=== PATIENT | male | born 1940 | race Caucasian/White ===

== ENCOUNTER 2019-02-18 11:15 | Inpatient (IN) ==
--- NOTE | 2019-02-18 11:35 | CT Scan Report ---
CT head/brain wo con CLINICAL HISTORY: Stroke like symptoms COMPARISON STUDY: No previous studies for comparison. TECHNIQUE: Axial CT of the brain is performed from the vertex to the skull base. IV contrast was not administered for this examination. A dose lowering technique was utilized adhering to the principles of ALARA. CT DOSE: 2378.13 mGy.cm FINDINGS: No intra or extra-axial mass lesions are visualized. There is no CT evidence of acute cortical infarc tion. There is no evidence of midline shift. There is no acute hemorrhage. No calvarial fractures ar e visualized. There are patchy white matter hypodensities likely on a small vessel basis. There is no evidence of pathologic ventricular dilatation. There is no evidence of acute sinusitis. There is left frontal scalp edema. IMPRESSION: No acute intracranial findings Electronically signed by: Dash Weiss M.D. 02/18/2019 11:33 AM
[2019-02-18] MEDS ORDERED: OPTIRAY 320 125ml IV PRN (11:36)
[2019-02-18] MEDS ORDERED: MIDAZOLAM HCL 1 MG/ML 2ML VIAL ONE (11:37)
[2019-02-18] MEDS ORDERED: ALTEPLASE For Stroke IV STA (11:47)
[2019-02-18 11:51] LABS: Basophils # (auto) 0.02 K/uL (0-0.2); Basophils % (auto) 0.2 %; Eosinophils # (auto) 0.01 K/uL (0-0.5); Eosinophils % (auto) 0.1 %; Hematocrit (blood only) 35.3 % (42-52); Hemoglobin 12.2 g/dL (14.0-18.0); Immature Granulocytes # (auto) 0.03 K/uL (0.00-0.02); Immature Granulocytes % (auto) 0.2 %; Lymphocytes # (auto) 0.93 K/uL (1.2-3.4); Lymphocytes % (auto) 7.5 %; Mean Corpuscular Hgb Conc 34.6 g/dL (32-36); Mean Corpuscular Volume 95.4 fL (80-100); Mean Platelet Volume 9.2 fL (7.4-10.4); Monocytes # (auto) 0.92 K/uL (0.11-0.59); Monocytes % (auto) 7.4 %; Neutrophils # (auto) 10.45 K/uL (1.4-6.5); Neutrophils % (auto) 84.6 %; Platelet Count 223 K/uL (130-400); RDW Coefficient of Variation 13.2 % (11.5-14.5); RDW Standard Deviation 46.3 fL (36.4-46.3); White Blood Count 12.36 K/uL (4.8-10.8)
--- NOTE | 2019-02-18 11:52 | CT Scan Report ---
HEAD & NECK CTA HISTORY: Pt aphasia TECHNIQUE: Multiaxial CT images of the head were performed following the intravenous administration o f contrast to evaluate the major cerebral vessels. Multiaxial CT images of the neck were also perform ed following the intravenous administration of contrast to evaluate the major cervical vessels. Maxim um intensity projection images were also obtained. A dose lowering technique was utilized adhering to the principles of ALARA. COMPARISON: Head CT 02/18/2019. FINDINGS: A left frontal scalp swelling is again noted. There is an enhancing 7 mm extra-axial nodule within th e left planum sphenoidale. Therefore, this favors a meningioma. This is best seen on axial image 97. The major dural venous sinuses are widely patent. Mild calcified plaque within the bilateral carotid siphons. Visualized intracranial internal carotid arteries, distal vertebral arteries, and basilar ar kemar are widely patent. There is no significant stenosis, occlusion, or aneurysm seen within the bila teral ACAs, MCAs, or imagery intelligence. Motion artifact within the lower neck. This results in suboptimal evaluation of the proximal great v essels. However, these are likely patent. The right vertebral artery is slightly hypoplastic. The pro ximal right vertebral artery is nondiagnostic due to the motion artifact. Groundglass densities w ithin the left upper lobe posteriorly. This may represent atelectasis are inflammatory change. Mild c alcified plaque within the bilateral carotid bulbs. The bilateral proximal internal and common caroti d arteries are also partially obscured by motion artifact but likely patent. IMPRESSION: 1. No significant stenosis, occlusion, or aneurysm within the [place]. 2. Motion artifact results in suboptimal evaluation of the cervical vessels. However, no definite soraida nosis, occlusion, or dissection identified within the carotid or vertebral arteries. 3. Left frontal scalp swelling. 4. There is an enhancing 7 mm extra-axial nodule within the left planum sphenoidale. Therefore, this favors a meningioma. Electronically signed by: Michael Montana M.D. 02/18/2019 11:51 AM
--- NOTE | 2019-02-18 11:52 | CT Scan Report ---
HEAD & NECK CTA HISTORY: Pt aphasia TECHNIQUE: Multiaxial CT images of the head were performed following the intravenous administration o f contrast to evaluate the major cerebral vessels. Multiaxial CT images of the neck were also perform ed following the intravenous administration of contrast to evaluate the major cervical vessels. Maxim um intensity projection images were also obtained. A dose lowering technique was utilized adhering to the principles of ALARA. COMPARISON: Head CT 02/18/2019. FINDINGS: A left frontal scalp swelling is again noted. There is an enhancing 7 mm extra-axial nodule within th e left planum sphenoidale. Therefore, this favors a meningioma. This is best seen on axial image 97. The major dural venous sinuses are widely patent. Mild calcified plaque within the bilateral carotid siphons. Visualized intracranial internal carotid arteries, distal vertebral arteries, and basilar ar kemar are widely patent. There is no significant stenosis, occlusion, or aneurysm seen within the bila teral ACAs, MCAs, or residential mortgage underwriter. Motion artifact within the lower neck. This results in suboptimal evaluation of the proximal great v essels. However, these are likely patent. The right vertebral artery is slightly hypoplastic. The pro ximal right vertebral artery is nondiagnostic due to the motion artifact. Groundglass densities w ithin the left upper lobe posteriorly. This may represent atelectasis are inflammatory change. Mild c alcified plaque within the bilateral carotid bulbs. The bilateral proximal internal and common caroti d arteries are also partially obscured by motion artifact but likely patent. IMPRESSION: 1. No significant stenosis, occlusion, or aneurysm within the [place]. 2. Motion artifact results in suboptimal evaluation of the cervical vessels. However, no definite soraida nosis, occlusion, or dissection identified within the carotid or vertebral arteries. 3. Left frontal scalp swelling. 4. There is an enhancing 7 mm extra-axial nodule within the left planum sphenoidale. Therefore, this favors a meningioma. Electronically signed by: Michael Montana M.D. 02/18/2019 11:51 AM
[2019-02-18] MEDS ORDERED: ALTEPLASE, RECOMBINANT 51 MG in EMPTY BAG 0 ML IV ONE (12:00)
[2019-02-18] MEDS ORDERED: ALTEPLASE IV ONE (12:00)
[2019-02-18] MEDS ORDERED: RECOMBINANT IV ONE (12:00)
[2019-02-18 12:02] LABS: INR 1.1 (0.9-1.1); Partial Thromboplastin Ratio 0.9; Partial Thromboplastin Time 23.9 Seconds (21.0-31.0); Prothrombin Time 11.5 Seconds (9.0-12.0)
[2019-02-18] MEDS ORDERED: LABETALOL HCL IV 5 MG/ML 20ML IV STA (12:02)
[2019-02-18 12:07] LABS: iSTAT Creatinine 0.6 mg/dl (0.6-1.3); iSTAT Hemoglobin 13.3 g/dl (14.0-18.0); iSTAT Ionized Calcium 1.12 mmol/l (1.12-1.32); iSTAT Potassium 3.1 mEq/L (3.3-5.0)
[2019-02-18] MEDS ORDERED: LORazepam 1 MG/2 ML VIAL IV STA (12:09)
[2019-02-18 12:10] LABS: Alanine Aminotransferase 22 U/L (12-78); Albumin Level 3.4 gm/dl (3.4-5.0); Aspartate Aminotransferase 22 U/L (15-37); BUN Creatinine Ratio 9.5 (10-20); Blood Urea Nitrogen 8 mg/dl (7-18); Calcium 8.6 mg/dl (8.5-10.1); Carbon Dioxide 22 mmol/L (21-32); Chloride 99 mmol/L (98-107); Creatinine Clr Calc Pharmacy 62.9 ml/min; Est GFR (African American) 96.3; Est GFR (Non-African American) 83.1; Glucose 181 mg/dl (70-99); Magnesium 1.4 mg/dl (1.8-2.4); Potassium 3.1 mmol/L (3.5-5.1); Sodium 131 mmol/L (136-145)
[2019-02-18 12:15] LABS: Albumin Globulin Ratio 1.3 (0.9-2); Alkaline Phosphatase 74 U/L (45-117); Bilirubin,Total 0.7 mg/dl (0.2-1); Globulin 2.6 gm/dl (2.5-4.0); Troponin I < 0.015 ng/ml (0-0.045)
[2019-02-18] MEDS: POTASSIUM CHLORIDE / WTR 10 MEQ/100 ML PLCT IV SCH ×2 (12:31→13:43)
[2019-02-18] MEDS ORDERED: MULTI-VITAMIN INFUSION 10 ML, THIAMINE HCL 100 MG, FOLIC ACID 1 MG in SODIUM CHLORIDE 0... IV SCH (13:00)
[2019-02-18 13:31] LABS: Amphetamines+Metham, Urine Neg (Neg); Barbiturates, Urine Neg (Neg); Benzodiazepine, Urine Pos (Neg); Cocaine, Urine Neg (Neg); MDMA (Ecstacy), Urine Neg (Neg); Methadone, Urine Neg (Neg); Opiate, Urine Neg (Neg); Phencyclidine, Urine Neg (Neg)
--- NOTE | 2019-02-18 14:32 | XRay Report ---
XR chest 1V portable HISTORY: unresponsive COMPARISON: Chest 07/28/2018. FINDINGS: No pneumothorax. No pleural effusions. The heart remains mildly enlarged. Mild diffuse inte rstitial thickening remains unchanged. This is likely chronic. Left basilar linear densities persist and favor subsegmental atelectasis. No new focal lung consolidations to suggest pneumonia. No evidenc e for pulmonary edema. Stable 5 mm irregular density within the right midlung zone. IMPRESSION: 1. No acute process within the chest. 2. Stable mild cardiomegaly. 3. Mild chronic interstitial thickening. 4. Stable 5 mm nodular density within the right midlung zone. Electronically signed by: Michael Montana M.D. 02/18/2019 2:31 PM
--- NOTE | 2019-02-18 14:48 | History & Physical Report ---
Date of Service February 18, 2019 Assessment & Plan (1) Fall: (2) Altered mental status: Pt presented to ER after fall today around 10am. Pt's family heard him fall in bathroom and found pt face down on floor with reported generalized shaking, heavy breathing and not responding. Upon ER arrival it is reported by ER staff the patient was very anxious and grabbing at things and was nonverbal and not following commands. He was given Versed 2 mg. He was also given Labetalol 10 mg IV, Keppra 1000mg IV, Ativan 1 mg IV, Reports since ativan pt has been sleeping, not responding but does respond to painful stimuli. In ER vitals: P: 100 down to 88, R: 22 down to 16, BP: 159/90, 163/148, 144/103, 96% on 2L oxygen NC CXR: No acute process within the chest. Stable mild cardiomegaly. Mild chronic interstitial thickening. Stable 5 mm nodular density within the right midlung zone. CT HEAD: No acute intracranial findings CTA HEAD & CTA NECK: 1. No significant stenosis, occlusion, or aneurysm within the [place]. 2. Motion artifact results in suboptimal evaluation of the cervical vessels. However, no definite stenosis, occlusion, or dissection identified within the carotid or vertebral arteries. 3. Left frontal scalp swelling. 4. There is an enhancing 7 mm extra-axial nodule within the left planum sphenoidale. Therefore, this favors a meningioma. WBC: 12, Hgb: 12, Na: 131, K: 3.1, Cl: 99, magnesium: 1.4. Initial troponin negative. Urine tox screen +benzos (was obtained after medicated in ER). ETOH <3.0 DDX: Possible seizure, possible alcohol withdrawal seizure, syncope, stroke -seizure precautions -Tele to monitor for arrhythmias -EKG in am -trend troponin -lipids, HA1C, TSH pending -MRI brain pending -echo pending -aspiration precautions -PT/OT consult -allow permissive HTN in 1st 24 hrs -will continue aspirin, statin when pt awake and able to tolerate orals -neurology consult (3) Alcohol abuse: (4) Alcohol withdrawal: Pt reportedly drinks 6 beers a day. Reported last drink approx 9:30PM Last night. In ER ETOH negative. He was given versed 2 IV, ativan 1mg IV, and banana bag -Alcohol withdrawal protocol with ativan and gabapentin when pt alert enough to take oral medications -seizure precautions (5) Hypokalemia: K: 3.1 In ER pt was given K rider 10 mEq IV x2 -replace and monitor electrolytes (6) Hypomagnesemia: Magnesium: 1.4 -replace and monitor magnesium (7) Hyperglycemia: Glucose: 181. No hx diabetes. -A1c in AM (8) Hyponatremia: Na:131 -monitor (9) HTN (hypertension): Will allow permissive HTN -hold losartan since pt not able to tolerate oral at this time (10) HLD (hyperlipidemia): -statin will be continued when pt able to tolerate oral (11) GERD (gastroesophageal reflux disease): -will convert protonix from PO to IV until can handle orals DVT Prophylaxis -SCDs Full Code as per discussion with pt's and son Follows with Dr Pate for routine care Pt was seen with Dr Gonzáles. See addendum History of Present Illness Chief Complaint: Fall Primary Care Provider: Jessica Pate Pt is 78 y/o M with PMH HTN, HLD, GERD, valvular heart disease, pernicious anemia, BPH Presented to ER with complaint of fall. History obtained from patient's and patient's son as patient is unresponsive. Patient's reports that approximately 7 AM today he went got up out of bed and went to the bathroom. reports the patient was complaining of headache last night and this morning. She states he was not talking much this morning which often occurs if he is not feeling well.He denies him complaining of anything else this morning. Reports had a cup of coffee this morning, did not take his morning medications. Reports at approximately 10 AM he walked to bathroom and his heard a fall. Son went immediately to the bathroom and found patient lying face down on the floor and appeared to be shaking and breathing heavy and snoring and was not responding. reports that patient drinks at least 6 beers a day. She believes last drink was approximately 930 last night. She denies any known ETOH withdrawal in past. Denies any known seizure disorder. reports pt seemed to be at his baseline health over the past several weeks and denies recent illness. States he had been eating normally and she is unaware of any diarrhea or urinary symptoms but states that he usually doesn't tell her anyhow. Upon ER arrival it is reported by ER staff the patient was very anxious and grabbing at things and was nonverbal and not following commands. He was given Versed 2 mg. He was also given Labetalol 10 mg IV, Keppra 1000mg IV, Ativan 1 mg IV, K rider 10 mEq IV x2, banana bag. Reports since ativan pt has been sleeping, not responding but does respond to painful stimuli. Hx Echo in 07/2018: EF 55-60%, grade 2 diastolic dysfunction, mild aortic valve sclerosis, mild mitral regurgitation. Allergies Allergy/AdvReac Type Severity Reaction Status Date / Time No Known Allergies Allergy Unverified 02/18/19 11:54 Home Medications Home Medications Medication Instructions Recorded Confirmed Type aspirin [Aspir-81] 81 mg PO DAILY 07/28/18 02/18/19 History atorvastatin 10 mg PO DAILY 07/28/18 02/18/19 History cholecalciferol (vitamin D3) 1,000 unit PO DAILY 07/28/18 02/18/19 History [Vitamin D3] losartan 25 mg PO DAILY 07/28/18 02/18/19 History metoprolol succinate 50 mg PO DAILY 07/28/18 02/18/19 History pantoprazole 40 mg PO DAILY 07/28/18 02/18/19 History potassium chloride 10 meq PO BID 07/28/18 02/18/19 History duloxetine 20 mg PO DAILY 02/18/19 02/18/19 History Past Med/Surg History Medical History GERD (gastroesophageal reflux disease) (Chronic) HLD (hyperlipidemia) (Chronic) Pernicious anemia (Chronic) BPH (benign prostatic hyperplasia) (Chronic) First degree atrioventricular block (Chronic) Valvular heart disease (Chronic) Chronic left hip pain (Chronic) HTN (hypertension) (Chronic) Syncope and collapse (Resolved) Weakness (Chronic) Hypertension Spinal stenosis Surgical History History of cataract surgery (Chronic) History of inguinal hernia repair (Chronic) History of hemorrhoidectomy (Chronic) 1970 Social History Preferred Language: [place] Residential Substance Abuse Counselor Required: No Beliefs That Will Affect Care: None Current Living Situation: Spouse and Family Current Living Situation Comment: one level home Other Information That Helps Us Care for You: No Feels Safe at Home: Yes Safety Concerns: Feels Safe At This Time Smoking Status: Never smoker Hx Alcohol Use: Yes Hx Substance Use: No Review of Systems Unobtainable due to reduced consciousness Physical Exam Vital Signs (Past 24 Hours): Last Vital Signs Pulse 92 H 02/18/19 14:34 Resp 24 02/18/19 14:34 BP 180/100 H 02/18/19 14:34 Pulse Ox 100 02/18/19 14:34 Physical Exam: General: elderly male, currently unresponsive, WDWN Head: normocephalic, +left frontal scalp hematoma Eyes: pupils approx 2mm and reactive to light, conjunctiva non-injected, anicteric ENT: normal inspection external ears, nose, mucous membranes moist, tongue with small laceration Neck: supple, trachea midline Lungs: clear, no respiratory distress, maintaining own airway CV: RRR, no pretibial edema Abd: normal BS, soft, no apparent tenderness to palpation Ext: no cyanosis, +ecchymosis right anterior knee Neuro: unresponsive, does pull back from painful stimuli Skin: warm, dry Results & Data Laboratory Results Short CBC 02/18/19 Range/Units 11:36 WBC 12.36 H (4.8-10.8) K/uL Hgb 12.2 L (14.0-18.0) g/dL Hct 35.3 L (42-52) % Plt Count 223 (130-400) K/uL BMP 02/18/19 11:36 Sodium 131 L Potassium 3.1 L Chloride 99 Carbon Dioxide 22 BUN 8 Creatinine 0.83 Glucose 181 H Calcium 8.6 Cardiac Enzymes 02/18/19 Range/Units 11:36 Troponin I < 0.015 (0-0.045) ng/ml Liver Function 02/18/19 Range/Units 11:36 Total Bilirubin 0.7 (0.2-1) mg/dl AST 22 (15-37) U/L ALT 22 (12-78) U/L Alkaline Phosphatase 74 (45-117) U/L Albumin 3.4 (3.4-5.0) gm/dl Diagnostic Findings CXR: IMPRESSION: 1. No acute process within the chest. 2. Stable mild cardiomegaly. 3. Mild chronic interstitial thickening. 4. Stable 5 mm nodular density within the right midlung zone. CT HEAD IMPRESSION: No acute intracranial findings CTA HEAD & CTA NECK: IMPRESSION: 1. No significant stenosis, occlusion, or aneurysm within the [place]. 2. Motion artifact results in suboptimal evaluation of the cervical vessels. However, no definite stenosis, occlusion, or dissection identified within the carotid or vertebral arteries. 3. Left frontal scalp swelling. 4. There is an enhancing 7 mm extra-axial nodule within the left planum sphenoidale. Therefore, this favors a meningioma. ECG Rate (beats per minute): 97 Rhythm: sinus with SA Findings: + 1st degree AV block, + LAFB and + nonspecific-ST abn Supervising Physician Co-Signing Physician Notes I have seen and examined the patient and have discussed the case with the provider above. I agree with the assessment and plan as stated. 78 yo M with h/o heavy alcohol use presents with altered mental status and agitation. Treated with benzos, MRI is negative for stroke. Pt is still altered and unable to answer questions or participate in an examination. Pupils are equal and reactive, mucous membranes moist, sleeping,withdraws to painful stimuli, normal respiratory rate, unable to elicit reflexes. Cont to monitor and support him. Neuro to see in am. DO Eliecer (1) Altered mental status Altered mental status type: unspecified Qualified Code(s): R41.82 - Altered mental status, unspecified
[2019-02-18] MEDS ORDERED: LORazepam 2 MG/4 ML VIAL ONE (15:32)
[2019-02-18] MEDS ORDERED: GADOBUTROL 65ML VIAL IV PRN (16:15)
[2019-02-18] MEDS ORDERED: LORazepam 2 MG/4 ML VIAL IV STA (16:21)
--- NOTE | 2019-02-18 16:25 | Magnetic Resonance Report ---
MRI OF THE BRAIN WITHOUT AND WITH IV CONTRAST CLINICAL HISTORY: Seizure COMPARISON STUDY: Head CT and CTA of the head performed earlier today. TECHNIQUE: Utilizing a 1.5 Denia magnet and dedicated coil, multiplanar, multiecho imaging of the br ain was performed pre and postcontrast administration. IV administration of 6 mL of Gadavist contras t was uneventful. FINDINGS: There are no foci of restricted diffusion to suggest acute infarct. No acute intracranial h emorrhage, midline shift or mass effect is present. There is moderate atrophy. White matter T2 hyperi ntense foci reflect moderate small vessel disease. Mild ventricular dilatation is due to atrophy. Bas ilar cisterns are patent. There are no extra-axial collections. Flow-voids for the major intracranial vessels are present. A 7 mm suspected meningioma along the left planum sphenoidale is noted. No laurel tional intracranial masses are present. There is a left frontal scalp contusion. IMPRESSION: 1. No acute intracranial findings. 2. 7 mm suspected meningioma along the left planum sphenoidale. 3. Moderate to marked atrophy. Moderate small vessel disease. 4. Small left frontal scalp contusion. Electronically signed by: Julio Mehta M.D. 02/18/2019 4:23 PM
[2019-02-18] MEDS ORDERED: LORazepam 1 MG TAB PO PRN (17:19)
[2019-02-18] MEDS ORDERED: LORazepam 1 MG/2 ML VIAL IV PRN (17:19)
[2019-02-18] MEDS ORDERED: GABAPENTIN 1200MG ALCOHOL WITHDRAWAL LOAD PO STA (17:19)
[2019-02-18] MEDS ORDERED: PHARMACIST DISCHARGE MED REC CONSULT PRN (17:19)
[2019-02-18] MEDS ORDERED: GLUCOSE 10 TABS/TUBE PO PRN (17:51)
[2019-02-18] MEDS ORDERED: GLUCAGON FOR INJ 1 MG VIAL SQ PRN (17:51)
[2019-02-18] MEDS ORDERED: DEXTROSE 50% 50 ML SYRINGE IV PRN (17:51)
[2019-02-18] MEDS ORDERED: GLUCOSE 40% GEL 15 GM TUBE PO PRN (17:51)
[2019-02-18] MEDS ORDERED: CARBOHYDRATES FOR HYPOGLYCEMIA PO PRN (17:51)
[2019-02-18] MEDS ORDERED: SODIUM CHLORIDE 0.9% 1000ML 1,000 ML IV SCH (18:00)
[2019-02-18] MEDS ORDERED: PANTOprazole 40 MG in SYRINGE 0 ML IV ONE (18:00)
[2019-02-18] MEDS ORDERED: GABAPENTIN 600 MG TAB PO ONE (18:00)
[2019-02-18 18:43] LABS: Troponin I 0.03 ng/ml (0-0.045)
[2019-02-18] MEDS: MAGNESIUM SULFATE / D5W 1 GM/100 ML BAG IV SCH ×4 (18:47→22:15)
[2019-02-18 20:22] LABS: Appearance Urine Clear (Clear); Bacteria Urine Automated Negative (Negative); Bilirubin Urine Negative (Negative); Blood Urine Trace (Negative); Color Urine Yellow; Glucose Urine UA Negative (Negative); Ketones Urine 1+ (Negative); Leukocyte Esterase Urine Negative (Negative); Nitrite Urine Negative (Negative); Protein Urine Negative (Negative); RBC Urine Automated 0-4 /hpf (0-4); Specific Gravity Urine 1.032 (1.000-1.030); Urobilinogen Urine Negative (Negative); pH Urine 6.5 (4.5-7.5)
[2019-02-18] MEDS: INSULIN ASPART 100 UNITS/ML 3 ML PEN SC SCH (20:34)
[2019-02-18] MEDS: GABAPENTIN 600 MG TAB PO SCH (23:50)
[2019-02-19] MEDS: ACETAMINOPHEN 325 MG TAB PO PRN ×2 (04:32→11:22)
[2019-02-19 05:53] LABS: Basophils # (auto) 0.03 K/uL (0-0.2); Basophils % (auto) 0.2 %; Eosinophils # (auto) 0.03 K/uL (0-0.5); Eosinophils % (auto) 0.2 %; Hematocrit (blood only) 35.1 % (42-52); Immature Granulocytes # (auto) 0.03 K/uL (0.00-0.02); Immature Granulocytes % (auto) 0.2 %; Lymphocytes # (auto) 0.88 K/uL (1.2-3.4); Lymphocytes % (auto) 6.5 %; Mean Corpuscular Hgb Conc 34.2 g/dL (32-36); Mean Corpuscular Volume 94.9 fL (80-100); Mean Platelet Volume 9.3 fL (7.4-10.4); Monocytes % (auto) 12.5 %; Neutrophils # (auto) 10.95 K/uL (1.4-6.5); Neutrophils % (auto) 80.4 %; Platelet Count 220 K/uL (130-400); RDW Coefficient of Variation 13.4 % (11.5-14.5); RDW Standard Deviation 46.3 fL (36.4-46.3); White Blood Count 13.62 K/uL (4.8-10.8)
[2019-02-19] MEDS: GABAPENTIN 600 MG TAB PO SCH ×3 (06:07→22:08)
[2019-02-19 06:28] LABS: BUN Creatinine Ratio 7.5 (10-20); Calcium 7.8 mg/dl (8.5-10.1); Creatinine Clr Calc Pharmacy 66.9 ml/min; Est GFR (African American) 104.5; Est GFR (Non-African American) 90.2; Magnesium 2.3 mg/dl (1.8-2.4); Potassium 2.9 mmol/L (3.5-5.1)
[2019-02-19 06:52] LABS: Estimated Average Glucose 120 mg/dl; Hemoglobin A1C 5.8 % (4.5-5.6)
--- NOTE | 2019-02-19 08:32 | Emergency Department Note ---
Entered by Tanya Guzman acting as a scribe for Chano Ortiz MD History of Present Illness General Stated complaint: stroke alert Source: family and EMS Mode of arrival: ambulatory Limitations: altered mental status History of Present Illness Onset (ago): hour(s) (last known well was 1000) Location: head (stroke symptoms, confusion) Pain Consistency: + constant Quality: + other (stroke symptoms) Associated symptoms: + confusion and + headaches The HPI is limited secondary to altered mental status. He presents with his and son. The patient is an 78 year old male who presents to the ED with c omplaints of constant stroke symptoms that onset at 1000. Per EMS, the family states that he had a constant headache for the past 2 days. They told EMS that he went to the bathroom this morning, pulled down his pants, and fell face first. EMS states that he was snoring when they arrived. His last known well is 1000. The patient is confused. Home Medications Home Medications Medication Instructions Recorded Confirmed Type aspirin [Aspir-81] 81 mg PO DAILY 07/28/18 02/18/19 History atorvastatin 10 mg PO DAILY 07/28/18 02/18/19 History cholecalciferol (vitamin D3) 1,000 unit PO DAILY 07/28/18 02/18/19 History [Vitamin D3] losartan 25 mg PO DAILY 07/28/18 02/18/19 History metoprolol succinate 50 mg PO DAILY 07/28/18 02/18/19 History pantoprazole 40 mg PO DAILY 07/28/18 02/18/19 History potassium chloride 10 meq PO BID 07/28/18 02/18/19 History duloxetine 20 mg PO DAILY 02/18/19 02/18/19 History Allergies Allergy/AdvReac Type Severity Reaction Status Date / Time No Known Allergies Allergy Unverified 02/18/19 11:54 Past Med/Surg History Medical History GERD (gastroesophageal reflux disease) (Chronic) HLD (hyperlipidemia) (Chronic) Pernicious anemia (Chronic) BPH (benign prostatic hyperplasia) (Chronic) First degree atrioventricular block (Chronic) Valvular heart disease (Chronic) Chronic left hip pain (Chronic) HTN (hypertension) (Chronic) Syncope and collapse (Resolved) Weakness (Chronic) Hypertension Spinal stenosis Surgical History History of cataract surgery (Chronic) History of inguinal hernia repair (Chronic) History of hemorrhoidectomy (Chronic) 1970 Social History Preferred Language: Turkmen Adhesive Sprayer Required: No Beliefs That Will Affect Care: None Current Living Situation: Spouse and Family Current Living Situation Comment: one level home Other Information That Helps Us Care for You: No Feels Safe at Home: Yes Safety Concerns: Feels Safe At This Time Smoking Status: Never smoker Hx Alcohol Use: Yes Hx Substance Use: No Review of Systems See HPI for pertinent positives & negatives. and A total of 10 systems reviewed and were otherwise negative Physical Exam Vital Signs Vital Signs - 24 hr 02/18/19 11:15 02/18/19 11:38 02/18/19 11:56 Temperature Temperature Source Sepsis Recent Fever Within 48 Hours No Sepsis New/Unexplained Change in Mental Status Yes Sepsis Action Taken by Nursing No Action Required Pulse Rate 100 H 102 H Pulse Rate [Finger] Pulse Rate [Left] 88 Pulse Rhythm Irregular Pulse Rhythm [Left] Pulse Strength [Left] Respiratory Rate 22 24 17 Respiratory Effort / Characteristics Non-Labored Non-Labored Respiratory Depth Normal Normal Respiratory Pattern Blood Pressure 155/90 H Blood Pressure [Left Arm] 188/104 H Blood Pressure [Right Arm] Blood Pressure Mean 111 Blood Pressure Mean [Left Arm] 132 Blood Pressure Mean [Right Arm] Blood Pressure Position [Left Arm] Blood Pressure Position [Right Arm] Pulse Oximetry 28 L 98 100 Oxygen Delivery Method Room Air Nasal Cannula Nasal Cannula Oxygen Flow Rate 2 2 02/18/19 12:22 02/18/19 13:00 02/18/19 13:16 Temperature Temperature Source Sepsis Recent Fever Within 48 Hours Sepsis New/Unexplained Change in Mental Status Sepsis Action Taken by Nursing Pulse Rate Pulse Rate [Finger] Pulse Rate [Left] 94 H 88 76 Pulse Rhythm Pulse Rhythm [Left] Pulse Strength [Left] Respiratory Rate 18 16 24 Respiratory Effort / Characteristics Non-Labored Non-Labored Non-Labored Respiratory Depth Normal Normal Normal Respiratory Pattern Blood Pressure Blood Pressure [Left Arm] 168/94 H 163/148 H 144/103 H Blood Pressure [Right Arm] Blood Pressure Mean Blood Pressure Mean [Left Arm] 118 153 116 Blood Pressure Mean [Right Arm] Blood Pressure Position [Left Arm] Blood Pressure Position [Right Arm] Pulse Oximetry 96 99 100 Oxygen Delivery Method Nasal Cannula Nasal Cannula Nasal Cannula Oxygen Flow Rate 2 2 2 02/18/19 13:40 02/18/19 13:57 02/18/19 14:34 Temperature Temperature Source Sepsis Recent Fever Within 48 Hours Sepsis New/Unexplained Change in Mental Status Sepsis Action Taken by Nursing Pulse Rate Pulse Rate [Finger] Pulse Rate [Left] 82 84 92 H Pulse Rhythm Pulse Rhythm [Left] Pulse Strength [Left] Respiratory Rate 18 18 24 Respiratory Effort / Characteristics Non-Labored Non-Labored Respiratory Depth Normal Normal Respiratory Pattern Regular Blood Pressure Blood Pressure [Left Arm] 196/95 H 188/83 H 180/100 H Blood Pressure [Right Arm] Blood Pressure Mean Blood Pressure Mean [Left Arm] 128 118 126 Blood Pressure Mean [Right Arm] Blood Pressure Position [Left Arm] Blood Pressure Position [Right Arm] Pulse Oximetry 99 100 100 Oxygen Delivery Method Nasal Cannula Nasal Cannula Nasal Cannula Oxygen Flow Rate 2 2 2 02/18/19 14:47 02/18/19 15:08 02/18/19 16:00 Temperature Temperature Source Sepsis Recent Fever Within 48 Hours Sepsis New/Unexplained Change in Mental Status Sepsis Action Taken by Nursing Pulse Rate 80 83 Pulse Rate [Finger] Pulse Rate [Left] 90 Pulse Rhythm Pulse Rhythm [Left] Pulse Strength [Left] Respiratory Rate 21 Respiratory Effort / Characteristics Non-Labored Non-Labored Spontaneous Respiratory Depth Normal Normal Respiratory Pattern Regular Blood Pressure 150/80 H Blood Pressure [Left Arm] 163/88 H Blood Pressure [Right Arm] Blood Pressure Mean Blood Pressure Mean [Left Arm] 113 Blood Pressure Mean [Right Arm] Blood Pressure Position [Left Arm] Blood Pressure Position [Right Arm] Pulse Oximetry 100 100 Oxygen Delivery Method Nasal Cannula Nasal Cannula Nasal Cannula Oxygen Flow Rate 2 2 2 02/18/19 16:15 02/18/19 20:21 02/18/19 23:13 Temperature 37.1 C 36.6 C Temperature Source Oral Oral Sepsis Recent Fever Within 48 Hours Sepsis New/Unexplained Change in Mental Status Sepsis Action Taken by Nursing Pulse Rate 78 Pulse Rate [Finger] 90 Pulse Rate [Left] 84 Pulse Rhythm Pulse Rhythm [Left] Regular Pulse Strength [Left] Normal Respiratory Rate 20 18 Respiratory Effort / Characteristics Non-Labored Non-Labored Respiratory Depth Normal Normal Respiratory Pattern Regular Blood Pressure Blood Pressure [Left Arm] 166/83 H Blood Pressure [Right Arm] 136/85 Blood Pressure Mean Blood Pressure Mean [Left Arm] 110 Blood Pressure Mean [Right Arm] 102 Blood Pressure Position [Left Arm] Lying Blood Pressure Position [Right Arm] Lying Pulse Oximetry 99 98 Oxygen Delivery Method Nasal Cannula Room Air Oxygen Flow Rate 2 02/18/19 23:19 02/19/19 02:59 02/19/19 04:39 Temperature 36.6 C 36.6 C Temperature Source Oral Oral Sepsis Recent Fever Within 48 Hours Sepsis New/Unexplained Change in Mental Status Sepsis Action Taken by Nursing Pulse Rate Pulse Rate [Finger] 55 L 88 Pulse Rate [Left] Pulse Rhythm Pulse Rhythm [Left] Pulse Strength [Left] Respiratory Rate 16 16 Respiratory Effort / Characteristics Respiratory Depth Respiratory Pattern Blood Pressure Blood Pressure [Left Arm] Blood Pressure [Right Arm] 138/86 136/78 Blood Pressure Mean Blood Pressure Mean [Left Arm] Blood Pressure Mean [Right Arm] 103 97 Blood Pressure Position [Left Arm] Blood Pressure Position [Right Arm] Lying Lying Pulse Oximetry 99 95 95 Oxygen Delivery Method Nasal Cannula Room Air Room Air Oxygen Flow Rate 2 02/19/19 08:10 Temperature 36.3 C L Temperature Source Oral Sepsis Recent Fever Within 48 Hours Sepsis New/Unexplained Change in Mental Status Sepsis Action Taken by Nursing Pulse Rate Pulse Rate [Finger] 76 Pulse Rate [Left] Pulse Rhythm Pulse Rhythm [Left] Pulse Strength [Left] Respiratory Rate 20 Respiratory Effort / Characteristics Respiratory Depth Respiratory Pattern Blood Pressure Blood Pressure [Left Arm] Blood Pressure [Right Arm] 180/81 H Blood Pressure Mean Blood Pressure Mean [Left Arm] Blood Pressure Mean [Right Arm] 114 Blood Pressure Position [Left Arm] Blood Pressure Position [Right Arm] Pulse Oximetry 96 Oxygen Delivery Method Oxygen Flow Rate GENERAL: Awake, alert, well-appearing, in no distress HENT: Normocephalic, atraumatic. Oropharynx unremarkable. EYES: Normal conjunctiva. Sclera non-icteric. NECK: Supple. No nuchal rigidity. FROM. No masses. RESPIRATORY: Clear to auscultation. No wheezes. No rales. Normal respiratory effort. CARDIAC: Normal rate. Normal rhythm. No murmurs. No rubs. Extremities warm and well perfused. Pulses equal. No JVD. GI: Soft, non-distended. No tenderness to palpation. No rebound or guarding. No masses. RECTAL: Deferred. MUSCULOSKELETAL: Atraumatic. Chest examination reveals no tenderness. The back is symmetrical on inspection without obvious abnormality. There is no CVA tenderness to palpation. No joint edema. LOWER EXTREMITIES: Calves are equal size bilaterally and non-tender. No edema. No discoloration. NEURO: Moving all four extremities. Does respond to painful stimulus. Does not follow commands. Course 1122: Past medical records reviewed. The patient was evaluated in room A1, and a complete history and physical examination were performed. 1140: I reviewed the patient's case with Dr. Iván Morton. 1154: Dr. Iván Morton is on camera with the patient and family. 1249: I reviewed the patient's case with Dr. Iván Morton. 1255: I reviewed the patient's case with Dr. Annette Moser. She will evaluate the patient for further management. Consultations Consultation #1: 1140: I reviewed the patient's case with Dr. Iván Morton. Time: 11:40 Consultation #2: 1154: Dr. Iván Morton is on camera with the patient and family. Time: 11:54 Consultation #3: 1249: I reviewed the patient's case with Dr. Iván Morton. Time: 12:49 Additional Consultation(s): 1255: I reviewed the patient's case with Dr. Annette Moser. She will evaluate the patient for further management. Administered Medications Acetaminophen (Tylenol) 650 mg PO Q4H PRN PRN Reason: Pain or Fever Stop: 03/20/19 17:18 Last Admin: 02/19/19 04:32 Dose: 650 mg Documented by: [id number] Gadobutrol (Gadavist 65ml) 6 ml IV ONCE PRN PRN Reason: Interaction Checking Stop: 02/22/19 16:14 Last Admin: 02/18/19 16:16 Dose: 6 ml Documented by: [id number] Insulin Aspart (Novolog Flexpen) 0 units SC ACHS [facility] Stop: 03/20/19 20:59 Last Admin: 02/18/19 20:34 Dose: Not Given Documented by: [id number] Cosigned by: [id number] Discontinued Medications Gabapentin (Neurontin) 1,200 mg PO TODAY@1800 ONE Stop: 02/18/19 18:01 Last Admin: 02/18/19 19:16 Dose: Not Given Documented by: [id number] Gabapentin (Neurontin) 600 mg PO Q6H [facility] Stop: 02/19/19 06:01 Last Admin: 02/19/19 06:07 Dose: 600 mg Documented by: [id number] Admin: 02/18/19 23:50 Dose: Not Given Documented by: [id number] Alteplase, Recombinant 5.6 mg/ (Syringe) 5.6 mls @ 5.6 mls/min IV NOW ONE Stop: 02/18/19 12:01 Last Admin: 02/18/19 13:22 Dose: Not Given Documented by: [id number] Alteplase, Recombinant 51 mg/ (EMPTY BAG) 51 mls @ 51 mls/hr IV NOW ONE Stop: 02/18/19 12:59 Last Admin: 02/18/19 13:22 Dose: Not Given Documented by: [id number] Levetiracetam 1,000 mg/ (Dextrose) 110 mls @ 440 mls/hr IV NOW STA Stop: 02/18/19 12:22 Last Infusion: 02/18/19 13:21 Dose: 0 mls/hr Documented by: [id number] Admin: 02/18/19 12:24 Dose: 440 mls/hr Documented by: [id number] Lorazepam (Ativan) 1 mg in 2 mls @ 2 mls/min IV NOW STA Stop: 02/18/19 12:10 Last Admin: 02/18/19 12:16 Dose: 2 mls/min Documented by: [id number] Potassium Chloride (K Roscoe / Wtr) 10 meq in 100 mls @ 100 mls/hr IV Q1H LYNDA Stop: 02/18/19 14:14 Last Infusion: 02/18/19 14:51 Dose: 0 mls/hr Documented by: [id number] Admin: 02/18/19 13:43 Dose: 100 mls/hr Documented by: [id number] Infusion: 02/18/19 13:41 Dose: 0 mls/hr Documented by: [id number] Admin: 02/18/19 12:31 Dose: 100 mls/hr Documented by: [id number] Multivitamins 10 ml/ Thiamine HCl 100 mg/ Folic Acid 1 mg/Sodium Chloride 1,011.2 mls @ 1,011.2 mls/hr IV .Q1H LYNDA Stop: 02/18/19 13:59 Last Infusion: 02/18/19 14:51 Dose: 0 mls/hr Documented by: [id number] Admin: 02/18/19 13:41 Dose: 1,011.2 mls/hr Documented by: [id number] Lorazepam (Ativan) 2 mg in 4 mls @ 4 mls/min IV NOW STA Stop: 02/18/19 16:22 Last Admin: 02/18/19 18:40 Dose: Not Given Documented by: [id number] Magnesium Sulfate/Dextrose (Magnesium Sulfate / D5w) 1 gm in 100 mls @ 100 mls/hr IV Q1H LYNDA Stop: 02/18/19 21:59 Last Infusion: 02/18/19 23:51 Dose: 0 mls/hr Documented by: [id number] Admin: 02/18/19 22:15 Dose: 100 mls/hr Documented by: [id number] Infusion: 02/18/19 22:13 Dose: 100 mls/hr Documented by: [id number] Admin: 02/18/19 21:13 Dose: 100 mls/hr Documented by: [id number] Infusion: 02/18/19 21:12 Dose: 100 mls/hr Documented by: [id number] Admin: 02/18/19 20:12 Dose: 100 mls/hr Documented by: [id number] Infusion: 02/18/19 19:47 Dose: 100 mls/hr Documented by: [id number] Admin: 02/18/19 18:47 Dose: 100 mls/hr Documented by: [id number] Pantoprazole Sodium 40 mg/ (Syringe) 10 mls @ 5 mls/min IV NOW ONE Stop: 02/18/19 18:01 Last Admin: 02/18/19 20:12 Dose: 5 mls/min Documented by: [id number] Sodium Chloride (Nss 1000ml) 1,000 mls @ 80 mls/hr IV .[id number] LYNDA Stop: 02/19/19 06:29 Last Admin: 02/18/19 18:47 Dose: 80 mls/hr Documented by: [id number] Labetalol HCl (Normodyne) 10 mg IV NOW STA Stop: 02/18/19 12:03 Last Admin: 02/18/19 12:11 Dose: 10 mg Documented by: [id number] Cosigned by: [id number] Lorazepam (Ativan) Confirm Administered Dose 4 mg .ROUTE .STK-MED ONE Stop: 02/18/19 15:33 Last Admin: 02/18/19 16:18 Dose: 2 mg Documented by: [id number] Midazolam HCl (Versed) Confirm Administered Dose 2 mg .ROUTE .ImpactRx-MED ONE Stop: 02/18/19 11:38 Last Admin: 02/18/19 11:38 Dose: 2 mg Documented by: [id number] Medical Decision Making Differential Diagnosis Differential Diagnosis: Ischemic Stroke, hemorrhagic stroke, bells palsy, mass, neoplasm, migraine headache, seizure, subarachnoid hemorrhage, TIA, and transient global amnesia. Medical Records Attestation: I reviewed the patient's medical records. Home Medications Current Medication List: was personally reviewed by me Laboratory Data Attestation: I reviewed the patient's lab results. Result diagrams: 02/19/19 05:26 02/19/19 05:26 Lab Results 02/18/19 02/18/19 02/18/19 Range/Units 11:36 11:36 11:36 WBC 12.36 H (4.8-10.8) K/uL RBC 3.70 L (4.7-6.1) M/uL Hgb 12.2 L (14.0-18.0) g/dL POC Hgb (14.0-18.0) g/dl Hct 35.3 L (42-52) % POC Hct (42-52) % MCV 95.4 (80-100) fL MCH 33.0 (25-34) pg MCHC 34.6 (32-36) g/dL RDW Std Deviation 46.3 (36.4-46.3) fL RDW Coeff of Dereck 13.2 (11.5-14.5) % Plt Count 223 (130-400) K/uL MPV 9.2 (7.4-10.4) fL Immature Gran % (Auto) 0.2 % Neut % (Auto) 84.6 % Lymph % (Auto) 7.5 % Dent % (Auto) 7.4 % Eos % (Auto) 0.1 % Baso % (Auto) 0.2 % Immature Gran # (Auto) 0.03 H (0.00-0.02) K/uL Neut # (Auto) 10.45 H (1.4-6.5) K/uL Lymph # (Auto) 0.93 L (1.2-3.4) K/uL Dent # (Auto) 0.92 H (0.11-0.59) K/uL Eos # (Auto) 0.01 (0-0.5) K/uL Baso # (Auto) 0.02 (0-0.2) K/uL PT 11.5 (9.0-12.0) Seconds INR 1.1 (0.9-1.1) APTT 23.9 (21.0-31.0) Seconds PTT Ratio 0.9 POC Sodium (135-144) mEq/L Sodium 131 L (136-145) mmol/L POC Potassium (3.3-5.0) mEq/L Potassium 3.1 L (3.5-5.1) mmol/L POC Chloride (101-112) mEq/L Chloride 99 (98-107) mmol/L Carbon Dioxide 22 (21-32) mmol/L POC Total CO2 (24-31) mEq/l Anion Gap 11.0 (3-11) POC Anion Gap (16-25) mmol/L POC BUN (7-18) mg/dl BUN 8 (7-18) mg/dl Creatinine 0.83 (0.6-1.4) mg/dl POC Creatinine (0.6-1.3) mg/dl Est Cr Clr Drug Dosing 62.9 ml/min Est GFR ( Amer) 96.3 Est GFR (Non-Af Amer) 83.1 BUN/Creatinine Ratio 9.5 L (10-20) Glucose 181 H (70-99) mg/dl POC Glucose (70-99) POC Glucose (other) (70-99) mg/dl Estimat Average Glucose mg/dl Hemoglobin A1c (4.5-5.6) % Calcium 8.6 (8.5-10.1) mg/dl POC Ioniz Calcium Crystal (1.12-1.32) mmol/l Magnesium 1.4 L (1.8-2.4) mg/dl Total Bilirubin 0.7 (0.2-1) mg/dl AST 22 (15-37) U/L ALT 22 (12-78) U/L Alkaline Phosphatase 74 (45-117) U/L Troponin I < 0.015 (0-0.045) ng/ml Total Protein 6.0 L (6.4-8.2) gm/dl Albumin 3.4 (3.4-5.0) gm/dl Globulin 2.6 (2.5-4.0) gm/dl Albumin/Globulin Ratio 1.3 (0.9-2) Triglycerides (0-150) mg/dl Cholesterol (0-200) mg/dl LDL Cholesterol, Calc mg/dl VLDL Cholesterol, Calc mg/dl HDL Cholesterol mg/dl Cholesterol/HDL Ratio TSH (0.300-4.500) uIu/ml Urine Color Urine Appearance (Clear) Urine pH (4.5-7.5) Ur Specific [place] (1.000-1.030) Urine Protein (Negative) Urine Glucose (UA) (Negative) Urine Ketones (Negative) Urine Blood (Negative) Urine Nitrite (Negative) Urine Bilirubin (Negative) Urine Urobilinogen (Negative) Ur Leukocyte Esterase (Negative) Urine WBC (Auto) (0-5) /hpf Urine RBC (Auto) (0-4) /hpf U Hyaline Cast (Auto) (0-5) /lpf U Epithel Cells (Auto) (0-5) /lpf Urine Bacteria (Auto) (Negative) Urine Opiates Screen (Neg) Ur Methadone, Qual (Neg) Urine Barbiturates (Neg) Ur Phencyclidine (PCP) (Neg) U Amphetamin/Meth Scrn (Neg) MDMA (Ecstasy) Screen (Neg) U Benzodiazepines Scrn (Neg) Ur Cocaine Metabolite (Neg) U Marijuana (THC) Screen (Neg) Ethyl Alcohol mg/dL (0-3) mg/dl 02/18/19 02/18/19 02/18/19 Range/Units 11:53 12:55 13:24 WBC (4.8-10.8) K/uL RBC (4.7-6.1) M/uL Hgb (14.0-18.0) g/dL POC Hgb 13.3 L (14.0-18.0) g/dl Hct (42-52) % POC Hct 39 L (42-52) % MCV (80-100) fL MCH (25-34) pg MCHC (32-36) g/dL RDW Std Deviation (36.4-46.3) fL RDW Coeff of Dereck (11.5-14.5) % Plt Count (130-400) K/uL MPV (7.4-10.4) fL Immature Gran % (Auto) % Neut % (Auto) % Lymph % (Auto) % Dent % (Auto) % Eos % (Auto) % Baso % (Auto) % Immature Gran # (Auto) (0.00-0.02) K/uL Neut # (Auto) (1.4-6.5) K/uL Lymph # (Auto) (1.2-3.4) K/uL Dent # (Auto) (0.11-0.59) K/uL Eos # (Auto) (0-0.5) K/uL Baso # (Auto) (0-0.2) K/uL PT (9.0-12.0) Seconds INR (0.9-1.1) APTT (21.0-31.0) Seconds PTT Ratio POC Sodium 130 L (135-144) mEq/L Sodium (136-145) mmol/L POC Potassium 3.1 L (3.3-5.0) mEq/L Potassium (3.5-5.1) mmol/L POC Chloride 94 L (101-112) mEq/L Chloride (98-107) mmol/L Carbon Dioxide (21-32) mmol/L POC Total CO2 21 L (24-31) mEq/l Anion Gap (3-11) POC Anion Gap 19.0 (16-25) mmol/L POC BUN 6 L (7-18) mg/dl BUN (7-18) mg/dl Creatinine (0.6-1.4) mg/dl POC Creatinine 0.6 (0.6-1.3) mg/dl Est Cr Clr Drug Dosing ml/min Est GFR ( Amer) Est GFR (Non-Af Amer) BUN/Creatinine Ratio (10-20) Glucose (70-99) mg/dl POC Glucose (70-99) POC Glucose (other) 176 H (70-99) mg/dl Estimat Average Glucose mg/dl Hemoglobin A1c (4.5-5.6) % Calcium (8.5-10.1) mg/dl POC Ioniz Calcium Crystal 1.12 (1.12-1.32) mmol/l Magnesium (1.8-2.4) mg/dl Total Bilirubin (0.2-1) mg/dl AST (15-37) U/L ALT (12-78) U/L Alkaline Phosphatase (45-117) U/L Troponin I (0-0.045) ng/ml Total Protein (6.4-8.2) gm/dl Albumin (3.4-5.0) gm/dl Globulin (2.5-4.0) gm/dl Albumin/Globulin Ratio (0.9-2) Triglycerides (0-150) mg/dl Cholesterol (0-200) mg/dl LDL Cholesterol, Calc mg/dl VLDL Cholesterol, Calc mg/dl HDL Cholesterol mg/dl Cholesterol/HDL Ratio TSH (0.300-4.500) uIu/ml Urine Color Urine Appearance (Clear) Urine pH (4.5-7.5) Ur Specific [place] (1.000-1.030) Urine Protein (Negative) Urine Glucose (UA) (Negative) Urine Ketones (Negative) Urine Blood (Negative) Urine Nitrite (Negative) Urine Bilirubin (Negative) Urine Urobilinogen (Negative) Ur Leukocyte Esterase (Negative) Urine WBC (Auto) (0-5) /hpf Urine RBC (Auto) (0-4) /hpf U Hyaline Cast (Auto) (0-5) /lpf U Epithel Cells (Auto) (0-5) /lpf Urine Bacteria (Auto) (Negative) Urine Opiates Screen Neg (Neg) Ur Methadone, Qual Neg (Neg) Urine Barbiturates Neg (Neg) Ur Phencyclidine (PCP) Neg (Neg) U Amphetamin/Meth Scrn Neg (Neg) MDMA (Ecstasy) Screen Neg (Neg) U Benzodiazepines Scrn Pos H (Neg) Ur Cocaine Metabolite Neg (Neg) U Marijuana (THC) Screen Neg (Neg) Ethyl Alcohol mg/dL < 3.0 (0-3) mg/dl 02/18/19 02/18/19 02/18/19 Range/Units 17:59 19:40 20:33 WBC (4.8-10.8) K/uL RBC (4.7-6.1) M/uL Hgb (14.0-18.0) g/dL POC Hgb (14.0-18.0) g/dl Hct (42-52) % POC Hct (42-52) % MCV (80-100) fL MCH (25-34) pg MCHC (32-36) g/dL RDW Std Deviation (36.4-46.3) fL RDW Coeff of Dereck (11.5-14.5) % Plt Count (130-400) K/uL MPV (7.4-10.4) fL Immature Gran % (Auto) % Neut % (Auto) % Lymph % (Auto) % Dent % (Auto) % Eos % (Auto) % Baso % (Auto) % Immature Gran # (Auto) (0.00-0.02) K/uL Neut # (Auto) (1.4-6.5) K/uL Lymph # (Auto) (1.2-3.4) K/uL Dent # (Auto) (0.11-0.59) K/uL Eos # (Auto) (0-0.5) K/uL Baso # (Auto) (0-0.2) K/uL PT (9.0-12.0) Seconds INR (0.9-1.1) APTT (21.0-31.0) Seconds PTT Ratio POC Sodium (135-144) mEq/L Sodium (136-145) mmol/L POC Potassium (3.3-5.0) mEq/L Potassium (3.5-5.1) mmol/L POC Chloride (101-112) mEq/L Chloride (98-107) mmol/L Carbon Dioxide (21-32) mmol/L POC Total CO2 (24-31) mEq/l Anion Gap (3-11) POC Anion Gap (16-25) mmol/L POC BUN (7-18) mg/dl BUN (7-18) mg/dl Creatinine (0.6-1.4) mg/dl POC Creatinine (0.6-1.3) mg/dl Est Cr Clr Drug Dosing ml/min Est GFR ( Amer) Est GFR (Non-Af Amer) BUN/Creatinine Ratio (10-20) Glucose (70-99) mg/dl POC Glucose 131 H (70-99) POC Glucose (other) (70-99) mg/dl Estimat Average Glucose mg/dl Hemoglobin A1c (4.5-5.6) % Calcium (8.5-10.1) mg/dl POC Ioniz Calcium Crystal (1.12-1.32) mmol/l Magnesium (1.8-2.4) mg/dl Total Bilirubin (0.2-1) mg/dl AST (15-37) U/L ALT (12-78) U/L Alkaline Phosphatase (45-117) U/L Troponin I 0.030 (0-0.045) ng/ml Total Protein (6.4-8.2) gm/dl Albumin (3.4-5.0) gm/dl Globulin (2.5-4.0) gm/dl Albumin/Globulin Ratio (0.9-2) Triglycerides (0-150) mg/dl Cholesterol (0-200) mg/dl LDL Cholesterol, Calc mg/dl VLDL Cholesterol, Calc mg/dl HDL Cholesterol mg/dl Cholesterol/HDL Ratio TSH 0.416 (0.300-4.500) uIu/ml Urine Color Yellow Urine Appearance Clear (Clear) Urine pH 6.5 (4.5-7.5) Ur Specific [place] 1.032 H (1.000-1.030) Urine Protein Negative (Negative) Urine Glucose (UA) Negative (Negative) Urine Ketones 1+ H (Negative) Urine Blood Trace H (Negative) Urine Nitrite Negative (Negative) Urine Bilirubin Negative (Negative) Urine Urobilinogen Negative (Negative) Ur Leukocyte Esterase Negative (Negative) Urine WBC (Auto) 1-5 (0-5) /hpf Urine RBC (Auto) 0-4 (0-4) /hpf U Hyaline Cast (Auto) 1-5 (0-5) /lpf U Epithel Cells (Auto) 10-20 H (0-5) /lpf Urine Bacteria (Auto) Negative (Negative) Urine Opiates Screen (Neg) Ur Methadone, Qual (Neg) Urine Barbiturates (Neg) Ur Phencyclidine (PCP) (Neg) U Amphetamin/Meth Scrn (Neg) MDMA (Ecstasy) Screen (Neg) U Benzodiazepines Scrn (Neg) Ur Cocaine Metabolite (Neg) U Marijuana (THC) Screen (Neg) Ethyl Alcohol mg/dL (0-3) mg/dl 02/19/19 02/19/19 02/19/19 Range/Units 00:11 05:26 05:26 WBC 13.62 H (4.8-10.8) K/uL RBC 3.70 L (4.7-6.1) M/uL Hgb 12.0 L (14.0-18.0) g/dL POC Hgb (14.0-18.0) g/dl Hct 35.1 L (42-52) % POC Hct (42-52) % MCV 94.9 (80-100) fL MCH 32.4 (25-34) pg MCHC 34.2 (32-36) g/dL RDW Std Deviation 46.3 (36.4-46.3) fL RDW Coeff of Dereck 13.4 (11.5-14.5) % Plt Count 220 (130-400) K/uL MPV 9.3 (7.4-10.4) fL Immature Gran % (Auto) 0.2 % Neut % (Auto) 80.4 % Lymph % (Auto) 6.5 % Dent % (Auto) 12.5 % Eos % (Auto) 0.2 % Baso % (Auto) 0.2 % Immature Gran # (Auto) 0.03 H (0.00-0.02) K/uL Neut # (Auto) 10.95 H (1.4-6.5) K/uL Lymph # (Auto) 0.88 L (1.2-3.4) K/uL Dent # (Auto) 1.70 H (0.11-0.59) K/uL Eos # (Auto) 0.03 (0-0.5) K/uL Baso # (Auto) 0.03 (0-0.2) K/uL PT (9.0-12.0) Seconds INR (0.9-1.1) APTT (21.0-31.0) Seconds PTT Ratio POC Sodium (135-144) mEq/L Sodium 134 L (136-145) mmol/L POC Potassium (3.3-5.0) mEq/L Potassium 2.9 L (3.5-5.1) mmol/L POC Chloride (101-112) mEq/L Chloride 102 (98-107) mmol/L Carbon Dioxide 27 (21-32) mmol/L POC Total CO2 (24-31) mEq/l Anion Gap 5.0 (3-11) POC Anion Gap (16-25) mmol/L POC BUN (7-18) mg/dl BUN 5 L (7-18) mg/dl Creatinine 0.68 (0.6-1.4) mg/dl POC Creatinine (0.6-1.3) mg/dl Est Cr Clr Drug Dosing 66.9 ml/min Est GFR ( Amer) 104.5 Est GFR (Non-Af Amer) 90.2 BUN/Creatinine Ratio 7.5 L (10-20) Glucose 114 H (70-99) mg/dl POC Glucose (70-99) POC Glucose (other) (70-99) mg/dl Estimat Average Glucose mg/dl Hemoglobin A1c (4.5-5.6) % Calcium 7.8 L (8.5-10.1) mg/dl POC Ioniz Calcium Crystal (1.12-1.32) mmol/l Magnesium 2.3 (1.8-2.4) mg/dl Total Bilirubin (0.2-1) mg/dl AST (15-37) U/L ALT (12-78) U/L Alkaline Phosphatase (45-117) U/L Troponin I 0.036 (0-0.045) ng/ml Total Protein (6.4-8.2) gm/dl Albumin (3.4-5.0) gm/dl Globulin (2.5-4.0) gm/dl Albumin/Globulin Ratio (0.9-2) Triglycerides 91 (0-150) mg/dl Cholesterol 162 (0-200) mg/dl LDL Cholesterol, Calc 52 mg/dl VLDL Cholesterol, Calc 18 mg/dl HDL Cholesterol 92 mg/dl Cholesterol/HDL Ratio 2 TSH (0.300-4.500) uIu/ml Urine Color Urine Appearance (Clear) Urine pH (4.5-7.5) Ur Specific [place] (1.000-1.030) Urine Protein (Negative) Urine Glucose (UA) (Negative) Urine Ketones (Negative) Urine Blood (Negative) Urine Nitrite (Negative) Urine Bilirubin (Negative) Urine Urobilinogen (Negative) Ur Leukocyte Esterase (Negative) Urine WBC (Auto) (0-5) /hpf Urine RBC (Auto) (0-4) /hpf U Hyaline Cast (Auto) (0-5) /lpf U Epithel Cells (Auto) (0-5) /lpf Urine Bacteria (Auto) (Negative) Urine Opiates Screen (Neg) Ur Methadone, Qual (Neg) Urine Barbiturates (Neg) Ur Phencyclidine (PCP) (Neg) U Amphetamin/Meth Scrn (Neg) MDMA (Ecstasy) Screen (Neg) U Benzodiazepines Scrn (Neg) Ur Cocaine Metabolite (Neg) U Marijuana (THC) Screen (Neg) Ethyl Alcohol mg/dL (0-3) mg/dl 02/19/19 02/19/19 Range/Units 05:26 07:34 WBC (4.8-10.8) K/uL RBC (4.7-6.1) M/uL Hgb (14.0-18.0) g/dL POC Hgb (14.0-18.0) g/dl Hct (42-52) % POC Hct (42-52) % MCV (80-100) fL MCH (25-34) pg MCHC (32-36) g/dL RDW Std Deviation (36.4-46.3) fL RDW Coeff of Dereck (11.5-14.5) % Plt Count (130-400) K/uL MPV (7.4-10.4) fL Immature Gran % (Auto) % Neut % (Auto) % Lymph % (Auto) % Dent % (Auto) % Eos % (Auto) % Baso % (Auto) % Immature Gran # (Auto) (0.00-0.02) K/uL Neut # (Auto) (1.4-6.5) K/uL Lymph # (Auto) (1.2-3.4) K/uL Dent # (Auto) (0.11-0.59) K/uL Eos # (Auto) (0-0.5) K/uL Baso # (Auto) (0-0.2) K/uL PT (9.0-12.0) Seconds INR (0.9-1.1) APTT (21.0-31.0) Seconds PTT Ratio POC Sodium (135-144) mEq/L Sodium (136-145) mmol/L POC Potassium (3.3-5.0) mEq/L Potassium (3.5-5.1) mmol/L POC Chloride (101-112) mEq/L Chloride (98-107) mmol/L Carbon Dioxide (21-32) mmol/L POC Total CO2 (24-31) mEq/l Anion Gap (3-11) POC Anion Gap (16-25) mmol/L POC BUN (7-18) mg/dl BUN (7-18) mg/dl Creatinine (0.6-1.4) mg/dl POC Creatinine (0.6-1.3) mg/dl Est Cr Clr Drug Dosing ml/min Est GFR ( Amer) Est GFR (Non-Af Amer) BUN/Creatinine Ratio (10-20) Glucose (70-99) mg/dl POC Glucose 110 H (70-99) POC Glucose (other) (70-99) mg/dl Estimat Average Glucose 120 mg/dl Hemoglobin A1c 5.8 H (4.5-5.6) % Calcium (8.5-10.1) mg/dl POC Ioniz Calcium Crystal (1.12-1.32) mmol/l Magnesium (1.8-2.4) mg/dl Total Bilirubin (0.2-1) mg/dl AST (15-37) U/L ALT (12-78) U/L Alkaline Phosphatase (45-117) U/L Troponin I (0-0.045) ng/ml Total Protein (6.4-8.2) gm/dl Albumin (3.4-5.0) gm/dl Globulin (2.5-4.0) gm/dl Albumin/Globulin Ratio (0.9-2) Triglycerides (0-150) mg/dl Cholesterol (0-200) mg/dl LDL Cholesterol, Calc mg/dl VLDL Cholesterol, Calc mg/dl HDL Cholesterol mg/dl Cholesterol/HDL Ratio TSH (0.300-4.500) uIu/ml Urine Color Urine Appearance (Clear) Urine pH (4.5-7.5) Ur Specific [place] (1.000-1.030) Urine Protein (Negative) Urine Glucose (UA) (Negative) Urine Ketones (Negative) Urine Blood (Negative) Urine Nitrite (Negative) Urine Bilirubin (Negative) Urine Urobilinogen (Negative) Ur Leukocyte Esterase (Negative) Urine WBC (Auto) (0-5) /hpf Urine RBC (Auto) (0-4) /hpf U Hyaline Cast (Auto) (0-5) /lpf U Epithel Cells (Auto) (0-5) /lpf Urine Bacteria (Auto) (Negative) Urine Opiates Screen (Neg) Ur Methadone, Qual (Neg) Urine Barbiturates (Neg) Ur Phencyclidine (PCP) (Neg) U Amphetamin/Meth Scrn (Neg) MDMA (Ecstasy) Screen (Neg) U Benzodiazepines Scrn (Neg) Ur Cocaine Metabolite (Neg) U Marijuana (THC) Screen (Neg) Ethyl Alcohol mg/dL (0-3) mg/dl Imaging Data Radiologist's Impression: Radiology results as stated below per my review and the radiologist's interpretation: HEAD & NECK CTA HISTORY: Pt aphasia TECHNIQUE: Multiaxial CT images of the head were performed following the intravenous administration of contrast to evaluate the major cerebral vessels. Multiaxial CT images of the neck were also performed following the intravenous administration of contrast to evaluate the major cervical vessels. Maximum intensity projection images were also obtained. A dose lowering technique was utilized adhering to the principles of ALARA. COMPARISON: Head CT 02/18/2019. FINDINGS: A left frontal scalp swelling is again noted. There is an enhancing 7 mm extra-a xial nodule within the left planum sphenoidale. Therefore, this favors a meningioma. This is best seen on axial image 97. The major dural venous sinuses are widely patent. Mild calcified plaque within the bilateral carotid siphons. Visualized intracranial internal carotid arteries, distal vertebral arteries, and basilar artery are widely patent. There is no significant stenosis, occlusion, or aneurysm seen within the bilateral ACAs, MCAs, or geological engineer. Motion artifact within the lower neck. This results in suboptimal evaluation of the proximal great vessels. However, these are likely patent. The right vertebral artery is slightly hypoplastic. The proximal right vertebral artery is nondiagnostic due to the motion artifact. Groundglass densities within the left upper lobe posteriorly. This may represent atelectasis are inflammatory change. Mild calcified plaque within the bilateral carotid bulbs. The bilateral proximal internal and common carotid arteries are also partially obscured by motion artifact but likely patent. IMPRESSION: 1. No significant stenosis, occlusion, or aneurysm within the [place]. 2. Motion artifact results in suboptimal evaluation of the cervical vessels. However, no definite stenosis, occlusion, or dissection identified within the carotid or vertebral arteries. 3. Left frontal scalp swelling. 4. There is an enhancing 7 mm extra-axial nodule within the left planum sphenoidale. Therefore, this favors a meningioma. Electronically signed by: Michael Montana M.D. 02/18/2019 11:51 AM Dictated: 02/18/19 1140 Transcribed: 02/18/[address] head/brain wo con CLINICAL HISTORY: Stroke like symptoms COMPARISON STUDY: No previous studies for comparison. TECHNIQUE: Axial CT of the brain is performed from the vertex to the skull base. IV contrast was not administered for this examination. A dose lowering technique was utilized adhering to the principles of ALARA. CT DOSE: 2378.13 mGy.cm FINDINGS: No intra or extra-axial mass lesions are visualized. There is no CT evidence of acute cortical infarction. There is no evidence of midline shift. There is no acute hemorrhage. No calvarial fractures are visualized. There are patchy white matter hypodensities likely on a small vessel basis. There is no evidence of pathologic ventricular dilatation. There is no evidence of acute sinusitis. There is left frontal scalp edema. IMPRESSION: No acute intracranial findings Electronically signed by: Dash Weiss M.D. 02/18/2019 11:33 AM Dictated: 02/18/19 1131 Transcribed: 02/18/19 1131 HEAD & NECK CTA HISTORY: Pt aphasia TECHNIQUE: Multiaxial CT images of the head were performed following the intravenous administration of contrast to evaluate the major cerebral vessels. Multiaxial CT images of the neck were also performed following the intravenous administration of contrast to evaluate the major cervical vessels. Maximum intensity projection images were also obtained. A dose lowering technique was utilized adhering to the principles of ALARA. COMPARISON: Head CT 02/18/2019. FINDINGS: A left frontal scalp swelling is again noted. There is an enhancing 7 mm extra- axial nodule within the left planum sphenoidale. Therefore, this favors a men ingioma. This is best seen on axial image 97. The major dural venous sinuses are widely patent. Mild calcified plaque within the bilateral carotid siphons. Visualized intracranial internal carotid arteries, distal vertebral arteries, and basilar artery are widely patent. There is no significant stenosis, occlusion, or aneurysm seen within the bilateral ACAs, MCAs, or geological engineer. Motion artifact within the lower neck. This results in suboptimal evaluation of the proximal great vessels. However, these are likely patent. The right vertebral artery is slightly hypoplastic. The proximal right vertebral artery is nondiagnostic due to the motion artifact. Groundglass densities within the left upper lobe posteriorly. This may represent atelectasis are inflammatory change. Mild calcified plaque within the bilateral carotid bulbs. The bilateral proximal internal and common carotid arteries are also partially obscured by motion artifact but likely patent. IMPRESSION: 1. No significant stenosis, occlusion, or aneurysm within the [place]. 2. Motion artifact results in suboptimal evaluation of the cervical vessels. However, no definite stenosis, occlusion, or dissection identified within the carotid or vertebral arteries. 3. Left frontal scalp swelling. 4. There is an enhancing 7 mm extra-axial nodule within the left planum sphenoidale. Therefore, this favors a meningioma. Electronically signed by: Michael Montana M.D. 02/18/2019 11:51 AM Dictated: 02/18/19 1140 Transcribed: 02/18/19 1140 ECG Data Attestation: I personally reviewed and interpreted this ECG as follows: Indication: other (Stroke symptoms) Rate (beats per minute): 97 Findings: + other (Left ventricular hypertrophy with repolarization abnormality) and + 1st degree AV block; no ST depression and no ST elevation Comparison ECG Date: from (07/28/2018, 07/29/2018, 07/30/2018) Change: no significant change Blood Pressure Blood Pressure Findings: Elevated blood pressure Blood Pressure Disposition: further management by hospitalist TREVOR Jauregui This is a 78-year-old male who presents the emergency department complaining of altered mental status. The patient had a sudden change in mentation at approximately 10 AM this morning. It is difficult to obtain a history from the patient as well as the patient's and son however it sounds like the patient was going to the bathroom when they heard him fall at approximately 10 AM. EMS gave the patient multiple doses of Versed. Upon arrival to the emergency dep artment he is moving all 4 extremities however is unable to answer any questions. Due to the acute nature of his presentation a stroke alert was immediately initiated and the patient was sent for a CAT scan as well as CTA of the head and neck. He does have a slight elevation in his white blood cell count however his temperature is 36 3. He was examined by the stroke neurologist who felt that the patient may have had a seizure. In addition the patient has a history of alcohol abuse. He was started on a banana bag and loaded with Keppra. I did discuss the case with the hospitalist service who agreed to admit the patient. Patient and family were in agreement with the treatment plan. Impression & Plan Altered mental status, HTN (hypertension) Critical Care Time I have personally spent greater than 90 minutes of critical care time in the direct management of this patient. This includes bedside care, interpretation of diagnostic studies, and testing, discussion with consultants, patient, and family members, and other required patient management activities. This 90 minutes is in excess of all separately billable procedures. Critical Care Time: Yes (90) Total Critical Care Time: 90 Discharge Plan Visit Data *Final* Discharge Date/Time: 02/18/19 15:08 Stated Complaint: stroke alert ED Provider: Chano Ortiz Discharge Problem: Altered mental status, HTN (hypertension) Patient Disposition: Admitted As Inpatient Discharge Instructions Interventions: ED Discharge Assessment Last Done: 02/18/19 15:08 Discharge Problem: Altered mental status Qualifiers: Altered mental status type: unspecified Qualified Code(s): R41.82 - Altered mental status, unspecified HTN (hypertension) Qualifiers: Hypertension type: unspecified Qualified Code(s): I10 - Essential (primary) hypertension The scribe's documentation has been prepared under my direction and personally reviewed by me in its entirety. I confirm that the note above accurately reflects all work, treatment, procedures, and medical decision making performed by me.
[2019-02-19] MEDS: ASPIRIN 81 MG ECTAB PO SCH (09:13)
[2019-02-19] MEDS: ATORVASTATIN 10 MG TAB PO SCH (09:13)
[2019-02-19] MEDS: INSULIN ASPART 100 UNITS/ML 3 ML PEN SC SCH ×4 (09:18→20:42)
--- NOTE | 2019-02-19 10:26 | Communication Note ---
Date of Service: February 19, 2019 I seen Mr. Ramos today, examined him, interviewed family members to observe the syncopal event and seizure-like activity yesterday, reviewed his laboratory studies, have ordered an EEG and have dictated a full consultation. At this point I am not in favor of committing this man's a long-term anticonvulsant therapy. The event certainly sounds as if there was seizure activity but is not clear whether this was precipitated by head injury following a syncopal event or whether the seizure might of been the primary event there is also question of alcohol withdrawal although there is also significant chronic daily intake of ethanol which may in of itself produce seizures. He has some mild metabolic disturbances in the form of hypomagnesemia and hypokalemia and these may be playing a role as well. List the EEG that I have ordered shows unequivocal evidence for potentially epileptogenic activity or unless he has a second observed unequivocal seizure I am not in favor of long-term commitment and would simply recommend we look at him again in our office about 6 weeks after discharge review the history patient EEG monitoring study if there are questions regarding a primary care. Manny Scott MD
[2019-02-19] MEDS: PANTOprazole 40 MG in SYRINGE 0 ML IV SCH (10:35)
[2019-02-19] MEDS: POTASSIUM CHLORIDE 20 MEQ/15 ML UDC PO SCH ×4 (10:35→23:17)
--- NOTE | 2019-02-19 11:59 | Consultation Report ---
DATE OF CONSULTATION: 02/19/2019 CONSULTATION FOR: Gracy Gonzáles DO. HISTORY OF PRESENT ILLNESS: Moises is 78 years old, is right handed, is known to Dr. Jessica Pate and presented with an event that may or may not have been a seizure occurring yesterday at about 10:00 a.m. The patient apparently was heard having had a fall in the bathroom. Family presented quickly, found him face down with generalized shaking, heavy breathing, not responding, and when the emergency personnel arrived, he was anxious, grabbing at things and seemed to be confused and nonverbal. He now has returned to his baseline having received 1000 mg of Keppra IV, Ativan and being placed on an alcohol withdrawal protocol based on his history of daily drinking of at least 6 cans of beer and a nondetectable alcohol level on admission coupled with hypomagnesemia and hypokalemia. According to family, he is back to baseline. Anticonvulsants have not been continued. He is in telemetry to monitor for arrhythmias. I have ordered an EEG. I am not sure it is going to get done today and an MRI, a CT scan, etc., have all been done showing only atrophy, some leukoencephalopathy, and a small incidental meningioma which is not producing any compression or potential irritability on the brain parenchyma and normal angiographic studies of the major cerebral vessels. All this occurs in the setting of hypertension, hyperlipidemia, gastroesophageal reflux and of course a history of alcoholism. MEDICATIONS AT HOME: Include aspirin, atorvastatin, cholecalciferol, losartan, metoprolol, pantoprazole, KCl, and duloxetine. None of these save perhaps the duloxetine could lower his seizure threshold and the dose is really very low. PAST MEDICAL HISTORY: He is also known to have first-degree AV block, chronic; valvular heart disease; chronic left hip pain. Has had an episode of syncope, which prompted admission, is now resolved. Has chronic weakness and low back pain with gait disturbance requiring a walker due to his spinal stenosis. PAST SURGICAL HISTORY: Surgically, he has had cataract surgery, inguinal hernia and a hemorrhoidectomy. SOCIAL HISTORY: Reveals him to be a nonsmoker. He does drink at least a 6 pack of beer a night and the family says he had not had anything all day yesterday. REVIEW OF SYSTEMS: Reveals no recent fevers, sweats, or chills. No new issues referral to head, eyes, ears, nose and throat, cardiovascular, pulmonary, gastrointestinal, genitourinary, musculoskeletal, dermatologic, or hematologic issues. No endocrine issues. Neurologically, the family does not describe any agitation, tremulousness or other issues that might indicate an early withdrawal syndrome prior to the onset of his fall yesterday morning. He probably had not had alcohol from the night before, so the period of alcohol withdrawal was minimal. PHYSICAL EXAMINATION: VITAL SIGNS: Blood pressure was 180/100, pulse was 92, respirations were 24, pulse ox was 100. GENERAL: He appeared to be his stated age. HEENT: There was an ecchymosis over the left frontal scalp. His tongue had some bruising and lacerations. Otherwise, head, eyes, ears, nose and throat exam was normal. NECK: Supple. No bruits were heard. LUNGS: Clear. HEART: Had a regular rhythm. ABDOMEN: Soft, nontender. EXTREMITIES: Free of edema and had good pulses. He also was complaining of some left wrist pain. NEUROLOGICAL: Today neurologically he is awake, alert, oriented in 3 spheres, knows family members, can give me the date, the place, the time - all with great accuracy and has no recall of the events leading up to his fall or indeed much of yesterday up until awakening apparently sometime this morning in his current state. He does not even offer complaints of a headache. He does complain of wrist pain. Upper extremity movements are normal, but there may be an element of a left radial nerve palsy. It is hard to tell as he has so much pain when he tries to dorsiflex and plantarflex the left wrist, but there seems to be genuine weakness in the wrist extensors, finger extensors and perhaps thumb extensors, but it appears to spare the brachioradialis. The external rotators may be involved. Again, this is very vague and difficult to define. The triceps, biceps, forearm flexors and intrinsic hand muscles on the left all appeared to be normal. Reflexes are hypoactive but present. Toes are downgoing. No Nathalia signs are seen. Strength testing is otherwise normal in the lower extremities and he has normal sensation to light touch, pinprick and temperature. Certainly, the story sounds as if there was at least some seizure activity. Whether this was precipitated by a fall, closed head injury and then seizures or whether seizure was the initial event is something that we really cannot establish, but he clearly has evidence for trauma to the tongue and head, although he was not incontinent, which is interesting. I remain reluctant to commit this man to long-term anticonvulsants. There may be an element of alcohol withdrawal, but really chronic use of alcohol can also precipitate seizures and at this point the role of alcohol remains questionable. He does have some metabolic abnormalities. He is not on any agents to particularly lower the seizure threshold other than Cymbalta and the dose is low, so at this point all I am recommending is we get an EEG to see if there is any abnormal activity, hold off on any long-term anticonvulsant treatment at this point and observe him for another day or two. I will check back with him tomorrow regarding the potential left wrist drop; some of this I think is pain mediated. MTDD
--- NOTE | 2019-02-19 14:20 | Hospitalist Progress Note ---
Date of Service February 19, 2019 Assessment & Plan (1) Syncope and collapse: ?seizure as there was some reported seizure likel activity at the seen per family. No further seizure activity here. Keppra loaded but then withheld by Neuro. No alcohol withdrawal symptoms with have been a risk but not evident. Repeat head CT was negative for acute intracranial events. Multiple areas of pain and discomfort related to the fall. Knee effusion present with restricted ROM, also with L wrist erythema and swelling. Xrays reveal no evidence of fracture. Tramadol PRN. (2) Altered mental status: Resolved, likely multifactorial (3) Alcohol abuse: Gabapentin withdrawal protocol. Benzos PRN. (4) HTN (hypertension): Likely related to agitation, possibly alcohol withdrawl. Losartan 25 at home. (5) DVT prophylaxis: SCDs for now in setting of changing mental status with trauma to head. Full Dispo-PT/OT and Ortho to evaluate, may need a short stay at rehab. Gracy Gonzáles DO [facility] Hospitalist Subjective 78 you heavy drinker presented to the hospital after an episode of syncope and collapse at home. There was questionable seizure activity seen by family members and he remained altered and unresponsive on arrival to the ER, demonstrating signficant agitation. He received benzos and improved with clear mentation this morning. Today he is alert and oriented but cannot remember the events that occurred after falling asleep. Physical Exam Vital Signs (Past 24 Hours): Last Vital Signs Temp 36.6 C 02/19/19 13:00 Pulse 99 H 02/19/19 13:00 Resp 18 02/19/19 13:00 BP 160/79 H 02/19/19 13:00 Pulse Ox 92 02/19/19 13:00 CONSTITUTIONAL: WNWD, vitals as above, generally well-appearing EYES: EOMI bilaterally, PERRL, normal conjuctivae, no scleral icterus ENT: external ear and nose normal, oropharynx clear, no TM abnormality, no maxillary or ethmoid sinus tenderness RESPIRATORY: clear to auscultation bilaterally, no crackles, rales or wheezes, normal respiratory effort CARDIOVASCULAR: regular rate and rhythm, S1 and 2 heard without murmurs, gallops or rubs, no JVD, no peripheral edema GASTROINTESTINAL: normal bowel sounds, soft, nontender, nondistended MUSCULOSKELETAL: strength 5/5 throughout, head is normocephalic with forehead contusion and tongue trauma, L wrist is warm and swollen with limited ROM, left shoulder is painful with active ROM, L knee is restricted in flexion with an effusion present. SKIN: warm and dry NEUROLOGIC: PERRL, EOMI, no facial palsy, no dysarthria. CN 2-12 grossly intact, normal cognition, normal speech, no tremor PSYCHIATRIC: alert cooperative and oriented to person, place and time. (1) Altered mental status Altered mental status type: unspecified Qualified Code(s): R41.82 - Altered mental status, unspecified
--- NOTE | 2019-02-19 15:10 | XRay Report ---
XR shoulder LT min 2V routine CLINICAL HISTORY: pain after collapse COMPARISON: None FINDINGS: No acute fracture is identified. Alignment of the left shoulder is anatomic. Small calcifi c density along the superolateral aspect the left humeral head could reflect calcific tendinitis. The re is moderate osteoarthritis of the acromioclavicular joint and mild osteophytosis of the glenohumer al joint. IMPRESSION: 1. No acute fracture or dislocation within the left shoulder. 2. Moderate osteoarthritis of the left acromioclavicular joint and mild osteoarthritis of the left gl enohumeral joint. 3. Suspected calcific tendinitis. Electronically signed by: Julio Mehta M.D. 02/19/2019 3:09 PM
--- NOTE | 2019-02-19 15:14 | XRay Report ---
XR wrist LT w scaphoid CLINICAL HISTORY: ?FOOSH injury, syncope and collapse, now pain COMPARISON: None FINDINGS: No acute fracture is identified. Chondrocalcinosis is noted. There is moderate to severe a rthritis of the left first carpometacarpal joint. There is moderate osteoarthritis of the remainder o f the left wrist. Dorsal soft tissue swelling is noted. IMPRESSION: 1. No acute fracture or dislocation within the left wrist. 2. Moderate left wrist osteoarthritis with chondrocalcinosis. Electronically signed by: Julio Mehta M.D. 02/19/2019 3:13 PM
--- NOTE | 2019-02-19 15:18 | CT Scan Report ---
CT head/brain wo con CLINICAL HISTORY: 78 years-old Male with increased somnolence after head trauma. Acutely altered men lupillo status with recent head injury TECHNIQUE: Multiple axial CT images of the head were obtained without contrast. A dose lowering tech nique was utilized adhering to the principles of ALARA. CT DOSE: 614.27 mGy.cm COMPARISON: CT head 02/18/2019. FINDINGS: No acute intracranial hemorrhage, midline shift, intracranial mass, hydrocephalus, territorial ischem ia or abnormal extra-axial collection. Age-related involutional changes with ex vacuo ventriculomegal y. Unchanged patchy white matter hypodensities suggestive of chronic microvascular ischemic changes. Senescent calcifications of the right lentiform nucleus. Cerebral vascular calcifications noted. The calvarium is intact. Mild frontal scalp soft tissue swelling. The paranasal sinuses, mastoid air cells, and middle ear cavities are clear. IMPRESSION: No acute intracranial abnormality. The above report was generated using voice recognition software. It may contain grammatical, syntax o r spelling errors. Electronically signed by: Dipesh Hagen M.D. 02/19/2019 3:17 PM
--- NOTE | 2019-02-19 15:21 | XRay Report ---
XR knee LT 2V routine CLINICAL HISTORY: restricted ROM after collapse COMPARISON: None FINDINGS: No acute fracture is identified. There is marked medial compartment joint space narrowing. There is chondrocalcinosis within the menisci. Note is made of a moderate to large left knee joint e ffusion. There is possible patella baja. IMPRESSION: 1. No acute fracture identified. 2. Moderate to large left knee joint effusion. 3. Possible patella baja which raises the possibility of distal quadriceps injury. 4. 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 Electronically signed by: Julio Mehta M.D. 02/19/2019 3:20 PM
[2019-02-19] MEDS: TRAMADOL HCL 50 MG TABLET PO PRN (17:12)
[2019-02-20] MEDS: GABAPENTIN 600 MG TAB PO SCH ×2 (05:33→18:03)
[2019-02-20 06:18] LABS: Basophils # (auto) 0.02 K/uL (0-0.2); Basophils % (auto) 0.1 %; Hematocrit (blood only) 36.8 % (42-52); Hemoglobin 12.6 g/dL (14.0-18.0); Immature Granulocytes # (auto) 0.04 K/uL (0.00-0.02); Immature Granulocytes % (auto) 0.3 %; Lymphocytes # (auto) 1.09 K/uL (1.2-3.4); Lymphocytes % (auto) 7.2 %; Mean Corpuscular Hgb Conc 34.2 g/dL (32-36); Mean Corpuscular Volume 96.8 fL (80-100); Mean Platelet Volume 9.3 fL (7.4-10.4); Monocytes # (auto) 2.06 K/uL (0.11-0.59); Monocytes % (auto) 13.7 %; Neutrophils # (auto) 11.85 K/uL (1.4-6.5); Neutrophils % (auto) 78.7 %; Platelet Count 225 K/uL (130-400); RDW Coefficient of Variation 13.8 % (11.5-14.5); RDW Standard Deviation 48.8 fL (36.4-46.3); White Blood Count 15.06 K/uL (4.8-10.8)
[2019-02-20 06:53] LABS: BUN Creatinine Ratio 12.4 (10-20); Calcium 8.7 mg/dl (8.5-10.1); Creatinine Clr Calc Pharmacy 68.9 ml/min; Est GFR (African American) 105.8; Est GFR (Non-African American) 91.3; Potassium 4.7 mmol/L (3.5-5.1)
[2019-02-20] MEDS: ASPIRIN 81 MG ECTAB PO SCH (08:10)
[2019-02-20] MEDS: ATORVASTATIN 10 MG TAB PO SCH (08:10)
[2019-02-20] MEDS: INSULIN ASPART 100 UNITS/ML 3 ML PEN SC SCH (08:11)
[2019-02-20] MEDS ORDERED: LOSARTAN POTASSIUM 25 MG TAB PO SCH (09:00)
[2019-02-20] MEDS: PANTOprazole 40 MG in SYRINGE 0 ML IV SCH (11:13)
--- NOTE | 2019-02-20 12:21 | Communication Note ---
Date of Service: February 20, 2019 I saw Mr. Ramos today at the bedside he is awake alert oriented looks much the same as he did yesterday morning when I saw her but apparently after my visit became more lethargic and Dr. Tran appropriately ordered another CT scan just to be sure he was not getting a delayed post injury subdural hematoma or epidural hematoma the scans are negative and he is now back to what I assume is close to his baseline. The EEG has not been done but hopefully when the renal technician returns will be done tomorrow we can read the tracing and decide on his basis whether we commit this may have a long-term anticonvulsants but unless the recording there is markedly abnormal or unequivocally shows potentially epileptogenic activity I really continue to be reluctant to commit him to long-term anticonvulsant treatment unless of course recurrent events emerge or on an outpatient basis we see EEG abnormalities We will check back tomorrow after reviewing the study and develop a policy then about follow-up and potentially another prolonged outpatient EEG Manny Scott MD
[2019-02-20] MEDS ORDERED: SODIUM CHLORIDE 0.9% 1000ML 1,000 ML IV SCH (17:06)
--- NOTE | 2019-02-20 19:36 | Hospitalist Progress Note ---
Date of Service February 20, 2019 Assessment & Plan (1) Syncope and collapse: ?seizure as there was some reported seizure likel activity at the seen per family. No further seizure activity here. Keppra loaded but then withheld by Neuro. No alcohol withdrawal symptoms with have been a risk but not evident. Repeat head CT was negative for acute intracranial events. Multiple areas of pain and discomfort related to the fall. Knee effusion present with restricted ROM, also with L wrist erythema and swelling. Xrays reveal no evidence of fracture. Ortho asked to evaluate these areas for related soft tissue injury. Tramadol PRN. (2) Altered mental status: Resolved, uncertain etiology. (3) Alcohol abuse: Gabapentin withdrawal protocol. No evidence of withdrawal at this time. (4) HTN (hypertension): Resumed Losartan, now increase to 50mg PO daily. (5) DVT prophylaxis: Lovenox Full Dispo-PT/OT and Ortho to evaluate, may need a short stay at rehab. Gracy Gonzáles DO [facility] Hospitalist Subjective The patient is awake today and is feeling well aside from soreness on his tongue where he bit his tongue. He also reports soreness in his left shoulder left wrist and left knee. He did try to ambulate to the commode today but his soft tissue injuries are preventing him from ambulating very easily. Aside from that I do not gather any withdrawal symptoms from alcohol. He is tolerating p.o. Of note there was a time of this afternoon where he became tachycardic with a heart rate in the 150s which improved with IVF. Physical Exam Vital Signs (Past 24 Hours): Last Vital Signs Temp 36.6 C 02/20/19 16:10 Pulse 135 H 02/20/19 16:50 Resp 18 02/20/19 16:10 BP 155/88 H 02/20/19 16:50 Pulse Ox 95 02/20/19 16:10 CONSTITUTIONAL: WNWD, vitals as above, generally well-appearing EYES: EOMI bilaterally, PERRL, normal conjuctivae, no scleral icterus ENT: external ear and nose normal, oropharynx clear, no TM abnormality, no maxillary or ethmoid sinus tenderness RESPIRATORY: clear to auscultation bilaterally, no crackles, rales or wheezes, normal respiratory effort CARDIOVASCULAR: regular rate and rhythm, S1 and 2 heard without murmurs, gallops or rubs, no JVD, no peripheral edema GASTROINTESTINAL: normal bowel sounds, soft, nontender, nondistended MUSCULOSKELETAL: strength 5/5 throughout, head is normocephalic with forehead contusion and tongue trauma, L wrist is warm and swollen with limited ROM, left shoulder is painful with active ROM, L knee is restricted in flexion with an effusion present. SKIN: warm and dry NEUROLOGIC: PERRL, EOMI, no facial palsy, no dysarthria. CN 2-12 grossly intact, normal cognition, normal speech, no tremor PSYCHIATRIC: alert cooperative and oriented to person, place and time. Results & Data Laboratory Results Short CBC 02/20/19 Range/Units 05:35 WBC 15.06 H (4.8-10.8) K/uL Hgb 12.6 L (14.0-18.0) g/dL Hct 36.8 L (42-52) % Plt Count 225 (130-400) K/uL BMP 02/20/19 05:35 Sodium 133 L Potassium 4.7 D Chloride 104 Carbon Dioxide 24 BUN 8 Creatinine 0.66 Glucose 109 H Calcium 8.7 Medications Administered Current Inpatient Medications Acetaminophen (Tylenol) 650 mg PO Q4H PRN PRN Reason: Pain or Fever Stop: 03/20/19 17:18 Last Admin: 02/19/19 11:22 Dose: 650 mg Documented by: Aspirin (Ecotrin Ectab) 81 mg PO DAILY [facility] Stop: 03/21/19 08:59 Last Admin: 02/20/19 08:10 Dose: 81 mg Documented by: Atorvastatin Calcium (Lipitor) 10 mg PO DAILY [facility] Stop: 03/21/19 08:59 Last Admin: 02/20/19 08:10 Dose: 10 mg Documented by: Gabapentin (Neurontin) 600 mg PO Q12H [facility] Stop: 02/21/19 06:01 Last Admin: 02/20/19 18:03 Dose: 600 mg Documented by: Gabapentin (Neurontin) 600 mg PO Q24H [facility] Stop: 02/22/19 06:01 Gadobutrol (Gadavist 65ml) 6 ml IV ONCE PRN PRN Reason: Interaction Checking Stop: 02/22/19 16:14 Last Admin: 02/18/19 16:16 Dose: 6 ml Documented by: Lorazepam (Ativan) 1 mg in 2 mls @ 2 mls/min IV ONE PRN; Protocol PRN Reason: EtoH Withdrawal AWSS 6-10 Stop: 03/20/19 17:18 Lorazepam (Ativan) 1 - 3 mg PO UD PRN; Protocol PRN Reason: EtoH Withdrawal AWSS 6-10+ Stop: 03/20/19 17:18 Losartan Potassium (Cozaar) 25 mg PO DAILY [facility] Stop: 03/22/19 08:59 Last Admin: 02/20/19 08:10 Dose: 25 mg Documented by: Pantoprazole Sodium (Protonix) 40 mg PO DAILY [facility] Stop: 03/23/19 08:59 Tramadol HCl (Ultram) 50 mg PO Q6H PRN PRN Reason: Pain Stop: 03/21/19 16:57 Last Admin: 02/19/19 17:12 Dose: 50 mg Documented by: (1) Altered mental status Altered mental status type: unspecified Qualified Code(s): R41.82 - Altered mental status, unspecified
[2019-02-20] MEDS: ACETAMINOPHEN 325 MG TAB PO PRN (23:42)
[2019-02-21 02:40] LABS: Basophils # (auto) 0.01 K/uL (0-0.2); Basophils % (auto) 0.1 %; Eosinophils # (auto) 0.04 K/uL (0-0.5); Eosinophils % (auto) 0.2 %; Hematocrit (blood only) 33.9 % (42-52); Hemoglobin 11.6 g/dL (14.0-18.0); Immature Granulocytes # (auto) 0.06 K/uL (0.00-0.02); Immature Granulocytes % (auto) 0.4 %; Lymphocytes # (auto) 1.49 K/uL (1.2-3.4); Lymphocytes % (auto) 9.2 %; Mean Corpuscular Hgb Conc 34.2 g/dL (32-36); Mean Corpuscular Volume 96.9 fL (80-100); Mean Platelet Volume 9.1 fL (7.4-10.4); Monocytes # (auto) 1.79 K/uL (0.11-0.59); Neutrophils # (auto) 12.88 K/uL (1.4-6.5); Neutrophils % (auto) 79.1 %; Platelet Count 229 K/uL (130-400); RDW Coefficient of Variation 13.8 % (11.5-14.5); White Blood Count 16.27 K/uL (4.8-10.8)
[2019-02-21 02:45] LABS: Allen Test Pos (Pos); HCO3 ABG 23 mmol/L (19-24); Oxygen Saturation ABG 95.4 % (90-95); PCO2 ABG 32 mmHg (35-46); PO2 ABG 75 mm/Hg (80-95); pH ABG 7.49 (7.35-7.45)
[2019-02-21 03:09] LABS: BUN Creatinine Ratio 16.5 (10-20); Calcium 8.3 mg/dl (8.5-10.1); Creatinine Clr Calc Pharmacy 64.1 ml/min; Est GFR (African American) 102.7; Est GFR (Non-African American) 88.6; Magnesium 1.5 mg/dl (1.8-2.4); Potassium 3.7 mmol/L (3.5-5.1)
[2019-02-21] MEDS: MAGNESIUM SULFATE / D5W 1 GM/100 ML BAG IV SCH ×4 (04:19→12:41)
[2019-02-21] MEDS: GABAPENTIN 600 MG TAB PO SCH (05:44)
[2019-02-21] MEDS ORDERED: SODIUM CHLORIDE 0.9% 1000ML 1,000 ML IV SCH (08:00)
[2019-02-21] MEDS: ATORVASTATIN 10 MG TAB PO SCH (08:03)
[2019-02-21] MEDS: PANTOprazole 40 MG TAB PO SCH (08:04)
[2019-02-21] MEDS: ASPIRIN 81 MG ECTAB PO SCH (08:04)
[2019-02-21] MEDS: LOSARTAN POTASSIUM 50 MG TAB PO SCH (08:04)
[2019-02-21] MEDS: MAGNESIUM OXIDE 400 MG TAB PO SCH ×2 (08:05→19:51)
[2019-02-21] MEDS ORDERED: ENOXAPARIN INJ 40 MG/0.4 ML SYR SQ SCH (09:00)
[2019-02-21] MEDS: ACETAMINOPHEN 325 MG TAB PO PRN (09:27)
[2019-02-21] MEDS ORDERED: dilTIAZem HCl 5 MG/ML 5 ML VIAL IV STA (10:17)
[2019-02-21] MEDS ORDERED: Heparin IV Standard *NO* Bolus IV ONE (10:17)
[2019-02-21] MEDS ORDERED: dilTIAZem HCl 125 MG in DEXTROSE 5% 100 ML IV SCH (10:30)
--- NOTE | 2019-02-21 11:00 | Cardiology Consultation ---
Date of Consultation February 21, 2019 Assessment & Plan (1) Paroxysmal atrial fibrillation: It appears beta-jose guadalupe has been on hold since admission. New-onset atrial fibrillation possibly related to beta-jose guadalupe withdrawal in setting of of alcohol withdrawal. Recommend restarting short acting metoprolol tartrate 25 mg twice daily at this time. Patient is asymptomatic. Does not appear to be a long-term anticoagulation candidate given recent falls with head injury and chronic moderate alcohol use. I would not initiate intravenous Cardizem therapy immediately. Will observe treatment effects of oral beta-jose guadalupe and utilize IV Cardizem if needed. (2) Fall: Associated head trauma noted. Etiology unclear as patient does not recall events leading to his injury. (3) Alcohol withdrawal: Continue withdrawal protocol. Replace electrolytes as needed. (4) Hypomagnesemia: (5) Hypokalemia: (6) Atrial tachycardia: History of Present Illness Reason for Consultation: Paroxysmal atrial fibrillation Requesting Physician: Dr. Gracy Gonzáles Attending Physician: Gracy Gonzáles DO History of Present Illness 78-year-old patient seen in consultation regarding new onset atrial fibri llation. Patient admitted through the emergency department with fall, possible seizure activity. Patient does not recall any of the events surrounding his fall/injury. He remembers sitting watching television and then waking up in the hospital. Suffered a fall in July although syncope denied at that time. Echocardiogram, cardiac enzymes, as well as follow-up outpatient 7-day monitor unremarkable. Patient is managed conservatively with beta-jose guadalupe therapy for supraventricular tachycardia. A dobutamine stress echo was performed April 2018, found to be negative for inducible ischemia. Patient admits to drinking 6 beers per day. He was started on a withdrawal protocol. This morning at approximately 7:30 AM he converted to atrial fibrillation with rapid ventricular response heart rates ranging from 120-130 bpm. He is asymptomatic. Denies palpitations, chest discomfort, lightheadedness, dizziness, or near syncopal-like symptoms. No recurrent seizure-like activity since admission. CT of the brain and MRI unremarkable. Repeat echocardiogram demonstrates preserved LV systolic function with normal left atrial diameter. Allergies Allergy/AdvReac Type Severity Reaction Status Date / Time No Known Allergies Allergy Unverified 02/18/19 11:54 Home Medications Home Medications Medication Instructions Recorded Confirmed Type aspirin [Aspir-81] 81 mg PO DAILY 07/28/18 02/18/19 History atorvastatin 10 mg PO DAILY 07/28/18 02/18/19 History cholecalciferol (vitamin D3) 1,000 unit PO DAILY 07/28/18 02/18/19 History [Vitamin D3] losartan 25 mg PO DAILY 07/28/18 02/18/19 History metoprolol succinate 50 mg PO DAILY 07/28/18 02/18/19 History pantoprazole 40 mg PO DAILY 07/28/18 02/18/19 History potassium chloride 10 meq PO BID 07/28/18 02/18/19 History duloxetine 20 mg PO DAILY 02/18/19 02/18/19 History Patient History Medical History GERD (gastroesophageal reflux disease) (Chronic) HLD (hyperlipidemia) (Chronic) Pernicious anemia (Chronic) BPH (benign prostatic hyperplasia) (Chronic) First degree atrioventricular block (Chronic) Valvular heart disease (Chronic) Chronic left hip pain (Chronic) HTN (hypertension) (Chronic) Syncope and collapse (Resolved) Weakness (Chronic) Hypertension Spinal stenosis Surgical History History of cataract surgery (Chronic) History of inguinal hernia repair (Chronic) History of hemorrhoidectomy (Chronic) 1970 Family History Other Hypertension Social History Communication Ability: Effective Beliefs That Will Affect Care: None Current Living Situation: Spouse and Family Current Living Situation Comment: one level home Other Information That Helps Us Care for You: No Feels Safe at Home: Yes Safety Concerns: Feels Safe At This Time Smoking Status: Never smoker Hx Alcohol Use: Yes Hx Substance Use: No Review of Systems Pertinent positives noted per HPI, comprehensive 10 system review otherwise negative. Physical Exam Vital Signs (Past 24 Hours): Last Vital Signs Temp 37.3 C 02/21/19 08:00 Pulse 88 02/21/19 08:00 Resp 16 02/21/19 08:00 BP 145/80 H 02/21/19 08:00 Pulse Ox 96 02/21/19 08:00 Physical Exam: General: NAD, AAO x3, well nourished. Chronically ill. HEENT: Right-sided forehead ecchymosis. Normocephalic. Atraumatic. Conjunctiva pink, no scleral icterus. Neck: No carotid bruits, the carotid upstrokes are brisk. No JVD. No HJR Heart: Irregular rhythm, tachycardic. Normal S-1 and S-2 no S-3 or S-4 gallop. No murmurs or rub appreciated. PMI is not displaced. No RV heave. Lungs: Clear bilateral without rales , rhonchi, or wheeze. Abdomen: Normal bowel sounds. Soft. Nontender. No masses or organomegaly. No abdominal bruits. Extremities: No clubbing, cyanosis, or edema. Pulses: radial=2/4, Dorsalis pedis =2/4, posterior tibial=2/4. Neuro: Cranial nerves grossly intact. No focal motor deficit.
[2019-02-21 11:05] LABS: Partial Thromboplastin Ratio 1.1; Partial Thromboplastin Time 30.7 Seconds (21.0-31.0); Prothrombin Time 10.3 Seconds (9.0-12.0)
[2019-02-21] MEDS: Heparin Adult STANDARD Wt-Based Dextrose 5% 25,000 units/500 mL IV SCH (11:16)
[2019-02-21] MEDS: DULOXETINE HCL 20 MG CAP PO SCH (12:06)
[2019-02-21] MEDS: METOPROLOL TARTRATE 25 MG TAB PO SCH ×2 (12:06→19:51)
[2019-02-21] MEDS ORDERED: BUPIVACAINE 0.5 % 5 MG/1 ML MPF 30ML VIAL INFIL ONE (12:44)
[2019-02-21] MEDS ORDERED: methylPREDNISolone acetate 80 MG/ML VIAL IA ONE (12:44)
[2019-02-21] MEDS ORDERED: ETHYL CHLORIDE AER SPR 100 ML CAN EXT ONE (12:44)
--- NOTE | 2019-02-21 13:14 | Progress Note ---
DATE: 02/21/2019 SUBJECTIVE: Mr. Ramos is admitted having had a fall. Main orthopedic complaints are left knee pain and bilateral ankle pain. He had x-rays of his wrist and shoulder as well which was some mild degenerative changes, but are negative for fracture. ASSESSMENT: Degenerative joint disease, right knee, fairly severe. PLAN: Because of his bilateral ankle pain, we will order ankle x-rays and also order an injection for his left knee. We will follow up as an outpatient.
--- NOTE | 2019-02-21 14:46 | XRay Report ---
XR hip LT 2-3V w pelvis CLINICAL HISTORY: 78 years-old Male presenting with L hip pain after traumatic fall. TECHNIQUE: Single frontal view the pelvis and frontal and frog-leg lateral views of the left hip were obtained. COMPARISON: None. FINDINGS: Sacroiliac joints, pubic sepsis, and hip joints congruent. Degenerative changes of the lower lumbar s pine. Artery lines of the sacrum grossly intact allowing for suboptimal visualization. The bony pelvi s is grossly intact. The left hip specifically is preserved without evidence of a left femoral neck f racture. No advanced degenerative change. Atherosclerosis. IMPRESSION: No convincing evidence of acute osseous injury. Electronically signed by: Yair Garcia M.D. 02/21/2019 2:45 PM
--- NOTE | 2019-02-21 14:58 | XRay Report ---
RIGHT ANKLE 3 VIEWS, LEFT ANKLE 3 VIEWS HISTORY: Fall with bilateral ankle pain COMPARISON: None. FINDINGS: There is no fracture or dislocation. Vascular calcifications are noted. Mild soft tissue sw elling within the right ankle. No radiopaque foreign bodies. IMPRESSION: No fracture or dislocation within the right or left ankle. Mild soft tissue swelling within the right ankle. Electronically signed by: Michael Montana M.D. 02/21/2019 2:57 PM
--- NOTE | 2019-02-21 15:08 | Communication Note ---
Date of Service: February 21, 2019 I saw Mr. Ramos today in the company of his family. He is certainly bright active alert oriented has had no seizure activity and is being evaluated by cardiology because of his atrial fibrillation. Unfortunately an EEG despite being ordered this week and was never performed so I reordered the study and its appears that he will be here tomorrow anyway to get it done. Again his exam is normal there is no focal neurologic deficits of any significant the ecchymoses on his left forehead and lacerations of the tongue or going through the normal healing process and we are faced again with the concept that he either had a syncopal event perhaps of cardiogenic origin with then a closed head injury and a brief duration seizure and confusion or possibly a seizure as a primary causation of the entire event I favor the former but will need to get the EEG and a follow-up on an outpatient basis in about 4-6 weeks with another recording to be on the safe side. For now however no anticonvulsants are being recommended unless she has an unequivocal clinically observed seizure or significant abnormalities on the EEG that hopefully will be done tomorrow. I will be back tomorrow afternoon after having read the EEG and make a final decision on the chart before signing off Manny Scott MD
[2019-02-21 17:49] LABS: Partial Thromboplastin Ratio 2.1
[2019-02-21 18:20] LABS: Partial Thromboplastin Time 57.1 Seconds (21.0-31.0)
--- NOTE | 2019-02-21 22:56 | Hospitalist Progress Note ---
Date of Service February 21, 2019 Assessment & Plan (1) New onset atrial fibrillation: Atrial fibrillation with RVR with a heart rate in the 160s this morning. Oral beta-jose guadalupe had been held since admission secondary to altered mental status. Per cardiology was consulted will restart this now and added a heparin drip as well. (2) Syncope and collapse: Differential includes but is not limited to primary seizure causing a fall at home versus cardiac arrhythmia causing fall and secondary seizure vs vasovagal vs orthostatic hypotension inducing syncope. At this point Neurology is not convinced of seizure activity and is not committing him to an a ntiepileptic medication. EEG is pending for tomorrow. He remains alert and appropriate and continues to recover daily. New onset atrial fibrillation this morning with rapid ventricular response. Appreciate orthopedic evaluation of related soft tissue injuries. Left hip pain reported as more persistent and limiting his ability to ambulate. Also bilateral ankle pain was reported to orthopedics. These areas were imaged with x-rays today which was negative for acute fracture. Continue physical therapy and conservative care pain (3) Alcohol abuse: Gabapentin withdrawal protocol. Benzos PRN. No other evidence of withdrawal (4) HTN (hypertension): Losartan increased to 50 mg with good response. (5) DVT prophylaxis: Heparin drip Full Dispo-PT/OT and Ortho to evaluate, may need a short stay at rehab. Gracy Gonzáles DO [facility] Hospitalist Subjective Mr. Ramos is feeling fine today no acute complaints. When he gets up to ambulate he is sore especially in his left hip which causes him pain. There is int ermittent rest pain on the left hip. Physical Exam Vital Signs (Past 24 Hours): Last Vital Signs Temp 36.8 C 02/21/19 18:56 Pulse 86 02/21/19 20:15 Resp 16 02/21/19 18:56 BP 144/78 H 02/21/19 18:56 Pulse Ox 95 02/21/19 18:56 CARDIOVASCULAR: regular rate and rhythm, S1 and 2 heard without murmurs, gallops or rubs, no JVD, no peripheral edema GASTROINTESTINAL: normal bowel sounds, soft, nontender, nondistended MUSCULOSKELETAL: strength 5/5 throughout, head is normocephalic with forehead contusion and tongue trauma, L wrist is warm and swollen with limited ROM, left shoulder is painful with active ROM, L knee is restricted in flexion with an effusion present. SKIN: warm and dry NEUROLOGIC: PERRL, EOMI, no facial palsy, no dysarthria. CN 2-12 grossly intact, normal cognition, normal speech, no tremor PSYCHIATRIC: alert cooperative and oriented to person, place and time. Results & Data Laboratory Results Short CBC 02/21/19 Range/Units 02:31 WBC 16.27 H (4.8-10.8) K/uL Hgb 11.6 L (14.0-18.0) g/dL Hct 33.9 L (42-52) % Plt Count 229 (130-400) K/uL BMP 02/21/19 02/21/19 02:31 02:31 Sodium 135 L Potassium 3.7 D Cancelled Chloride 102 Carbon Dioxide 23 BUN 12 Creatinine 0.71 Glucose 108 H Calcium 8.3 L Medications Administered Current Inpatient Medications Acetaminophen (Tylenol) 650 mg PO Q4H PRN PRN Reason: Pain or Fever Stop: 03/20/19 17:18 Last Admin: 02/21/19 09:27 Dose: 650 mg Documented by: Aspirin (Ecotrin Ectab) 81 mg PO DAILY [facility] Stop: 03/21/19 08:59 Last Admin: 02/21/19 08:04 Dose: 81 mg Documented by: Atorvastatin Calcium (Lipitor) 10 mg PO DAILY [facility] Stop: 03/21/19 08:59 Last Admin: 02/21/19 08:03 Dose: 10 mg Documented by: Duloxetine HCl (Cymbalta) 20 mg PO DAILY [facility] Stop: 03/23/19 11:29 Last Admin: 02/21/19 12:06 Dose: 20 mg Documented by: Gabapentin (Neurontin) 600 mg PO Q24H [facility] Stop: 02/22/19 06:01 Gadobutrol (Gadavist 65ml) 6 ml IV ONCE PRN PRN Reason: Interaction Checking Stop: 02/22/19 16:14 Last Admin: 02/18/19 16:16 Dose: 6 ml Documented by: Lorazepam (Ativan) 1 mg in 2 mls @ 2 mls/min IV ONE PRN; Protocol PRN Reason: EtoH Withdrawal AWSS 6-10 Stop: 03/20/19 17:18 Heparin Sodium/Dextrose (Heparin Sodium/Dextrose) 25,000 units in 500 mls @ 20 mls/hr IV .Q24H LYNDA; Protocol Stop: 03/23/19 10:44 Last Titration: 02/21/19 19:19 Dose: 1,000 units/hr, 20 mls/hr Documented by: Lorazepam (Ativan) 1 - 3 mg PO UD PRN; Protocol PRN Reason: EtoH Withdrawal AWSS 6-10+ Stop: 03/20/19 17:18 Losartan Potassium (Cozaar) 50 mg PO DAILY [facility] Stop: 03/23/19 08:59 Last Admin: 02/21/19 08:04 Dose: 50 mg Documented by: Magnesium Oxide (Mag-Ox) 400 mg PO BID [facility] Stop: 03/23/19 08:59 Last Admin: 02/21/19 19:51 Dose: 400 mg Documented by: Metoprolol Tartrate (Lopressor) 25 mg PO BID [facility] Stop: 03/23/19 10:59 Last Admin: 02/21/19 19:51 Dose: 25 mg Documented by: Pantoprazole Sodium (Protonix) 40 mg PO DAILY [facility] Stop: 03/23/19 08:59 Last Admin: 02/21/19 08:04 Dose: 40 mg Documented by: Tramadol HCl (Ultram) 50 mg PO Q6H PRN PRN Reason: Pain Stop: 03/21/19 16:57 Last Admin: 02/19/19 17:12 Dose: 50 mg Documented by:
[2019-02-22 01:09] LABS: 7-Aminoclonaz, Confirm NEGATIVE NG/ML (CUTOFF=25); Hydro-Alp Ur, GC/MS NEGATIVE NG/ML (CUTOFF=25); Hydroxyethylflurazepam, Conf NEGATIVE NG/ML (CUTOFF=50); Hydroxytriazolam NEGATIVE NG/ML (CUTOFF=50); Lorazepam, Ur GC/MS NEGATIVE NG/ML (CUTOFF=50); Nordiazepam, Confirm NEGATIVE NG/ML (CUTOFF=50); Oxazepam Ur, GC/MS NEGATIVE NG/ML (CUTOFF=50); Temazepam, Confirm NEGATIVE NG/ML (CUTOFF=50)
[2019-02-22] MEDS ORDERED: GABAPENTIN 600 MG TAB PO SCH (06:00)
[2019-02-22 07:08] LABS: Partial Thromboplastin Ratio 2.2
[2019-02-22 07:14] LABS: BUN Creatinine Ratio 15.8 (10-20); Calcium 8.5 mg/dl (8.5-10.1); Creatinine Clr Calc Pharmacy 67.9 ml/min; Est GFR (African American) 105.2; Est GFR (Non-African American) 90.8; Magnesium 1.8 mg/dl (1.8-2.4); Potassium 3.2 mmol/L (3.5-5.1)
[2019-02-22 08:07] LABS: Partial Thromboplastin Time 59.2 Seconds (21.0-31.0)
--- NOTE | 2019-02-22 08:56 | Orthopedic Progress Note ---
Date of Service February 22, 2019 Assessment & Plan (1) Left knee pain: Left knee pain continues to progressivly get better. Will hold off on injection at this time. Dr Hensley to review ankle films. No fractures or dislocations noted. Question of plantar fasciitis right foot. Patient seen and examined, agree with above assessment and plan, patient not having complaints of foot pain and states his knee pain has improved. Found to have +TTP right ATFL consistant with sprain, XR positive for soft tissue swelling, no fracture. Recommend low tide walker, WBAT b/l LE, hold IA knee injections for now unless symptoms worsen and patient unable to participate in PT. Subjective Pt was seen yesterday by Dr Billingsley for consultation on multiple complaints of the left shoulder, wrist, and knee pain. Dr Billingsley related the patient was c/o knee and ankle pain when he did his exam. At that time, ankle films were ordered and it was felt a knee injection of steroids would be warranted. I saw the patient yesterday evening to offer the injection, however he felt the knee pain was better and wanted to wait on the injection. I returned this AM to recheck his left knee. Pt is awake and alert. No new complaints. Physical Exam Vital Signs (Past 24 Hours): Last Vital Signs Temp 36.9 C 02/22/19 07:46 Pulse 92 H 02/22/19 07:46 Resp 22 02/22/19 07:46 BP 159/75 H 02/22/19 07:46 Pulse Ox 98 02/22/19 07:46 Physical Exam: Mild effusion noted in the left knee. Pt able to take the knee through active ROM easily without discomfort. Pt goes from full extension to 100 degrees flexion. Mild crepitance noted. No erythema noted or overt warmth compared to the right knee. Able to take both ankle through active ROM. States the right ankle hurts some this AM compared to the left. On palpation, there is mild swelling at best. He has some pain on the medial aspect of the ankle but seems to mostly be centralized in the soft tissues of the arch of his foot. Not exquisitely tender. Forced DF of the foot does give him a slight increase in the pain at that point. Left ankle with minimal discomfort. +TTP ATFL ligament right ankle Constitutional: WD/WN, vitals as above
[2019-02-22] MEDS ORDERED: METOPROLOL SUCC 50MG EXT REL TAB PO SCH (09:00)
[2019-02-22] MEDS: LOSARTAN POTASSIUM 50 MG TAB PO SCH (09:58)
[2019-02-22] MEDS: ASPIRIN 81 MG ECTAB PO SCH (09:59)
[2019-02-22] MEDS: METOPROLOL TARTRATE 25 MG TAB PO SCH ×3 (09:59→17:29)
[2019-02-22] MEDS: DULOXETINE HCL 20 MG CAP PO SCH (09:59)
[2019-02-22] MEDS: PANTOprazole 40 MG TAB PO SCH (10:00)
[2019-02-22] MEDS: MAGNESIUM OXIDE 400 MG TAB PO SCH ×2 (10:00→19:56)
--- NOTE | 2019-02-22 10:33 | Cardiology Progress Note ---
Date of Service February 22, 2019 Assessment & Plan (1) Paroxysmal atrial fibrillation: Titrate metoprolol tartrate to 25 mg every 6 hours. Continue telemetry monitoring. Replace potassium and magnesium as indicated.Currently patient is not a long-term anticoagulation candidate due to fall risk and chronic alcohol use. (2) Fall: Associated head trauma noted. Etiology unclear as patient does not recall events leading to his injury. (3) Alcohol withdrawal: Continue withdrawal protocol. Replace electrolytes as needed. (4) Hypomagnesemia: (5) Hypokalemia: (6) Atrial tachycardia: Subjective Patient seen and examined at the bedside. Denies chest discomfort or palpitations. EEG performed this morning with results pending at this time. Telemetry demonstrates atrial fibrillation with intermittent rapid ventricular response. Average heart rate of approximately 90-95 bpm during presumed hours of sleep. No orthopnea, PND, or edema. Review of Systems All systems reviewed & are unremarkable except as noted in HPI & below Physical Exam Vital Signs (Past 24 Hours): Last Vital Signs Temp 36.9 C 02/22/19 07:46 Pulse 92 H 02/22/19 07:46 Resp 22 02/22/19 07:46 BP 159/75 H 02/22/19 07:46 Pulse Ox 98 02/22/19 07:46 Physical Exam: General: NAD, AAO x3, well nourished. Chronically ill. HEENT: Right-sided forehead ecchymosis. Normocephalic. Atraumatic. Conjunctiva pink, no scleral icterus. Neck: No carotid bruits, the carotid upstrokes are brisk. No JVD. No HJR Heart: Irregular rhythm, tachycardic. Normal S-1 and S-2 no S-3 or S-4 gallop. No murmurs or rub appreciated. PMI is not displaced. No RV heave. Lungs: Clear bilateral without rales , rhonchi, or wheeze. Abdomen: Normal bowel sounds. Soft. Nontender. No masses or organomegaly. No abdominal bruits. Extremities: No clubbing, cyanosis, or edema. Pulses: radial=2/4, Dorsalis pedis =2/4, posterior tibial=2/4. Neuro: Cranial nerves grossly intact. No focal motor deficit.
[2019-02-22] MEDS: ATORVASTATIN 10 MG TAB PO SCH (12:29)
[2019-02-22] MEDS: Heparin Adult STANDARD Wt-Based Dextrose 5% 25,000 units/500 mL IV SCH (12:35)
[2019-02-22] MEDS: POTASSIUM CHLORIDE 20 MEQ/15 ML UDC PO SCH ×2 (13:11→17:27)
--- NOTE | 2019-02-22 14:03 | Hospitalist Progress Note ---
Date of Service February 22, 2019 Assessment & Plan (1) New onset atrial fibrillation: Atrial fibrillation with RVR improved with metoprolol 25mg PO q6 as of this morning. Not AC candidate per Cardiology. Cont heparin drip while hospitalized. (2) Syncope and collapse: Differential includes but is not limited to primary seizure causing a fall at home versus cardiac arrhythmia causing fall and secondary seizure vs vasovagal vs orthostatic hypotension inducing syncope. At this point Neurology is not convinced of seizure activity and is not committing him to an antiepileptic medication. EEG is pending for tomorrow. He remains alert and appropriate and continues to recover daily. New onset atrial fibrillation this morning with rapid ventricular response. Appreciate orthopedic evaluation of related soft tissue injuries. Continue physical therapy and conservative care pain (3) Alcohol abuse: Gabapentin withdrawal protocol. Benzos PRN. No other evidence of withdrawal (4) HTN (hypertension): Losartan increased to 50 mg with good response. (5) DVT prophylaxis: heparin drip. Full Dispo-PT/OT and Ortho to evaluate, may need a short stay at rehab. Gracy Gonzáles DO [facility] Hospitalist Subjective still sore but this is improving. R ankle pain with ambulation. No seizure activity. Alert and oriented every day. Conversatinal Physical Exam Vital Signs (Past 24 Hours): Last Vital Signs Temp 36.6 C 02/22/19 11:36 Pulse 90 02/22/19 11:36 Resp 20 02/22/19 11:36 BP 164/68 H 02/22/19 11:36 Pulse Ox 96 02/22/19 11:36 CARDIOVASCULAR: regular rate and rhythm, S1 and 2 heard without murmurs, gallops or rubs, no JVD, no peripheral edema GASTROINTESTINAL: normal bowel sounds, soft, nontender, nondistended MUSCULOSKELETAL: strength 5/5 throughout, head is normocephalic with forehead contusion and tongue trauma SKIN: warm and dry NEUROLOGIC: PERRL, EOMI, no facial palsy, no dysarthria. CN 2-12 grossly intact, normal cognition, normal speech, no tremor PSYCHIATRIC: alert cooperative and oriented to person, place and time. Results & Data Laboratory Results [facility] 02/22/19 06:12 Sodium 133 L Potassium 3.2 L Chloride 101 Carbon Dioxide 25 BUN 11 Creatinine 0.67 Glucose 96 Calcium 8.5 Medications Administered Current Inpatient Medications Acetaminophen (Tylenol) 650 mg PO Q4H PRN PRN Reason: Pain or Fever Stop: 03/20/19 17:18 Last Admin: 02/21/19 09:27 Dose: 650 mg Documented by: Aspirin (Ecotrin Ectab) 81 mg PO DAILY [facility] Stop: 03/21/19 08:59 Last Admin: 02/22/19 09:59 Dose: 81 mg Documented by: Atorvastatin Calcium (Lipitor) 10 mg PO DAILY [facility] Stop: 03/21/19 08:59 Last Admin: 02/22/19 12:29 Dose: 10 mg Documented by: Duloxetine HCl (Cymbalta) 20 mg PO DAILY [facility] Stop: 03/23/19 11:29 Last Admin: 02/22/19 09:59 Dose: 20 mg Documented by: Gadobutrol (Gadavist 65ml) 6 ml IV ONCE PRN PRN Reason: Interaction Checking Stop: 02/22/19 16:14 Last Admin: 02/18/19 16:16 Dose: 6 ml Documented by: Lorazepam (Ativan) 1 mg in 2 mls @ 2 mls/min IV ONE PRN; Protocol PRN Reason: EtoH Withdrawal AWSS 6-10 Stop: 03/20/19 17:18 Heparin Sodium/Dextrose (Heparin Sodium/Dextrose) 25,000 units in 500 mls @ 20 mls/hr IV .Q24H [facility]; Protocol Stop: 03/23/19 10:44 Last Admin: 02/22/19 12:35 Dose: 1,000 units/hr, 20 mls/hr Documented by: Lorazepam (Ativan) 1 - 3 mg PO UD PRN; Protocol PRN Reason: EtoH Withdrawal AWSS 6-10+ Stop: 03/20/19 17:18 Losartan Potassium (Cozaar) 50 mg PO DAILY [facility] Stop: 03/23/19 08:59 Last Admin: 02/22/19 09:58 Dose: 50 mg Documented by: Magnesium Oxide (Mag-Ox) 400 mg PO BID [facility] Stop: 03/23/19 08:59 Last Admin: 02/22/19 10:00 Dose: 400 mg Documented by: Metoprolol Tartrate (Lopressor) 25 mg PO Q6 [facility] Stop: 03/24/19 11:59 Last Admin: 02/22/19 12:29 Dose: 25 mg Documented by: Pantoprazole Sodium (Protonix) 40 mg PO DAILY [facility] Stop: 03/23/19 08:59 Last Admin: 02/22/19 10:00 Dose: 40 mg Documented by: Potassium Chloride (Janet Ciel Elix) 40 meq PO Q6H [facility] Stop: 02/22/19 17:01 Last Admin: 02/22/19 13:11 Dose: 40 meq Documented by: Tramadol HCl (Ultram) 50 mg PO Q6H PRN PRN Reason: Pain Stop: 03/21/19 16:57 Last Admin: 02/19/19 17:12 Dose: 50 mg Documented by:
--- NOTE | 2019-02-22 15:13 | Procedure Note ---
EEG Procedure Note Date of Service February 22, 2019 Start / End Times Start Time: 0800 End Time: 0830 Referring Physician Manny Scott MD History Possible seizure versus syncope Home Medication List Home Medications Medication Instructions Recorded Confirmed Type aspirin [Aspir-81] 81 mg PO DAILY 07/28/18 02/18/19 History atorvastatin 10 mg PO DAILY 07/28/18 02/18/19 History cholecalciferol (vitamin D3) 1,000 unit PO DAILY 07/28/18 02/18/19 History [Vitamin D3] losartan 25 mg PO DAILY 07/28/18 02/18/19 History metoprolol succinate 50 mg PO DAILY 07/28/18 02/18/19 History pantoprazole 40 mg PO DAILY 07/28/18 02/18/19 History potassium chloride 10 meq PO BID 07/28/18 02/18/19 History duloxetine 20 mg PO DAILY 02/18/19 02/18/19 History Inpatient Medication List Acetaminophen (Tylenol) 650 mg PO Q4H PRN PRN Reason: Pain or Fever Stop: 03/20/19 17:18 Last Admin: 02/21/19 09:27 Dose: 650 mg Documented by: [id number] Admin: 02/20/19 23:42 Dose: 650 mg Documented by: [id number] Admin: 02/19/19 11:22 Dose: 650 mg Documented by: [id number] Admin: 02/19/19 04:32 Dose: 650 mg Documented by: [id number] Aspirin (Ecotrin Ectab) 81 mg PO DAILY [facility] Stop: 03/21/19 08:59 Last Admin: 02/22/19 09:59 Dose: 81 mg Documented by: [id number] Admin: 02/21/19 08:04 Dose: 81 mg Documented by: [id number] Admin: 02/20/19 08:10 Dose: 81 mg Documented by: [id number] Admin: 02/19/19 09:13 Dose: 81 mg Documented by: [id number] Atorvastatin Calcium (Lipitor) 10 mg PO DAILY [facility] Stop: 03/21/19 08:59 Last Admin: 02/22/19 12:29 Dose: 10 mg Documented by: [id number] Admin: 02/21/19 08:03 Dose: 10 mg Documented by: [id number] Admin: 02/20/19 08:10 Dose: 10 mg Documented by: [id number] Admin: 02/19/19 09:13 Dose: 10 mg Documented by: [id number] Duloxetine HCl (Cymbalta) 20 mg PO DAILY [facility] Stop: 03/23/19 11:29 Last Admin: 02/22/19 09:59 Dose: 20 mg Documented by: [id number] Admin: 02/21/19 12:06 Dose: 20 mg Documented by: [id number] Gadobutrol (Gadavist 65ml) 6 ml IV ONCE PRN PRN Reason: Interaction Checking Stop: 02/22/19 16:14 Last Admin: 02/18/19 16:16 Dose: 6 ml Documented by: [id number] Heparin Sodium/Dextrose (Heparin Sodium/Dextrose) 25,000 units in 500 mls @ 20 mls/hr IV .Q24H [facility]; Protocol Stop: 03/23/19 10:44 Last Admin: 02/22/19 12:35 Dose: 1,000 units/hr, 20 mls/hr Documented by: [id number] Cosigned by: [id number] Titration: 02/22/19 12:16 Dose: 1,000 units/hr, 20 mls/hr Documented by: [id number] Cosigned by: [id number] Titration: 02/22/19 07:18 Dose: 1,000 units/hr, 20 mls/hr Documented by: [id number] Cosigned by: [id number] Titration: 02/21/19 19:19 Dose: 1,000 units/hr, 20 mls/hr Documented by: [id number] Cosigned by: [id number] Titration: 02/21/19 18:27 Dose: 1,000 units/hr, 20 mls/hr Documented by: [id number] Cosigned by: [id number] Admin: 02/21/19 11:16 Dose: 1,000 units/hr, 20 mls/hr Documented by: [id number] Cosigned by: [id number] Losartan Potassium (Cozaar) 50 mg PO DAILY [facility] Stop: 03/23/19 08:59 Last Admin: 02/22/19 09:58 Dose: 50 mg Documented by: [id number] Admin: 02/21/19 08:04 Dose: 50 mg Documented by: [id number] Magnesium Oxide (Mag-Ox) 400 mg PO BID [facility] Stop: 03/23/19 08:59 Last Admin: 02/22/19 10:00 Dose: 400 mg Documented by: [id number] Admin: 02/21/19 19:51 Dose: 400 mg Documented by: [id number] Admin: 02/21/19 08:05 Dose: 400 mg Documented by: [id number] Metoprolol Tartrate (Lopressor) 25 mg PO Q6 [facility] Stop: 03/24/19 11:59 Last Admin: 02/22/19 12:29 Dose: 25 mg Documented by: [id number] Pantoprazole Sodium (Protonix) 40 mg PO DAILY [facility] Stop: 03/23/19 08:59 Last Admin: 02/22/19 10:00 Dose: 40 mg Documented by: [id number] Admin: 02/21/19 08:04 Dose: 40 mg Documented by: [id number] Potassium Chloride (Janet Ciel Elix) 40 meq PO Q6H [facility] Stop: 02/22/19 17:01 Last Admin: 02/22/19 13:11 Dose: 40 meq Documented by: [id number] Tramadol HCl (Ultram) 50 mg PO Q6H PRN PRN Reason: Pain Stop: 03/21/19 16:57 Last Admin: 02/19/19 17:12 Dose: 50 mg Documented by: [id number] Discontinued Medications Diltiazem HCl (Cardizem) 10 mg IV NOW STA Stop: 02/21/19 10:18 Last Admin: 02/21/19 11:34 Dose: Not Given Documented by: [id number] Enoxaparin Sodium (Lovenox) 40 mg SQ QAM [facility] Stop: 03/23/19 08:59 Last Admin: 02/21/19 09:28 Dose: 40 mg Documented by: [id number] Gabapentin (Neurontin) 1,200 mg PO TODAY@1800 ONE Stop: 02/18/19 18:01 Last Admin: 02/18/19 19:16 Dose: Not Given Documented by: [id number] Gabapentin (Neurontin) 600 mg PO Q12H [facility] Stop: 02/21/19 06:01 Last Admin: 02/21/19 05:44 Dose: 600 mg Documented by: [id number] Admin: 02/20/19 18:03 Dose: 600 mg Documented by: [id number] Gabapentin (Neurontin) 600 mg PO Q24H [facility] Stop: 02/22/19 06:01 Last Admin: 02/22/19 05:14 Dose: 600 mg Documented by: [id number] Gabapentin (Neurontin) 600 mg PO Q6H [facility] Stop: 02/19/19 06:01 Last Admin: 02/19/19 06:07 Dose: 600 mg Documented by: [id number] Admin: 02/18/19 23:50 Dose: Not Given Documented by: [id number] Gabapentin (Neurontin) 600 mg PO Q8H [facility] Stop: 02/20/19 06:01 Last Admin: 02/20/19 05:33 Dose: 600 mg Documented by: [id number] Admin: 02/19/19 22:08 Dose: 600 mg Documented by: [id number] Admin: 02/19/19 13:50 Dose: 600 mg Documented by: [id number] Alteplase, Recombinant 5.6 mg/ (Syringe) 5.6 mls @ 5.6 mls/min IV NOW ONE Stop: 02/18/19 12:01 Last Admin: 02/18/19 13:22 Dose: Not Given Documented by: [id number] Alteplase, Recombinant 51 mg/ (EMPTY BAG) 51 mls @ 51 mls/hr IV NOW ONE Stop: 02/18/19 12:59 Last Admin: 02/18/19 13:22 Dose: Not Given Documented by: [id number] Levetiracetam 1,000 mg/ (Dextrose) 110 mls @ 440 mls/hr IV NOW STA Stop: 02/18/19 12:22 Last Infusion: 02/18/19 13:21 Dose: 0 mls/hr Documented by: [id number] Admin: 02/18/19 12:24 Dose: 440 mls/hr Documented by: [id number] Lorazepam (Ativan) 1 mg in 2 mls @ 2 mls/min IV NOW STA Stop: 02/18/19 12:10 Last Admin: 02/18/19 12:16 Dose: 2 mls/min Documented by: [id number] Potassium Chloride (K Roscoe / Wtr) 10 meq in 100 mls @ 100 mls/hr IV Q1H [facility] Stop: 02/18/19 14:14 Last Infusion: 02/18/19 14:51 Dose: 0 mls/hr Documented by: [id number] Admin: 02/18/19 13:43 Dose: 100 mls/hr Documented by: [id number] Infusion: 02/18/19 13:41 Dose: 0 mls/hr Documented by: [id number] Admin: 02/18/19 12:31 Dose: 100 mls/hr Documented by: [id number] Multivitamins 10 ml/ Thiamine HCl 100 mg/ Folic Acid 1 mg/Sodium Chloride 1,011.2 mls @ 1,011.2 mls/hr IV .Q1H [facility] Stop: 02/18/19 13:59 Last Infusion: 02/18/19 14:51 Dose: 0 mls/hr Documented by: [id number] Admin: 02/18/19 13:41 Dose: 1,011.2 mls/hr Documented by: [id number] Lorazepam (Ativan) 2 mg in 4 mls @ 4 mls/min IV NOW STA Stop: 02/18/19 16:22 Last Admin: 02/18/19 18:40 Dose: Not Given Documented by: [id number] Magnesium Sulfate/Dextrose (Magnesium Sulfate / D5w) 1 gm in 100 mls @ 100 mls/hr IV Q1H [facility] Stop: 02/18/19 21:59 Last Infusion: 02/18/19 23:51 Dose: 0 mls/hr Documented by: [id number] Admin: 02/18/19 22:15 Dose: 100 mls/hr Documented by: [id number] Infusion: 02/18/19 22:13 Dose: 100 mls/hr Documented by: [id number] Admin: 02/18/19 21:13 Dose: 100 mls/hr Documented by: [id number] Infusion: 02/18/19 21:12 Dose: 100 mls/hr Documented by: [id number] Admin: 02/18/19 20:12 Dose: 100 mls/hr Documented by: [id number] Infusion: 02/18/19 19:47 Dose: 100 mls/hr Documented by: [id number] Admin: 02/18/19 18:47 Dose: 100 mls/hr Documented by: [id number] Pantoprazole Sodium 40 mg/ (Syringe) 10 mls @ 5 mls/min IV NOW ONE Stop: 02/18/19 18:01 Last Admin: 02/18/19 20:12 Dose: 5 mls/min Documented by: [id number] Pantoprazole Sodium 40 mg/ (Syringe) 10 mls @ 5 mls/min IV DAILY@1100 [facility] Stop: 03/21/19 10:59 Last Admin: 02/20/19 11:13 Dose: 5 mls/min Documented by: [id number] Admin: 02/19/19 10:35 Dose: 5 mls/min Documented by: [id number] Sodium Chloride (Nss 1000ml) 1,000 mls @ 80 mls/hr IV .[id number] [facility] Stop: 02/19/19 06:29 Last Infusion: 02/19/19 09:35 Dose: 0 mls/hr Documented by: [id number] Admin: 02/18/19 18:47 Dose: 80 mls/hr Documented by: [id number] Levetiracetam 500 mg/ Dextrose 105 mls @ 420 mls/hr IV Q12H [facility] Stop: 03/21/19 10:29 Last Infusion: 02/19/19 10:58 Dose: 0 mls/hr Documented by: [id number] Admin: 02/19/19 10:34 Dose: 420 mls/hr Documented by: [id number] Sodium Chloride (Nss 1000ml) 1,000 mls @ 500 mls/hr IV .Q2H [facility] Stop: 02/20/19 19:05 Last Infusion: 02/20/19 19:25 Dose: 0 mls/hr Documented by: [id number] Admin: 02/20/19 17:10 Dose: 500 mls/hr Documented by: [id number] Magnesium Sulfate/Dextrose (Magnesium Sulfate / D5w) 1 gm in 100 mls @ 100 mls/hr IV Q1H [facility] Stop: 02/21/19 05:59 Last Infusion: 02/21/19 07:08 Dose: 0 mls/hr Documented by: [id number] Admin: 02/21/19 05:21 Dose: 100 mls/hr Documented by: [id number] Infusion: 02/21/19 05:21 Dose: 0 mls/hr Documented by: [id number] Admin: 02/21/19 04:19 Dose: 100 mls/hr Documented by: [id number] Sodium Chloride (Nss 1000ml) 1,000 mls @ 500 mls/hr IV .Q2H [facility] Stop: 02/21/19 09:59 Last Infusion: 02/21/19 11:34 Dose: 0 mls/hr Documented by: [id number] Admin: 02/21/19 08:05 Dose: 500 mls/hr Documented by: [id number] Magnesium Sulfate/Dextrose (Magnesium Sulfate / D5w) 1 gm in 100 mls @ 100 mls/hr IV Q1H [facility] Stop: 02/21/19 12:59 Last Infusion: 02/21/19 13:47 Dose: 0 mls/hr Documented by: [id number] Admin: 02/21/19 12:41 Dose: 100 mls/hr Documented by: [id number] Infusion: 02/21/19 12:32 Dose: 100 mls/hr Documented by: [id number] Admin: 02/21/19 11:32 Dose: 100 mls/hr Documented by: [id number] Insulin Aspart (Novolog Flexpen) 0 units SC ACHS [facility] Stop: 03/20/19 20:59 Last Admin: 02/20/19 08:11 Dose: 1 units Documented by: [id number] Cosigned by: [id number] Admin: 02/19/19 20:42 Dose: Not Given Documented by: [id number] Cosigned by: [id number] Admin: 02/19/19 16:57 Dose: Not Given Documented by: [id number] Cosigned by: [id number] Admin: 02/19/19 12:44 Dose: Not Given Documented by: [id number] Cosigned by: [id number] Admin: 02/19/19 09:18 Dose: Not Given Documented by: [id number] Cosigned by: [id number] Admin: 02/18/19 20:34 Dose: Not Given Documented by: [id number] Cosigned by: [id number] Labetalol HCl (Normodyne) 10 mg IV NOW [facility] Stop: 02/18/19 12:03 Last Admin: 02/18/19 12:11 Dose: 10 mg Documented by: [id number] Cosigned by: [id number] Lorazepam (Ativan) Confirm Administered Dose 4 mg .ROUTE .STK-MED ONE Stop: 02/18/19 15:33 Last Admin: 02/18/19 16:18 Dose: 2 mg Documented by: [id number] Losartan Potassium (Cozaar) 25 mg PO DAILY [facility] Stop: 03/22/19 08:59 Last Admin: 02/20/19 08:10 Dose: 25 mg Documented by: [id number] Metoprolol Tartrate (Lopressor) 25 mg PO BID [facility] Stop: 02/22/19 11:00 Last Admin: 02/22/19 09:59 Dose: 25 mg Documented by: [id number] Admin: 02/21/19 19:51 Dose: 25 mg Documented by: [id number] Admin: 02/21/19 12:06 Dose: 25 mg Documented by: [id number] Midazolam HCl (Versed) Confirm Administered Dose 2 mg .ROUTE .STK-MED ONE Stop: 02/18/19 11:38 Last Admin: 02/18/19 11:38 Dose: 2 mg Documented by: [id number] Potassium Chloride (Janet Ciel Elix) 40 meq PO Q6H [facility] Stop: 02/19/19 22:31 Last Admin: 02/19/19 23:17 Dose: 40 meq Documented by: [id number] Admin: 02/19/19 17:15 Dose: 40 meq Documented by: [id number] Admin: 02/19/19 10:35 Dose: 40 meq Documented by: [id number] Description This is a 21 electrode EEG with a single channel dedicated to limited EKG. The electrodes were placed in accordance with the International 10-20 system. This EEG was done as a bedside recording with simultaneous video analysis of patient movement and behavior. Photic stimulation was performed. Drowsiness and light sleep are not obtained. There is a normal-appearing posterior head region maximal bilaterally symmetrical rhythm in the alpha range, a normal and symmetrical mid frequency modest voltage theta activity and bifrontal low voltage fast activity in the beta range. Photic stimulation provokes a modest driving response without any significant changes No time is evidence for potentially epileptogenic activity Interpretation Is a normal EEG during wakefulness without evidence for focal or generalized encephalopathy and without evidence for potentially epileptogenic activity Clinical Correlation This is a normal EEG without focal or generalized abnormalities and without evidence for potentially epileptogenic activity. The absence of the latter does not exclude the diagnosis of seizure disorder. Manny Scott MD
--- NOTE | 2019-02-22 15:51 | Communication Note ---
Date of Service: February 22, 2019 I saw Mr. Ramos today in the company of his family. He is awake alert oriented 3 spheres looks back to his baseline is actually stable over the past 3 days. He has a left frontal bruise the tongue lacerations both of which are healing and is now in rapid atrial fibrillation being evaluated by cardiology but we found nothing on MRI scan to suggest embolic events as a possible precipitant for his syncope/seizure focal slow-wave activity or more importantly potentially epileptogenic activity. His left wrist now works perfectly. The initial impression of a left wrist drop was erroneous and was probably related to the pain he had in the joint following trauma there is no evidence now for a radial nerve palsy. Again I am not willing at this time to commit this man anticonvulsants. We will arrange to see him back in our clinic in 4-6 weeks to reassess his status schedule an outpatient EEG and if this too is normal we will continue our policy of non-treatment unless he has an unequivocal clinical seizure Neurology is therefore going to sign off his case today but will be quite willing to reassess him if anything changes. Manny Scott MD
[2019-02-23] MEDS: METOPROLOL TARTRATE 25 MG TAB PO SCH ×5 (00:12→23:16)
[2019-02-23 06:53] LABS: Partial Thromboplastin Time 55.5 Seconds (21.0-31.0)
[2019-02-23] MEDS: ATORVASTATIN 10 MG TAB PO SCH (08:27)
[2019-02-23] MEDS: PANTOprazole 40 MG TAB PO SCH (08:27)
[2019-02-23] MEDS: LOSARTAN POTASSIUM 50 MG TAB PO SCH (08:28)
[2019-02-23] MEDS: ASPIRIN 81 MG ECTAB PO SCH (08:31)
[2019-02-23] MEDS: MAGNESIUM OXIDE 400 MG TAB PO SCH ×2 (08:31→20:22)
[2019-02-23] MEDS: DULOXETINE HCL 20 MG CAP PO SCH (08:31)
[2019-02-23] MEDS: Heparin Adult STANDARD Wt-Based Dextrose 5% 25,000 units/500 mL IV SCH (10:38)
--- NOTE | 2019-02-23 11:13 | Hospitalist Progress Note ---
Date of Service February 23, 2019 Assessment & Plan (1) New onset atrial fibrillation: Atrial fibrillation with RVR improved with metoprolol 25mg PO q6. Not AC candidate per Cardiology. Cont heparin drip while hospitalized. (2) Syncope and collapse: Differential includes but is not limited to primary seizure causing a fall at home versus cardiac arrhythmia causing fall and secondary seizure vs vasovagal vs orthostatic hypotension inducing syncope. At this point Neurology is not convinced of seizure activity and is not committing him to an antiepileptic medication. EEG outpatient per Neurology. He remains alert and appropriate but is confused per staff. On Alcohol protocol. New onset atrial fibrillation. Continue physical therapy and conservative care pain (3) Alcohol abuse: Gabapentin withdrawal protocol. Benzos PRN. Here 5 days, withdrawal not likely. (4) HTN (hypertension): Losartan increased to 50 mg with good response. (5) DVT prophylaxis: heparin drip. Full Dispo-PT/OT, Rehab in 1-2 days, [place] CT. Subjective RN and OT report change in his MS, Confused today ROS-No Headache, No Visual Changes, No Nausea, No Vomiting, No Fever, No Chills, No Neck Pain or Stiffness, No Chest Pain, No Palpitations, No SOB, No PAZ, No Cough, No Sputum, No Wheezing, No Abdominal Pain, No Diarrhea, No Hematemesis, No Hemoptysis, No Unexpected Weight Loss, No Flank pain, No Melena, No Hematochezia, No Frequency, No Urgency, No Burning, No Hematuria, No Rashes, No Diaphoresis. Appetite is Normal, Physical Exam Gen-AAO x 3, NAD, Afebrile, Confused Head-NCAT, EOMI, PERRLA, Anicteric Sclera, No Posterior Pharyngeal Erythema Neck-Supple, No JVD, No Thyromegaly, No Masses, No LAD, No Bruits Lungs-Clear to Auscultation Bilaterally, No Rales, No Rhonchi, No Wheezing, No Crepitus Chest-No S4, +S1, +S2, No S3, No Murmurs, No Rubs, No Gallops, No Ectopy Abdomen-Soft, Bowel Sounds Present, Non Tender, Non Distended, No Hepatomegaly, No Splenomegaly, No Palpable Masses, No Rebound, No Rigidity, No Guarding Musculoskeletal-Full Range of Motion Bilaterally, No CVAT Extremities-No Cyanosis, No Clubbing, No Edema Nuero-Cranial Nerves II-XII grossly intact, Motor WNL, DTRs WNL, Strength WNL, Non Focal Psych-Normal Mood Physical Exam Vital Signs (Past 24 Hours): Last Vital Signs Temp 36.7 C 02/23/19 07:10 Pulse 98 H 02/23/19 07:10 Resp 24 02/23/19 07:10 BP 164/80 H 02/23/19 07:10 Pulse Ox 97 02/23/19 07:10 Results & Data Laboratory Results Current Diagnoses Hyperlipidemia, unspecified (02/18/19) Hypomagnesemia (02/18/19) Hypo-osmolality and hyponatremia (02/18/19) Hypokalemia (02/18/19) Alcohol abuse, uncomplicated (02/18/19) Alcohol dependence with withdrawal, unspecified (02/18/19) Essential (primary) hypertension (02/18/19) Unspecified atrial fibrillation (02/18/19) Gastro-esophageal reflux disease without esophagitis (02/18/19) Pain in left knee (02/18/19) Altered mental status, unspecified (02/18/19) Syncope and collapse (02/18/19) Hyperglycemia, unspecified (02/18/19) Unspecified fall, initial encounter (02/18/19) Allergies No Known Allergies Allergy (Unverified 02/18/19 11:54) Height/Weight/Isolation Height 5 ft 2 in Weight 59.7 kg Chemistry 02/22/19 06:12 Sodium 133 L Potassium 3.2 L Chloride 101 Carbon Dioxide 25 Anion Gap 8.0 BUN 11 Creatinine 0.67 Glucose 96
--- NOTE | 2019-02-23 11:41 | Cardiology Progress Note ---
Date of Service February 23, 2019 Assessment & Plan (1) Paroxysmal atrial fibrillation: Patient currently sinus rhythm with frequent PACs. He may be transitioned to Toprol-XL 50 mg twice a day at time of discharge. Continue telemetry monitoring during hospitalization. Lipase potassium magnesium as indicated. Currently patient is not a long-term anticoagulation can do to fall risk and chronic alcohol use. (2) Fall: Associated head trauma noted. Etiology unclear as patient does not recall events leading to his injury. (3) Alcohol withdrawal: Continue withdrawal protocol. Replace electrolytes as needed. (4) Hypomagnesemia: Repeat serum magnesium level (5) Hypokalemia: Repeat BMP. (6) Atrial tachycardia: Subjective Patient seen and examined at the bedside. Asymptomatic from a cardiovascular perspective. Denies chest pain or palpitations. IV heparin infusing. No evidence of bradycardia on telemetry. Patient currently sinus rhythm with frequent PACs and short salvos of paroxysmal atrial tachycardia. Review of Systems All systems reviewed & are unremarkable except as noted in HPI & below Physical Exam Vital Signs (Past 24 Hours): Last Vital Signs Temp 36.7 C 02/23/19 07:10 Pulse 98 H 02/23/19 07:10 Resp 24 02/23/19 07:10 BP 164/80 H 02/23/19 07:10 Pulse Ox 97 02/23/19 07:10 Physical Exam: General: NAD, AAO x3, well nourished. Chronically ill. HEENT: Right-sided forehead ecchymosis. Normocephalic. Atraumatic. Conjunctiva pink, no scleral icterus. Neck: No carotid bruits, the carotid upstrokes are brisk. No JVD. No HJR Heart: Irregular rhythm, tachycardic. Normal S-1 and S-2 no S-3 or S-4 gallop. No murmurs or rub appreciated. PMI is not displaced. No RV heave. Lungs: Clear bilateral without rales , rhonchi, or wheeze. Abdomen: Normal bowel sounds. Soft. Nontender. No masses or organomegaly. No abdominal bruits. Extremities: No clubbing, cyanosis, or edema. Pulses: radial=2/4, Dorsalis pedis =2/4, posterior tibial=2/4. Neuro: Cranial nerves grossly intact. No focal motor deficit.
--- NOTE | 2019-02-23 12:14 | CT Scan Report ---
CT head/brain wo con CLINICAL HISTORY: 78 years-old Male with AMS, Confusion. Acutely altered mental status with confusio n TECHNIQUE: Multiple axial CT images of the head were obtained without contrast. A dose lowering tech nique was utilized adhering to the principles of ALARA. CT DOSE: 729.78 mGycm COMPARISON: CT head 02/19/2019. FINDINGS: No acute intracranial hemorrhage, midline shift, intracranial mass, hydrocephalus, territorial ischem ia or abnormal extra-axial collection. Age-related involutional changes with ex vacuo ventriculomegal y. Senescent calcifications of the right lentiform nucleus. Chronic microvascular ischemic changes. C erebral vascular calcifications also noted. The calvarium is intact. Prior bilateral cataract repair. The paranasal sinuses, mastoid air cells, a nd middle ear cavities are clear. IMPRESSION: No acute intracranial abnormality. The above report was generated using voice recognition software. It may contain grammatical, syntax o r spelling errors. Electronically signed by: Dipesh Hagen M.D. 02/23/2019 12:12 PM
[2019-02-23] MEDS: POTASSIUM CHLORIDE 20 MEQ/15 ML UDC PO SCH ×2 (12:37→20:22)
[2019-02-23 12:53] LABS: BUN Creatinine Ratio 13.8 (10-20); Creatinine Clr Calc Pharmacy 73.4 ml/min; Est GFR (African American) 108.6; Est GFR (Non-African American) 93.7; Magnesium 1.7 mg/dl (1.8-2.4); Potassium 3.9 mmol/L (3.5-5.1)
[2019-02-23 18:39] LABS: Appearance Urine Clear (Clear); Bacteria Urine Automated 1+ (Negative); Bilirubin Urine Negative (Negative); Blood Urine Negative (Negative); Color Urine Yellow; Epithelial Cell Urine Auto 0-5 /lpf (0-5); Glucose Urine UA Negative (Negative); Ketones Urine Negative (Negative); Leukocyte Esterase Urine Trace (Negative); Nitrite Urine Negative (Negative); Protein Urine Negative (Negative); RBC Urine Automated 0-4 /hpf (0-4); Specific Gravity Urine 1.016 (1.000-1.030); Urobilinogen Urine Negative (Negative); pH Urine 6.5 (4.5-7.5)
[2019-02-23] MEDS: TRAMADOL HCL 50 MG TABLET PO PRN (23:16)
[2019-02-24] MEDS: METOPROLOL TARTRATE 25 MG TAB PO SCH (05:54)
[2019-02-24 07:04] LABS: Partial Thromboplastin Ratio 1.8; Prothrombin Time 10.4 Seconds (9.0-12.0)
[2019-02-24 07:06] LABS: Albumin Level 2.9 gm/dl (3.4-5.0); BUN Creatinine Ratio 10.7 (10-20); Calcium 9.1 mg/dl (8.5-10.1); Creatinine Clr Calc Pharmacy 67.9 ml/min; Est GFR (African American) 105.2; Est GFR (Non-African American) 90.8; Partial Thromboplastin Time 49.8 Seconds (21.0-31.0); Potassium 4.2 mmol/L (3.5-5.1)
[2019-02-24 07:09] LABS: Albumin Globulin Ratio 0.7 (0.9-2); Bilirubin,Total 0.8 mg/dl (0.2-1); Total Protein 6.9 gm/dl (6.4-8.2)
[2019-02-24] MEDS: ATORVASTATIN 10 MG TAB PO SCH (08:04)
[2019-02-24] MEDS: DULOXETINE HCL 20 MG CAP PO SCH (08:04)
[2019-02-24] MEDS: LOSARTAN POTASSIUM 50 MG TAB PO SCH (08:04)
[2019-02-24] MEDS: POTASSIUM CHLORIDE 20 MEQ/15 ML UDC PO SCH ×2 (08:05→21:18)
[2019-02-24] MEDS: ASPIRIN 81 MG ECTAB PO SCH (08:05)
[2019-02-24] MEDS: MAGNESIUM OXIDE 400 MG TAB PO SCH ×2 (08:05→21:19)
[2019-02-24] MEDS: PANTOprazole 40 MG TAB PO SCH (08:05)
--- NOTE | 2019-02-24 08:49 | Discharge Summary ---
Date of Service February 24, 2019 Admission HPI Per Admitting Provider Pt is 78 y/o M with PMH HTN, HLD, GERD, valvular heart disease, pernicious anemia, BPH Presented to ER with complaint of fall. History obtained from patient's and patient's son as patient is unresponsive. Patient's reports that approximately 7 AM today he went got up out of bed and went to the bathroom. reports the patient was complaining of headache last night and this morning. She states he was not talking much this morning which often occurs if he is not feeling well.He denies him complaining of anything else this morning. Reports had a cup of coffee this morning, did not take his morning m edications. Reports at approximately 10 AM he walked to bathroom and his heard a fall. Son went immediately to the bathroom and found patient lying face down on the floor and appeared to be shaking and breathing heavy and snoring and was not responding. reports that patient drinks at least 6 beers a day. She believes last drink was approximately 930 last night. She denies any known ETOH withdrawal in past. Denies any known seizure disorder. reports pt seemed to be at his baseline health over the past several weeks and denies recent illness. States he had been eating normally and she is unaware of any diarrhea or urinary symptoms but states that he usually doesn't tell her anyhow. Upon ER arrival it is reported by ER staff the patient was very anxious and grabbing at things and was nonverbal and not following commands. He was given Versed 2 mg. He was also given Labetalol 10 mg IV, Keppra 1000mg IV, Ativan 1 mg IV, K rider 10 mEq IV x2, banana bag. Reports since ativan pt has been sleeping, not responding but does respond to painful stimuli. Hx Echo in 07/2018: EF 55-60%, grade 2 diastolic dysfunction, mild aortic valve sclerosis, mild mitral regurgitation. Admission Exam Per Admitting Provider Pulse 92 H 02/18/19 14:34 Resp 24 02/18/19 14:34 BP 180/100 H 02/18/19 14:34 Pulse Ox 100 02/18/19 14:34 Physical Exam:General: elderly male, currently unresponsive, WDWN Head: normocephalic, +left frontal scalp hematoma Eyes: pupils approx 2mm and reactive to light, conjunctiva non-injected, anicteric ENT: normal inspection external ears, nose, mucous membranes moist, tongue with small laceration Neck: supple, trachea midline Lungs: clear, no respiratory distress, maintaining own airway CV: RRR, no pretibial edema Abd: normal BS, soft, no apparent tenderness to palpation Ext: no cyanosis, +ecchymosis right anterior knee Neuro: unresponsive, does pull back from painful stimuli Skin: warm, dry Principal Diagnosis Accelerated HTN Fall c CHI AFIB Syncope c Collapse Alcohol Use HLD GERD Pernicious Anemia BPH Discharge Exam ROS-No Headache, No Visual Changes, No Nausea, No Vomiting, No Fever, No Chills, No Neck Pain or Stiffness, No Chest Pain, No Palpitations, No SOB, No PAZ, No Cough, No Sputum, No Wheezing, No Abdominal Pain, No Diarrhea, No Hematemesis, No Hemoptysis, No Unexpected Weight Loss, No Flank pain, No Melena, No Hematochezia, No Frequency, No Urgency, No Burning, No Hematuria, No Rashes, No Diaphoresis. Appetite is Normal, Physical Exam Gen-AAO x 3, NAD, Afebrile, Confused Head-NCAT, EOMI, PERRLA, Anicteric Sclera, No Posterior Pharyngeal Erythema Neck-Supple, No JVD, No Thyromegaly, No Masses, No LAD, No Bruits Lungs-Clear to Auscultation Bilaterally, No Rales, No Rhonchi, No Wheezing, No Crepitus Chest-No S4, +S1, +S2, No S3, No Murmurs, No Rubs, No Gallops, No Ectopy Abdomen-Soft, Bowel Sounds Present, Non Tender, Non Distended, No Hepatomegaly, No Splenomegaly, No Palpable Masses, No Rebound, No Rigidity, No Guarding Musculoskeletal-Full Range of Motion Bilaterally, No CVAT Extremities-No Cyanosis, No Clubbing, No Edema Nuero-Cranial Nerves II-XII grossly intact, Motor WNL, DTRs WNL, Strength WNL, Non Focal Psych-Normal Mood Discharge Data Allergies Allergy/AdvReac Type Severity Reaction Status Date / Time No Known Allergies Allergy Unverified 02/18/19 11:54 Consultations 02/18/19 12:56 ED Decision to Admit Stat 02/18/19 17:19 Consult Case Management - Discharge Planning Routine Consult Case Management - Discharge Planning Routine Consult Neurology Routine 02/20/19 15:34 Consult Orthopedic Surgery Routine 02/21/19 08:09 Consult Cardiology Routine Ordered Studies 02/18/19 11:06 CT angio head w con Stat CT angio neck with con Stat CT head/brain wo con Stat 02/18/19 12:52 MR brain wo/w con Stat 02/19/19 14:16 CT head/brain wo con Urgent 02/23/19 11:18 CT head/brain wo con Urgent IMPRESSION: No acute intracranial abnormality. Current Diagnoses Hyperlipidemia, unspecified (02/18/19) Hypomagnesemia (02/18/19) Hypo-osmolality and hyponatremia (02/18/19) Hypokalemia (02/18/19) Alcohol abuse, uncomplicated (02/18/19) Alcohol dependence with withdrawal, unspecified (02/18/19) Essential (primary) hypertension (02/18/19) Unspecified atrial fibrillation (02/18/19) Gastro-esophageal reflux disease without esophagitis (02/18/19) Pain in left knee (02/18/19) Altered mental status, unspecified (02/18/19) Syncope and collapse (02/18/19) Hyperglycemia, unspecified (02/18/19) Unspecified fall, initial encounter (02/18/19) Allergies No Known Allergies Allergy (Unverified 02/18/19 11:54) Height/Weight/Isolation Height 5 ft 2 in Weight 58.4 kg Chemistry 02/23/19 02/24/19 12:20 06:00 Sodium 131 L 134 L Potassium 3.9 D 4.2 Chloride 99 99 Carbon Dioxide 24 27 Anion Gap 8.0 8.0 BUN 8 7 Creatinine 0.62 0.67 Glucose 110 H 87 Urinalysis 02/23/19 18:10 Urine Color Yellow Urine Appearance Clear Urine pH 6.5 Ur Specific [place] 1.016 Urine Protein Negative Urine Glucose (UA) Negative Urine Ketones Negative Urine Blood Negative Urine Nitrite Negative Urine Bilirubin Negative Microbiology 02/23/19 18:10 Urine,Clean Catch Urine Culture - Pending 02/23/19 12:23 Blood Blood Culture - Pending 02/23/19 12:20 Blood Blood Culture - Pending Hospital Course (1) New onset atrial fibrillation: Atrial fibrillation with RVR improved with metoprolol 25mg PO q6. Not AC candidate per Cardiology. Cont heparin drip while hospitalized. (2) Syncope and collapse: Differential includes but is not limited to primary seizure causing a fall at home versus cardiac arrhythmia causing fall and secondary seizure vs vasovagal vs orthostatic hypotension inducing syncope. At this point Neurology is not convinced of seizure activity and is not committing him to an antiepileptic medication. EEG outpatient per Neurology. He remains alert and appropriate but is confused per staff. On Alcohol protocol. New onset atrial fibrillation. Continue physical therapy and conservative care pain (3) Alcohol abuse: Gabapentin withdrawal protocol. Benzos PRN. Here 5 days, withdrawal not likely. (4) HTN (hypertension): Losartan increased to 50 mg with good response. (5) DVT prophylaxis: heparin drip. Full Dispo-PT/OT, Rehab in 1-2 days, Panc[facility]. Total Time Total Time Spent Total Time Spent (In Minutes): 45 mins Total Time Includes: Examination of the Patient, Discharge Planning, Medication Reconciliation and Communication With Other Providers Discharge Plan Discharge Items Patient Disposition: Transfer Long-Term Fac Reason For Visit: FALL, UNRESPONSIVE Discharge Diagnosis: Accelerated HTN Fall c CHI AFIB Syncope c Collapse Alcohol Use HLD GERD Pernicious Anemia BPH Condition: Good Discharge Goals: Improve function Activity: Resume your previous activity Activity Comment: Fall Risk Lifting: Gradually increase as tolerated Bathing: No limitations Exercise/Sports: None Weightbearing: Left weightbearing and Right weightbearing Non-emergency contact: Primary Care Provider Call non-emergency contact if: you have any medication questions Follow-up/Referrals: Jessica Pate MD [Primary Care Provider] - Diet: Carb Consistent or DM2 and Heart Healthy Addtl Provider Instructions: BP monitoring Prescriptions: No Action atorvastatin 10 mg Tablet 10 mg PO DAILY RF: 0 metoprolol succinate 50 mg Tablet Extended Release 24 Hr 50 mg PO DAILY RF: 0 potassium chloride 10 mEq Tablet Extended Release 10 meq PO BID RF: 0 aspirin [Aspir-81] 81 mg Tablet,Delayed Release (Dr/Ec) 81 mg PO DAILY RF: 0 pantoprazole 40 mg Tablet,Delayed Release (Dr/Ec) 40 mg PO DAILY RF: 0 losartan 25 mg Tablet 25 mg PO DAILY RF: 0 cholecalciferol (vitamin D3) [Vitamin D3] 1,000 unit Tablet 1,000 unit PO DAILY RF: 0 duloxetine 20 mg Capsule,Delayed Release(Dr/Ec) 20 mg PO DAILY RF: 0 Stand-Alone Forms: [facility] Admission Data Admit Date/Time: 02/18/19 14:11 Attending Provider: Jay Sharma Admit Provider: Gracy Gonzáles Primary Care Provider: Jessica Pate Other Providers: Manny Scott ; Gracy Gonzáles ; David John ; Duy Hayden ; Maxx Tony ; Flora Mariano ; Mikael Harrison ; Tessie Fisher ; Jay Zelaya ; Lucas Kline ; Yann Ann ; Lucas Sotomayor ; Saurabh Santos. ; Yann Branham ; Adam Merrill ; Cam Grimaldo ; Azeem Billingsley ; Nathan Quiros ; Yair Gonzalez ; Dandre Andraed ; Demarco Santana ; Tessie Lowe ; Ganesh Hensley ; Jamel Pike ; Benedicto Castillo ; Manny Rodney ; Jj Davis Service: Telemetry
--- NOTE | 2019-02-24 09:01 | Hospitalist Progress Note ---
Date of Service February 24, 2019 Assessment & Plan (1) Leukocytosis: Rising, Panculture, UA Suspicious for UTI, Start Cefepime to cover Nosocomial infection, CXR today, CXR 02/18 negative (2) New onset atrial fibrillation: Atrial fibrillation with RVR, Increase Metoprolol to 75mg PO q12. Not AC candidate per Cardiology. Cont heparin drip while hospitalized. (3) Syncope and collapse: Differential includes but is not limited to primary seizure causing a fall at home versus cardiac arrhythmia causing fall and secondary seizure vs vasovagal vs orthostatic hypotension inducing syncope. At this point Neurology is not convinced of seizure activity and is not committing him to an antiepileptic medication. EEG outpatient per Neurology. He remains alert and appropriate but is confused per staff. On Alcohol protocol. New onset atrial fibrillation. Continue physical therapy and conservative care pain (4) Alcohol abuse: Gabapentin withdrawal protocol. Benzos PRN. Here 5 days, withdrawal not likely. (5) HTN (hypertension): Losartan increased to 50 mg with good response. (6) DVT prophylaxis: heparin drip. Full Dispo-PT/OT, Rehab in 1-2 days, Blood Cx and Urine Culture Pending, CTH- Negative. Subjective RN and OT report improved MS. ROS-No Headache, No Visual Changes, No Nausea, No Vomiting, No Fever, No Chills, No Neck Pain or Stiffness, No Chest Pain, No Palpitations, No SOB, No PAZ, No Cough, No Sputum, No Wheezing, No Abdominal Pain, No Diarrhea, No Hematemesis, No Hemoptysis, No Unexpected Weight Loss, No Flank pain, No Melena, No Hematochezia, No Frequency, No Urgency, No Burning, No Hematuria, No Rashes, No Diaphoresis. Appetite is Normal, Physical Exam Gen-AAO x 3, NAD, Afebrile, Confused Head-NCAT, EOMI, PERRLA, Anicteric Sclera, No Posterior Pharyngeal Erythema Neck-Supple, No JVD, No Thyromegaly, No Masses, No LAD, No Bruits Lungs-Clear to Auscultation Bilaterally, No Rales, No Rhonchi, No Wheezing, No Crepitus Chest-No S4, +S1, +S2, No S3, No Murmurs, No Rubs, No Gallops, No Ectopy Abdomen-Soft, Bowel Sounds Present, Non Tender, Non Distended, No Hepatomegaly, No Splenomegaly, No Palpable Masses, No Rebound, No Rigidity, No Guarding Musculoskeletal-Full Range of Motion Bilaterally, No CVAT Extremities-No Cyanosis, No Clubbing, No Edema Nuero-Cranial Nerves II-XII grossly intact, Motor WNL, DTRs WNL, Strength WNL, Non Focal Psych-Normal Mood Physical Exam Vital Signs (Past 24 Hours): Last Vital Signs Temp 37.3 C 02/24/19 07:05 Pulse 78 02/24/19 07:05 Resp 16 02/24/19 07:05 BP 177/80 H 02/24/19 07:05 Pulse Ox 96 02/24/19 07:05 Results & Data Laboratory Results Current Diagnoses Hyperlipidemia, unspecified (02/18/19) Hypomagnesemia (02/18/19) Hypo-osmolality and hyponatremia (02/18/19) Hypokalemia (02/18/19) Alcohol abuse, uncomplicated (02/18/19) Alcohol dependence with withdrawal, unspecified (02/18/19) Essential (primary) hypertension (02/18/19) Unspecified atrial fibrillation (02/18/19) Gastro-esophageal reflux disease without esophagitis (02/18/19) Pain in left knee (02/18/19) Altered mental status, unspecified (02/18/19) Syncope and collapse (02/18/19) Hyperglycemia, unspecified (02/18/19) Unspecified fall, initial encounter (02/18/19) Allergies No Known Allergies Allergy (Unverified 02/18/19 11:54) Height/Weight/Isolation Height 5 ft 2 in Weight 58.4 kg Chemistry 02/23/19 02/24/19 12:20 06:00 Sodium 131 L 134 L Potassium 3.9 D 4.2 Chloride 99 99 Carbon Dioxide 24 27 Anion Gap 8.0 8.0 BUN 8 7 Creatinine 0.62 0.67 Glucose 110 H 87 Urinalysis 02/23/19 18:10 Urine Color Yellow Urine Appearance Clear Urine pH 6.5 Ur Specific [place] 1.016 Urine Protein Negative Urine Glucose (UA) Negative Urine Ketones Negative Urine Blood Negative Urine Nitrite Negative Urine Bilirubin Negative Microbiology 02/23/19 18:10 Urine,Clean Catch Urine Culture - Pending 02/23/19 12:23 Blood Blood Culture - Pending 02/23/19 12:20 Blood Blood Culture - Pending
[2019-02-24] MEDS: CEFEPIME 1,000 MG in SYRINGE 0 ML IV SCH ×2 (10:32→21:21)
--- NOTE | 2019-02-24 10:36 | XRay Report ---
XR chest 1V portable HISTORY: Rising Leukocytosis COMPARISON: Chest 02/18/2019. FINDINGS: There are overlying cardiac monitoring leads. No pneumothorax. No new focal lung consolidat ions to suggest pneumonia. No evidence for pulmonary edema. Trace right pleural effusion. The heart i s top normal in size. No evidence for pulmonary edema. IMPRESSION: 1. No new focal lung consolidations to suggest pneumonia. 2. Trace right pleural effusion. Electronically signed by: Michael Montana M.D. 02/24/2019 10:35 AM
--- NOTE | 2019-02-24 11:18 | Cardiology Progress Note ---
Date of Service February 24, 2019 Assessment & Plan (1) Paroxysmal atrial fibrillation: Sinus rhythm on telemetry overnight. Transition to Toprol-XL 50 mg twice daily. Discontinue IV heparin. Outpatient cardiology follow-up in 2 weeks. Currently patient is not a long-term anticoagulation can do to fall risk and chronic alcohol use. (2) HTN (hypertension): Elevated blood pressure likely multifactorial at least in part secondary to alcohol withdrawal. Cozaar titrated to 50 mg daily. Metoprolol increased to 50 mg twice daily. Continue to monitor. Consider addition of low-dose calcium channel jose guadalupe therapy in outpatient setting. (3) Fall: Associated head trauma noted. Etiology unclear as patient does not recall events leading to his injury. (4) Alcohol withdrawal: Continue withdrawal protocol. Replace electrolytes as needed. (5) Hypomagnesemia: Supplement as needed. (6) Hypokalemia: (7) Atrial tachycardia: Subjective Patient seen and examined the bedside. Working with physical therapy. Sinus rhythm on telemetry. No recurrent atrial fibrillation overnight. Denies lightheadedness or dizziness. No chest pain or shortness of breath. Offers no complaints. Review of Systems All systems reviewed & are unremarkable except as noted in HPI & below Physical Exam Vital Signs (Past 24 Hours): Last Vital Signs Temp 37.3 C 02/24/19 07:05 Pulse 78 02/24/19 07:05 Resp 16 02/24/19 07:05 BP 177/80 H 02/24/19 07:05 Pulse Ox 96 02/24/19 07:05 Physical Exam: General: NAD, AAO x3, well nourished. Chronically ill. HEENT: Right-sided forehead ecchymosis. Normocephalic. Atraumatic. Conjunctiva pink, no scleral icterus. Neck: No carotid bruits, the carotid upstrokes are brisk. No JVD. No HJR Heart: Irregular rhythm, tachycardic. Normal S-1 and S-2 no S-3 or S-4 gallop. No murmurs or rub appreciated. PMI is not displaced. No RV heave. Lungs: Clear bilateral without rales , rhonchi, or wheeze. Abdomen: Normal bowel sounds. Soft. Nontender. No masses or organomegaly. No abdominal bruits. Extremities: No clubbing, cyanosis, or edema. Pulses: radial=2/4, Dorsalis pedis =2/4, posterior tibial=2/4. Neuro: Cranial nerves grossly intact. No focal motor deficit. (1) HTN (hypertension) Hypertension type: unspecified Qualified Code(s): I10 - Essential (primary) hypertension
[2019-02-24] MEDS: Heparin Adult STANDARD Wt-Based Dextrose 5% 25,000 units/500 mL IV SCH (11:34)
[2019-02-24] MEDS: METOPROLOL SUCC 50MG EXT REL TAB PO SCH (21:18)
[2019-02-25 07:43] LABS: Basophils # (auto) 0.02 K/uL (0-0.2); Basophils % (auto) 0.2 %; Eosinophils # (auto) 0.14 K/uL (0-0.5); Eosinophils % (auto) 1.5 %; Hematocrit (blood only) 33.7 % (42-52); Hemoglobin 11.3 g/dL (14.0-18.0); Immature Granulocytes # (auto) 0.03 K/uL (0.00-0.02); Immature Granulocytes % (auto) 0.3 %; Lymphocytes # (auto) 1.09 K/uL (1.2-3.4); Mean Corpuscular Hgb Conc 33.5 g/dL (32-36); Mean Corpuscular Volume 97.4 fL (80-100); Mean Platelet Volume 8.8 fL (7.4-10.4); Monocytes # (auto) 1.09 K/uL (0.11-0.59); Platelet Count 360 K/uL (130-400); RDW Coefficient of Variation 13.4 % (11.5-14.5); RDW Standard Deviation 47.8 fL (36.4-46.3); Red Blood Count 3.46 M/uL (4.7-6.1); White Blood Count 9.07 K/uL (4.8-10.8)
[2019-02-25 07:56] LABS: INR 1.1 (0.9-1.1); Partial Thromboplastin Time 27.1 Seconds (21.0-31.0); Prothrombin Time 10.8 Seconds (9.0-12.0)
[2019-02-25 08:20] LABS: Albumin Level 2.8 gm/dl (3.4-5.0); BUN Creatinine Ratio 14.1 (10-20); Calcium 9.3 mg/dl (8.5-10.1); Creatinine Clr Calc Pharmacy 66.9 ml/min; Est GFR (African American) 104.5; Est GFR (Non-African American) 90.2; Potassium 4.7 mmol/L (3.5-5.1)
[2019-02-25 08:23] LABS: Albumin Globulin Ratio 0.8 (0.9-2); Bilirubin,Total 0.6 mg/dl (0.2-1); Globulin 3.5 gm/dl (2.5-4.0); Total Protein 6.3 gm/dl (6.4-8.2)
[2019-02-25] MEDS: MAGNESIUM OXIDE 400 MG TAB PO SCH (08:50)
[2019-02-25] MEDS: LOSARTAN POTASSIUM 50 MG TAB PO SCH (08:50)
[2019-02-25] MEDS: PANTOprazole 40 MG TAB PO SCH (08:50)
[2019-02-25] MEDS: ASPIRIN 81 MG ECTAB PO SCH (08:51)
[2019-02-25] MEDS: METOPROLOL SUCC 50MG EXT REL TAB PO SCH (08:51)
[2019-02-25] MEDS: POTASSIUM CHLORIDE 20 MEQ/15 ML UDC PO SCH (08:51)
[2019-02-25] MEDS: ATORVASTATIN 10 MG TAB PO SCH (08:51)
[2019-02-25] MEDS: DULOXETINE HCL 20 MG CAP PO SCH (08:51)
[2019-02-25] MEDS: CEFEPIME 1,000 MG in SYRINGE 0 ML IV SCH (09:20)
--- NOTE | 2019-02-25 11:55 | Discharge Summary ---
Date of Service February 25, 2019 Admission HPI Per Admitting Provider Pt is 78 y/o M with PMH HTN, HLD, GERD, valvular heart disease, pernicious anemia, BPH Presented to ER with complaint of fall. History obtained from patient's and patient's son as patient is unresponsive. Patient's reports that approximately 7 AM today he went got up out of bed and went to the bathroom. reports the patient was complaining of headache last night and this morning. She states he was not talking much this morning which often occurs if he is not feeling well.He denies him complaining of anything else this morning. Reports had a cup of coffee this morning, did not take his morning m edications. Reports at approximately 10 AM he walked to bathroom and his heard a fall. Son went immediately to the bathroom and found patient lying face down on the floor and appeared to be shaking and breathing heavy and snoring and was not responding. reports that patient drinks at least 6 beers a day. She believes last drink was approximately 930 last night. She denies any known ETOH withdrawal in past. Denies any known seizure disorder. reports pt seemed to be at his baseline health over the past several weeks and denies recent illness. States he had been eating normally and she is unaware of any diarrhea or urinary symptoms but states that he usually doesn't tell her anyhow. Upon ER arrival it is reported by ER staff the patient was very anxious and grabbing at things and was nonverbal and not following commands. He was given Versed 2 mg. He was also given Labetalol 10 mg IV, Keppra 1000mg IV, Ativan 1 mg IV, K rider 10 mEq IV x2, banana bag. Reports since ativan pt has been sleeping, not responding but does respond to painful stimuli. Hx Echo in 07/2018: EF 55-60%, grade 2 diastolic dysfunction, mild aortic valve sclerosis, mild mitral regurgitation. Admission Exam Per Admitting Provider Pulse 92 H 02/18/19 14:34 Resp 24 02/18/19 14:34 BP 180/100 H 02/18/19 14:34 Pulse Ox 100 02/18/19 14:34 Physical Exam: General: elderly male, currently unresponsive, WDWN Head: normocephalic, +left frontal scalp hematoma Eyes: pupils approx 2mm and reactive to light, conjunctiva non-injected, anicteric ENT: normal inspection external ears, nose, mucous membranes moist, tongue with small laceration Neck: supple, trachea midline Lungs: clear, no respiratory distress, maintaining own airway CV: RRR, no pretibial edema Abd: normal BS, soft, no apparent tenderness to palpation Ext: no cyanosis, +ecchymosis right anterior knee Neuro: unresponsive, does pull back from painful stimuli Skin: warm, dry Principal Diagnosis Fall Altered UTI Leukocytosis AFIB Syncope Alcohol Abuse BPH HTN Discharge Exam ROS-No Headache, No Visual Changes, No Nausea, No Vomiting, No Fever, No Chills, No Neck Pain or Stiffness, No Chest Pain, No Palpitations, No SOB, No PAZ, No Cough, No Sputum, No Wheezing, No Abdominal Pain, No Diarrhea, No Hematemesis, No Hemoptysis, No Unexpected Weight Loss, No Flank pain, No Melena, No Hematochezia, No Frequency, No Urgency, No Burning, No Hematuria, No Rashes, No Diaphoresis. Appetite is Normal, Physical Exam Gen-AAO x 3, NAD, Afebrile, Confused Head-NCAT, EOMI, PERRLA, Anicteric Sclera, No Posterior Pharyngeal Erythema Neck-Supple, No JVD, No Thyromegaly, No Masses, No LAD, No Bruits Lungs-Clear to Auscultation Bilaterally, No Rales, No Rhonchi, No Wheezing, No Crepitus Chest-No S4, +S1, +S2, No S3, No Murmurs, No Rubs, No Gallops, No Ectopy Abdomen-Soft, Bowel Sounds Present, Non Tender, Non Distended, No Hepatomegaly, No Splenomegaly, No Palpable Masses, No Rebound, No Rigidity, No Guarding Musculoskeletal-Full Range of Motion Bilaterally, No CVAT Extremities-No Cyanosis, No Clubbing, No Edema Nuero-Cranial Nerves II-XII grossly intact, Motor WNL, DTRs WNL, Strength WNL, Non Focal Psych-Normal Mood Discharge Data Allergies Allergy/AdvReac Type Severity Reaction Status Date / Time No Known Allergies Allergy Unverified 02/18/19 11:54 Consultations 02/18/19 12:56 ED Decision to Admit Stat 02/18/19 17:19 Consult Case Management - Discharge Planning Routine Consult Case Management - Discharge Planning Routine Consult Neurology Routine 02/20/19 15:34 Consult Orthopedic Surgery Routine 02/21/19 08:09 Consult Cardiology Routine Ordered Studies 02/18/19 11:06 CT angio head w con Stat CT angio neck with con Stat CT head/brain wo con Stat 02/18/19 12:52 MR brain wo/w con Stat 02/19/19 14:16 CT head/brain wo con Urgent 02/23/19 11:18 CT head/brain wo con Urgent Enterrococcus in urine Hospital Course (1) Leukocytosis: Resolved, GPC in Urine, Will treat c Macrobid, UA Suspicious for UTI, CXR trace effusion, CXR 02/18 negative (2) New onset atrial fibrillation: Atrial fibrillation with RVR. Not AC candidate per Cardiology. DC heparin drip. (3) Syncope and collapse: Differential includes but is not limited to primary seizure causing a fall at home versus cardiac arrhythmia causing fall and secondary seizure vs vasovagal vs orthostatic hypotension inducing syncope. At this point Neurology is not convinced of seizure activity and is not committing him to an antiepileptic medication. EEG outpatient per Neurology. He remains alert and appropriate but is confused per staff. On Alcohol protocol. New onset atrial fibrillation. Continue physical therapy and conservative care pain (4) Alcohol abuse: Gabapentin withdrawal protocol. Benzos PRN. Here 5 days, withdrawal not likely. (5) HTN (hypertension): Losartan increased to 50 mg with good response. (6) DVT prophylaxis: DC home c Family today Dispo-PT/OT, No Rehab per family, Urine Culture Noted, CTH-Negative. Total Time Total Time Spent Total Time Spent (In Minutes): 45 mins Total Time Includes: Examination of the Patient, Discharge Planning, Medication Reconciliation and Communication With Other Providers Discharge Plan Discharge Items Patient Disposition: Home - Self-Care Reason For Visit: FALL, UNRESPONSIVE Discharge Diagnosis: Accelerated HTN Fall c CHI UTI AFIB Syncope c Collapse Alcohol Use HLD GERD Pernicious Anemia BPH Condition: Good Discharge Goals: Improve function Activity: Resume your previous activity Activity Comment: Fall Risk Lifting: Gradually increase as tolerated Bathing: No limitations Exercise/Sports: None Weightbearing: Left weightbearing and Right weightbearing Non-emergency contact: Primary Care Provider Call non-emergency contact if: you have any medication questions Follow-up/Referrals: Jessica Pate MD [Primary Care Provider] - Diet: Carb Consistent or DM2 and Heart Healthy Addtl Provider Instructions: BP monitoring Prescriptions: New losartan 50 mg Tablet 50 mg PO DAILY Qty: 30 RF: 0 metoprolol succinate 50 mg Tablet Extended Release 24 Hr 50 mg PO BID Qty: 60 RF: 0 nitrofurantoin macrocrystal 100 mg capsule 100 mg PO BID 7 Days Qty: 14 RF: 0 Continued atorvastatin 10 mg Tablet 10 mg PO DAILY RF: 0 metoprolol succinate 50 mg Tablet Extended Release 24 Hr 50 mg PO DAILY RF: 0 potassium chloride 10 mEq Tablet Extended Release 10 meq PO BID RF: 0 aspirin [Aspir-81] 81 mg Tablet,Delayed Release (Dr/Ec) 81 mg PO DAILY RF: 0 pantoprazole 40 mg Tablet,Delayed Release (Dr/Ec) 40 mg PO DAILY RF: 0 cholecalciferol (vitamin D3) [Vitamin D3] 1,000 unit Tablet 1,000 unit PO DAILY RF: 0 duloxetine 20 mg Capsule,Delayed Release(Dr/Ec) 20 mg PO DAILY RF: 0 Discontinued losartan 25 mg Tablet 25 mg PO DAILY RF: 0 Stand-Alone Forms: [facility] Discharge Orders: Discharge Order (Routine); Ordered 02/25/19 Ordered By: Jay Sharma Skilled Items Patient informed of condition?: Yes DNR: No Discharge Level of Care: Other Communicable Disease: No Discharge Prognosis: Improving Admission Data Admit Date/Time: 02/18/19 14:11 Attending Provider: Jay Sharma Admit Provider: Gracy Gonzáles Primary Care Provider: Jessica Pate Other Providers: Manny Scott ; Gracy Gonzáles ; David John ; Duy Hayden ; Maxx Tony ; Flora Mariano Thomas J ; Tessie Fisher ; Jay Zelaya ; Lucas Kline ; Yann Ann ; Lucas Sotomayor Andrew J. ; Yann Branham ; Adam Merrill ; Cam Grimaldo ; Azeem Billingsley ; Nathan Quiros ; Yair Gonzalez ; Dandre Andrade ; Demarco Santana ; Tessie Lowe ; Ganesh Hensley ; Jamel Pike ; Benedicto Castillo ; Manny Rodney ; Jj Davis Service: Telemetry
== END 2019-02-25 12:40 | disposition home health service (06) | DRG 101 ==
LOC: ED 11:15 → SUATTDRO 14:11 → 2S 14:11

== ENCOUNTER 2024-09-14 16:09 | Inpatient (IN) ==
--- NOTE | 2024-09-14 16:20 | Emergency Department Note ---
Impression & Plan Hypertensive urgency, Intermittent headache, First degree atrioventricular block, Left anterior fascicular block ED Provider Note NAME: MARTINEZ MEDEL AGE: 84 SEX: M : 1940 ARRIVES VIA: Ambulance INFORMANT: Patient ED PROVIDER(S): Darío Ledezma MD CHIEF COMPLAINT: hypertension, referred. PLAN: Disposition: Admit MEDICAL DECISION MAKING: The patient is a pleasant 84-year-old gentleman with a past medical history of hypertension, atrial fibrillation/atrial tachycardia, anxiety, GERD who presents to the emergency department via EMS and then accompanied by family referred by his PCP office for significant elevated blood pressure in the 200s/100s but asymptomatic. The patient's visit today was for assessment of 2 separate episodes of severe headache that occurred over the past several days. The patient reports he has been taking his medication as prescribed and has not missed any doses. He reports he had no symptoms today when he was seen by his doctor. He denies chest pain, shortness of breath, GI or symptoms. The patient does have a history of an alcohol use disorder but reports he has significantly cut back and only drinks 2 beers a day and no more than this. On evaluation the patient is in no acute distress, afebrile blood pressure 200s/100s and vital signs otherwise stable. He appears clinically dry. Has no focal logic deficits. EKG is without overt acute ischemia. WBC and platelets wnl. H/H similar to prior values. Chemistry without metabolic acidosis per electrolytes and LFTs are unremarkable. High-sensitivity troponin 12.4, within normal limits. Lipase is normal. TSH within normal limits. WBC and platelets within normal limits. CT of the head and CT of the head neck were performed were negative for acute abnormalities. Upon reevaluation patient continued deny any symptoms. He was treated with 500 cc normal saline and no significant change in his blood pressure. However given how high his blood pressure remains patient and family did agree with plan for admission for further management. 10 mg of IV labetalol ordered to initiate better blood pressure control. Case was discussed with Shanti Barnard PAC, with Shanti Ro hospitalist who will evaluate the patient for admission. Further management per admitting team. Triage Nursing notes reviewed and agree them. Prior/external medical records reviewed Vital Signs: reviewed Differential diagnosis: Infection, dehydration, metabolic abnormality, hypo/hyperglycemia, electrolyte disturbance, anemia, hypoxia, cardiac sources, intracerebral event, toxicologic, neurologic, as well as other pathologies. ER treatment provided: See below. Diagnostics interpreted by me: ECG: Sinus rhythm with first-degree AV block, 69 bpm, PACs, left anterior fascicular block, no overt ST elevation or depression, QTc 469, QRS 100, MO 256. Cardiac Monitoring: An order for continuous cardiac monitoring was placed and demonstrated Sinus rhythm with first-degree AV block, 69 bpm, PACs, Laboratory studies: See below Imaging studies: See below Consultation(s): Fabi Torres, Shanti PAC, with Shanti Ro hospitalist HPI: The patient is a pleasant 84-year-old gentleman with a past medical history of hypertension, atrial fibrillation/atrial tachycardia, anxiety, GERD who presents to the emergency department via EMS and then accompanied by family referred by his PCP office for significant elevated blood pressure in the 200s/100s but asymptomatic. The patient's visit today was for assessment of 2 separate episodes of severe headache that occurred over the past several days. The patient reports he has been taking his medication as prescribed and has not missed any doses. He reports he had no symptoms today when he was seen by his doctor. He denies chest pain, shortness of breath, GI or symptoms. The patient does have a history of an alcohol use disorder but reports he has significantly cut back and only drinks 2 beers a day and no more than this. ROS: See above HPI for pertinent positives & negatives. A total of 10 systems reviewed and were otherwise negative. VITALS:See Below PHYSICAL EXAMINATION: GENERAL: Awake, alert, well-appearing, in no distress HENT: Normocephalic, atraumatic. Oropharynx with dry mucous membranes and otherwise unremarkable. EYES: Normal conjunctiva. Sclera non-icteric. EOMI. No nystamgus. PEARRL. NECK: Supple. No nuchal rigidity. FROM. No JVD. RESPIRATORY: Clear to auscultation. CARDIAC: Regular rate, normal rhythm. Extremities warm and well perfused. Pulses equal. ABDOMEN: Soft, non-distended. No tenderness to palpation. No rebound or guarding. No masses. MUSCULOSKELETAL: Chest examination reveals no tenderness. The back is symmetrical on inspection without obvious abnormality. There is no CVA tenderness to palpation. No joint edema. LOWER EXTREMITIES: Calves are equal size bilaterally and non-tender. No edema. No discoloration. NEURO: Normal sensorium. No sensory or motor deficits noted. Cranial nerves II- XII grossly intact. Speech is fluent. 5/5 strength and SILT x 4 extremities. Cerebellar function intact including [id number]. SKIN: No rash or jaundice noted. Darío Ledezma MD Past Med/Surg History Problem List (Updated 09/15/24 @ 04:48 by Darío Ledezma MD) Left anterior fascicular block (Acute) Intermittent headache (Acute) Hypertensive urgency (Acute) Nocturnal hypoxemia ILD (interstitial lung disease) Recurrent falls Ambulatory dysfunction Hypertensive urgency Leukocytosis Left knee pain New onset atrial fibrillation Atrial tachycardia Paroxysmal atrial fibrillation DVT prophylaxis Syncope and collapse Hyperglycemia Hypomagnesemia Hypokalemia Alcohol withdrawal Alcohol abuse Fall History of cataract surgery (Chronic) History of inguinal hernia repair (Chronic) History of hemorrhoidectomy (Chronic) 1970 GERD (gastroesophageal reflux disease) (Chronic) HLD (hyperlipidemia) (Chronic) Pernicious anemia (Chronic) BPH (benign prostatic hyperplasia) (Chronic) Altered mental status (Acute) HTN (hypertension) (Acute) First degree atrioventricular block (Chronic) Full code status Valvular heart disease (Chronic) Chronic left hip pain (Chronic) HTN (hypertension) (Chronic) DVT prophylaxis Hyponatremia (Acute) Weakness (Chronic) Medical History (Updated 09/15/24 @ 04:48 by Darío Ledezma MD) Hypertension Spinal stenosis Family History Other Hypertension Social History Smoking Status: Never smoker Second Hand Exposure: No; Do You Dip or Chew Tobacco: No; Tobacco Cessation Education Requested by Patient: No Hx Alcohol Use: Yes Alcohol type: beer Hx Substance Use: No Preferred Language: [place] Communication Ability: 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: No Beliefs That Will Affect Care: None Current Living Situation: Spouse and Family Current Living Situation Comment: one level home Other Information That Helps Us Care for You: Yes ( is more medically unstable.) Feels Safe at Home: Yes Safety Concerns: Feels Safe At This Time Assistive Devices: Oxygen - at Night and Walker Allergies Allergies Allergy/AdvReac Type Severity Reaction Status Date / Time No Known Allergies Allergy Verified 04/19/19 08:29 Home Meds Home Medications Medication Instructions Recorded Confirmed atorvastatin 10 mg tablet 10 mg PO DAILY 07/28/18 09/14/24 cholecalciferol (vitamin D3) 25 1,000 unit PO DAILY 07/28/18 09/14/24 mcg (1,000 unit) tablet (Vitamin D3) pantoprazole 40 mg tablet,delayed 40 mg PO DAILY 07/28/18 09/14/24 release duloxetine 20 mg capsule,delayed 20 mg PO DAILY 02/18/19 09/14/24 release aspirin 81 mg tablet,delayed 81 mg PO DAILY 09/14/24 09/14/24 release cyanocobalamin (vitamin B-12) 1,000 mcg subcut Q4WK 09/14/24 09/14/24 1,000 mcg/mL injection solution losartan 100 mg tablet 100 mg PO DAILY 09/14/24 09/14/24 metoprolol succinate 50 mg 25 mg PO HS 09/14/24 09/14/24 tablet,extended release 24 hr metoprolol succinate 50 mg 50 mg PO DAILY 09/14/24 09/14/24 tablet,extended release 24 hr Results & Data (ED) Vital Signs Vital Signs - 24 hr 09/14/24 16:13 09/14/24 16:42 09/14/24 16:46 Temperature 36.8 C Temperature Source Temporal Artery Scan Pulse Rate 67 68 68 Pulse Rate [Left Apical] Respiratory Rate 16 14 Respiratory Effort / Characteristics Non-Labored Spontaneous Respiratory Depth Normal Respiratory Pattern Regular Blood Pressure 206/153 H 219/106 H Blood Pressure [Right Arm] Blood Pressure Mean 170 143 Blood Pressure Mean [Right Arm] Blood Pressure Position Lying Pulse Oximetry 100 96 Oxygen Delivery Method Room Air Room Air Sepsis Recent Fever Within 48 Hours No Sepsis New/Unexplained Change in Mental Status N/A Sepsis Action Taken by Nursing No Action Required 09/14/24 17:30 09/14/24 18:31 09/14/24 19:03 Temperature Temperature Source Pulse Rate 68 76 Pulse Rate [Left Apical] 74 Respiratory Rate 18 18 21 Respiratory Effort / Characteristics Non-Labored Spontaneous Respiratory Depth Normal Respiratory Pattern Regular Blood Pressure 205/108 H 219/122 H Blood Pressure [Right Arm] 197/102 H Blood Pressure Mean 155 131 Blood Pressure Mean [Right Arm] 133 Blood Pressure Position Pulse Oximetry 96 95 98 Oxygen Delivery Method Room Air Room Air Room Air Sepsis Recent Fever Within 48 Hours Sepsis New/Unexplained Change in Mental Status Sepsis Action Taken by Nursing 09/14/24 19:25 09/14/24 19:30 Temperature Temperature Source Pulse Rate 72 Pulse Rate [Left Apical] Respiratory Rate 17 Respiratory Effort / Characteristics Respiratory Depth Respiratory Pattern Blood Pressure 214/97 H 203/102 H Blood Pressure [Right Arm] Blood Pressure Mean 144 135 Blood Pressure Mean [Right Arm] Blood Pressure Position Pulse Oximetry 96 Oxygen Delivery Method Room Air Sepsis Recent Fever Within 48 Hours Sepsis New/Unexplained Change in Mental Status Sepsis Action Taken by Nursing Laboratory Data Attestation: I reviewed the patient's lab results. 09/14/24 16:29 09/14/24 16:29 Lab Results 09/14/24 09/14/24 Range/Units 16:29 19:19 WBC 8.56 (4.8-10.8) K/ul RBC 3.93 L (4.70-6.10) M/uL Hgb 13.4 L (14.0-18.0) g/dl Hct 39.3 L (42.0-52.0) % MCV 100.0 (80.0-100.0) fL MCH 34.1 H (25.0-34.0) pg MCHC 34.1 (32.0-36.0) g/dL RDW Std Deviation 48.4 H (36.4-46.3) fL RDW Coeff of Dereck 12.9 (11.5-14.5) % Plt Count 205 (130-400) K/uL MPV 9.4 (9.4-12.4) fL Immature Gran % (Auto) 0.4 % Neut % (Auto) 64.5 % Lymph % (Auto) 22.9 % [place] % (Auto) 9.3 % Eos % (Auto) 2.0 % Baso % (Auto) 0.9 % Neut # (Auto) 5.52 (1.40-6.50) K/uL Lymph # (Auto) 1.96 (1.20-3.40) K/uL [place] # (Auto) 0.80 H (0.11-0.59) K/uL Eos # (Auto) 0.17 (0.00-0.50) K/uL Baso # (Auto) 0.08 (0.00-0.20) K/uL Immature Gran # (Auto) 0.03 (0.01-0.20) K/uL PT 11.4 (9.0-12.0) Seconds INR 1.1 (0.9-1.1) Sodium 140 (136-145) mmol/L Potassium 4.2 (3.5-5.1) mmol/L Chloride 106 (98-107) mmol/L Carbon Dioxide 26 (21-32) mmol/L Anion Gap 8 (3-11) BUN 17 (6-23) mg/dl Creatinine 0.86 (0.6-1.4) mg/dl Est Cr Clr Drug Dosing 49.3 ml/min eGFR 84.33 BUN/Creatinine Ratio 19.8 (10-20) Glucose 97 (70-99(Fasting)) mg/dl Calcium 9.4 (8.6-10.3) mg/dl Phosphorus 3.8 (2.5-4.9) mg/dl Magnesium 1.7 (1.7-2.4) mg/dl Total Bilirubin 0.8 (0.2-1.0) mg/dl AST 19 (13-39) U/L ALT 17 (7-52) U/L Alkaline Phosphatase 85 (34-104) U/L Troponin I High Sens 12.4 11.3 (0-20) pg/ml Total Protein 6.9 (6.0-8.3) gm/dl Albumin 4.3 (3.4-5.0) gm/dl Globulin 2.6 (2.5-4.0) gm/dl Albumin/Globulin Ratio 1.7 (0.9-2) Lipase 23 (11-82) U/L TSH 1.445 (0.300-4.500) uIu/ml Ethyl Alcohol mg/dL < 10.0 (<10.0) mg/dl Administered Medications Heparin Sodium (Porcine) (Heparin Sod 5,000 Unit/0.5 Ml Vial) 5,000 units SQ Q12 LYNDA Stop: 10/14/24 22:00 Last Admin: 09/14/24 23:20 Dose: Not Given Documented By: ISABELA Hydralazine HCl (Hydralazine Hcl 20 Mg/Ml Vial) 10 mg IV Q6H PRN PRN Reason: Hypertension Stop: 10/14/24 19:43 Last Admin: 09/15/24 04:31 Dose: 10 mg Documented By: ISABELA Metoprolol Succinate (Metoprolol Succ 50mg Ext Rel Tab) 50 mg PO BID LYNDA Stop: 10/14/24 22:00 Last Admin: 09/14/24 23:20 Dose: 50 mg Documented By: ISABELA Discontinued Medications Sodium Chloride (Nss) 500 mls @ 999 mls/hr IV .Q31M ONE Stop: 09/14/24 17:42 Last Infusion: 09/14/24 18:26 Dose: Infused Documented By: Admin: 09/14/24 17:20 Dose: 999 mls/hr Documented By: ZORAN Ioversol (Optiray 320 125ml) 118 ml IV ONCE ONE Stop: 09/14/24 18:07 Last Admin: 09/14/24 18:07 Dose: 118 ml Documented By: BOBBY Labetalol HCl (Labetalol Hcl Iv 5 Mg/Ml 20ml) 10 mg IV NOW STA Stop: 09/14/24 18:56 Last Admin: 09/14/24 19:04 Dose: 10 mg Documented By: [facility] Imaging Data Radiologist's Impression: Chest X-Ray 09/14/24 16:17 XR chest 1V portable HISTORY: 84 years-old Male Chest pain, nonspecific COMPARISON: 02/24/2019 TECHNIQUE: AP view the chest FINDINGS: Cardiac silhouette is enlarged. Atherosclerosis of the aorta. Pulmonary vascular congestion with mild interstitial coarsening. No pneumothorax or large pleural effusion. No lobar airspace consolidation. An electronic device projects over the abdominal left upper quadrant. Surgical clip projects over the midline upper chest. Bones appear grossly intact. IMPRESSION: Cardiomegaly with pulmonary vascular congestion and nonspecific interstitial coarsening, possibly representing mild pulmonary edema. ACT 112: Negative or not required by law. The above report was generated using voice recognition software. It may contain grammatical, syntax or spelling errors. Electronically signed by: Yannick Hagen M.D. 09/14/2024 4:[address] 09/14/24 17:47 CT angio neck with con, CT head/brain wo con, CT angio head w con CLINICAL HISTORY: intermittent SCHUSTER, HTN TECHNIQUE: Contiguous axial CT images of the head were acquired from the base of the skull to the vertex without intravenous contrast administration. CT angiography of the head and neck was performed following intravenous administration of iodinated contrast. Coronal and sagittal MIPS were obtained from the axial data set and were submitted for review. Automated dose lowering techniques and/or adjustment according to patient size were utilized for this examination. All measurements were calculated based on NASCET criteria. CT DOSE: 1091.01 mGy.cm Comparison: None available at the time of this dictation. FINDINGS: CT head: Areas of decreased attenuation are present in the periventricular and subcortical white matter bilaterally consistent with small vessel ischemic disease. Generalized cerebral atrophy with commensurate enlargement of the ventricles, sulci, and cisterns is also present. There is no acute intracranial hemorrhage or evidence of acute territorial infarction. No shift of the midline structures, mass effect, or extra-axial abnormalities are shown. Atherosclerotic calcifications are present in the intracranial segments of the internal carotid arteries. Biapical emphysema is seen. CTA Neck: A 3 vessel aortic arch is shown. There is no significant atherosclerotic plaque in the aortic arch or the origins of the innominate, left common carotid, and left subclavian arteries. The common carotid, external carotid, cervical segments of the internal carotid arteries, and the cervical segments of the vertebral arteries are patent without hemodynamically significant stenosis. The left vertebral artery is dominant. CTA Head: The anterior and posterior cerebral circulations are patent. No hemodynamically significant stenosis, aneurysm, dissection, or arteriovenous malformation is shown. IMPRESSION: 1. No acute intracranial hemorrhage, evidence of acute territorial infarction, or other acute intracranial disease process. 2. No occlusion, hemodynamically significant stenosis, or dissection in the major cervical arteries. 3. No occlusion, hemodynamically significant stenosis, aneurysm, dissection, or arteriovenous malformation in the major intracranial arteries. Assessment of stenosis of the internal carotid arteries is based on NASCET criteria. ACT 112: Negative or not required by law. Electronically signed by: Roshan Kaufman M.D. 09/14/2024 6:26 PM Head CTA 09/14/24 17:47 CT angio neck with con, CT head/brain wo con, CT angio head w con CLINICAL HISTORY: intermittent SCHUSTER, HTN TECHNIQUE: Contiguous axial CT images of the head were acquired from the base of the skull to the vertex without intravenous contrast administration. CT angiography of the head and neck was performed following intravenous administration of iodinated contrast. Coronal and sagittal MIPS were obtained from the axial data set and were submitted for review. Automated dose lowering techniques and/or adjustment according to patient size were utilized for this examination. All measurements were calculated based on NASCET criteria. CT DOSE: 1091.01 mGy.cm Comparison: None available at the time of this dictation. FINDINGS: CT head: Areas of decreased attenuation are present in the periventricular and subcortical white matter bilaterally consistent with small vessel ischemic disease. Generalized cerebral atrophy with commensurate enlargement of the ventricles, sulci, and cisterns is also present. There is no acute intracranial hemorrhage or evidence of acute territorial infarction. No shift of the midline structures, mass effect, or extra-axial abnormalities are shown. Atherosclerotic calcifications are present in the intracranial segments of the internal carotid arteries. Biapical emphysema is seen. CTA Neck: A 3 vessel aortic arch is shown. There is no significant atherosclerotic plaque in the aortic arch or the origins of the innominate, left common carotid, and left subclavian arteries. The common carotid, external carotid, cervical segments of the internal carotid arteries, and the cervical segments of the vertebral arteries are patent without hemodynamically significant stenosis. The left vertebral artery is dominant. CTA Head: The anterior and posterior cerebral circulations are patent. No hemodynamically significant stenosis, aneurysm, dissection, or arteriovenous malformation is shown. IMPRESSION: 1. No acute intracranial hemorrhage, evidence of acute territorial infarction, or other acute intracranial disease process. 2. No occlusion, hemodynamically significant stenosis, or dissection in the major cervical arteries. 3. No occlusion, hemodynamically significant stenosis, aneurysm, dissection, or arteriovenous malformation in the major intracranial arteries. Assessment of stenosis of the internal carotid arteries is based on NASCET criteria. ACT 112: Negative or not required by law. Electronically signed by: Roshan Kaufman M.D. 09/14/2024 6:26 PM Neck CTA 09/14/24 17:47 CT angio neck with con, CT head/brain wo con, CT angio head w con CLINICAL HISTORY: intermittent SCHUSTER, HTN TECHNIQUE: Contiguous axial CT images of the head were acquired from the base of the skull to the vertex without intravenous contrast administration. CT angiography of the head and neck was performed following intravenous administration of iodinated contrast. Coronal and sagittal MIPS were obtained from the axial data set and were submitted for review. Automated dose lowering techniques and/or adjustment according to patient size were utilized for this examination. All measurements were calculated based on NASCET criteria. CT DOSE: 1091.01 mGy.cm Comparison: None available at the time of this dictation. FINDINGS: CT head: Areas of decreased attenuation are present in the periventricular and subcortical white matter bilaterally consistent with small vessel ischemic disease. Generalized cerebral atrophy with commensurate enlargement of the ventricles, sulci, and cisterns is also present. There is no acute intracranial hemorrhage or evidence of acute territorial infarction. No shift of the midline structures, mass effect, or extra-axial abnormalities are shown. Atherosclerotic calcifications are present in the intracranial segments of the internal carotid arteries. Biapical emphysema is seen. CTA Neck: A 3 vessel aortic arch is shown. There is no significant atherosclerotic plaque in the aortic arch or the origins of the innominate, left common carotid, and left subclavian arteries. The common carotid, external carotid, cervical segments of the internal carotid arteries, and the cervical segments of the vertebral arteries are patent without hemodynamically significant stenosis. The left vertebral artery is dominant. CTA Head: The anterior and posterior cerebral circulations are patent. No hemodynamically significant stenosis, aneurysm, dissection, or arteriovenous malformation is shown. IMPRESSION: 1. No acute intracranial hemorrhage, evidence of acute territorial infarction, or other acute intracranial disease process. 2. No occlusion, hemodynamically significant stenosis, or dissection in the major cervical arteries. 3. No occlusion, hemodynamically significant stenosis, aneurysm, dissection, or arteriovenous malformation in the major intracranial arteries. Assessment of stenosis of the internal carotid arteries is based on NASCET criteria. ACT 112: Negative or not required by law. Electronically signed by: Roshan Kaufman M.D. 09/14/2024 6:26 PM Discharge Plan Visit Data Chief Complaint: Hypertension Stated Complaint: HYPERTENSION ED Provider: Darío Ledezma Discharge Problem: Hypertensive urgency, Intermittent headache, First degree atrioventricular block, Left anterior fascicular block Patient Disposition: Admitted As Inpatient Discharge Instructions Interventions: ED Discharge Assessment Last Done: 09/14/24 21:11
[2024-09-14 16:49] LABS: Basophils # (auto) 0.08 K/uL (0.00-0.20); Basophils % (auto) 0.9 %; Eosinophils # (auto) 0.17 K/uL (0.00-0.50); Hematocrit (blood only) 39.3 % (42.0-52.0); Hemoglobin 13.4 g/dl (14.0-18.0); Immature Granulocytes # (auto) 0.03 K/uL (0.01-0.20); Immature Granulocytes % (auto) 0.4 %; Lymphocytes # (auto) 1.96 K/uL (1.20-3.40); Lymphocytes % (auto) 22.9 %; Mean Corpuscular Hemoglobin 34.1 pg (25.0-34.0); Mean Corpuscular Hgb Conc 34.1 g/dL (32.0-36.0); Mean Platelet Volume 9.4 fL (9.4-12.4); Monocytes % (auto) 9.3 %; Neutrophils # (auto) 5.52 K/uL (1.40-6.50); Neutrophils % (auto) 64.5 %; Platelet Count 205 K/uL (130-400); RDW Coefficient of Variation 12.9 % (11.5-14.5); RDW Standard Deviation 48.4 fL (36.4-46.3); Red Blood Count 3.93 M/uL (4.70-6.10); White Blood Count 8.56 K/ul (4.8-10.8)
--- NOTE | 2024-09-14 16:56 | XRay Report ---
XR chest 1V portable HISTORY: 84 years-old Male Chest pain, nonspecific COMPARISON: 02/24/2019 TECHNIQUE: AP view the chest FINDINGS: Cardiac silhouette is enlarged. Atherosclerosis of the aorta. Pulmonary vascular congestion with mild interstitial coarsening. No pneumothorax or large pleural effusion. No lobar airspace consolidation. An electronic device projects over the abdominal left upper quadrant. Surgical clip projects over th e midline upper chest. Bones appear grossly intact. IMPRESSION: Cardiomegaly with pulmonary vascular congestion and nonspecific interstitial coarsening, possibly representing mild pulmonary edema. ACT 112: Negative or not required by law. The above report was generated using voice recognition software. It may contain grammatical, syntax o r spelling errors. Electronically signed by: Yannick Hagen M.D. 09/14/2024 4:53 PM
[2024-09-14 17:13] LABS: Albumin Globulin Ratio 1.7 (0.9-2); Albumin Level 4.3 gm/dl (3.4-5.0); BUN Creatinine Ratio 19.8 (10-20); Bilirubin,Total 0.8 mg/dl (0.2-1.0); Calcium 9.4 mg/dl (8.6-10.3); Creatinine Clr Calc Pharmacy 49.3 ml/min; Globulin 2.6 gm/dl (2.5-4.0); Magnesium 1.7 mg/dl (1.7-2.4); Phosphorus 3.8 mg/dl (2.5-4.9); Potassium 4.2 mmol/L (3.5-5.1); Total Protein 6.9 gm/dl (6.0-8.3)
[2024-09-14 17:16] LABS: Troponin I High Sensitivity 12.4 pg/ml (0-20)
[2024-09-14] MEDS: SODIUM CHLORIDE 0.9% 500 ML IV ONE (17:20)
[2024-09-14 17:23] LABS: Thyroid Stimulating Hormone 1.445 uIu/ml (0.300-4.500)
[2024-09-14 17:30] LABS: INR 1.1 (0.9-1.1); Prothrombin Time 11.4 Seconds (9.0-12.0)
[2024-09-14] MEDS: OPTIRAY 320 125ml IV ONE (18:07)
--- NOTE | 2024-09-14 18:29 | CT Scan Report ---
CT angio neck with con, CT head/brain wo con, CT angio head w con CLINICAL HISTORY: intermittent SCHUSTER, HTN TECHNIQUE: Contiguous axial CT images of the head were acquired from the base of the skull to the melissa angela without intravenous contrast administration. CT angiography of the head and neck was performed f ollowing intravenous administration of iodinated contrast. Coronal and sagittal MIPS were obtained fr om the axial data set and were submitted for review. Automated dose lowering techniques and/or adjus tment according to patient size were utilized for this examination. All measurements were calculated based on NASCET criteria. CT DOSE: 1091.01 mGy.cm Comparison: None available at the time of this dictation. FINDINGS: CT head: Areas of decreased attenuation are present in the periventricular and subcortical white raina er bilaterally consistent with small vessel ischemic disease. Generalized cerebral atrophy with comme nsurate enlargement of the ventricles, sulci, and cisterns is also present. There is no acute intracr anial hemorrhage or evidence of acute territorial infarction. No shift of the midline structures, mas s effect, or extra-axial abnormalities are shown. Atherosclerotic calcifications are present in the intracranial segments of the internal carotid arteries. Biapical emphysema is seen. CTA Neck: A 3 vessel aortic arch is shown. There is no significant atherosclerotic plaque in the aor tic arch or the origins of the innominate, left common carotid, and left subclavian arteries. The co mmon carotid, external carotid, cervical segments of the internal carotid arteries, and the cervical segments of the vertebral arteries are patent without hemodynamically significant stenosis. The left vertebral artery is dominant. CTA Head: The anterior and posterior cerebral circulations are patent. No hemodynamically significan t stenosis, aneurysm, dissection, or arteriovenous malformation is shown. IMPRESSION: 1. No acute intracranial hemorrhage, evidence of acute territorial infarction, or other acute intrac ranial disease process. 2. No occlusion, hemodynamically significant stenosis, or dissection in the major cervical arteries. 3. No occlusion, hemodynamically significant stenosis, aneurysm, dissection, or arteriovenous malfor mation in the major intracranial arteries. Assessment of stenosis of the internal carotid arteries is based on NASCET criteria. ACT 112: Negative or not required by law. Electronically signed by: Roshan Kaufman M.D. 09/14/2024 6:26 PM
[2024-09-14] MEDS: LABETALOL HCL IV 5 MG/ML 20ML IV STA (19:04)
--- NOTE | 2024-09-14 19:13 | History & Physical Report ---
Date of Service September 14, 2024 Assessment & Plan (1) Hypertensive urgency: Plan: Patient is 84 year old male with PMH HTN, HLD, paroxysmal atrial fibrillation, mitral valve prolapse, GERD, prediabetes, depression, pernicious anemia, alcohol use, interstitial lung disease, pulmonary fibrosis, nocturnal hypoxia on 2 L at bedtime presented to ER with c/o elevated BP of 199/90 noted at PCP visit today. Past 2 days with posterior SCHUSTER that lasted a few minutes and and some blurry vision that lasted 1-2 minutes and resolved. Denies any SCHUSTER or visual disturbance today. Denies CP, SOB In ER afebrile, P: 67, R: 16, BP 206/153, 100 percent on room air Troponin negative x 2 CTA Head and neck: No acute intracranial hemorrhage, evidence of acute territorial infarction, or other acute intracranial disease process. No occlusion, hemodynamically significant stenosis, or dissection in the major cervical arteries. No occlusion, hemodynamically significant stenosis, aneurysm, dissection, or arteriovenous malformation in the major intracranial arteries. In ER given 500 mL NSS, labetalol 10 mg IV Repeat BP 203/102 Hydralazine IV prn SBP>160 Continue home losartan Increase metoprolol succinate to 50mg BID (Was 50mg in am and 25mg in PM) Monitor on telemetry Likely will need to further adjust BP meds CBC, BMP in am EKG in am (2) Ambulatory dysfunction: (3) Recurrent falls: Plan: Reports 10 falls in past year. Sometimes dizzy and sometimes feels legs get weak causing fall Uses Walker at baseline Orthostatic vital signs Fall precautions PT/OT eval (4) Paroxysmal atrial fibrillation: Plan: Not on anticoagulation secondary to fall risk On metoprolol succinate (5) HLD (hyperlipidemia): Plan: Continue atorvastatin (6) Pernicious anemia: Plan: On B12 injections Q4wks Hgb: 13.4. Baseline Hgb: 13's (7) ILD (interstitial lung disease): (8) Nocturnal hypoxemia: Plan: History ILD, pulmonary fibrosis On 2L via NC HS DVT Prophylaxis Heparin SQ Admit telemetry Full Code as per discussion with pt, however if poor prognosis would want ventilator discontinued Follows with Dr Heath for routine care Pt was seen and care coordinated with Dr Ro . See addendum I spent a total of 78 minutes reviewing notes, outpatient records, labs, medication, coordinating, documenting and providing care for this patient excluding time spent in the performance of separately billed services. History of Present Illness Chief Complaint: elevated blood pressure Primary Care Provider: Bravo Heath MD Patient is 84 year old male with PMH HTN, HLD, atrial fibrillation, mitral valve prolapse, GERD, prediabetes, depression, pernicious anemia, alcohol use, interstitial lung disease, pulmonary fibrosis, nocturnal hypoxia on 2 L at bedtime presented to ER with c/o elevated BP. Per outpatient chart review seen in PCP clinic today for recurrent falls, ambulatory dysfunction and in clinic with BP 199/90 and was referred to ER. Patient states that yesterday and two days ago had posterior SCHUSTER that lasted a few minutes and and some blurry vision that lasted 1-2 minutes and resolved. Denies any SCHUSTER or visual disturbance today. He reports for past year has had approximately 10 falls. States this month has fallen twice. He ambulates with walker. Patient states sometimes he is dizzy with standing and ambulating and then falls and reports sometimes he feels his legs just become weak and he staggers and falls. Denies lightheaded or syncope. States months ago fell and hit head but recent falls denies hitting head. He states sometimes intermittent palpitations but they are not associated with the dizziness or falling. Denies sensation of heart racing. Per chart review his losartan was increased from 50mg to 100mg daily in May 2024. He does not check his BP at home. He reports chronic cough that is productive clear to yellow that is ongoing for years but may be increased past 3 months. Denies hemoptysis. Reports chronic clear rhinorrhea. Drinks 2 cans of beer daily. States years ago drank more. Denies fever/chills, diaphoresis, N/V/D/C, neck pain, CP, SOB, orthopnea, sore throat, choking, otalgia, abdominal pain, paresthesias, extremity edema, rashes, urinary symptoms. Allergies Allergy/AdvReac Type Severity Reaction Status Date / Time No Known Allergies Allergy Verified 04/19/19 08:29 Home Medications Medication Instructions Recorded Confirmed Type atorvastatin 10 mg tablet 10 mg PO DAILY 07/28/18 09/14/24 History cholecalciferol (vitamin D3) 25 1,000 unit PO DAILY 07/28/18 09/14/24 History mcg (1,000 unit) tablet (Vitamin D3) pantoprazole 40 mg tablet,delayed 40 mg PO DAILY 07/28/18 09/14/24 History release duloxetine 20 mg capsule,delayed 20 mg PO DAILY 02/18/19 09/14/24 History release aspirin 81 mg tablet,delayed 81 mg PO DAILY 09/14/24 09/14/24 History release cyanocobalamin (vitamin B-12) 1,000 mcg subcut Q4WK 09/14/24 09/14/24 History 1,000 mcg/mL injection solution losartan 100 mg tablet 100 mg PO DAILY 09/14/24 09/14/24 History metoprolol succinate 50 mg 25 mg PO HS 09/14/24 09/14/24 History tablet,extended release 24 hr metoprolol succinate 50 mg 50 mg PO DAILY 09/14/24 09/14/24 History tablet,extended release 24 hr Past Med/Surg History Problem List (Updated 09/14/24 @ 20:07 by Hailey Torres PA-C) Nocturnal hypoxemia ILD (interstitial lung disease) Recurrent falls Ambulatory dysfunction Hypertensive urgency Leukocytosis Left knee pain New onset atrial fibrillation Atrial tachycardia Paroxysmal atrial fibrillation DVT prophylaxis Syncope and collapse Hyperglycemia Hypomagnesemia Hypokalemia Alcohol withdrawal Alcohol abuse Fall History of cataract surgery (Chronic) History of inguinal hernia repair (Chronic) History of hemorrhoidectomy (Chronic) 1970 GERD (gastroesophageal reflux disease) (Chronic) HLD (hyperlipidemia) (Chronic) Pernicious anemia (Chronic) BPH (benign prostatic hyperplasia) (Chronic) Altered mental status (Acute) HTN (hypertension) (Acute) First degree atrioventricular block (Chronic) Full code status Valvular heart disease (Chronic) Chronic left hip pain (Chronic) HTN (hypertension) (Chronic) DVT prophylaxis Hyponatremia (Acute) Weakness (Chronic) Medical History (Updated 09/14/24 @ 20:07 by Hailey Torres PA-C) Hypertension Spinal stenosis Family History Other Hypertension Social History Smoking Status: Never smoker 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); Do You Dip or Chew Tobacco: No; Hx Alcohol Use: Yes (2 cans beer) Alcohol type: beer Hx Substance Use: No Preferred Language: Hungarian Communication Ability: Effective Horticultural 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 Required: No Beliefs That Will Affect Care: None Current Living Situation: Spouse and Family Current Living Situation Comment: one level home Feels Safe at Home: Yes Assistive Devices: Brace/Splint/Immobilizer, Glasses and Walker Review of Systems Review of Systems: All systems reviewed & are unremarkable except as noted in HPI & below Physical Exam Physical Exam: General: no distress, WDWN Head: normocephalic, atraumatic, no temporal tenderness to palpation Eyes: PERRL, EOM's intact, conjunctiva non-injected, anicteric ENT: normal inspection external ears, nose, mucous membranes moist Neck: supple, trachea midline Lungs: clear, no respiratory distress, no wheezing/rhonchi/rales CV: RRR, no pretibial edema Abd: normal BS, soft, non-tender Ext: no cyanosis, no calf tenderness Neuro: A&O x 3, no focal deficits noted, normal affect Skin: warm, dry Results & Data Results & Data Vital Signs (Past 12 Hours) Vital Signs Temp Pulse Pulse Resp BP BP Pulse Ox 09/14/24 19:03 74 21 197/102 H 98 09/14/24 18:31 76 18 219/122 H 95 09/14/24 17:30 68 18 205/108 H 96 09/14/24 16:46 68 09/14/24 16:42 68 14 219/106 H 96 09/14/24 16:13 36.8 C 67 16 206/153 H 100 O2 Del Method 09/14/24 19:03 Room Air 09/14/24 18:31 Room Air 09/14/24 17:30 Room Air 09/14/24 16:46 09/14/24 16:42 Room Air 09/14/24 16:13 Room Air Laboratory Results Short CBC 09/14/24 Range/Units 16:29 WBC 8.56 (4.8-10.8) K/ul Hgb 13.4 L (14.0-18.0) g/dl Hct 39.3 L (42.0-52.0) % Plt Count 205 (130-400) K/uL BMP 09/14/24 16:29 Sodium 140 Potassium 4.2 Chloride 106 Carbon Dioxide 26 BUN 17 Creatinine 0.86 Glucose 97 Calcium 9.4 Liver Function 09/14/24 Range/Units 16:29 Total Bilirubin 0.8 (0.2-1.0) mg/dl AST 19 (13-39) U/L ALT 17 (7-52) U/L Alkaline Phosphatase 85 (34-104) U/L Albumin 4.3 (3.4-5.0) gm/dl Diagnostic Findings Chest X-Ray 09/14/24 16:17 XR chest 1V portable HISTORY: 84 years-old Male Chest pain, nonspecific COMPARISON: 02/24/2019 TECHNIQUE: AP view the chest FINDINGS: Cardiac silhouette is enlarged. Atherosclerosis of the aorta. Pulmonary vascular congestion with mild interstitial coarsening. No pneumothorax or large pleural effusion. No lobar airspace consolidation. An electronic device projects over the abdominal left upper quadrant. Surgical clip projects over the midline upper chest. Bones appear grossly intact. IMPRESSION: Cardiomegaly with pulmonary vascular congestion and nonspecific interstitial coarsening, possibly representing mild pulmonary edema. ACT 112: Negative or not required by law. The above report was generated using voice recognition software. It may contain grammatical, syntax or spelling errors. Electronically signed by: Yannick Hagen M.D. 09/14/2024 4:[address] 09/14/24 17:47 CT angio neck with con, CT head/brain wo con, CT angio head w con CLINICAL HISTORY: intermittent SCHUSTER, HTN TECHNIQUE: Contiguous axial CT images of the head were acquired from the base of the skull to the vertex without intravenous contrast administration. CT angiography of the head and neck was performed following intravenous administration of iodinated contrast. Coronal and sagittal MIPS were obtained from the axial data set and were submitted for review. Automated dose lowering techniques and/or adjustment according to patient size were utilized for this examination. All measurements were calculated based on NASCET criteria. CT DOSE: 1091.01 mGy.cm Comparison: None available at the time of this dictation. FINDINGS: CT head: Areas of decreased attenuation are present in the periventricular and subcortical white matter bilaterally consistent with small vessel ischemic disease. Generalized cerebral atrophy with commensurate enlargement of the ventricles, sulci, and cisterns is also present. There is no acute intracranial hemorrhage or evidence of acute territorial infarction. No shift of the midline structures, mass effect, or extra-axial abnormalities are shown. Atherosclerotic calcifications are present in the intracranial segments of the internal carotid arteries. Biapical emphysema is seen. CTA Neck: A 3 vessel aortic arch is shown. There is no significant atherosclerotic plaque in the aortic arch or the origins of the innominate, left common carotid, and left subclavian arteries. The common carotid, external carotid, cervical segments of the internal carotid arteries, and the cervical segments of the vertebral arteries are patent without hemodynamically significant stenosis. The left vertebral artery is dominant. CTA Head: The anterior and posterior cerebral circulations are patent. No hemodynamically significant stenosis, aneurysm, dissection, or arteriovenous malformation is shown. IMPRESSION: 1. No acute intracranial hemorrhage, evidence of acute territorial infarction, or other acute intracranial disease process. 2. No occlusion, hemodynamically significant stenosis, or dissection in the major cervical arteries. 3. No occlusion, hemodynamically significant stenosis, aneurysm, dissection, or arteriovenous malformation in the major intracranial arteries. Assessment of stenosis of the internal carotid arteries is based on NASCET criteria. ACT 112: Negative or not required by law. Electronically signed by: Roshan Kaufman M.D. 09/14/2024 6:26 PM Head CTA 09/14/24 17:47 CT angio neck with con, CT head/brain wo con, CT angio head w con CLINICAL HISTORY: intermittent SCHUSTER, HTN TECHNIQUE: Contiguous axial CT images of the head were acquired from the base of the skull to the vertex without intravenous contrast administration. CT angiography of the head and neck was performed following intravenous adm inistration of iodinated contrast. Coronal and sagittal MIPS were obtained from the axial data set and were submitted for review. Automated dose lowering techniques and/or adjustment according to patient size were utilized for this examination. All measurements were calculated based on NASCET criteria. CT DOSE: 1091.01 mGy.cm Comparison: None available at the time of this dictation. FINDINGS: CT head: Areas of decreased attenuation are present in the periventricular and subcortical white matter bilaterally consistent with small vessel ischemic disease. Generalized cerebral atrophy with commensurate enlargement of the ventricles, sulci, and cisterns is also present. There is no acute intracranial hemorrhage or evidence of acute territorial infarction. No shift of the midline structures, mass effect, or extra-axial abnormalities are shown. Atherosclerotic calcifications are present in the intracranial segments of the internal carotid arteries. Biapical emphysema is seen. CTA Neck: A 3 vessel aortic arch is shown. There is no significant atherosclerotic plaque in the aortic arch or the origins of the innominate, left common carotid, and left subclavian arteries. The common carotid, external carotid, cervical segments of the internal carotid arteries, and the cervical segments of the vertebral arteries are patent without hemodynamically significant stenosis. The left vertebral artery is dominant. CTA Head: The anterior and posterior cerebral circulations are patent. No hemodynamically significant stenosis, aneurysm, dissection, or arteriovenous malformation is shown. IMPRESSION: 1. No acute intracranial hemorrhage, evidence of acute territorial infarction, or other acute intracranial disease process. 2. No occlusion, hemodynamically significant stenosis, or dissection in the major cervical arteries. 3. No occlusion, hemodynamically significant stenosis, aneurysm, dissection, or arteriovenous malformation in the major intracranial arteries. Assessment of stenosis of the internal carotid arteries is based on NASCET criteria. ACT 112: Negative or not required by law. Electronically signed by: Roshan Kaufman M.D. 09/14/2024 6:26 PM Neck CTA 09/14/24 17:47 CT angio neck with con, CT head/brain wo con, CT angio head w con CLINICAL HISTORY: intermittent SCHUSTER, HTN TECHNIQUE: Contiguous axial CT images of the head were acquired from the base of the skull to the vertex without intravenous contrast administration. CT angiography of the head and neck was performed following intravenous administration of iodinated contrast. Coronal and sagittal MIPS were obtained from the axial data set and were submitted for review. Automated dose lowering techniques and/or adjustment according to patient size were utilized for this examination. All measurements were calculated based on NASCET criteria. CT DOSE: 1091.01 mGy.cm Comparison: None available at the time of this dictation. FINDINGS: CT head: Areas of decreased attenuation are present in the periventricular and subcortical white matter bilaterally consistent with small vessel ischemic disease. Generalized cerebral atrophy with commensurate enlargement of the ventricles, sulci, and cisterns is also present. There is no acute intracranial hemorrhage or evidence of acute territorial infarction. No shift of the midline structures, mass effect, or extra-axial abnormalities are shown. Atherosclerotic calcifications are present in the intracranial segments of the internal carotid arteries. Biapical emphysema is seen. CTA Neck: A 3 vessel aortic arch is shown. There is no significant atherosclerotic plaque in the aortic arch or the origins of the innominate, left common carotid, and left subclavian arteries. The common carotid, external carotid, cervical segments of the internal carotid arteries, and the cervical segments of the vertebral arteries are patent without hemodynamically significant stenosis. The left vertebral artery is dominant. CTA Head: The anterior and posterior cerebral circulations are patent. No hemodynamically significant stenosis, aneurysm, dissection, or arteriovenous malformation is shown. IMPRESSION: 1. No acute intracranial hemorrhage, evidence of acute territorial infarction, or other acute intracranial disease process. 2. No occlusion, hemodynamically significant stenosis, or dissection in the major cervical arteries. 3. No occlusion, hemodynamically significant stenosis, aneurysm, dissection, or arteriovenous malformation in the major intracranial arteries. Assessment of stenosis of the internal carotid arteries is based on NASCET criteria. ACT 112: Negative or not required by law. Electronically signed by: Roshan Kaufman M.D. 09/14/2024 6:26 PM ECG Additional Comments: appears to be sinus rhythm 1st degree block per my interpretation Supervising Physician Co-Signing Physician Notes Attending addendum: The patient was seen and examined in the emergency room in presence of family members He was sent in from doctor's office with very high blood pressure Complained to have some headache yesterday but none today and no other symptoms with high blood pressure On examination No apparent distress at rest Hemodynamically stable Chestclear to auscultate bilaterally HeartS1-S2, regular Abdomenbenign Extremitiesno edema His admission labs and imaging studies reviewed Hypertensive urgency without any acute symptoms Received labetalol 10 mg in the emergency room and will continue with hydralazine 10 mg every 6 hourly as needed to maintain blood pressure below systolic 160 Increase beta-jose guadalupe to 50 mg twice daily and continue losartan Agree with the assessment and plan as outlined above by Hailey Garcia and take the full responsibility of the care Dr Toyin Ro
[2024-09-14] MEDS ORDERED: ONDANSETRON INJ 2 MG/ML 2 ML VIAL IV PRN (22:01)
[2024-09-14] MEDS ORDERED: POLYETHYLENE (MIRALAX) 17 GM PACK PO PRN (22:01)
[2024-09-14] MEDS: METOPROLOL SUCC 50MG EXT REL TAB PO SCH (23:20)
[2024-09-14] MEDS: HEPARIN SOD 5,000 UNIT/0.5 ML VIAL SQ SCH (23:20)
[2024-09-15] MEDS: hydrALAZINE HCL 20 MG/ML VIAL IV PRN (04:31)
[2024-09-15 08:09] LABS: Hemoglobin 12.7 g/dl (14.0-18.0); Mean Corpuscular Hemoglobin 33.4 pg (25.0-34.0); Mean Corpuscular Hgb Conc 33.4 g/dL (32.0-36.0); Mean Platelet Volume 9.3 fL (9.4-12.4); Platelet Count 164 K/uL (130-400); RDW Standard Deviation 47.8 fL (36.4-46.3); White Blood Count 8.39 K/ul (4.8-10.8)
[2024-09-15] MEDS: CHOLECALCIFEROL 25 MCG (1000 UNITS) TAB PO SCH (08:11)
[2024-09-15] MEDS: ATORVASTATIN 10 MG TAB PO SCH (08:12)
[2024-09-15] MEDS: DULoxetine HCL 20 MG CAP PO SCH (08:12)
[2024-09-15] MEDS: PANTOprazole 40 MG TAB PO SCH (08:12)
[2024-09-15] MEDS: LOSARTAN POTASSIUM 50 MG TAB PO SCH (08:12)
[2024-09-15] MEDS: ASPIRIN 81 MG ECTAB PO SCH (08:12)
--- NOTE | 2024-09-15 08:15 | Hospitalist Progress Note ---
Date of Service September 15, 2024 Assessment & Plan (1) Hypertensive urgency: Plan: Patient is 84 year old male with PMH HTN, HLD, paroxysmal atrial fibrillation, mitral valve prolapse, GERD, prediabetes, depression, pernicious anemia, alcohol use, interstitial lung disease, pulmonary fibrosis, nocturnal hypoxia on 2 L at bedtime presented to ER with c/o elevated BP of 199/90 noted at PCP visit today. Past 2 days with posterior SCHUSTER that lasted a few minutes and and some blurry vision that lasted 1-2 minutes and resolved. Denies any SCHUSTER or visual disturbance today. Denies CP, SOB In ER afebrile, P: 67, R: 16, BP 206/153, 100% on room air Troponin negative x 2 CTA Head and neck: No acute intracranial hemorrhage, evidence of acute territorial infarction, or other acute intracranial disease process. No occlusion, hemodynamically significant stenosis, or dissection in the major cervical arteries. No occlusion, hemodynamically significant stenosis, aneurysm, dissection, or arteriovenous malformation in the major intracranial arteries. In ER given 500 mL NSS, labetalol 10 mg IV Repeat BP 203/102 Hydralazine IV prn SBP > 160 Continue home losartan Increased metoprolol succinate to 50mg BID on admission (Was 50mg in am and 25mg in PM) Monitor on telemetry Likely will need to further adjust BP meds monitor CBC, BMP EKG in am Received hydralazine this AM for elev. BP Feeling dizzy on and off, falling. Also fell today in his room will obtain ECG, echo will discuss w/ cardiology (2) Ambulatory dysfunction: (3) Recurrent falls: Plan: Reports 10 falls in past year. Sometimes dizzy and sometimes feels legs get weak causing fall Uses Walker at baseline Orthostatic vital signs Fall precautions PT/OT eval -> recommend rehab, pt agreeable ordered TEDs and pt is currently wearing Arnot dizzy when working with PT, then reportedly walked again and felt ok Later notified by RN that pt fell in his room, felt dizzy will obtain ECG, echo will discuss w/ cardiology, as above (4) Paroxysmal atrial fibrillation: Plan: Not on anticoagulation secondary to fall risk On metoprolol succinate (5) HLD (hyperlipidemia): Plan: Continue atorvastatin (6) Pernicious anemia: Plan: On B12 injections Q4wks Hgb: 13.4. Baseline Hgb: 13's (7) ILD (interstitial lung disease): (8) Nocturnal hypoxemia: Plan: History ILD, pulmonary fibrosis On 2L via NC HS DVT Prophylaxis Heparin SQ Admit telemetry Full Code as per discussion with pt, however if poor prognosis would want ventilator discontinued Follows with Dr Heath for routine care Admission and Anticipated Discharge Date Admission Date: September 14, 2024 Subjective Pt seen in follow up HTN urgency, falls Was sent to ED from PCP's office Complained of HAs as well, CT head in ED negative Reports feeling dizzy more often Currently sitting in the chair , daughter present at the bedside Says he felt dizzy walking to bathroom w/ PT but then again walked to hallway and felt ok Applied TEDs this AM by RN and is currently wearing Denies any chest pain or shortness of breath Discussed pt will need rehab after DC Update: Notified by RN that pt fell in his room, felt dizzy Review of Systems Review of Systems: All systems reviewed & are unremarkable except as noted in Subjective Physical Exam Physical Exam: General: no distress, WDWN Head: normocephalic, atraumatic Eyes: PERRL, EOM's intact, conjunctiva non-injected, anicteric ENT: normal inspection external ears, nose, mucous membranes moist Neck: supple Lungs: clear, no respiratory distress, no wheezing CV: RRR, no pretibial edema Abd: normal BS, soft, non-tender Ext: no cyanosis, no calf tenderness, moves extremities Neuro: A&O x 3, speech soft but fluent, answers appropriately, no facial asymmetry, moves extremities Skin: warm, dry Results & Data Results & Data Vital Signs (Past 12 Hours) Vital Signs Temp Pulse Pulse Resp BP BP Pulse Ox 09/15/24 08:02 36.9 C 77 18 168/76 H 100 09/15/24 04:08 36.9 C 79 17 201/94 H 93 09/14/24 23:02 73 09/14/24 22:10 37.1 C 76 20 166/84 H 91 09/14/24 21:06 76 20 94 09/14/24 21:00 157/89 H 09/14/24 20:54 72 19 97 09/14/24 20:45 75 21 94 09/14/24 20:30 182/97 H 09/14/24 20:27 73 14 96 09/14/24 20:18 72 15 97 09/14/24 20:18 73 O2 Del Method O2 Flow Rate 09/15/24 08:02 Nasal Cannula 3 09/15/24 04:08 Nasal Cannula 3 09/14/24 23:02 09/14/24 22:10 Room Air 09/14/24 21:06 Room Air 09/14/24 21:00 09/14/24 20:54 Room Air 09/14/24 20:45 Room Air 09/14/24 20:30 09/14/24 20:27 Room Air 09/14/24 20:18 Room Air 09/14/24 20:18 Laboratory Results 09/15/24 09/14/24 09/14/24 Range/Units 07:39 19:19 16:29 WBC 8.39 8.56 (4.8-10.8) K/ul RBC 3.80 L 3.93 L (4.70-6.10) M/uL Hgb 12.7 L 13.4 L (14.0-18.0) g/dl Hct 38.0 L 39.3 L (42.0-52.0) % MCV 100.0 100.0 (80.0-100.0) fL MCH 33.4 34.1 H (25.0-34.0) pg MCHC 33.4 34.1 (32.0-36.0) g/dL RDW Std Deviation 47.8 H 48.4 H (36.4-46.3) fL RDW Coeff of Dereck 13.0 12.9 (11.5-14.5) % Plt Count 164 205 (130-400) K/uL MPV 9.3 L 9.4 (9.4-12.4) fL Immature Gran % (Auto) 0.4 % Neut % (Auto) 64.5 % Lymph % (Auto) 22.9 % [place] % (Auto) 9.3 % Eos % (Auto) 2.0 % Baso % (Auto) 0.9 % Neut # (Auto) 5.52 (1.40-6.50) K/uL Lymph # (Auto) 1.96 (1.20-3.40) K/uL [place] # (Auto) 0.80 H (0.11-0.59) K/uL Eos # (Auto) 0.17 (0.00-0.50) K/uL Baso # (Auto) 0.08 (0.00-0.20) K/uL Immature Gran # (Auto) 0.03 (0.01-0.20) K/uL PT 11.4 (9.0-12.0) Seconds INR 1.1 (0.9-1.1) Sodium Pending 140 (136-145) mmol/L Potassium Pending 4.2 (3.5-5.1) mmol/L Chloride Pending 106 (98-107) mmol/L Carbon Dioxide Pending 26 (21-32) mmol/L Anion Gap Pending 8 (3-11) BUN Pending 17 (6-23) mg/dl Creatinine Pending 0.86 (0.6-1.4) mg/dl Est Cr Clr Drug Dosing Pending 49.3 ml/min eGFR Pending 84.33 BUN/Creatinine Ratio Pending 19.8 (10-20) Glucose Pending 97 (70-99(Fasting)) mg/dl Calcium Pending 9.4 (8.6-10.3) mg/dl Phosphorus 3.8 (2.5-4.9) mg/dl Magnesium 1.7 (1.7-2.4) mg/dl Total Bilirubin 0.8 (0.2-1.0) mg/dl AST 19 (13-39) U/L ALT 17 (7-52) U/L Alkaline Phosphatase 85 (34-104) U/L Troponin I High Sens 11.3 12.4 (0-20) pg/ml Total Protein 6.9 (6.0-8.3) gm/dl Albumin 4.3 (3.4-5.0) gm/dl Globulin 2.6 (2.5-4.0) gm/dl Albumin/Globulin Ratio 1.7 (0.9-2) Lipase 23 (11-82) U/L TSH 1.445 (0.300-4.500) uIu/ml Ethyl Alcohol mg/dL < 10.0 (<10.0) mg/dl Medications Administered Current Inpatient Medications Acetaminophen (Acetaminophen 325 Mg Tab) 650 mg PO Q4H PRN PRN Reason: Pain or Fever Stop: 10/14/24 22:00 Aspirin (Aspirin 81 Mg Ectab) 81 mg PO DAILY LYNDA Stop: 10/15/24 08:59 Last Admin: 09/15/24 08:12 Dose: 81 mg Atorvastatin Calcium (Atorvastatin 10 Mg Tab) 10 mg PO DAILY LYNDA Stop: 10/15/24 08:59 Last Admin: 09/15/24 08:12 Dose: 10 mg Duloxetine HCl (Duloxetine Hcl 20 Mg Cap) 20 mg PO DAILY LYNDA Stop: 10/15/24 08:59 Last Admin: 09/15/24 08:12 Dose: 20 mg Heparin Sodium (Porcine) (Heparin Sod 5,000 Unit/0.5 Ml Vial) 5,000 units SQ Q12 LYNDA Stop: 10/14/24 22:00 Last Admin: 09/14/24 23:20 Dose: Not Given Hydralazine HCl (Hydralazine Hcl 20 Mg/Ml Vial) 10 mg IV Q6H PRN PRN Reason: Hypertension Stop: 10/14/24 19:43 Last Admin: 09/15/24 04:31 Dose: 10 mg Losartan Potassium (Losartan Potassium 50 Mg Tab) 100 mg PO DAILY LYNDA Stop: 10/15/24 08:59 Last Admin: 09/15/24 08:12 Dose: 100 mg Metoprolol Succinate (Metoprolol Succ 50mg Ext Rel Tab) 50 mg PO BID LYNDA Stop: 10/14/24 22:00 Last Admin: 09/15/24 08:12 Dose: 50 mg Ondansetron HCl (Ondansetron Inj 2 Mg/Ml 2 Ml Vial) 4 mg IV Q6H PRN PRN Reason: Nausea Stop: 10/14/24 22:00 Pantoprazole Sodium (Pantoprazole 40 Mg Tab) 40 mg PO DAILY LYNDA Stop: 10/15/24 08:59 Last Admin: 09/15/24 08:12 Dose: 40 mg Polyethylene Glycol (Polyethylene (Miralax) 17 Gm Pack) 17 gm PO DAILY PRN PRN Reason: Constipation Stop: 10/14/24 22:00 Vitamin D (Cholecalciferol 25 Mcg (1000 Units) Tab) 25 mcg PO DAILY LYNDA Stop: 10/15/24 08:59 Last Admin: 09/15/24 08:11 Dose: 25 mcg
[2024-09-15 08:18] LABS: BUN Creatinine Ratio 17.4 (10-20); Calcium 8.8 mg/dl (8.6-10.3); Creatinine Clr Calc Pharmacy 51.8 ml/min; Potassium 3.7 mmol/L (3.5-5.1)
--- OUTSIDE RECORDS SUMMARY | 2024-09-15 08:55 | External Medical Summary | Summary of Care ---
Author Name Unknown Organization [facility] Address [address] [place] [address] Phone [phone] Care Team Providers Care Slab Depiler Operator Name Role Phone Bravo Heath MD Primary Care Provide r Encounter Details Date Type Department Care Team (Late st Contact Info) Description 08/26/2024 3:20 PM EDT Nurse Only Ancillary [address] [place] [address] [place], Nurse [address] [place] [id number] Allergies No known active allergiesdocumented as of this encounter (statuses as of 08/26/2024) Medications Medication Sig Dispensed Refills Start Date End Date Status Vitamin D, Cholecalciferol, 1000 UNITS TABS Take by mouth. Activ e aspirin enteric coated 81 MG TBECIndications:HTN , goal below 150/90,Family history of ischemic heart disease Take 1 Tab by mouth daily. 30 Tab 11 05/27/2018 Active Magnesium Oxide 400 MG Capsule Take 1 Capsule by mouth in the morning. 03/16/2019 Active Acetaminophen ER 650 MG Oral Tablet Extended Release Take 1 Tablet by mouth 2 times a day as needed. Active metroNIDAZOLE 0.75 % External Cream (Metrocream)Indicat ions:Rosacea apply twice a day as directed 45 g 3 03/12/2021 Active Anoro Ellipta 62.5-25 MCG/INH Inhalation Aerosol Powder Breath Activated (umeclidinium-vilan terol)Indications:C entrilobular emphysema (HCC) INHALE ONE PUFF BY MOUTH IN THE MORNING 60 Blister Dosing Unit 5 09/29/2022 Active Ventolin HFA 108 (90 Base) MCG/ACT Inhalation Aerosol SolutionIndications :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),Centrilobular emphysema (HCC) Inhale 2 Puffs by mouth every 4 hours as needed for Wheezing. 18 g 2 12/05/2022 Active oxygen IN GASIndications:Noct urnal hypoxemia Use 2 L/min(Oxygen) as directed at bedtime. 1 Each 01/19/2023 Active Blood Pressure Monitor DeviceIndications:H TN, goal below 150/90 Check blood pressure 3x/week 1 Each 12/07/2023 Active Thiamine HCl 100 MG Oral Tablet (vitamin B-1)Indications:Chr onic alcohol use Take 1 Tablet by mouth in the morning. 90 Tablet 3 01/20/2024 Active Losartan Potassium 100 MG Oral Tablet (Cozaar)Indications :HTN, goal below 150/90 TAKE ONE TABLET BY MOUTH IN THE MORNING 90 Tablet 3 03/21/2024 Active DULoxetine HCl 30 MG Oral Capsule Delayed Release Particles (Cymbalta)Indicatio ns:Current moderate episode of major depressive disorder without prior episode ([facility]),Chronic bilateral low back pain without sciatica TAKE ONE CAPSULE BY MOUTH IN THE MORNING 90 Capsule 2 04/04/2024 Active Atorvastatin Calcium 10 MG Oral Tablet (Lipitor)Indication s:Family history of ischemic heart disease TAKE ONE TABLET BY MOUTH EVERY DAY 90 Tablet 1 05/03/2024 Active Pantoprazole Sodium 40 MG Oral Tablet Delayed Release (Protonix) TAKE ONE TABLET BY MOUTH EVERY DAY 90 Tablet 1 05/09/2024 Active Metoprolol Succinate ER 50 MG Oral Tablet Extended Release 24 Hour (toPROL XL) TAKE ONE TABLETS BY MOUTH IN THE MORNING AND 1/2 IN THE EVENING 135 Tablet 1 07/31/2024 Active Hospital, Clinic, or Other Facility Administered Medication Ordered Dose Route Frequency Start Date End Date Status vitamin b-12 (Cyanocobalamin) inj 1,000 mcgIndications:B12 deficiency 1000 mcg IM [id number] 02/12/2024 01/13/2025 Active documented as of this encounter (statuses as of 08/26/2024) Active Problems Problem Noted Date Diagnosed Date Cerebral arteriosclerosis 07/09/2024 Overview: CT head 2019 Cerebral atrophy 07/09/2024 Overview: CT head 2019 Atherosclerosis of aorta 07/09/2024 Overview: CT chest 12/16 Coronary artery disease invo lving [place] coronary artery of [place] heart without angina pectoris 07/09/2024 Overview: CT chest 12/16 Left atrial enlargement 07/09/2024 Aortic valve regurgitation 07/09/2024 Grade II diastolic dysfunction 07/09/2024 Centrilobular emphysema 12/07/2023 Nocturnal hypoxia 06/29/2023 Overview: max 99%, min 76% Ambulatory dysfunction 06/04/2023 Interstitial lung disease wi th progressive fibrotic phenotype in diseases classified elsewhere 12/05/2022 Chronic bilateral low back pain without sciatica 02/10/2022 Spinal stenosis of lumbar region 02/10/2022 Pulmonary fibrosis 07/19/2021 History of loop recorder 04/02/2021 Prediabetes 01/28/2021 Overview: Per Prediabetes protocol MVP (mitral valve prolapse) 09/06/2020 Paroxysmal atrial fibrillation 03/04/2019 Chronic alcohol use 03/04/2019 Current moderate episode of major depressive disorder without prior episode 11/09/2018 Nonrheumatic aortic valve insufficiency 05/27/20 18 Mild mitral regurgitation 05/27/2018 Mild tricuspid regurgitation 05/27/2018 Family history of ischemic heart disease 018 Dyslipidemia, goal LDL below 130 10/10/2010 HTN, goal below 150/90 10/01/2009 GENERAL OSTEOARTHROSIS 09/29/2005 CERVICAL DISC DEGEN 12/27/2002 Gastroesophageal reflux disease without esophagi tis Benign prostatic hyperplasia Overview: ICD-10 update of inactive term ICD-10 update of inactive term History of colonic polyps Overview: ICD-10 update of inactive term Rosacea documented as of this encounter (statuses as of 08/26/2024) Resolved Problems Problem Noted Date Diagnosed Date Resolved Date Age-related osteoporosis wit hout current pathological fracture 08/15/2022 12/07/2023 Syncope 04/02/2021 06/23/2024 Thoracic aortic ectasia 11/26/2020 03/2 11/2021 Slac (scapholunate advanced collapse) of wrist, 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 06/23/2024 Sacroiliitis 09/13/2019 05/21/2020 Edema of both lower extremit ies due to peripheral venous insufficiency 08/05/2018 06/23/20 Chronic diarrhea 07/19/2014 06/23/2024 Pernicious anemia 03/28/2013 06/23/2024 Dyslipidemia, goal to be determined 11/01/2009 10/10/2010 Overview: Per Lipid Taxonomy. Dyslipidemia, goal LDL below 160 10/01/2009 11/01/2009 Overview: Per Lipid Taxonomy. BPH without obstruction/lowe r urinary tract symptoms 03/12/2006 08/07/2015 Cervicalgia 12/27/2002 08/07/2015 s/p left neck benign tumor removal 07/07/2002 08/07/2015 Viral warts 06/25/2001 08/07/2015 Overview: ICD-10 update of inactive term HYPERTENSION NOS 10/01/2009 Mixed dyslipidemia 9 documented as of this encounter (statuses as of 08/26/2024) Immunizations Name Administration Dates Next Due COVID-19 mRNA, LNP-s, No Pre serve, 2-Dose Series (Moderna) 01/30/2021,01/02/2021 COVID-19, MRNA-LNP, 23-24, P F, 30 MCG/0.3 mL, 12 YRS AND ABOVE, IM ([facility]) 08/31/2023 COVID-19, mRNA, LNP-s, PF, B ooster, 100mcg/0.5mg (Moderna) 10/15/2021 Covid-19, Mrna, Lnp-s, Pf, B ivalent, 30 Mcg, IM, 12 yrs and above (Pfizer) 08/19/2022 Pneumococcal Conjugate Vacc, 13 Valent (Prevnar) 02/07/2016 Season Influenza, Quad, PF, Adjuvanted, 65+ Yrs, IM (FLUAD) 07/31/2020 Seasonal Influenza Vac., MDV , IM, 0.5 mL (Fluzone) 08/09/2014,08/09/2013,08/03/2012,2009,09/13/2009,09/20/2008,09/22/2007,1 Seasonal Influenza, PF, 6 M & above, IM , (FluLaval or Fluzone) 08/05/2018 Seasonal Influenza, Quadriva lent Hd (Fluzone Hd) 08/31/2023,08/15/2022,07/25/2021 Seasonal Influenza, Quadriva lent, No Preserve, IM 08/11/2017,09/08/2016,09/03/2015 Seasonal Influenza, Trivalen t, Adjuvanted, 65+ YRS, PF, (Fluad) 08/09/2019 TD, Preservative Free 09/20/2008 TDAP, Age 7 and older, IM (Adacel) 05/22/2022 Varicella Zoster Vaccine (Adult) 04/27/2012 Zoster Vaccine Recombinant (Shingrix) 01/25/2020 ,08/05/2018 documented as of this encounter Social History Tobacco Use Types Packs/Day Years Used Date Smoking Tobacco: Never Smokeless Tobacco: Never Comments: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 Alcohol Use Standard Drinks/Week Comments Yes 2.5 (1 standard drink = 0.6 oz p ure alcohol) a beer or two everyday PHQ-2 Answer Date Recorded PHQ Adult Total Score 0 07/09/2024 Hunger Vital Sign Answer Date Recorded Within the past 12 months, y ou worried that your food would run out before you got the money to buy more. Never true 07/09/20 24 Within the past 12 months, t he food you bought just didn't last and you didn't have money to get more. Never true 07/09/2024 Childcare Answer Date Recorded Do you feel overwhelmed with taking care of a child, family member or friend? No 07/09/2024 Does your family need help f inding childcare? (Household - for ages 0-17 years) Not on file 07/09/2024 Clothing Answer Date Recorded Have you been unable to get clothing when it was really needed? No 07/09/2024 Is your family able to get c lothes or diapers when needed? (Household - for ages 0-17 years) Not on file 07/09/2024 Personal Safety Answer Date Recorded Do you feel unsafe or have concerns for your saf ety? No 07/09/2024 Do you have concerns for you r family's safety? (Household - for ages 0-17 years) Not on file 07/09/2024 Utilities Answer Date Recorded Do you have trouble paying y our heating, water, or electric bill? No 07/09/2024 Is your family able to pay t he heat, water, or electric bill? (Household - for ages 0-17 years) Not on file 07/09/2024 Does your family have access to good internet? (Household - for ages 0-17 years) Not on file 07/09/2024 Employment Status Answer Date Recorded Are you unemployed or without regular income? No 07/09/2024 [facility] the [facility] have a [facility]? (Household - for ages 0-17 years) Not on file 07/09/2024 Social Connections Answer Date Recorded How often do you feel lonely or isolated from th ose around you? Never 07/09/2024 Financial Resource Strain Answer Date R ecorded Do you have any trouble payi ng for your medications, or do you think you might in the future? No 07/09/2024 Does your family have troubl e paying for medicine? (Household - for ages 0-17 years) Not on file 07/09/2024 Housing Stability Answer Date Recorded Do you currently live in a s helter or have no steady place to sleep at night? No 07/09/2024 Do you think you are at risk of becoming homeless? (Adult - for ages 18 years and over) Not on file 07/09/2024 Does your family worry about paying for your home or becoming homeless? (Household - for ages 0-17 years) Not on file 0 07/09/2024 Are you homeless or worried that you might be in the future? No 07/09/2024 Are you (or your family) kavita eless or worried that you might be in the future? (Household - for ages 0-17 years) Not on file Sex and Gender Information Value Date Recorded Sex Assigned at Not on file Gender Identity Not on file Sexual Orientation Not on file Job Start Date Occupation Industry Not on file Not on file Not on file documented as of this encounter Plan of Treatment Upcoming Encounters Date Type Department Care Team (Late st Contact Info) Description 09/14/2024 2:40 PM EDT Office Visit Family Medicine [address] [place] [phone] Bravo Heath MD [address] [place] [address] [place] [phone] 09/23/2024 2:00 PM EDT Nurse Only Ancillary [address] [place] [phone] [place], Nurse [address] [place] [address] 07/10/2025 12:30 PM EDT Home Visit Care at Home [address] [place] [address] Salma Peña PA-C [address] [place] [address] Health Maintenance Due Date Last Done Comments Alpha-1 Antitrypsin 1958 COVID-19 Vaccine ( season) 2024 08/31/2023, 08/19/2022, 10/15/2021, Additional history exists Influenza Vaccine (FLU shot) (#1) 2024 08/31/2023, 08/15/2022, 07/25/2021, Additional history exists HbA1c 12/07/2024 12/07/2023, 05/23, 08/15/2022, Additional history exists Adult Wellness Visit 07/07/2025 07/07/2024 Depression Monitoring 07/09/2025 07/09/2024 O2 ASSESSMENT COMPLETED IN PAST YEAR FOR COPD 07/09/2025 07/09/2024 Albumin/Creatinine Ratio 06/04/2026 06/04/2023 DTap/Tdap Vaccines (2 - Td or Tdap) 05/22/2032 05/22/2022, 09/20/2008, 04/23/1996 Pneumococcal Vaccine: 65+ Years Completed 02/07/2016, 10/03/2003 Zoster Vaccines Completed 01/25/2020, 07/24, 04/27/2012 HPV (Gardasil) Vaccine Aged Out No lo nger eligible based on patient's age to complete this topic Hepatitis B Vaccine Aged Out No longe r eligible based on patient's age to complete this topic MENINGOCOCCAL (MENACTRA/MENVEO) Aged Out No longer eligible based on patient's age to complete this topic documented as of this encounter Medical Devices Implanted Type Area Airline Security Representative Device Identifier Shelf Expiration Date Model / Serial / Lot Sureclip 16mm 235cm - [id number] Implanted:Qty: 1 on 03/07/2021 by Elian Archibald MD at [facility] N/A: Esophagus MICRO TECH ENDOSCOPY 01/24/2023 [id number] / / [id number] Description:UPN [id number] [employer] Repositionable Hemostasis Clip Implanted:Qty: 4 on 03/07/2021 by Elian Archibald MD at [facility] N/A: Esophagus 01/31/2023 LOCK-D-26 -[id number]-C-[id number] / / [id number] Description:TRIAL CLIPS NOT CHARGEABLE documented as of this encounter Administered Medications Active Administered Medications - up to 3 most recent administrations Medication Order MAR Action Action Date Dose Rate Site vitamin b-12 (Cyanocobalamin) inj 1,000 mcg 1,000 mcg, Intramuscular, [id number], First dose on Thu02/12/24 at 1445, Last dose on Thu12/16/24 at 1445, For 12 doses Given 08/26/2024 3:20 PM EDT 1,000 mcg Deltoid Right Upper Given 07/29/2024 1:59 PM EDT 1,000 mcg De ltoid Left Upper Given 07/01/2024 1:55 PM EDT 1,000 mcg De ltoid Left Upper documented in this encounter Care Teams Slab Depiler Operator Relationship Specialty Start Date End Date Bravo Heath MD [address] [place] [address] [place] [phone] PCP - General Family Medicine 11/11/21 documented as of this encounter
--- OUTSIDE RECORDS SUMMARY | 2024-09-15 08:55 | External Medical Summary | Summary of Care ---
Author Name Unknown Organization [facility] Address [address] [place] [address] Phone [phone] Care Team Providers Care Results Technician Name Role Phone Bravo Heath MD Primary Care Provide r Reason for Visit * Reason Comments eRx-Medication Refill Encounter Details Date Type Department Care Team (Late st Contact Info) Description 07/30/2024 Refill Family Medicine [address] [phone] Bravo Heath MD [address] [place] [address] [place] [address] Allergies No known active allergiesdocumented as of this encounter (statuses as of 07/31/2024) Medications Medication Sig Dispensed Refills Start Date End Date Status Vitamin D, Cholecalciferol, 1000 UNITS TABS Take by mouth. Activ e aspirin enteric coated 81 MG TBECIndications:H TN, goal below 150/90,Family history of ischemic heart disease Take 1 Tab by mouth daily. 30 Tab 11 05/27/2018 Active Magnesium Oxide 400 MG Capsule Take 1 Capsule by mouth in the morning. 03/16/2019 Active Acetaminophen ER 650 MG Oral Tablet Extended Release Take 1 Tablet by mouth 2 times a day as needed. 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 18 g 2 12/05/2022 Active oxygen IN GASIndications:No cturnal hypoxemia Use 2 L/min(Oxygen) as directed at bedtime. 1 Each 01/19/2023 Active Blood Pressure Monitor DeviceIndications :HTN, goal below 150/90 Check blood pressure 3x/week 1 Each 12/07/2023 Active Thiamine HCl 100 MG Oral Tablet (vitamin B-1)Indications:C hronic alcohol use Take 1 Tablet by mouth in the morning. 90 Tablet 3 01/20/2024 Active Losartan Potassium 100 MG Oral Tablet (Cozaar)Indicatio ns:HTN, goal below 150/90 TAKE ONE TABLET BY MOUTH IN THE MORNING 90 Tablet 3 03/21/2024 Active DULoxetine HCl 30 MG Oral Capsule Delayed Release Particles (Cymbalta)Indicat ions:Current moderate episode of major depressive disorder without prior episode (HCC),Chronic bilateral low back pain without sciatica TAKE ONE CAPSULE BY MOUTH IN THE MORNING 90 Capsule 2 04/04/2024 Active Atorvastatin Calcium 10 MG Oral Tablet (Lipitor)Indicati ons:Family history of ischemic heart disease TAKE ONE [...] THE EVENING 135 Tablet 1 07/31/2024 Active Metoprolol Succinate ER 50 MG Oral Tablet Extended Release 24 Hour (toPROL XL) TAKE ONE TABLETS BY MOUTH IN THE MORNING AND 1/2 IN THE EVENING 135 Tablet 05/01/2024 Discontinued Hospital, Clinic, or Other Facility Administered Medication Ordered Dose Route Frequency Start Date End Date Status vitamin b-12 (Cyanocobalamin) inj 1,000 mcgIndications:B12 deficiency 1000 mcg IM [id number] 02/12/2024 01/13/2025 Active documented as of this encounter (statuses as of 07/31/2024) Active Problems Problem Noted Date Diagnosed Date Cerebral arteriosclerosis 07/09/2024 Overview: CT head 2019 Cerebral atrophy 07/09/2024 Overview: CT head 2018 Atherosclerosis of aorta 07/09/2024 Overview: CT chest 12/16 Coronary artery disease invo lving inup[place] coronary artery of inupiat heart without angina pectoris 07/09/2024 Overview: CT [...] as of this encounter (statuses as of 07/31/2024) Resolved Problems Problem Noted Date Diagnosed Date Resolved Date Age-related osteoporosis wit hout current pathological fracture 08/15/2022 12/07/2023 Syncope 04/02/2021 06/23/2024 Thoracic aortic ectasia 11/26/202001/22 Slac (scapholunate advanced collapse) of wrist, 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 06/23/2024 Sacroiliitis 09/13/2019 05/21/2020 Edema of both lower extremit ies due to peripheral venous insufficiency 08/05/2018 06/23/20 24 Chronic diarrhea 07/19/2014 06/23/2024 Pernicious anemia 03/28/2013 [...] as of this encounter (statuses as of 07/31/2024) Immunizations Name Administration Dates Next Due COVID-19 mRNA, LNP-s, No Pre serve, 2-Dose Series (Moderna) 01/30/2021,01/02/2021 COVID-19, MRNA-LNP, 23-24, P F, 30 MCG/0.3 mL, 12 YRS AND ABOVE, IM (PFIZER-Comirnaty) 08/31/2023 COVID-19, mRNA, LNP-s, PF, B ooster, 100mcg/0.5mg (Moderna) 10/15/2021 Covid-19, Mrna, Lnp-s, Pf, B ivalent, 30 Mcg, IM, 12 yrs and above (Pfizer) 08/19/2022 Pneumococcal Conjugate Vacc, 13 Valent (Prevnar) 02/07/2016 Season Influenza, Quad, PF, Adjuvanted, 65+ Yrs, IM (FLUAD) 07/31/2020 Seasonal Influenza, PF, 6 M & above, IM , (FluLaval or Fluzone) 08/05/2018 Seasonal Influenza, Quadriva lent Hd (Fluzone Hd) 08/31/2023,08/15/2022,07/25/2021 Seasonal Influenza, Quadriva lent, No Preserve, IM 08/11/2017,09/08/2016,09/03/2015 Seasonal Influenza, Trivalen t, (IIV3), with Preserv, (Fluzone) 08/09/2014,08/09/2013,08/03/2012,2009,09/13/2009,09/20/2008,09/22/2007,1 Seasonal Influenza, Trivalen t, Adjuvanted, 65+ YRS, [...] 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 Alcohol Use Standard Drinks/Week Comments Yes 2.5 [...] No 07/09/2024 Does the household have a re gular source of income? (Household - for ages [...] on file documented as of this encounter Miscellaneous Notes * Telephone Encounter - Yonatan Rodney RPh - 07/31/2024 7:44 PM EDTSigned Prescriptions: Disp Refills Metoprolol Succinate ER 50 MG Oral Tablet *135 Ta*1 Sig: TAKE ONE TABLETS BY MOUTH IN THE MORNING AND 1/2 IN THE EVENINGAuthorizing Provider: Naya HEATH User: YONATAN RODNEY documented in this encounter Plan of Treatment Upcoming Encounters Date Type Department Care Team (Late st Contact Info) Description 08/26/2024 3:20 PM EDT Nurse Only Ancillary [address] [place] [address] [place] Nurse [address] [place] [address] 09/14/2024 2:40 PM EDT Office Visit Family Medicine [address] [place] [phone] Bravo Heath MD [address] [place] [address] [place] [address] 07/10/2025 12:30 PM EDT Home Visit Care at Home [address] [place] [address] Salma Peña PA-C [address] [place] [address] Health Maintenance Due Date Last Done Comments [...] this encounter Medical Devices Implanted Type Area Organisation And Methods Analyst Device Identifier Shelf Expiration Date Model / Serial / Lot Sureclip 16mm 235cm - [id number] Implanted:Qty: 1 on 03/07/2021 by Elian Archibald MD at OR [facility] N/A: Esophagus MICRO TECH ENDOSCOPY 01/24/2023 [id number] / / [id number] 1 Description:UPN [id number] Lockado Repositionable Hemostasis Clip Implanted:Qty: 4 on 03/07/2021 by Elian Archibald MD at OR [facility] N/A: Esophagus 01/31/2023 LOCK-D-26 -235-C-N / / [id number] 2 Description:TRIAL CLIPS NOT CHARGEABLE documented as of this encounter Care Teams Results Technician Relationship Specialty Start Date End Date Bravo Heath MD [address] [place] [address] [place] [address] PCP - General Family Medicine 11/11/21 documented as of this encounter
--- OUTSIDE RECORDS SUMMARY | 2024-09-15 08:55 | External Medical Summary | Summary of Care ---
Author Name Unknown Organization [facility] Address [address] [place] [address] Phone [phone] Care Team Providers Care Underwriting Director Name Role Phone Bravo Heath MD Primary Care Provide r Encounter Details Date Type Department Care Team (Late st Contact Info) Description 07/29/2024 2:00 PM EDT Nurse Only Ancillary [address] [place] [address] [place], Nurse [address] [place] [address] Allergies No known active allergiesdocumented as of this encounter (statuses as of 07/29/2024) Medications Medication Sig Dispensed Refills Start Date [...] THE MORNING 90 Capsule 2 04/04/2024 Active Metoprolol Succinate ER 50 MG Oral Tablet Extended Release 24 Hour (toPROL XL) TAKE ONE TABLETS BY MOUTH IN THE MORNING AND 1/2 IN THE EVENING 135 Tablet 05/01/2024 Active Atorvastatin Calcium 10 MG Oral Tablet (Lipitor)Indication s:Family history of ischemic heart disease TAKE ONE TABLET BY MOUTH EVERY DAY 90 Tablet 1 05/03/2024 Active Pantoprazole Sodium 40 MG Oral Tablet Delayed Release (Protonix) TAKE ONE TABLET BY MOUTH EVERY DAY 90 Tablet 1 05/09/2024 Active Hospital, Clinic, or Other Facility Administered Medication Ordered Dose Route Frequency Start Date End Date Status vitamin b-12 (Cyanocobalamin) inj 1,000 mcgIndications:B12 deficiency 1000 mcg IM [id number] 02/12/2024 01/13/2025 Active documented as of this encounter (statuses as of 07/29/2024) Active Problems Problem Noted Date Diagnosed Date Cerebral arteriosclerosis 07/09/2024 Overview: CT head 2019 Cerebral atrophy 07/09/2024 Overview: CT head 2019 Atherosclerosis of aorta 07/09/2024 Overview: CT chest 12/16 Coronary artery disease invo lving one[place] coronary artery of one[place] heart without angina pectoris 07/09/2024 Overview: CT [...] as of this encounter (statuses as of 07/29/2024) Resolved Problems Problem Noted Date Diagnosed Date [...] as of this encounter (statuses as of 07/29/2024) Immunizations Name Administration Dates Next Due COVID-19 mRNA, LNP-s, No Pre serve, 2-Dose Series (Moderna) 01/30/2021,01/02/2021 COVID-19, MRNA-LNP, 23-24, P F, 30 MCG/0.3 mL, 12 YRS AND ABOVE, IM [facility] 08/31/2023 COVID-19, mRNA, LNP-s, PF, B ooster, [...] 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 Alcohol Use Standard Drinks/Week Comments Yes 2.5 [...] No 07/09/2024 Does the household have a [facility] source of income? (Household - for ages [...] 08/26/2024 3:20 PM EDT Nurse Only Ancillary [address] [place] [address] [place], Nurse [address] [place] [address] 09/14/2024 2:40 PM EDT Office Visit Family Medicine [address] [place] [phone] Bravo Heath MD [address] [place] [address] [place] [address] 07/10/2025 12:30 PM EDT Home Visit Care at Home [address] [place], [place] [phone] Salma Peña PA-C [address] [place], [place] [phone] Health Maintenance Due Date Last Done Comments Alpha-1 Antitrypsin 1958 COVID-19 Vaccine (2022- season) 2024 08/31/2023, 08/19/2022, 10/15/2021, Additional history [...] this encounter Medical Devices Implanted Type Area Herbologist Device Identifier Shelf Expiration Date Model / Serial / Lot Sureclip 16mm 235cm - [id number] Implanted:Qty: 1 on 03/07/2021 by Elian Archibald MD at OR [facility] N/A: Esophagus MICRO TECH ENDOSCOPY 01/24/2023 [id number] / / [id number] 1 Description:UPN [id number] Lockado Repositionable Hemostasis Clip Implanted:Qty: 4 on 03/07/2021 by Elian Archibald MD at OR [facility] N/A: Esophagus 01/31/2023 LOCK-D-26 -235-C-N / / [id number] 2 Description:TRIAL CLIPS NOT CHARGEABLE documented as of this encounter Administered Medications Active Administered Medications - up to 3 most recent administrations Medication Order MAR Action Action Date Dose Rate Site vitamin b-12 (Cyanocobalamin) inj 1,000 mcg 1,000 mcg, Intramuscular, [id number], First dose on Thu02/12/24 at 1445, Last dose on Thu12/16/24 at 1445, For 12 doses Given 07/29/2024 1:59 PM EDT 1,000 mcg Deltoid Left Upper Given 07/01/2024 1:55 PM EDT 1,000 mcg De ltoid Left Upper Given 06/03/2024 2:00 PM EDT 1,000 mcg De ltoid Right Upper documented in this encounter Care Teams Underwriting Director Relationship Specialty Start Date End Date Bravo Heath MD [address] [place] [address] [place] [phone] PCP - General Family Medicine 11/11/21 documented as of this encounter
--- OUTSIDE RECORDS SUMMARY | 2024-09-15 08:56 | External Medical Summary | Summary of Care ---
Author Name Unknown Organization [facility] Address [address] [place] [address] Phone [phone] Care Team Providers Care Building Maintenance Engineer Name Role Phone Bravo Heath MD Primary Care Provide r Encounter Details Date Type Department Care Team (Late st Contact Info) Description 07/01/2024 2:00 PM EDT Nurse Only Ancillary [address] [place] [address] [place], Nurse [address] [place] [address] Allergies No known active allergiesdocumented as of this encounter (statuses as of 07/01/2024) Medications Medication Sig Dispensed Refills Start Date [...] inj 1,000 mcgIndications:B12 deficiency 1000 mcg IM [id number] 02/12/2024 01/13/2025 Active documented as of this encounter (statuses as of 07/01/2024) Active Problems Problem Noted Date Diagnosed Date Centrilobular emphysema 12/07/2023 Nocturnal hypoxia 06/29/2023 Overview: [...] as of this encounter (statuses as of 07/01/2024) Resolved Problems Problem Noted Date Diagnosed Date Resolved Date Age-related osteoporosis wit hout current pathological fracture 08/15/2022 12/07/2023 Syncope 04/02/2021 06/23/2024 Thoracic aortic ectasia 11/26/2020 032 11/2021 Slac (scapholunate advanced collapse) of wrist, [...] as of this encounter (statuses as of 07/01/2024) Immunizations Name Administration Dates Next Due COVID-19 [...] lent, No Preserve, IM 08/11/2017,09/08/2016,09/03/2015 Seasonal Influenza, Split, I IV3, With Preserve, Inj 08/09/2014,08/09/2013,08/03/2012,2009,09/13/2009,09/20/2008,09/22/2007,1 Seasonal Influenza, Trivalen t, Adjuvanted, 65+ yrs 08/09/2019 TD, Preservative Free 09/20/2008 TDAP, Age 7 and older, IM (Adacel) 05/22/2022 Varicella Zoster Vaccine (Adult) 04/27/2012 Zoster Vaccine Recombinant (Shingrix) 01/25/2020 ,08/05/2018 documented as of this encounter Social History Tobacco Use Types Packs/Day Years Used Date Smoking Tobacco: Never Smokeless Tobacco: Never Comments: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 Alcohol Use Standard Drinks/Week Comments Yes 2.5 (1 standard drink = 0.6 oz p ure alcohol) a beer or two everyday PHQ-2 Answer Date Recorded PHQ Adult Total Score 0 02/10/2022 Hunger Vital Sign Answer Date Recorded Worried About Running Out of Food in the Last Ye ar Never true 09/13/2019 Ran Out of Food in the Last Year Never true 09/13/2019 Utilities Answer Date Recorded Do you have trouble paying y our heating, water, or electric bill? (Adult - for ages 18 years and over) Not on file 05/10/2024 Is your family able to pay t he heat, water, or electric bill? (Household - for ages 0-17 years) Not on file 05/10/2024 Does your family have access to good internet? (Household - for ages 0-17 years) Not on file 05/10/2024 Social Connections Answer Date Recorded How often do you feel lonely or isolated from those around you? (Adult - for ages 18 years and over) Not on file 05/10/2024 Sex and Gender Information Value Date Recorded Sex Assigned at Not on file Gender Identity Not on file Sexual Orientation Not on file Job Start Date Occupation Industry Not on file Not on file Not on file documented as of this encounter Plan of Treatment Upcoming Encounters Date Type Department Care Team (Late st Contact Info) Description 07/07/2024 12:00 PM EDT [facility] Visit Care [facility] [address] [facility] [place] [address] Salma Peña PA-C [address] [place] [address] 07/29/2024 2:00 PM EDT Nurse Only Ancillary [address] [place] [address] [place], Nurse [address] [place] [address] 08/01/2024 10:40 AM EDT Office Visit Dermatology, Ryan Lynn [address] [place] [address] Jacquelyn Rhodes PA-C [address] [place] [address] 09/14/2024 2:40 PM EDT Office Visit Family Medicine [address] [place] [phone] Bravo Heath MD [address] [place] [address] [place] [address] Health Maintenance Due Date Last Done Comments Alpha-1 Antitrypsin 1958 Adult Wellness Visit 2004 Depression Monitoring 02/10/2023 02/10/2022 COVID-19 Vaccine ( season) 2024 08/31/2023, 08/19/2022, 10/15/2021, Additional history exists Influenza Vaccine (FLU shot) (#1) 2024 08/31/2023, 08/15/2022, 07/25/2021, Additional history exists HbA1c 12/07/2024 12/07/2023, 05/23, 08/15/2022, Additional history exists O2 ASSESSMENT COMPLETED IN PAST YEAR FOR COPD 02/22/2025 02/23/2024 Albumin/Creatinine Ratio 06/04/2026 06/04/2023 DTaP,Tdap,and Td Vaccines (2 - Td or Tdap) 05/22/2032 [...] this encounter Medical Devices Implanted Type Area Vehicle Safety Inspector Device Identifier Shelf Expiration Date Model / Serial / Lot Sureclip 16mm 235cm - [id number] Implanted:Qty: 1 on 03/07/2021 by Elian Archibald MD at OR [facility] N/A: Esophagus MICRO TECH ENDOSCOPY 01/24/2023 [id number] / / [id number] 1 Description:UPN [id number] Lockado Repositionable Hemostasis Clip Implanted:Qty: 4 on 03/07/2021 by Elian Archibald MD at OR [facility] N/A: Esophagus 01/31/2023 LOCK-D-26 -235-C-N / / [id number] 2 Description:TRIAL CLIPS NOT CHARGEABLE documented as of this encounter Administered Medications Active Administered Medications - up to 3 most recent administrations Medication Order MAR Action Action Date Dose Rate Site vitamin b-12 (Cyanocobalamin) inj 1,000 mcg 1,000 mcg, Intramuscular, [id number], First dose on Thu02/12/24 at 1445, Last dose on Thu12/16/24 at 1445, For 12 doses Given 07/01/2024 1:55 PM EDT 1,000 mcg Deltoid Left Upper Given 06/03/2024 2:00 PM EDT 1,000 mcg De ltoid Right Upper Given 05/06/2024 2:02 PM EDT 1,000 mcg De ltoid Left Upper documented in this encounter Care Teams Building Maintenance Engineer Relationship Specialty Start Date End Date Bravo Heath MD [address] [place] [address] [place] [phone] PCP - General Family Medicine 11/11/21 documented as of this encounter
--- OUTSIDE RECORDS SUMMARY | 2024-09-15 08:56 | External Medical Summary | Summary of Care ---
Author Name Unknown Organization [facility] Address [address] [place] [address] Phone [phone] Care Team Providers Care Pugger Helper Name Role Phone Bravo Heath MD Primary Care Provide r Reason for Visit * Reason Onset Date Comments Appointment 06/20/2024 Encounter Details Date Type Department Care Team (Late st Contact Info) Description 06/20/2024 Telephone Care at Home [address] [place] [address] Services, Scheduling [address] [place] [address] Appointment Allergies No known active allergiesdocumented as of this encounter (statuses as of 06/20/2024) Medications Medication Sig Dispensed Refills Start Date [...] inj 1,000 mcgIndications:B12 deficiency 1000 mcg IM [id number] 02/12/2024 01/13/2025 Active documented as of this encounter (statuses as of 06/20/2024) Active Problems Problem Noted Date Diagnosed Date Centrilobular emphysema 12/07/2023 Nocturnal hypoxia 06/29/2023 Overview: max 99%, min 76% Ambulatory dysfunction 06/04/2023 Interstitial lung disease wi th progressive fibrotic phenotype in diseases classified elsewhere 12/05/2022 Chronic bilateral low back pain without sciatica 02/10/2022 Spinal stenosis of lumbar region 02/10/2022 Pulmonary fibrosis 07/19/2021 History of loop recorder 04/02/2021 Syncope 04/02/2021 Prediabetes 01/28/2021 Overview: Per Prediabetes protocol MVP (mitral valve prolapse) 09/06/2020 Slac (scapholunate advanced collapse) of wrist, 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 Paroxysmal atrial fibrillation 03/04/2019 Chronic alcohol use 03/04/2019 Current moderate episode of major depressive disorder without prior episode 11/09/2018 Edema of both lower extremit ies due to peripheral venous insufficiency 08/05/2018 Nonrheumatic aortic valve insufficiency 05/27/20 18 Mild mitral regurgitation 05/27/2018 Mild tricuspid regurgitation 05/27/2018 Family history of ischemic heart disease 018 Chronic diarrhea 07/19/2014 Pernicious anemia 03/28/2013 Dyslipidemia, goal LDL below 130 10/10/2010 HTN, goal below 150/90 10/01/2009 GENERAL OSTEOARTHROSIS 09/29/2005 CERVICAL DISC DEGEN 12/27/2002 Gastroesophageal reflux disease without esophagi tis Benign prostatic hyperplasia Overview: ICD-10 update of inactive term ICD-10 update of inactive term History of colonic polyps Overview: ICD-10 update of inactive term Rosacea documented as of this encounter (statuses as of 06/20/2024) Resolved Problems Problem Noted Date Diagnosed Date Resolved Date Age-related osteoporosis wit hout current pathological fracture 08/15/2022 12/07/2023 Thoracic aortic ectasia 11/26/2020 03/2 11/2021 Sacroiliitis 09/13/2019 05/21/2020 Dyslipidemia, goal to be determined 11/01/2009 10/10/2010 [...] as of this encounter (statuses as of 06/20/2024) Immunizations Name Administration Dates Next Due COVID-19 [...] 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 Alcohol Use Standard Drinks/Week Comments Yes 2.5 [...] encounter Miscellaneous Notes * Telephone Encounter - Tania Riddle OSA - 06/20/2024 12:22 PM EDT Care At Home Outreach Call attempt: 1st Call Call result: Call Successful - Patient enrolled and agreed to visit. Appointment with: Salma Peña PA-C Visit Date: 07/07/24 Visit Time: noon with spouse, patient needs a remind call. [place] documented in this encounter Plan of Treatment Upcoming Encounters Date Type Department Care Team (Late st Contact Info) Description 07/01/2024 2:00 PM EDT Nurse Only Ancillary [address] [place] [address] [place], Nurse [address] [place] [address] 07/07/2024 12:00 PM EDT Home Visit Care at Home [address] [place] [address] Salma Peña PA-C [address] [place] [address] 08/01/2024 10:40 AM EDT Office Visit Dermatology, Ryan Lynn [address] [place] [address] Jacquelyn Rhodes PA-C [address] [place] [address] 09/14/2024 2:40 PM EDT Office Visit Family Medicine [address] [place] [phone] Bravo Heath MD [address] [place] [address] [place] [address] Health Maintenance Due Date Last Done Comments Alpha-1 Antitrypsin 1958 Depression Monitoring 02/10/2023 02/10/2022 COVID-19 Vaccine ( season) 2024 08/31/2023, 08/19/2022, 10/15/2021, Additional history exists *COPD SEVERITY VERIFIED BY PFT 06/05/2024 *CXR OR CT FOR COPD EVER 06/05/2024 Influenza Vaccine (FLU shot) (#1) 2024 08/31/2023, [...] this encounter Medical Devices Implanted Type Area Playground Official Device Identifier Shelf Expiration Date Model / Serial / Lot Sureclip 16mm 235cm - [id number] Implanted:Qty: 1 on 03/07/2021 by Elian Archibald MD at OR [facility] N/A: Esophagus MICRO TECH ENDOSCOPY 01/24/2023 [id number] / / [id number] 1 Description:UPN [id number] Lockado Repositionable Hemostasis Clip Implanted:Qty: 4 on 03/07/2021 by Elian Archibald MD at OR [facility] N/A: Esophagus 01/31/2023 LOCK-D-26 -235-C-N / / [id number] 2 Description:TRIAL CLIPS NOT CHARGEABLE documented as of this encounter Care Teams Pugger Helper Relationship Specialty Start Date End Date Bravo Heath MD [address] [place] [address] [place] [address] PCP - General Family Medicine 11/11/21 documented as of this encounter
--- OUTSIDE RECORDS SUMMARY | 2024-09-15 08:56 | External Medical Summary | Summary of Care ---
Author Name Unknown Organization [facility] Address [address] [place] [address] Phone [phone] Care Team Providers Care Tax Compliance Agent Name Role Phone Levon Sal MD Primary Care Provide r Reason for Visit * Reason Comments Adult Annual Wellness Visit, Initial Vis it Encounter Details Date Type Department Care Team (Late st Contact Info) Description 07/07/2024 12:00 PM EDT Home Visit Care at Home [address] [place] [address] Salma Peña PA-C [address] [place], [place] [id number] Cerebral arteriosclerosis*; Cerebral atrophy (HCC); Ambulatory dysfunction; Benign prostatic hyperplasia with nocturia; Centrilobular emphysema (HCC); CERVICAL DISC DEGEN; Chronic bilateral low back pain without sciatica; Current moderate episode of major depressive disorder without prior episode (HCC); Dyslipidemia, goal LDL below 130; Gastroesophageal reflux disease without esophagitis; GENERAL OSTEOARTHROSIS ; History of colonic polyps; History of loop recorder; HTN, goal below 150/90; 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); Mild mitral regurgitation; Mild tricuspid regurgitation; MVP (mitral valve prolapse); Nocturnal hypoxia; Nonrheumatic aortic valve insufficiency; Paroxysmal atrial fibrillation (HCC); Prediabetes; Pulmonary fibrosis (HCC); Rosacea; Spinal stenosis of lumbar region without neurogenic claudication; Atherosclerosis of aorta (HCC); 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; Left atrial enlargement; Aortic valve insufficiency, etiology of cardiac valve disease unspecified; Grade II diastolic dysfunction Allergies No known active allergiesdocumented as of this encounter (statuses as of 07/09/2024) Medications Medication Sig Dispensed Refills Start Date [...] inj 1,000 mcgIndications:B12 deficiency 1000 mcg IM [id number] 02/12/2024 01/13/2025 Active documented as of this encounter (statuses as of 07/09/2024) Active Problems Problem Noted Date Diagnosed Date Cerebral arteriosclerosis 07/09/2024 Overview: CT head 2019 Cerebral atrophy 07/09/2024 Overview: CT head 2019 Atherosclerosis of aorta 07/09/2024 Overview: CT chest 12/16 Coronary artery disease invo lving beaver coronary artery of beaver heart without angina pectoris 07/09/2024 Overview: CT [...] episode 11/09/2018 Nonrheumatic aortic valve insufficiency 05/27/20 Mild mitral regurgitation 05/27/2018 Mild tricuspid regurgitation [...] as of this encounter (statuses as of 07/09/2024) Resolved Problems Problem Noted Date Diagnosed Date [...] as of this encounter (statuses as of 07/09/2024) Immunizations Name Administration Dates Next Due COVID-19 mRNA, LNP-s, No Pre serve, 2-Dose Series (Moderna) 01/30/2021,01/02/2021 COVID-19, MRNA-LNP, 23-24, P F, 30 MCG/0.3 mL, 12 YRS AND ABOVE, IM ([employer]) 08/31/2023 COVID-19, mRNA, LNP-s, PF, B ooster, 100mcg/0.5mg (Moderna) 10/15/2021 Covid-19, Mrna, Lnp-s, Pf, B ivalent, 30 Mcg, IM, 12 yrs and above ([employer]) 08/19/2022 Pneumococcal Conjugate Vacc, 13 Valent (Prevnar) [...] 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 Alcohol Use Standard Drinks/Week Comments Yes 2.5 [...] on file documented as of this encounter Last Filed Vital Signs Vital Sign Reading Time Taken Comments Blood Pressure 122/80 07/09/2024 1:24 PM EDT Pulse 58 07/09/2024 1:24 PM EDT Temperature - - Respiratory Rate 18 07/09/2024 1:24 PM EDT Oxygen Saturation 94% 07/09/2024 1:24 PM EDT Inhaled Oxygen Concentration - - Weight - - Height - - Body Mass Index - - documented in this encounter Progress Notes * Salma Peña PA-C - 07/07/2024 1:00 PM EDT Images from the original note were not included. ANNUAL HEALTH RISK ASSESSMENT [facility] [address] [facility] [place] [address] Patient Name: Moises Ramos : 1940 Date of Assessment: 07/07/2024 Gender: Male PCP: LEVON SAL [address] [place] [address] [place] [address] [phone] Extended Emergency Contact Information Primary Emergency Contact: GIANFRANCOSATHYA Address: [address] [facility] [place] [address] [facility] Mobile Relation: Spouse Preferred language: Martiniquais Rehab Consultant needed? No Secondary Emergency Contact: ALEXANDER BELL Address: [address] [place] [address] [place] [address] [facility] Mobile Relation: Adult Child Preferred language: Martiniquais Rehab Consultant needed? No HRA Intake Documentation: Advance Care Planning: Advance Directive Type: none Advance Directive Date: n/a Medical Adherence: Patient is able to obtain all medications? Yes Patient takes medications as prescribed? Yes Patient uses a pill box? Yes, refill(s) completed by son Medication Reconciliation Medications Medication reconciliation/review completed:: Yes (07/09/24 132) Medication adherence problem:: No (07/09/24 132) Experiencing side effects from current medications:: No (07/09/24 1329) Medication support:: Caregiver/family fills pillbox (07/09/24 1329) Admissions (within the last year): Not Applicable Hospital ER within 30 days: No Health Maintenance Last physical exam: 02/23/24 Does patient see provider regularly? Yes, Primary Care Provider and cardiology, pain management, rheumatology Spirometry: No Dental Exam: No Other Test(s) - No time frame specified MRI C SPINE W/O CONT Order: [id number] Status: Final result Visible to patient: Yes (seen) Next appt: 07/29/2024 at 02:00 PM in *Primary Care* (Nurse Kacey) Dx: Cervical radicular pain 0 Result Notes Details Reading Physician Reading Date Result Priority Perry Zavaleta MD [phone] 01/09/2017 Narrative & Impression EXAM MRI CERVICAL SPINE WITHOUT CONTRAST-01/08/2017 12:17 pm HISTORY Right periscapular/arm pain COMPARISON None TECHNIQUE Multiplanar, multisequence magnetic resonance imaging of the cervical spine was performed without intravenous contrast. FINDINGS Images are mildly degraded by motion artifact. Multilevel degenerative changes are present with mild anterolisthesis of C2 on C3, C3 on C4, C4 on C5, and C7 on T1 as well as minimal retrolisthesis of C5 on C6. There are varying degrees of disc height loss.The vertebral body heights are grossly preserved. The craniocervical junction is within normal limits. C2-C3: Broad-based disc bulge causing with uncovering of the intervertebral disc and mild effacement of the ventral thecal sac but no significant spinal canal stenosis. Uncovertebral hypertrophy causes minimal right neural foraminal narrowing. C3-C4: Anterolisthesis and posterior ligamentous prominence results in [id number] spinal canal stenosis. Uncovertebral hypertrophy causes mild bilateral neural foraminal narrowing. C4-C5: Uncovering of the intervertebral disc with mild effacement of the ventral thecal sac, but no significant spinal canal stenosis. Uncovertebral hypertrophy causes mild bilateral neural foraminal narrowing. C5-C6: Prominent dorsal osteophytes efface the ventral thecal sac without significant spinal canal stenosis. Asymmetric osteophyte and uncovertebral hypertrophy causes moderate right and mild left neural foraminal narrowing. C6-C7: Dorsal osteophyte without significant spinal canal stenosis. Osteophyte and uncovertebral hypertrophy result in moderate right and mild left neural foraminal narrowing. C7-T1: Uncovering of the intervertebral disc with asymmetric right-sided disc bulge with a prominent subarticular and foraminal component, resulting in moderate to severe right and mild left neural foraminal narrowing. IMPRESSION Advanced multilevel degenerative changes and listhesis. Spinal canal stenosis is most severe at theC3-C4 level. Varying degrees of bilateral neural foraminal narrowing are detailed above, most severe on the right at C7-T1. I have personally reviewed this examination and agree with the resident/fellow physician's interpretation. Resident Physician: MISA HARPER [[id number]] Radiologist: PERRY ZAVALETA MD [[id number]] Authenticated By Authenticating Date Authenticating Time Reading Providers(s) PERRY ZAVALETA MD 01-09-2017 17:27 PERRY ZAVALETA MD Specimen Collected: 01/08/17 12:17 Last Resulted: 01/09/17 17:26 MRI L SPINE WO CONTRAST Order: [id number] Status: Final result Visible to patient: Yes (seen) Next appt: 07/29/2024 at 02:00 PM in *Primary Care* (Nurse Erazo) Dx: Spinal stenosis of lumbar region with... 0 Result Notes Details Reading Physician Reading Date Result Priority MartineztJonny MD [phone] 02/06/2018 Narrative & Impression EXAM MRI LUMBAR SPINE WITHOUT CONTRAST-02/05/2018 HISTORY low back and leg pain COMPARISON Lumbar spine radiographs 02/03/2018 TECHNIQUE Multiplanar, multisequence magnetic resonance imaging of the lumbar spine was performed without intravenous contrast. FINDINGS There are 5 lumbar type vertebrae. Correlation with this numbering scheme is recommended prior to any planned surgical intervention.Lumbar vertebrae appear maintained in height. There is lumbar dextroscoliosis. Minimal anterolisthesis of L4 on L5 and minimal retrolisthesis of L5 on S1 is demonstrated. There is multilevel loss of disc height and disc desiccation. Reactive marrow changes appear most pronouncedat L4-5. The spinal cord terminates normally at L1. There are degenerative changes of the SI joints. A smallright renal cyst is present inferiorly. A somewhat heterogeneous T2 signal hyperintensity within the inferior right hepatic lobe is incompletely evaluated secondary to technique, and is demonstrated on the coronal T2 weighted sequence only secondary to slice selection. This finding is indeterminate, common etiologies would include a cyst or hemangioma, among additional differential considerations. T12-L1: No significant canal or foraminal narrowing. L1-L2: A posterior disc bulge, osteophytic ridging, and facet arthropathy contribute to mild canal stenosis. There is mild left foraminal narrowing and mild/moderate right foraminal narrowing L2-L3: A broad-based posterior disc bulge, osteophytic ridging, and facet arthropathy contribute tomild/ moderate canal stenosis. There is mild right foraminal narrowing and moderate left foraminal narrowing. L3-L4: A posterior disc bulge and osteophytic ridging along with facet arthropathy contribute to mild canal stenosis and moderate/severe bilateral foraminal narrowing. L4-L5: A posterior disc bulge which appears oriented in a cephalad direction, ligamentum flavum thickening, and prominent facet arthropathy contribute to moderate/severe spinal canal stenosis. There is asymmetric effacement of the right subarticular zone. There is severe bilateral foraminal narrowing. L5-S1: A mild posterior disc bulge and osteophytic ridging along with facet arthropathy are presentwithout significant canal stenosis. There is mild bilateral foraminal narrowing. IMPRESSION 1. Multilevel degenerative changes are most pronounced at L4-5, where there is moderate/severe canal stenosis, asymmetric effacement of the right subarticular zone, and severe bilateral foraminal narrowing. 2. Moderate/severe bilateral foraminal narrowing is also present at L3-4. 3. Lumbar dextroscoliosis. Authenticated By Authenticating Date Authenticating Time Reading Providers(s) JONNY QURESHI MD 02-06-2018 11:05 JONNY QURESHI MD Specimen Collected: 02/05/18 16:50 Last Resulted: 02/06/18 11:05 US ABDOMEN LIMITED Order: [id number] Status: Final result Visible to patient: Yes (seen) Next appt: 07/29/2024 at 02:00 PM in *Primary Care* (Nurse Erazo) Dx: Liver lesion, right lobe 0 Result Notes Details Reading Physician Reading Date Result Priority Eldon French MD [phone] 02/12/2018 Narrative & Impression EXAM US ABDOMEN LIMITED - 02/12/2018 10:39 am HISTORY possible cyst or hemangioma seen on lumbar spine MRI but incompletely evaluated TECHNIQUE RUQ imaging. COMPARISON None. FINDINGS The visualized hepatic parenchymais normal. The visualized pancreatic parenchyma is unremarkable. There is no convincing evidence for space-occupying lesion within the liver or pancreas. The gallbladder is partially contracted. There are no gallstones seen. There is no biliary duct dilatation.The common bile duct measures 3 mm. No ascites is detected in the right upper quadrant. The right kidney is unremarkable as imaged. IMPRESSION No hepatic mass is seen. Partially contracted gallbladder. No gallstones. Authenticated By Authenticating Date Authenticating Time Reading Providers(s) ELDON FRENCH MD 02-12-2018 12:28 ELDON FRENCH MD Specimen Collected: 02/12/18 10:39 Last Resulted: 02/12/18 12:27 Narrative & Impression VASCULAR LAB RESULTS DATE OF EXAMINATION: 12/02/18 INDICATION: cold feet and leg pain This [facility] ANKLE BRACHIAL INDEX OF THE LOWER EXTREMITIES Immediately before proceeding with the vascular lab procedure reported below, the identity of the patient, the correct exam and the correct procedural site were identified. Continuous wave doppler and appropriate size pressure cuffs were utilized during the examination. Findings: The right and left brachial artery blood pressures are 190 mmHg and 194 mmHg respectively. On the right, the posterior tibial artery waveform is triphasic and has an amplitude which is excellent. . The right dorsalis pedis artery waveform is triphasic and has an amplitude which is excellent. The right peroneal artery waveform is biphasic and has an amplitude which is decreased. The tibial pressures range from 172mmHg to non-compressible. On the left, the posterior tibial artery waveform is triphasic and has an amplitude which is excellent. . The left dorsalis pedis artery waveform is triphasic and has an amplitude which is excellent. . The left peroneal artery waveform is biphasic and has an amplitude which is good. The tibial pressures range from 108 mmHg to non-compressible. IMPRESSION: VIJAYA at rest is 1.0 on the right and 1.1 on the left. For the right lower extremity: Lower extremity Doppler Evaluation is normal at rest with no evidence of significant arterial occlusive disease. Great toe pressure is 154. PPG tracing of the great toe has decreased amplitude. For the left lower extremity: Lower extremity Doppler Evaluation is normal at rest with no evidence of significant arterial occlusive disease. Great toe pressure is 94. PPG tracing of the great toe has decreased amplitude. Exam Ended: 12/02/18 13:48 Last Resulted: 12/02/18 16:00 Exam End Date Exam End Time 12/03/2023 1:[address] CHEST WO CONTRAST Order: [id number] Status: Final result Visible to patient: Yes (seen) Next appt: 07/29/2024 at 02:00 PM in *Primary Care* (Nurse Erazo) Dx: Lung nodule 0 Result Notes Details Reading Physician Reading Date Result Priority Chaim Covarrubias MD [phone] 12/05/2023 Narrative & Impression PROCEDURE INFORMATION: Exam: CT Chest Without Contrast; Diagnostic Exam date and time: 12/03/2023 1:15 PM Age: 83 years old Clinical indication: Solitary pulmonary nodule; Additional info: Lung nodule TECHNIQUE: Imaging protocol: Diagnostic computed tomography of the chest without contrast. Radiation optimization: All CT scans at this facility use at least one of these dose optimization techniques: automated exposure control; mA and/or kV adjustment per patient size (includes targeted exams where dose is matched to clinical indication); or iterative reconstruction. COMPARISON: CR (CHEST, ) 07/08/2021 2:50 PM FINDINGS: Lungs: Stable centrilobular emphysematous changes are present. Scarring and reticular interlobular septal thickening along the major fissures is similar in appearance to previous. There is mild peripheral interstitial disease and fibrosis, similar in severity. Bullous disease at the periphery present. Stable 4 mm nodule in the right upper lobe laterally, series 10, image 86. Pleural spaces: Unremarkable. No pneumothorax. No pleural effusion. Heart: The heart is mildly enlarged. Coronary arteries: There is severe atherosclerotic calcification of the coronary arteries. Lymph nodes: Stable shotty mediastinal lymph nodes compared to previous. Vasculature: The vasculature demonstrates diffuse moderate atherosclerotic calcification. Bones/joints: The spine demonstrates moderate degenerative changes at multiple levels. Old T12 compression deformity stable compared to previous Soft tissues: Unremarkable. IMPRESSION IMPRESSION: 1. Stable chronic changes of emphysema 2. Stable 4 mm nodule right upper lobe 3. Consider continued routine surveillance in 1 year 4. Other chronic changes as above. THIS DOCUMENT HAS BEEN ELECTRONICALLY SIGNED BY CHAIM COVARRUBIAS MD Exam Ended: 12/03/23 13:35 Last Resulted: 12/05/23 14:13 Exam End Date Exam End Time 06/06/2024 4:21 PM DEXA SCAN/BONE MINERAL AXIAL Order: [id number] Status: Final result Visible to patient: Yes (seen) Next appt: 07/29/2024 at 02:00 PM in *Primary Care* (Nurse Erazo) Dx: Age-related osteoporosis without curr... 0 Result Notes 1 Follow-up Encounter Details Reading Physician Reading Date Result Priority Mikael Evans MD [phone] 06/08/2024 Routine Narrative & Impression Radiology, [facility] DXA Performed: 06/06/24 DXA Resulted: 06/08/2024 Moises Ramos Reason for testing: monitoring to assess efficacy of therapy Osteoporosis treatment (per questionnaire): A. Previous treatment: Fosamax/Alendronate B. Current treatment: NONE Major risk factors: none Using a [facility] images of the left hip were obtained using DXA.. The bone mineral density and T scores [standard, young, normal, male population] are as follows: RESULTS: Left femoral neck: 0.728 gms/cm2 T-score: -1.5 Using the NOF/WHO FRAX calculator, the 10 year absolute risk for any major osteoporotic fracture is7.1 % and the risk for hip fracture is 2.8 %. IMPRESSIONS: Fracture risk is based on current National Osteoporosis Foundation (www.nof.org) Clinicians Guide and [place] Association of Clinical Endocrinology (AACE) Guidelines (www.aace.com) and the application of current WHO FRAX tool (https://www.reese.ac.uk/FRAX/) as well as the 2017 [place] Collegeof Rheumatology Glucocorticoid Induced Osteoporosis (GIOP) Guidelines (rheumatology.org/Practice-Robert lity/Clinical-Support/Mlbxwdai-Vjhtibbi-Ouxirnbasb) using Bone mineral density derived T-scores andclinical risk factors obtained from the patient questionnaire. 1. The fracture risk is LOW/MODERATE (does not meet NOF criteria for treatment) 2. The quality of the examination is GOOD. 3. Our DXA Center has acquired a new DEXA machine, new updated software, and trabecular bone score software; all of these changes make any comparison to prior studies invalid Status: Final result (Resulted: 09/09/2018 12:24) Provider Status: Reviewed Nematologist Shanti Gong [facility] Patient Name: Moises Ramos Procedure Date: 09/09/2018 11:35 AM Date of : 1940 Admit Type:Outpatient Note Status:Finalized Date of : 1940 Admit Type: Outpatient Age: 78 Room: [facility] 3 Gender: Male Note Status: Finalized Procedure: Colonoscopy Indications: Last colonoscopy: March 2014, Iron deficiency anemia Providers: Lb Hopper MD (Doctor), Pablo Garcia RN, Keri Khalil CRNA (Anesthesia Staff) Referring MD: Jessica Pate (Referring MD) Medicines: Propofol total dose 180 mg IV Complications: No immediate complications. Estimated blood loss: None. Procedure: Pre-Anesthesia Assessment: - Prior to the procedure, a History and Physical was performed, and patient medication allergies have been reviewed. The patient's tolerance of previous anesthesia has been reviewed. - Respiratory Examination: clear to auscultation. - CV Examination: normal. - The risks and benefits of the procedure and the sedation options and risks were discussed with the patient. All questions were answered and informed consent was obtained. - Patient identification and proposed procedure were verified prior to the procedure by the physician, the nurse and the maori liaison adviser. The procedure was verified in the pre-procedure area in the procedure room. - The medication list for this patient has been reviewed prior to the procedure and has been determined that the patient may proceed with the planned study. Any medication changes made as a result of the findings of this procedure have been discussed with the patient and/or branch service representative at the time of discharge from the facility. - ASA Grade Assessment: III - A patient with severe systemic disease. After I obtained informed consent, the scope was passed under direct vision. Throughout the procedure, the patient's blood pressure, pulse, and oxygen saturations were monitored continuously. The [id number] was introduced through the anus and advanced to the terminal ileum, with identification of the appendiceal orifice and IC valve. The colonoscopy was performed with ease. The patient tolerated the procedure well. The quality of the bowel preparation was good. The bowel preparation used was Miralax with split dose. Scope withdrawal time was 16 minutes. Findings: The entire examined colon appeared normal. Impression: - The entire examined colon is normal to the terminal ileum, with retroflexed views of the ascending colon and rectum. - No specimens collected. Recommendation: - Discharge patient to home (with escort). Lb Hopper MD 09/09/2018 12:24:53 PM This report has been signed electronically. Status: Final result (Resulted: 03/07/2021 11:26) Provider Status: Reviewed Nematologist [facility] Patient Name: Moises Ramos Procedure Date: 03/07/2021 10:09 AM Date of : 1940 Admit Type: Outpatient Note Status: Finalized Date of : 1940 Admit Type: Outpatient Age: 80 Room: OR 4 Gender: Male Note Status: Finalized Procedure: Upper GI endoscopy Indications: Therapeutic procedure, Dysphagia, For therapy of Zenker's diverticulum Providers: Elian Archibald MD (Doctor), Jacquelyn Coyne RN, Emy Gonzalez RN, Donald Nava MD (Doctor) Referring MD: Jessica Pate MD Medicines: General Anesthesia Complications: No immediate complications. Procedure: Pre-Anesthesia Assessment: - Prior to the procedure, a History and Physical was performed, and patient medications, allergies and sensitivities were reviewed. The patient's tolerance of previous anesthesia was reviewed. - The risks and benefits of the procedure and the sedation options and risks were discussed with the patient. All questions were answered and informed consent was obtained. - Patient identification and proposed procedure were verified prior to the procedure by the physician and the nurse. The procedure was verified in the procedure room. - Pre-procedure physical examination revealed no contraindications to sedation. After obtaining informed consent, the endoscope was passed under direct vision. All instruments were visually inspected immediately before and after removal from the patient to ensure they are fully intact. Throughout the procedure, the patient's blood pressure, pulse, and oxygen saturations were monitored continuously.The upper GI endoscopy was accomplished without difficulty. The patient tolerated the procedure well. The GIF-Q190 Endoscope ([id number]) was introduced through the mouth, and advanced to the second part of duodenum. Findings & Specimens: A Zenker's diverticulum with a medium size opening and no impacted food was found at 16 cm from the incisors. Fulguration to ablate the lesion by monopolar probe was successful. A distal cap attachment was used to delineate the upper esophageal anatomy. The Zenker's diverticlum was oriented to the left of the endoscopic view and the esophageal lumen to the right. The diverticular septum was incised under endoscopic guidance using an Olympus SB knife in a step valdez fashion. The septum was incised to the base of the diverticular pouch and the scope was able to easily pass into the proximal esophagus. To close the defect, four hemostatic clips were successfully placed (MR conditional). The entire examined stomach was normal. The duodenal bulb and second portion of the duodenum were normal. 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 - Normal stomach. - Normal duodenal bulb and second portion of the duodenum. Recommendation: - Discharge patient to home. - Clear liquid diet for 2 days, then advance as tolerated to full liquid diet for 1 day then soft diet for one day. - No aspirin, ibuprofen, naproxen, or other non-steroidal anti-inflammatory drugs for 5 days. - Return to referring physician. Elian Archibald MD 03/07/2021 11:26:04 AM This report has been signed electronically. Donald Nava MD Estimated Blood Loss: Estimated blood loss: none. 10/08/2023 4:02 PM - Interface, Nematologist Narrative & Impression REASON FOR STUDY: afib CONCLUSIONS: Sinus rhythm with 1st degree AV block Left anterior fascicular block High QRS voltage may be normal variant or due to lve Abnormal ECG When compared with ECG of 20-APR-2018 15:44, Premature atrial complexes are no longer Present Nonspecific T wave abnormality, worse in Lateral leads Ventricular Rate: 62 Atrial Rate: 62 SD Interval: 272 QRS Duration: 106 QT/QTc: 430/436 ms P-R-T [place]: 49 : -51 : 20 degrees Echo Adult Transthoracic Echocardiography Report Study Date: 09/04/2020 12:22 PM Study Location: [place] Patient Location: [facility] : 1940 Age: 80 yrs Gender: Male Referring Physician: AURELIO STEINBERG Ordering Physician: AURELIO STEINBERG Height: 61 in Weight: 143 lb BSA: 1.6 m2 Resting HR:66 Order #: [id number] Reason For Study: follow up aortic root dilatation Interpretation Summary Theprimary indication after review was deemed appropriate and the examination was performed. Normal LVchamber size with mild concentric LVH. Normal LV systolic function without regional wall motion abnormality. Calculated LV ejection Fraction = 57% (bi-plane method of discs). Grade 2 diastolic dysfunc tion. Mild aortic insufficiency. There is focal thickening of the anterior mitral valve leaflet(s).There is mild mitral valve prolapse present. Mitral stenosis is absent. Mild mitral regurgitation is present. The mitral regurgitation jet is eccentric. Moderate left atrial enlargement. The aortic ro ot and proximal ascending aorta are normal sized. Left Ventricle The left ventricle was adequately visualized. The left ventricular systolic function is normal. Calculated LV ejection Fraction = 57% (bi-plane method of discs). The left ventricular cavity size is normal. The LV wall thickness is mildly increased (concentric). Left Ventricular Wall Motion The left ventricular wall motion is normal.Right Ventricle The right ventricular cavity size is normal (basal dimension < 4.2 cm RV apical 4 chamber view). The right ventricular systolic function is normal as assessed by tricuspid annular plane systolic excursion (TAPSE) (normal >1.7 cm). Atria The left atrium is moderately enlarged (42-48 ml/m^2). The right atrial size is normal. Diastolic Function The left ventricular diastolic function is moderately abnormal (grade II). Aortic Valve The aortic valve has three leaflets. Aortic stenosis is absent. Mild aortic valve regurgitation is present. Mitral Valve There is focal thickening of the anterior mitral valve leaflet(s). There is mild mitral valve prolapse present. Mitral stenosis is absent. Mild mitral regurgitation is present. The mitral regurgitation jet is eccentric. Tricuspid Valve The tricuspid valve anatomy is normal and there is no significant tricuspid regurgitation or stenosis. Pulmonary Valve The pulmonary valve is not well seen but the Doppler examination is normal without significant regurgitation or stenosis. Pericardium No pericardial effusion is noted. MOISES RAMOS 09/04/2020 Page 1 of 2 09/05/2020 Vessels The aortic root and proximal ascending aorta are normal sized. Septae There is no evidence of an atrial septal defect but resolution does not allow assessment for a patent foramen ovale. Hemodynamics There is no evidence of pulmonary hypertension.Referral Diagnosis PAF (paroxysmal atrial fibrillation) ([facility]) [I48.0] Aortic root dilatation ([facility]) [I77.810] Procedure Details 05623: Complete /2D MMode adult echocardiogram, Complete doppler interrogation, and Colorflow Doppler performed. Echocardiography senior qc technician: Carlita CATALAN Study performed at [facility]. The patient identification was verified prior to procedure by date of and stated name. The patient was informed of the procedure and had opportunity to ask questions and was willing to proceed with test. Communication and Comprehension: Communication and Comprehension Communication and Comprehension Follow-up Patient cognition:: Oriented to person;Oriented to place;Oriented to time;Alert (07/09/241328) Alteration in memory:: Forgetfulness;Short-term memory loss (07/09/241328) Patient able to understand instructions:: Written;Verbal (07/09/241328) Does the patient have any vision issues?: Yes (07/09/241328) Supports used:: Glasses or contacts (07/09/241328) Does the patient have hearing issues?: No (07/09/241328) Sabianism or spiritual beliefs that impact treatment:: No (07/09/241328) Patient and Caregiver Support System: Patient lives: with a spouse and with children Means of Transportation: Family transports Patient lives in: One Story Functional Status and ADL Skills: Ambulation: Walker ADLs/IADLs ADL/IADLs Does the patient need assistance with any of the following ADLs?: None (07/09/241329) Does the patient need assistance with any of the following IADLs?: Housework;Taking medications as ordered;Managing money;Shopping;Transportation (07/09/241329) Fall Risk Assessment: Fall risk factors present. Uses assistive devices Older than age 70 Moy-Id-jom-Go Test: Time began at 12:30. Patient stood from sitting position and walked approximately 10 feet, returned and sat down. Total time for cqm-om-nlv-go test was 20 seconds. The fall risk appears to be increased based on time > 16 sec on "Get Up and Go" test. Nutritional Health Checklist: Changed food due to illness or condition: No (0 pts) Eat fewer than 2 meals per day: No (0 pts) Eat few fruits veggies or milk products: No (0 pts) 3 or more drinks or beer, liquor, wine daily: No (0 pts) Tooth or mouth problem: No (0 pts) Not enough money to purchase food: No (0 pts) Eat alone: No (0 pts) 3 or more medications taken per day: Yes (2 pts) Weight change of 10 lbs. In 6 months: Loss, Yes (2 pts) Not always able to shop, cook or feed self: Yes (2 pts) Total points: 6 Nutritional Health Score & Recommendation: 6 or more: High nutritional risk Depression Screening: PHQ2/9 Screening PHQ2_9 Adult Little interest or pleasure in doing things: Not at all (07/09/241329) Feeling down, depressed or hopeless: Not at all (07/09/241329) PHQ Adult Total Score: 0 (07/09/241329) PHQ Adult Score Description: No Depression (07/09/241329) Social Determinants of Health Screening: SDoH Screening Tool Adult (for ages 18 years and over) Within the past 12 months, you worried that your food would run out before you got the money to buymore.: Never true (07/09/241329) Within the past 12 months, the food you bought just didn't last and you didn't have money to get more.: Never true (07/09/241329) Do you currently live in a skilled nursing or have no steady place to sleep at night?: No (07/09/241329) Are you homeless or worried that you might be in the future?: No (07/09/241329) Do you have any trouble paying for your medications, or do you think you might in the future?: No (07/09/241329) How often do you feel lonely or isolated from those around you?: Never (07/09/241329) Do you feel unsafe or have concerns for your safety?: No (07/09/241329) Do you feel overwhelmed with taking care of a child, family member or friend?: No (07/09/241329) Have you been unable to get clothing when it was really needed?: No (07/09/241329) Do you have trouble paying your heating, water, or electric bill?: No (07/09/241329) Are you unemployed or without regular income?: No (07/09/241329) Would you like help connecting to resources in any of these categories?: None (07/09/241329) Community Resources: Community Resources: Not Applicable Potential Resource Needs from Benefits Identified: No Benefits: Benefits Benefits Health plan benefits assessed: Adequate to cover care (07/09/241330) Is the patient a SNP?: Yes (07/09/241330) Was the member aware of the incentive?: Yes (08/17/24 1331) Is provider in agreement with plan of care?: Yes (07/09/24 0371) HRA Provider Assessment Documentation: Objective Past Medical History: Diagnosis Date Chronic diarrhea 07/19/2014 Edema of both lower extremities due to peripheral venous insufficiency 08/05/2018 Esophageal reflux HTN, goal to be determined Mixed dyslipidemia Nocturnal hypoxia 06/29/2023 max 99%, min 76% Pernicious anemia 03/28/2013 Pulmonary fibrosis (HCC) Rosacea Slac (scapholunate advanced collapse) of wrist, 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 Syncope 04/02/2021 Viral warts, unspecified Patient Active Problem List Diagnosis CERVICAL DISC DEGEN Gastroesophageal reflux disease without esophagitis Benign prostatic hyperplasia History of colonic polyps Rosacea GENERAL OSTEOARTHROSIS HTN, goal below 150/90 Dyslipidemia, goal LDL below 130 Nonrheumatic aortic valve insufficiency Mild mitral regurgitation Mild tricuspid regurgitation Family history of ischemic heart disease Current moderate episode of major depressive disorder without prior episode (HCC) Paroxysmal atrial fibrillation (HCC) Chronic alcohol use MVP (mitral valve prolapse) Prediabetes History of loop recorder Pulmonary fibrosis (HCC) Chronic bilateral low back pain without sciatica Spinal stenosis of lumbar region 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) Ambulatory dysfunction Nocturnal hypoxia Centrilobular emphysema (HCC) Cerebral arteriosclerosis Cerebral atrophy (HCC) Atherosclerosis of aorta (HCC) 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 aspirin enteric coated 81 MG TBEC Take 1 Tab by mouth daily. 30 Tab 11 Magnesium Oxide 400 MG Capsule Take 1 Capsule by mouth in the morning. Acetaminophen ER 650 MG Oral Tablet Extended Release Take 1 Tablet by mouth 2 times a day as needed. metroNIDAZOLE 0.75 % External Cream (Metrocream) apply twice a day as directed 45 g 3 Anoro Ellipta 62.5-25 MCG/INH Inhalation Aerosol Powder Breath Activated (umeclidinium-vilanterol) INHALE ONE PUFF BY MOUTH IN THE MORNING 60 Blister Dosing Unit 5 Ventolin HFA 108 (90 Base) MCG/ACT Inhalation Aerosol Solution Inhale 2 Puffs by mouth every 4 hours as needed for Wheezing. 18 g 2 oxygen IN GAS Use 2 L/min(Oxygen) as directed at bedtime. 1 Each 0 Blood Pressure Monitor Device Check blood pressure 3x/week 1 Each 0 Thiamine HCl 100 MG Oral Tablet (vitamin B-1) Take 1 Tablet by mouth in the morning. 90 Tablet 3 Losartan Potassium 100 MG Oral Tablet (Cozaar) TAKE ONE TABLET BY MOUTH IN THE MORNING 90 Tablet 3 DULoxetine HCl 30 MG Oral Capsule Delayed Release Particles (Cymbalta) TAKE ONE CAPSULE BY MOUTH INTHE MORNING 90 Capsule 2 Metoprolol Succinate ER 50 MG Oral Tablet Extended Release 24 Hour (toPROL XL) TAKE ONE TABLETS BY MOUTH IN THE MORNING AND 1/2 IN THE EVENING 135 Tablet 0 Atorvastatin Calcium 10 MG Oral Tablet (Lipitor) TAKE ONE TABLET BY MOUTH EVERY DAY 90 Tablet 1 Pantoprazole Sodium 40 MG Oral Tablet Delayed Release (Protonix) TAKE ONE TABLET BY MOUTH EVERY DAY90 Tablet 1 Current Facility-Administered Medications Medication Dose Route Frequency Provider Last Rate Last Admin vitamin b-12 (Cyanocobalamin) inj 1,000 mcg 1,000 mcg Intramuscular Q4 Weeks Levon Sal MD 1,000 mcg at 07/01/24 1355 Past Surgical History: Procedure Laterality Date BREAST LESION,OTHER,EXCISION 1996 Breast Lesion Excise COLONOSCOPY 1999? at [place] COLONOSCOPY 04/24/2011 Dr. Mcbride COLONOSCOPY, DIAGNOSTIC (RECTUM) 04/13/2014 normal bx/COLONOSCOPY FLEXIBLE PROXIMAL DIAGNOSTIC performed by Lb Hopper MD at ENDOSCOPY [facility] COLONOSCOPY, DIAGNOSTIC (RECTUM) 09/09/2018 normal bx/COLONOSCOPY FLEXIBLE PROXIMAL DIAGNOSTIC performed by Lb Hopper MD at ENDOSCOPY [facility] EGD, FLEXIBLE, DIAGNOSTIC 02/27/2016 eso stricture, Barretts, repeat 3 mo/ESOPHAGOGASTRODUODENOSCOPY (EGD), FLEXIBLE, TRANSORAL, DIAGNOSTIC performed by Lb Hopper MD at ENDOSCOPY [facility] EGD, FLEXIBLE, DIAGNOSTIC 06/11/2016 Barretts, repeat 1 yr/ESOPHAGOGASTRODUODENOSCOPY (EGD), FLEXIBLE, TRANSORAL, DIAGNOSTIC performed by Lb Hopper MD at ENDOSCOPY [facility] EGD, FLEXIBLE, DIAGNOSTIC 09/09/2018 Barretts/ESOPHAGOGASTRODUODENOSCOPY (EGD), FLEXIBLE, TRANSORAL, DIAGNOSTIC performed by Lb Hopper MD at ENDOSCOPY [facility] EGD, FLEXIBLE, DIAGNOSTIC 02/18/2021 Zenker's diverticulum, acid reflux / ESOPHAGOGASTRODUODENOSCOPY (EGD), FLEXIBLE, TRANSORAL, DIAGNOSTIC performed by Elian Archibald MD at ENDOSCOPY [facility] ESOPHAGOSCOPY RIGID TRANSORAL HYPOPHARYNX ESOPHAGUS N/A 03/07/2021 zenker's diverticulum/ESOPHAGOSCOPY, RIGID, TRANSORAL WITH DIVERTICULECTOMY OF HYPOPHARYNX OR CERVICAL ESOPHAGUS (EG, ZENKER'S DIVERTICULUM), WITH CRICOPHARYNGEAL MYOTOMY performed by Elian Archibald MD at OR [facility] HEMORRHOIDECTOMY, INTERNAL W/ BANDING 1970 INJECT DX/THER SUBSTANCE INTERLAMINAR CERVICAL/THORACIC W IMAGE GUIDE 01/15/2017 INJECTION SPINE LUMBAR CERVICAL OR [facility]ACIC [facility] INJECT DX/THER SUBSTANCE INTERLAMINAR CERVICAL/THORACIC W IMAGE GUIDE 02/09/2017 INJECTION SPINE LUMBAR CERVICAL OR THORACIC performed by [facility] [employer], DO at OR [facility] INJECT DX/THER SUBSTANCE INTERLAMINAR CERVICAL/THORACIC W IMAGE GUIDE 06/29/2017 INJECTION SPINE LUMBAR CERVICAL OR THORACIC performed by [facility] Cousins, DO at OR [facility] INJECT DX/THER SUBSTANCE INTERLAMINAR LUMBAR/SACRAL W IMAGE GUIDE 02/11/2018 INJECTION SPINE LUMBAR OR SACRAL [facility] at [facility] INJECT DX/THER SUBSTANCE INTERLAMINAR LUMBAR/SACRAL W IMAGE GUIDE 03/01/2018 INJECTION SPINE LUMBAR OR SACRAL [facility] NOCTURNAL HOME OXIMETRY (OP) 06/29/2023 Max 99%, mean 91%, minimum 76%, qualifies for nocturnal O2 RADICAL REMOVAL OF BREAST 1990s left REMOVAL OF SALIVARY STONE, SIMPLE 2001 Other REMOVE CATARACT, INSERT LENS PROSTH 04/29,05/29 left,right REPAIR INITIAL INGUINAL HERNIA REDUCIBLE AGE 5 OR MORE left SACROILIAC JOINT INJECT W/GUIDANCE 04/12/2018 INJECTION SACROILIAC JOINT performed by [facility] Ray, DO at OR [facility] SACROILIAC JOINT INJECT W/GUIDANCE 07/19/2018 INJECTION SACROILIAC JOINT performed by [facility] Ray, DO at OR [facility] SACROILIAC JOINT INJECT W/GUIDANCE 10/07/2018 INJECTION SACROILIAC JOINT performed by [facility] Ray, DO at OR [facility] SACROILIAC JOINT INJECT W/GUIDANCE 03/10/2019 INJECTION SACROILIAC JOINT performed by Maxx Bell, DO at OR [facility] SACROILIAC JOINT INJECT W/GUIDANCE 05/30/2019 INJECTION SACROILIAC JOINT performed by Maxx Bell, DO at OR [facility] SACROILIAC JOINT INJECT W/GUIDANCE 12/08/2019 INJECTION SACROILIAC JOINT performed by Maxx Bell, DO at OR [facility] SACROILIAC JOINT INJECT W/GUIDANCE 08/09/2020 INJECTION SACROILIAC JOINT performed by Maxx Bell, DO at OR [facility] SACROILIAC JOINT INJECT W/GUIDANCE 05/06/2021 INJECTION SACROILIAC JOINT performed by Maxx Bell, DO at OR [facility] SACROILIAC JOINT INJECT W/GUIDANCE 10/14/2021 INJECTION SACROILIAC JOINT performed by Maxx Bell, DO at OR [facility] SACROILIAC JOINT INJECT W/GUIDANCE 11/05/2022 INJECTION SACROILIAC JOINT performed by Maxx Bell, DO at OR [facility] SACROILIAC JOINT INJECT W/GUIDANCE 11/27/2023 INJECTION SACROILIAC JOINT performed by Ramón Resendiz, DO at OR [facility] UPPER GI ENDOSCOPY 04/24/2011 Immunization History Administered Date(s) Administered COVID-19 mRNA, LNP-s, No Preserve, 2-Dose Series (Moderna) 01/02/2021, 01/30/2021 COVID-19, MRNA-LNP, 23-24, PF, 30 MCG/0.3 mL, 12 YRS AND ABOVE, IM (PFIZER- Comirnat) 08/31/2023 COVID-19, mRNA, LNP-s, PF, Booster, 100mcg/0.5mg (Moderna) 10/15/2021 Covid-19, Mrna, Lnp-s, Pf, Bivalent, 30 Mcg, IM, 12 yrs and above (Pfizer) 08/19/2022 Influenza, Whole Virus 11/27/2000 Pneumococcal Conjugate Vacc, 13 Valent (Prevnar) 02/07/2016 Pneumococcal Polysaccharide PPV23 (Pneumovax) 10/03/2003 Season Influenza, Quad, PF, Adjuvanted, 65+ Yrs, IM (FLUAD) 07/31/2020 Seasonal Influenza, PF, 6 M & above, IM , (FluLaval or Fluzone) 08/05/2018 Seasonal Influenza, Quadrivalent Hd (Fluzone Hd) 07/25/2021, 08/15/2022, 08/31/2023 Seasonal Influenza, Quadrivalent, No Preserve, IM 09/03/2015, 09/08/2016, 08/11/2017 Seasonal Influenza, Split, IIV3, With Preserve, Inj 10/03/2003, 09/10/2004, 09/29/2005, 09/11/2006,09/22/2007, 09/20/2008, 09/13/2009, 09/10/2010, 08/03/2012, 08/09/2013, 08/09/2014 Seasonal Influenza, Trivalent, Adjuvanted, 65+ yrs 08/09/2019 TD - Tetanus/Diptheria (ADULT) 04/23/1996 TD, Preservative Free 09/20/2008 TDAP, Age 7 and older, IM (Adacel) 05/22/2022 Varicella Zoster Vaccine (Adult) 04/27/2012 Vitamin B12 Injection 10/22/2009, 12/03/2009, 12/24/2009, 01/21/2010, 02/25/2010, 03/25/2010, 05/06/2010, 06/03/2010, 07/01/2010, 07/30/2010, 08/26/2010, 09/30/2010, 10/28/2010, 12/02/2010, 12/30/2010, 01/27/2011, 03/17/2011, 04/28/2011, 06/02/2011, 06/30/2011, 07/29/2011, 08/25/2011, 09/22/2011, 10/20/2011, 11/18/2011, 12/22/2011, 01/19/2012, 02/16/2012, 03/15/2012, 04/12/2012, 05/24/2012, 07/07/2012, 08/03/2012, 08/30/2012, 09/27/2012, 10/25/2012, 12/06/2012, 01/03/2013, 01/31/2013, 02/28/2013, 03/28/2013, 04/25/2013, 05/23/2013, 06/20/2013, 08/01/2013, 08/29/2013, 09/26/2013, 10/26/2013, 11/28/2013, 12/26/2013, 01/23/2014, 02/20/2014, 03/20/2014, 04/18/2014, 05/22/2014, 06/19/2014, 07/17/2014, 08/14/2014, 09/11/2014, 10/09/2014, 11/06/2014, 12/04/2014, 01/01/2015, 01/31/2015, 03/05/2015, 04/02/2015, 04/30/2015, 05/28/2015, 06/25/2015, 07/31/2015, 09/03/2015, 10/01/2015, 10/29/2015, 11/26/2015, 12/31/2015, 01/28/2016, 02/25/2016, 03/24/2016, 04/28/2016, 05/27/2016, 06/23/2016, 07/21/2016, 08/18/2016, 1 Zoster Vaccine Recombinant (Shingrix) 08/05/2018, 01/25/2020 Preventative Plan: Diabetes (Fasting plasma glucose every 3 years): Hemoglobin AIC Results: Lab Results Component Value Date/Time HEMOGLOBIN A1C - [facility] 6.0 (H) 12/07/2023 11:53 AM HEMOGLOBIN A1C - [facility] 6.1 (H) 06/04/2023 04:25 PM HEMOGLOBIN A1C - [facility] 6.1 (H) 08/15/2022 02:46 PM Lipid Testing (Every 5 years): Lipid Panel Results: Results for orders placed or performed in visit on 12/07/23 LIPID PANEL WITHOUT DIRECT LDL Result Value Ref Range Triglycerides 110 <=174 mg/dL Cholesterol 172 <200 mg/dL HDL Cholesterol 82 >39 mg/dL Non-HDL Cholesterol 90 <=159 mg/dL LDL Cholesterol 68 <=129 mg/dL Results for orders placed or performed in visit on 07/08/21 LIPID PANEL WITH DIRECT LDL IF TG IS HIGH Result Value Ref Range Triglycerides 139 <=174 mg/dL Cholesterol 156 <200 mg/dL HDL Cholesterol 69 >39 mg/dL Non-HDL Cholesterol 87 <=159 mg/dL LDL Cholesterol 59 <=129 mg/dL Colonoscopy or other screening: see above Health Maintenance Topic Date Due Alpha-1 Antitrypsin Never done COVID-19 Vaccine ( season) 2024 Influenza Vaccine (FLU shot) (1) 07/24/2024 HbA1c 12/07/2024 Adult Wellness Visit 07/07/2025 O2 ASSESSMENT COMPLETED IN PAST YEAR FOR COPD 07/09/2025 Depression Monitoring 07/09/2025 Albumin/Creatinine Ratio 06/04/2026 DTaP,Tdap,and Td Vaccines (2 - Td or Tdap) 05/22/2032 Zoster Vaccines Completed Pneumococcal Vaccine: 65+ Years Completed Hepatitis B Vaccine Aged Out MENINGOCOCCAL (MENACTRA/MENVEO) Aged Out HPV (Gardasil) Vaccine Aged Out Review of Systems: Review of Systems Gastrointestinal: Positive for constipation. Neurological: Positive for dizziness and weakness. All other systems reviewed and are negative. Physical Exam: Vitals: 07/09/24 1324 Pulse: 58 Resp: 18 SpO2: 94% BP: 122/80 Pain Screening: Yes - Location: back pain, When: every day, Duration: constant, Aggravating Factors: certain movements , Relieved by: chiropractor Tylenol Pain Scale: 0 = none There is no height or weight on file to calculate BMI. Physical Exam Constitutional: Comments: elderly HENT: Head: Normocephalic and atraumatic. Mouth/Throat: Mouth: Mucous membranes are moist. Eyes: Extraocular Movements: Extraocular movements intact. Neck: Vascular: No carotid bruit. Cardiovascular: Rate and Rhythm: Normal rate and regular rhythm. Heart sounds: No murmur heard. Pulmonary: Effort: Pulmonary effort is normal. Breath sounds: Normal breath sounds. Abdominal: General: Bowel sounds are normal. Palpations: Abdomen is soft. Musculoskeletal: General: No swelling. Cervical back: Neck supple. Skin: General: Skin is warm and dry. Capillary Refill: Capillary refill takes less than 2 seconds. Neurological: Mental Status: He is alert and oriented to person, place, and time. Gait: Gait abnormal. Psychiatric: Mood and Affect: Mood normal. Behavior: Behavior normal. Lab Data: Lab Results Component Value Date/Time BUN 12 10/13/1996 02:00 PM BUN - [facility] 20 12/07/2023 11:53 AM BUN - [facility] 12 11/26/2020 02:05 PM Lab Results Component Value Date/Time CREATININE 0.8 10/13/1996 02:00 PM CREATININE - [facility] 0.8 12/07/2023 11:53 AM CREATININE - [facility] 0.9 11/26/2020 02:05 PM CREATININE, RANDOM URINE - [facility] 114 06/04/2023 04:25 PM CREATININE-OUTSIDE LAB 0.8 01/03/2021 12:00 AM Lab Results Component Value Date/Time GLUCOSE 84 10/13/1996 02:00 PM GLUCOSE - [facility] 93 12/07/2023 11:53 AM GLUCOSE - [facility] 79 11/26/2020 02:05 PM GLUCOSE, URINE - [facility] NEGATIVE 02/09/2019 01:30 PM GLUCOSE-OUTSIDE LAB 100 (A) 01/03/2021 12:00 AM No components found for: "[id number]" Lab Results Component Value Date/Time LD - [facility] 167 03/28/2009 11:16 AM LDH 153 10/13/1996 02:00 PM LDL (CALCULATED) 44. 02/06/1997 09:20 AM LDL (CALCULATED)-OUTSIDE LAB 68 01/03/2021 12:00 AM LDL (DIRECT MEASURE)-OUTSIDE LAB 85.0 03/11/2016 12:00 AM LDL CHOLESTEROL (CALCULATED) - [facility] 68 12/07/2023 11:53 AM LDL CHOLESTEROL (CALCULATED) - [facility] 55 01/17/2020 02:47 PM LDL CHOLESTEROL (DIRECT MEASURE) - [facility] 75 11/26/2020 02:05 PM LDL CHOLESTEROL-OUTSIDE LAB 86 12/29/2013 12:00 AM No results found for: "MICROALBUMIN" Assessment/Plan: Ramahfred Marcum" was seen today for adult annual wellness visit, initial visit. Diagnoses and all orders for this visit: Cerebral arteriosclerosis Cerebral atrophy (HCC) Ambulatory dysfunction Benign prostatic hyperplasia with nocturia Centrilobular emphysema (HCC) CERVICAL DISC DEGEN Chronic bilateral low back pain without sciatica Current moderate episode of major depressive disorder without prior episode (HCC) Dyslipidemia, goal LDL below 130 Gastroesophageal reflux disease without esophagitis GENERAL OSTEOARTHROSIS History of colonic polyps History of loop recorder HTN, goal below 150/90 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) Mild mitral regurgitation Mild tricuspid regurgitation MVP (mitral valve prolapse) Nocturnal hypoxia Nonrheumatic aortic valve insufficiency Paroxysmal atrial fibrillation (HCC) Prediabetes Pulmonary fibrosis (HCC) Rosacea Spinal stenosis of lumbar region without neurogenic claudication Atherosclerosis of aorta (HCC) 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 Left atrial enlargement Aortic valve insufficiency, etiology of cardiac valve disease unspecified Grade II diastolic dysfunction PLAN Pt reports no active issues or adverse effects to the established treatment plan. No changes at this time. Strongly advised to contact her care team if changes occur. Care Planning (3+ Personal and/or Medical Goals): No falls Maintain independence Maintain current activity level Treatment Plan: Patient continues to work on their progress to the goals set by themselves and their PCP Follow Up/Handouts: CAHAWV f/u one year I spent a total of 40-54 minutes (exact time 45 mins) on the date of service in preparation, delivery, and documentation of the care provided to Moises Ramos excluding any time spent in the performance of separately billed services. Salma Peña PA-C documented in this encounter Plan of Treatment Upcoming Encounters Date Type Department Care Team (Late st Contact Info) Description 07/29/2024 2:00 PM EDT Nurse Only Ancillary [address] [place] [address] [place] Nurse [address] [place] [address] 08/01/2024 10:40 AM EDT Office Visit [place], Ryan Lynn [address] [place] [address] Jacquelyn Rhodes PA-C [address] [place] [address] 09/14/2024 2:40 PM EDT Office Visit Family Medicine [address] [place] [phone] Levon Sal MD [address] [place] [address] [place] [address] 07/10/2025 12:30 PM EDT Home Visit Care at Home [address] [place] [address] Salma Peña PA-C [address] [place] [address] Health Maintenance Due Date Last Done Comments [...] COPD 07/09/2025 07/09/2024 Albumin/Creatinine Ratio 06/04/2026 06/04/2023 DTaP,Tdap,and Td Vaccines [...] this encounter Medical Devices Implanted Type Area Die Sinker Apprentice Device Identifier Shelf Expiration Date Model / Serial / Lot Sureclip 16mm 235cm - [id number] Implanted:Qty: 1 on 03/07/2021 by Elian Archibald MD at OR [facility] N/A: Esophagus MICRO TECH ENDOSCOPY 01/24/2023 [id number] / / [id number] 1 Description:UPN [id number] Lockado Repositionable Hemostasis Clip Implanted:Qty: 4 on 03/07/2021 by Elian Archibald MD at [facility] N/A: Esophagus 01/31/2023 LOCK-D-26 -235-C-N / / [id number] 2 Description:TRIAL CLIPS NOT CHARGEABLE documented as of this encounter Visit Diagnoses Diagnosis Cerebral arteriosclerosis- Primary Cerebral atherosclerosis Cerebral atrophy (HCC) Cerebral degeneration, unspecified Ambulatory dysfunction Benign prostatic hyperplasia with nocturia Centrilobular emphysema (HCC) Other emphysema CERVICAL DISC DEGEN Degeneration of cervical intervertebral disc Chronic bilateral low back pain without sciatica Current moderate episode of major depressive disorder without prior episode (HCC) Dyslipidemia, goal LDL below 130 Other and unspecified hyperlipidemia Gastroesophageal reflux disease without esophagitis Esophageal reflux GENERAL OSTEOARTHROSIS Generalized osteoarthrosis, unspecified site History of colonic polyps Personal history of colonic polyps History of loop recorder HTN, goal below 150/90 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) Mild mitral regurgitation Mitral valve disorders Mild tricuspid regurgitation Diseases of tricuspid valve MVP (mitral valve prolapse) Mitral valve disorders Nocturnal hypoxia Hypoxemia Nonrheumatic aortic valve insufficiency Aortic valve disorders Paroxysmal atrial fibrillation (HCC) Atrial fibrillation Prediabetes Other abnormal glucose Pulmonary fibrosis (HCC) Postinflammatory pulmonary fibrosis Rosacea Spinal stenosis of lumbar region without neurogenic claudication Spinal stenosis, lumbar region, without neurogenic claudication Atherosclerosis of aorta (HCC) Atherosclerosis of aorta 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
--- OUTSIDE RECORDS SUMMARY | 2024-09-15 08:57 | External Medical Summary | Summary of Care ---
Author Name Unknown Organization [facility] Address [address] [place] [address] Phone [phone] Care Team Providers Care Curling Machine Operator Name Role Phone Bravo Heath MD Primary Care Provide r Reason for Visit * Reason Comments Medication Administration B 12 Encounter Details Date Type Department Care Team (Late st Contact Info) Description 05/06/2024 2:00 PM EDT Nurse Only Ancillary [address] [place] [address] [place], Nurse [address] [place] [address] Medication Administration (B 12) Allergies No known active allergiesdocumented as of this encounter (statuses as of 05/06/2024) Medications Medication Sig Dispensed Refills Start Date [...] directed at bedtime. 1 Each 01/19/2023 Active Pantoprazole Sodium 40 MG Oral Tablet Delayed Release (Protonix) TAKE ONE TABLET BY MOUTH EVERY DAY 90 Tablet 2 08/10/2023 Active Alendronate Sodium 70 MG Oral Tablet (Fosamax)Indication s:Age-related osteoporosis without current pathological fracture take 1 pill a week, upon first rising in the morning with an 8 oz glass of water, do not go back to bed, and wait at least 1/2 hour before eating breakfast, drinking coffee, or taking any other medication. 12 Tablet 1 08/19/2023 Active Blood Pressure Monitor DeviceIndications:H TN, goal [...] TABLETS BY MOUTH IN THE MORNING AND /2 IN THE EVENING 135 Tablet 05/01/2024 Active Atorvastatin Calcium 10 MG Oral Tablet (Lipitor)Indication s:Family history of ischemic heart disease TAKE ONE TABLET BY MOUTH EVERY DAY 90 Tablet 1 05/03/2024 Active Hospital, Clinic, or Other Facility Administered Medication Ordered Dose Route Frequency Start Date End Date Status vitamin b-12 (Cyanocobalamin) inj 1,000 mcgIndications:B12 deficiency 1000 mcg IM [id number] 02/12/2024 01/13/2025 Active documented as of this encounter (statuses as of 05/06/2024) Active Problems Problem Noted Date Diagnosed Date [...] as of this encounter (statuses as of 05/06/2024) Resolved Problems Problem Noted Date Diagnosed Date [...] as of this encounter (statuses as of 05/06/2024) Immunizations Name Administration Dates Next Due COVID-19 [...] 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 Alcohol Use Standard Drinks/Week Comments Yes 2.5 (1 standard drink = 0.6 oz p ure alcohol) a beer or two everyday PHQ-2 Answer Date Recorded PHQ Adult Total Score 0 02/10/2022 Hunger Vital Sign Answer Date Recorded Worried About Running Out of Food in the Last Ye ar Never true 09/13/2019 Ran Out of Food in the Last Year Never true 09/13/2019 Sex and Gender Information Value Date Recorded Sex Assigned at Not on file Gender Identity Not on file Sexual Orientation Not on file Job Start Date Occupation Industry Not on file Not on file Not on file documented as of this encounter Nursing Notes * Guilherme Don LPN - 05/06/2024 2:02 PM EDT Time Out Procedure Performed: Yes Patient Identified (Ask Name/Date of ): Yes Patient allergic to latex?No Immunization(s) verified: Yes, Immunization Name: b12, VIS Sheet(s) given: Yes Verified Side and Site: Yes Verified Shot(s) with Parent(s)/Patient: Yes Vitamin B12 administered. Patient tolerated well. documented in this encounter Plan of Treatment Upcoming Encounters Date Type Department Care Team (Late st Contact Info) Description 06/03/2024 2:00 PM EDT Nurse Only Ancillary [address] [place] [address] [place], Nurse [address] [place] [address] 06/06/2024 4:00 PM EDT Imaging Radiology, [address] [place] [address] 08/01/2024 10:40 AM EDT Office Visit Dermatology, Ryan Lynn [address] [place] [address] [place] [address] Jacquelyn Rhodes PA-C [address] [place] [address] [place] [address] 09/14/2024 2:40 PM EDT Office Visit Family Medicine [address] [place] [phone] Bravo Heath MD [address] [place] [address] [place] [address] Health Maintenance Due Date Last Done Comments Alpha-1 Antitrypsin 1958 Depression Monitoring 02/10/2023 02/10/2022 COVID-19 Vaccine ( season) 2024 08/31/2023, 08/19/2022, 10/15/2021, Additional history exists HbA1c 12/07/2024 12/07/2023, 05/23, 08/15/2022, Additional history exists O2 ASSESSMENT COMPLETED IN PAST YEAR FOR COPD 02/22/2025 02/23/2024 Albumin/Creatinine Ratio 06/04/2026 06/04/2023 DTaP,Tdap,and Td Vaccines (2 - Td or Tdap) 05/22/2032 05/22/2022, 09/20/2008, 04/23/1996 Pneumococcal Vaccine: 65+ Years Completed 02/07/2016, 10/03/2003 Zoster Vaccines Completed 01/25/2020, 07/24, 04/27/2012 Influenza Vaccine (FLU shot) Completed 07/2023, 08/15/2022, 07/25/2021, Additional history exists GARDASIL-HPV IMMUNIZATION SERIES Aged Out No longer eligible based on patient's age to complete this topic Hepatitis B Aged Out No longer eligi ble based on patient's age to complete this topic MENINGOCOCCAL (MENACTRA/MENVEO) Aged Out No longer eligible based on patient's age to complete this topic documented as of this encounter Medical Devices Implanted Type Area Telecommunication Operator Device Identifier Shelf Expiration Date Model / Serial / Lot Sureclip 16mm 235cm - [id number] Implanted:Qty: 1 on 03/07/2021 by Elian Archibald MD at OR [facility] N/A: Esophagus MICRO TECH ENDOSCOPY 01/24/2023 [id number] / / [id number] 1 Description:UPN [id number] Lockado Repositionable Hemostasis Clip Implanted:Qty: 4 on 03/07/2021 by Elian Archibald MD at OR [facility] N/A: Esophagus 01/31/2023 LOCK-D-26 -235-C-N / / [id number] 2 Description:TRIAL CLIPS NOT CHARGEABLE documented as of this encounter Administered Medications Active Administered Medications - up to 3 most recent administrations Medication Order MAR Action Action Date Dose Rate Site vitamin b-12 (Cyanocobalamin) inj 1,000 mcg 1,000 mcg, Intramuscular, [id number], First dose on Thu02/12/24 at 1445, Last dose on Thu12/16/24 at 1445, For 12 doses Given 05/06/2024 2:02 PM EDT 1,000 mcg Deltoid Left Upper Given 04/08/2024 1:57 PM EDT 1,000 mcg De ltoid Left Upper Given 03/11/2024 2:07 PM EDT 1,000 mcg De ltoid Left Upper documented in this encounter Care Teams Curling Machine Operator Relationship Specialty Start Date End Date Bravo Heath MD [address] [place] [address] [place] [address] PCP - General Family Medicine 11/11/21 documented as of this encounter
--- OUTSIDE RECORDS SUMMARY | 2024-09-15 08:57 | External Medical Summary | Summary of Care ---
Author Name Unknown Organization [facility] Address [address] [place] [address] Phone [phone] Care Team Providers Care Water Pollution Scientist Name Role Phone Bravo Heath MD Primary Care Provide r Reason for Visit * Reason Comments eRx-Medication Refill Encounter Details Date Type Department Care Team (Late st Contact Info) Description 05/01/2024 Refill Family Medicine [address] [phone] Bravo Heath MD [address] [place] [address] [place] [address] Allergies No known active allergiesdocumented as of this encounter (statuses as of 05/01/2024) Medications Medication Sig Dispensed Refills Start Date End Date Status Vitamin D, Cholecalciferol, 1000 UNITS TABS Take by mouth. Active aspirin enteric coated 81 MG TBECIndications:HT N, goal below 150/90,Family history of ischemic heart disease Take 1 Tab by mouth daily. 30 Tab 11 05/27/2018 Active Magnesium Oxide 400 MG Capsule Take 1 Capsule by mouth in the morning. 03/16/2019 Active Acetaminophen ER 650 MG Oral Tablet Extended Release Take 1 Tablet by mouth 2 times a day as needed. 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 18 g 2 12/05/2022 Active oxygen IN GASIndications:Noc turnal hypoxemia Use 2 L/min(Oxygen) as directed at bedtime. 1 Each 01/19/2023 Active Pantoprazole Sodium 40 MG Oral Tablet Delayed Release (Protonix) TAKE ONE TABLET BY MOUTH EVERY DAY 90 Tablet 2 08/10/2023 Active Alendronate Sodium 70 MG Oral Tablet (Fosamax)Indicatio ns:Age-related osteoporosis without current pathological fracture take 1 pill a week, upon first rising in the morning with an 8 oz glass of water, do not go back to bed, and wait at least 1/2 hour before eating breakfast, drinking coffee, or taking any other medication. 12 Tablet 1 08/19/2023 Active Atorvastatin Calcium 10 MG Oral Tablet (Lipitor)Indicatio ns:Family history of ischemic heart disease TAKE ONE TABLET BY MOUTH EVERY DAY 90 Tablet 1 12/07/2023 Active Blood Pressure Monitor DeviceIndications: HTN, goal below 150/90 Check blood pressure 3x/week 1 Each 12/07/2023 Active Thiamine HCl 100 MG Oral Tablet (vitamin B-1)Indications:Ch ronic alcohol use Take 1 Tablet by mouth in the morning. 90 Tablet 3 01/20/2024 Active Losartan Potassium 100 MG Oral Tablet (Cozaar)Indication s:HTN, goal below 150/90 TAKE ONE TABLET BY MOUTH IN THE MORNING 90 Tablet 3 03/21/2024 Active DULoxetine HCl 30 MG Oral Capsule Delayed Release Particles (Cymbalta)Indicati ons:Current moderate episode of major depressive disorder without prior episode (HCC),Chronic bilateral low back pain without sciatica TAKE ONE CAPSULE BY MOUTH IN THE MORNING 90 Capsule 2 04/04/2024 Active Metoprolol Succinate ER 50 MG Oral Tablet Extended Release 24 Hour (toPROL XL) TAKE ONE TABLETS BY MOUTH IN THE MORNING AND 1/2 IN THE EVENING 135 Tablet 05/01/2024 Active Metoprolol Succinate ER 50 MG Oral Tablet Extended Release 24 Hour (toPROL XL) TAKE 1 TABLET IN THE MORNING AND 1/2 TABLET IN THE EVENING. 135 Tablet 2 07/20/2023 Discontinued Hospital, Clinic, or Other Facility Administered Medication Ordered Dose Route Frequency Start Date End Date Status vitamin b-12 (Cyanocobalamin) inj 1,000 mcgIndications:B12 deficiency 1000 mcg IM [id number] 02/12/2024 01/13/2025 Active documented as of this encounter (statuses as of 05/01/2024) Active Problems Problem Noted Date Diagnosed Date [...] as of this encounter (statuses as of 05/01/2024) Resolved Problems Problem Noted Date Diagnosed Date Resolved Date Age-related osteoporosis wit hout current pathological fracture 08/15/2022 12/07/2023 Thoracic aortic ectasia 11/26/2020 03/11/2021 Sacroiliitis 09/13/2019 05/21/2020 Dyslipidemia, goal to be [...] as of this encounter (statuses as of 05/01/2024) Immunizations Name Administration Dates Next Due COVID-19 mRNA, LNP-s, No Pre serve, 2-Dose Series (Moderna) 01/30/2021,01/02/2021 COVID-19, MRNA-LNP, 23-24, P F, 30 MCG/0.3 mL, 12 YRS AND ABOVE, IM ([facility] 08/31/2023 COVID-19, mRNA, LNP-s, PF, B ooster, 100mcg/0.5mg (Moderna) 10/15/2021 Covid-19, Mrna, Lnp-s, Pf, B ivalent, 30 Mcg, IM, 12 yrs and above (9+) 08/19/2022 Pneumococcal Conjugate Vacc, 13 Valent (Prevnar) [...] 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 Alcohol Use Standard Drinks/Week Comments Yes 2.5 [...] Miscellaneous Notes * Telephone Encounter - Yonatan Durán, [facility] - 05/01/2024 11:05 AM EDT Signed Prescriptions: Disp Refills Metoprolol Succinate ER 50 MG Oral Tablet *135 Ta*0 Sig: TAKE ONE TABLETS BY MOUTH IN THE MORNING AND 1/2 IN THE EVENINGAuthorizing Provider: Naya HEATH User: YONATAN DURÁN ---- Electronically signed by Yonatan Durán [facility] at 05/01/2024 11:05 AM EDT documented in this encounter Plan of Treatment Upcoming Encounters Date Type Department Care Team (Late st Contact Info) Description 05/06/2024 2:00 PM EDT Nurse Only Ancillary [address] [place] [address] [place], Nurse [address] [place] [address] 06/06/2024 4:00 PM EDT Imaging Radiology, [address] [place] [address] 08/01/2024 10:40 AM EDT Office Visit Dermatology, Ryan Lynn [address] [facility] [address] [place] [address] Jacquelyn Rhodes PA-C [address] [place] [address] 09/14/2024 2:40 PM EDT Office Visit Family Medicine [address] [place] [phone] Bravo Heath MD [address] [place] [address] [place] [address] Health Maintenance Due Date Last Done Comments [...] this encounter Medical Devices Implanted Type Area Magnetizer Device Identifier Shelf Expiration Date Model / Serial / Lot Sureclip 16mm 235cm - [id number] Implanted:Qty: 1 on 03/07/2021 by Elian Archibald MD at OR [facility] N/A: Esophagus MICRO TECH ENDOSCOPY 01/24/2023 [id number] / / [id number] 1 Description:UPN [id number] Lockado Repositionable Hemostasis Clip Implanted:Qty: 4 on 03/07/2021 by Elian Archibald MD at OR [facility] N/A: Esophagus 01/31/2023 LOCK-D-26 -235-C-N / / [id number] 2 Description:TRIAL CLIPS NOT CHARGEABLE documented as of this encounter Care Teams Water Pollution Scientist Relationship Specialty Start Date End Date Bravo Heath MD [address] [place] [address] [place] [address] PCP - General Family Medicine 11/11/21 documented as of this encounter
--- OUTSIDE RECORDS SUMMARY | 2024-09-15 08:57 | External Medical Summary | Summary of Care ---
Author Name Unknown Organization [facility] Address [address] [place] [address] Phone [phone] Care Team Providers Care Compatibility Test Engineer Name Role Phone Bravo Heath MD Primary Care Provide r Reason for Visit * Reason Comments Medication Administration B12 Encounter Details Date Type Department Care Team (Late st Contact Info) Description 06/03/2024 2:00 PM EDT Nurse Only Ancillary [address] [place] [address] [place], Nurse [address] [place] [address] Medication Administration (B12) Allergies No known active allergiesdocumented as of this encounter (statuses as of 06/03/2024) Medications Medication Sig Dispensed Refills Start Date [...] directed at bedtime. 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 Alcohol Use Standard Drinks/Week Comments Yes 2.5 [...] as of this encounter Nursing Notes * Ramila Diaz CMA - 06/03/2024 2:00 PM EDT Patient was identified by full name and date of . Moises Ramos presented for B12 injection. This was administered per orders. The patient tolerated this well and left the clinic in stable condition. Ramila Diaz CMA documented in this encounter Plan of Treatment Upcoming Encounters Date Type Department Care Team (Late st Contact Info) Description 06/06/2024 4:00 PM EDT Imaging Radiology, [address] [place] [address] 07/01/2024 2:00 PM EDT Nurse Only Ancillary [address] [place] [address] [place], Nurse [address] [place] [address] 08/01/2024 10:40 AM EDT Office Visit Dermatology, Ryan Lynn [address] [facility] [address] [place] [address] Jacquelyn Rhodes PA-C [address] [place] [address] 09/14/2024 2:40 PM EDT Office Visit Family Medicine [address] [place] [phone] Bravo Heath MD [address] [place] [address] [place] [address] Health Maintenance Due Date Last Done Comments [...] this encounter Medical Devices Implanted Type Area Call Center Support Representative Device Identifier Shelf Expiration Date Model / Serial / Lot Sureclip 16mm 235cm - [id number] Implanted:Qty: 1 on 03/07/2021 by Elian Archibald MD at OR [facility] N/A: Esophagus MICRO TECH ENDOSCOPY 01/24/2023 [id number] / / [id number] 1 Description:UPN [id number] Lockado Repositionable Hemostasis Clip Implanted:Qty: 4 on 03/07/2021 by Elian Archibald MD at OR [facility] N/A: Esophagus 01/31/2023 LOCK-D-26 -235-C-N / / [id number] 2 Description:TRIAL CLIPS NOT CHARGEABLE documented as of this encounter Visit Diagnoses Diagnosis B12 deficiency- Primary Other B-complex deficiencies documented in this encounter Administered Medications Active Administered Medications - up to 3 most recent administrations Medication Order MAR Action Action Date Dose Rate Site vitamin b-12 (Cyanocobalamin) inj 1,000 mcg 1,000 mcg, Intramuscular, [id number], First dose on Thu02/12/24 at 1445, Last dose on Thu12/16/24 at 1445, For 12 doses Given 06/03/2024 2:00 PM EDT 1,000 mcg Deltoid Right Upper Given 05/06/2024 2:02 PM EDT 1,000 mcg De ltoid Left Upper Given 04/08/2024 1:57 PM EDT 1,000 mcg De ltoid Left Upper documented in this encounter Care Teams Compatibility Test Engineer Relationship Specialty Start Date End Date Bravo Heath MD [address] [place] [address] [place] [address] PCP - General Family Medicine 11/11/21 documented as of this encounter
--- OUTSIDE RECORDS SUMMARY | 2024-09-15 08:57 | External Medical Summary | Summary of Care ---
Author Name Unknown Organization [facility] Address [address] [place] [address] Phone [phone] Care Team Providers Care Budget Specialist Name Role Phone Bravo Heath MD Primary Care Provide r Reason for Visit * Reason Comments eRx-Medication Refill Encounter Details Date Type Department Care Team (Late st Contact Info) Description 05/02/2024 Refill Family Medicine [address] [phone] Bravo Heath MD [address] [place] [address] [place] [address] Family history of ischemic heart disease Allergies No known active allergiesdocumented as of this encounter (statuses as of 05/03/2024) Medications Medication Sig Dispensed Refills Start Date [...] Tablet 1 08/19/2023 Active Blood Pressure Monitor DeviceIndications: HTN, goal [...] EVERY DAY 90 Tablet 1 05/03/2024 Active Atorvastatin Calcium 10 MG Oral Tablet (Lipitor)Indicatio ns:Family history of ischemic heart disease TAKE ONE TABLET BY MOUTH EVERY DAY 90 Tablet 1 12/07/2023 Discontinued Hospital, Clinic, or Other Facility Administered Medication Ordered Dose Route Frequency Start Date End Date Status vitamin b-12 (Cyanocobalamin) inj 1,000 mcgIndications:B12 deficiency 1000 mcg IM [id number] 02/12/2024 01/13/2025 Active documented as of this encounter (statuses as of 05/03/2024) Active Problems Problem Noted Date Diagnosed Date [...] as of this encounter (statuses as of 05/03/2024) Resolved Problems Problem Noted Date Diagnosed Date [...] as of this encounter (statuses as of 05/03/2024) Immunizations Name Administration Dates Next Due COVID-19 mRNA, LNP-s, No Pre serve, 2-Dose Series (Moderna) 01/30/2021,01/02/2021 COVID-19, MRNA-LNP, 23-24, P F, 30 MCG/0.3 mL, 12 YRS AND ABOVE, IM ([employer]-Comirnat) 08/31/2023 COVID-19, mRNA, LNP-s, PF, B ooster, 100mcg/0.5mg (Moderna) 10/15/2021 Covid-19, Mrna, Lnp-s, Pf, B ivalent, 30 Mcg, IM, 12 yrs and above (Sticky) 08/19/2022 Pneumococcal Conjugate Vacc, 13 Valent (Prevnar) [...] 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 Alcohol Use Standard Drinks/Week Comments Yes 2.5 [...] encounter Miscellaneous Notes * Telephone Encounter - Jose M Sauceda, [facility] - 05/03/2024 12:50 PM EDTSigned Prescriptions: Disp Refills Atorvastatin Calcium 10 MG Oral Tablet (Li*90 Tab*1 Sig: TAKE ONE TABLET BY MOUTH EVERY DAYAuthorizing Provider: Naya HEATH User: Toyin SAUCEDA documented in this encounter Plan of Treatment Upcoming Encounters Date Type Department Care Team (Late st Contact Info) Description 05/06/2024 2:00 PM EDT Nurse Only Ancillary [address] [place] [address] [place], Nurse [address] [place] [address] 06/06/2024 4:00 PM EDT Imaging Radiology, [address] [place] [address] 08/01/2024 10:40 AM EDT Office Visit Dermatology, Ryan Lynn Funmilayo Ramos [facility] [address] [place] [address] Jacquelyn Rhodes [facility] [address] [place] [address] 09/14/2024 2:40 PM EDT Office Visit Family Medicine [address] [place] [phone] Bravo Heath MD [address] [place] [address] [place] [address] Health Maintenance Due Date Last Done Comments [...] this encounter Medical Devices Implanted Type Area Preboarder Device Identifier Shelf Expiration Date Model / Serial / Lot Sureclip 16mm 235cm - [id number] Implanted:Qty: 1 on 03/07/2021 by Elian Archibald MD at OR [facility] N/A: Esophagus MICRO TECH ENDOSCOPY 01/24/2023 [id number] / / [id number] 1 Description:UPN [id number] [employer]ado Repositionable Hemostasis Clip Implanted:Qty: 4 on 03/07/2021 by Elian Archibald MD at OR [facility] N/A: Esophagus 01/31/2023 LOCK-D-26 -235-C-N / / [id number] 2 Description:TRIAL CLIPS NOT CHARGEABLE documented as of this encounter Visit Diagnoses Diagnosis Family history of ischemic heart disease documented in this encounter Care Teams Budget Specialist Relationship Specialty Start Date End Date Bravo Heath MD [address] [place] [address] [place] [address] PCP - General Family Medicine 11/11/21 documented as of this encounter
--- OUTSIDE RECORDS SUMMARY | 2024-09-15 08:57 | External Medical Summary | Summary of Care ---
Author Name Unknown Organization [facility] Address [address] [place] [address] Phone [phone] Care Team Providers Care Instructional Coach Name Role Phone Bravo Heath MD Primary Care Provide r Reason for Visit * Reason Onset Date Comments Advice 06/15/2024 Encounter Details Date Type Department Care Team (Late st Contact Info) Description 06/15/2024 Telephone Family Medicine [address] [phone] Bravo Heath MD [address] [place] [address] [place] [address] Advice Allergies No known active allergiesdocumented as of this encounter (statuses as of 06/15/2024) Medications Medication Sig Dispensed Refills Start Date End Date Status Vitamin D, Cholecalciferol, 1000 UNITS TABS Take by mouth. Activ e aspirin enteric coated 81 MG TBECIndications:HT N, [...] 1 Each 01/19/2023 Active Blood Pressure Monitor DeviceIndications: HTN, goal [...] EVERY DAY 90 Tablet 1 05/09/2024 Active Alendronate Sodium 70 MG Oral Tablet (Fosamax)Indicatio ns:Age-related osteoporosis without current pathological fracture take 1 pill a week, upon first rising in the morning with an 8 oz glass of water, do not go back to bed, and wait at least 1/2 hour before eating breakfast, drinking coffee, or taking any other medication. 12 Tablet 1 08/19/2023 4 Discontinue d(Medicatio n List Clean Up) Hospital, Clinic, or Other Facility Administered Medication Ordered Dose Route Frequency Start Date End Date Status vitamin b-12 (Cyanocobalamin) inj 1,000 mcgIndications:B12 deficiency 1000 mcg IM [id number] 02/12/2024 01/13/2025 Active documented as of this encounter (statuses as of 06/15/2024) Active Problems Problem Noted Date Diagnosed Date [...] as of this encounter (statuses as of 06/15/2024) Resolved Problems Problem Noted Date Diagnosed Date Resolved Date Age-related osteoporosis wit hout current pathological fracture 08/15/2022 12/07/2023 Thoracic aortic ectasia 11/26/202001/22 Sacroiliitis 09/13/2019 05/21/2020 Dyslipidemia, goal to be [...] as of this encounter (statuses as of 06/15/2024) Immunizations Name Administration Dates Next Due COVID-19 [...] 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 Alcohol Use Standard Drinks/Week Comments Yes 2.5 [...] encounter Miscellaneous Notes * Telephone Encounter - Bravo Heath MD - 06/15/2024 9:33 AM EDT Infomed the pt - med list modified * Telephone Encounter - Bravo Heath MD - 06/15/2024 9:33 AM EDT ----- Message from Slim Corral sent at 06/15/2024 9:11 AM EDT ----- Regarding: RE: mutual pt Yes, I would recommend stopping fosamax and repeat Dexa in two years for monitoring. Slim ----- Message ----- From: Bravo Heath MD Sent: 06/15/2024 9:09 AM EDT To: EDUARDO NavarreteC Subject: mutual pt Mora Smalls, Mr. Ramos's repeat Dexa looks good. You mentioned in your note about potentially doing drug holiday if the dexa looks good. would like to get your opinion prior to getting back to the pt about his question about fosamax Thank you for your time. Ann Marie documented in this encounter Plan of Treatment Upcoming Encounters Date Type Department Care Team (Late st Contact Info) Description 07/01/2024 2:00 PM EDT Nurse Only Ancillary [address] [place] [address] [place], Nurse [address] [place] [address] 08/01/2024 10:40 AM EDT Office Visit Dermatology, Ryan Lynn [address] [place] [address] Jacquelyn Rhodes PA-C [address] [place] [address] 09/14/2024 2:40 PM EDT Office Visit [address] [place] [phone] Bravo Heath MD [address] [place] [address] [place] [address] Health Maintenance Due Date Last Done Comments [...] this encounter Medical Devices Implanted Type Area Four Slide Machine Setter Device Identifier Shelf Expiration Date Model / Serial / Lot Sureclip 16mm 235cm - [id number] Implanted:Qty: 1 on 03/07/2021 by Elian Archibald MD at OR [facility] N/A: Esophagus MICRO TECH ENDOSCOPY 01/24/2023 [id number] / / [id number] 1 Description:UPN [id number] [employer] Repositionable Hemostasis Clip Implanted:Qty: 4 on 03/07/2021 by Elian Archibald MD at OR [facility] N/A: Esophagus 01/31/2023 LOCK-D-26 -235-C-N / / [id number] 2 Description:TRIAL CLIPS NOT CHARGEABLE documented as of this encounter Care Teams Instructional Coach Relationship Specialty Start Date End Date Bravo Heath MD [address] [place] [address] [place] [phone] PCP - General Family Medicine 11/11/21 documented as of this encounter
--- OUTSIDE RECORDS SUMMARY | 2024-09-15 08:57 | External Medical Summary | Summary of Care ---
Author Name Unknown Organization [facility] Address [address] [place] [address] Phone [phone] Care Team Providers Care Senior Courtroom Clerk Name Role Phone Bravo Heath MD Primary Care Provide r Reason for Visit * Reason Comments eRx-Medication Refill Encounter Details Date Type Department Care Team (Late st Contact Info) Description 05/07/2024 Refill Family Medicine [address] [phone] Bravo Heath MD [address] [place] [address] [place] [address] Allergies No known active allergiesdocumented as of this encounter (statuses as of 05/09/2024) Medications Medication Sig Dispensed Refills Start Date [...] EVERY DAY 90 Tablet 1 05/09/2024 Active Pantoprazole Sodium 40 MG Oral Tablet Delayed Release (Protonix) TAKE ONE TABLET BY MOUTH EVERY DAY 90 Tablet 2 08/10/2023 Discontinued Hospital, Clinic, or Other Facility Administered Medication Ordered Dose Route Frequency Start Date End Date Status vitamin b-12 (Cyanocobalamin) inj 1,000 mcgIndications:B12 deficiency 1000 mcg IM [id number] 02/12/2024 01/13/2025 Active documented as of this encounter (statuses as of 05/09/2024) Active Problems Problem Noted Date Diagnosed Date [...] as of this encounter (statuses as of 05/09/2024) Resolved Problems Problem Noted Date Diagnosed Date [...] as of this encounter (statuses as of 05/09/2024) Immunizations Name Administration Dates Next Due COVID-19 [...] 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 Alcohol Use Standard Drinks/Week Comments Yes 2.5 [...] encounter Miscellaneous Notes * Telephone Encounter - Tex Ibrahim, [facility] - 05/09/2024 7:32 AM EDTSigned Prescriptions: Disp Refills Pantoprazole Sodium 40 MG Oral Tablet Tiffanie*90 Tab*1 Sig: TAKE ONE TABLET BY MOUTH EVERY DAYAuthorizing Provider: Naya HEATH User: TEX LIN documented in this encounter Plan of Treatment Upcoming Encounters Date Type Department Care Team (Late st Contact Info) Description 06/03/2024 2:00 PM EDT Nurse Only Ancillary [address] [place] [address] [place], Nurse [address] [place] [address] 06/06/2024 4:00 PM EDT Imaging Radiology, [address] [place] [address] 08/01/2024 10:40 AM EDT Office Visit Dermatology, Ryan Lynn Funmil[place] Ramos [place] [address] [place] [address] Jacquelyn Rhodes PA-C [address] [place] [address] 09/14/2024 2:40 PM EDT Office Visit Family Medicine [address] [place] [phone] Bravo Heath MD [address] [place] [address] [place] [address] Health Maintenance Due Date Last Done Comments [...] this encounter Medical Devices Implanted Type Area Vice Provost Device Identifier Shelf Expiration Date Model / Serial / Lot Sureclip 16mm 235cm - [id number] Implanted:Qty: 1 on 03/07/2021 by Elian Archibald MD at OR [facility] N/A: Esophagus MICRO TECH ENDOSCOPY 01/24/2023 [id number] / / [id number] 1 Description:UPN [id number] [employer] Repositionable Hemostasis Clip Implanted:Qty: 4 on 03/07/2021 by Elian Archibald MD at OR [facility] N/A: Esophagus 01/31/2023 LOCK-D-26 -235-C-N / / [id number] 2 Description:TRIAL CLIPS NOT CHARGEABLE documented as of this encounter Care Teams Senior Courtroom Clerk Relationship Specialty Start Date End Date Bravo Heath MD [address] [place] [address] [place] [phone] PCP - General Family Medicine 11/11/21 documented as of this encounter
--- OUTSIDE RECORDS SUMMARY | 2024-09-15 08:57 | External Medical Summary | Summary of Care ---
Author Name Unknown Organization [facility] Address [address] [place] [address] Phone [phone] Care Team Providers Care Repair Tech Name Role Phone Bravo Heath MD Primary Care Provide r Reason for Visit * Reason Comments Medication Administration B 12 inj Encounter Details Date Type Department Care Team (Late st Contact Info) Description 04/08/2024 2:00 PM EDT Nurse Only Ancillary [address] [place] [address] [place], Nurse [address] [place] [address] Medication Administration (B 12 inj) Allergies No known active allergiesdocumented as of this encounter (statuses as of 04/08/2024) Medications Medication Sig Dispensed Refills Start Date End Date Status Vitamin D, Cholecalciferol, 1000 UNITS TABS Take by mouth. 0 Activ e aspirin enteric coated 81 MG TBECIndications:HTN , goal below 150/90,Family history of ischemic heart disease Take 1 Tab by mouth daily. 30 Tab 11 05/27/2018 Active Magnesium Oxide 400 MG Capsule Take 1 Capsule by mouth in the morning. 0 03/16/2019 Active Acetaminophen ER 650 MG Oral Tablet Extended Release Take 1 Tablet by mouth 2 times a day as needed. 0 Active metroNIDAZOLE 0.75 % External Cream (Metrocream)Indicat [...] as directed at bedtime. 1 Each 0 01/19/2023 Active Metoprolol Succinate ER 50 MG Oral Tablet Extended Release 24 Hour (toPROL XL) TAKE 1 TABLET IN THE MORNING AND 1/2 TABLET IN THE EVENING. 135 Tablet 2 07/20/2023 Active Pantoprazole Sodium 40 MG Oral Tablet [...] Tablet 1 12/07/2023 Active Blood Pressure Monitor DeviceIndications:H TN, goal below 150/90 Check blood pressure 3x/week 1 Each 0 12/07/2023 Active Thiamine HCl 100 MG Oral [...] THE MORNING 90 Capsule 2 04/04/2024 Active Hospital, Clinic, or Other Facility Administered Medication Ordered Dose Route Frequency Start Date End Date Status vitamin b-12 (Cyanocobalamin) inj 1,000 mcgIndications:B12 deficiency 1000 mcg IM [id number] 02/12/2024 01/13/2025 Active documented as of this encounter (statuses as of 04/08/2024) Active Problems Problem Noted Date Diagnosed Date [...] as of this encounter (statuses as of 04/08/2024) Resolved Problems Problem Noted Date Diagnosed Date Resolved Date Age-related osteoporosis wit hout current pathological fracture 08/15/2022 12/07/2023 Thoracic aortic ectasia 11/26/2020/11/2021 Sacroiliitis 09/13/2019 05/21/2020 Dyslipidemia, goal to be [...] as of this encounter (statuses as of 04/08/2024) Immunizations Name Administration Dates Next Due COVID-19 mRNA, LNP-s, No Pre serve, 2-Dose Series (Moderna) 01/30/2021,01/02/2021 COVID-19, MRNA-LNP, 23-24, P F, 30 MCG/0.3 mL, 12 YRS AND ABOVE, IM ([employer]-Comirnat) 08/31/2023 COVID-19, mRNA, LNP-s, PF, B ooster, [...] 65+ yrs 08/09/2019 TD, Preservative Free 09/20/2008 TDAP (age 11 and older)(Adacel) 05/22/2022 Varicella Zoster Vaccine (Adult) 04/27/2012 Zoster Vaccine Recombinant (Shingrix) 01/25/2020 ,08/05/2018 documented as of this encounter Social History Tobacco Use Types Packs/Day Years Used Date Smoking Tobacco: Never Smokeless Tobacco: Never Comments: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 Alcohol Use Standard Drinks/Week Comments Yes 2.5 [...] Nursing Notes * Guilherme Don LPN - 04/08/2024 1:59 PM EDT Time Out Procedure Performed: Yes [...] Team (Late st Contact Info) Description 05/02/2024 1:00 PM EDT Office Visit Dermatology [address] [place] [address] Sarai Alanis PA-C [address] [place] [address] [place] [address] 05/06/2024 2:00 PM EDT Nurse Only Ancillary [address] [place] [address] [place], Nurse [address] [place] [address] 06/06/2024 4:00 PM EDT Imaging Radiology, [address] [place] [address] 09/14/2024 2:40 PM EDT Office Visit Family Medicine [address] [place] [phone] Bravo Heath MD [address] [place] [address] [place] [address] Health Maintenance Due Date Last Done Comments Alpha-1 Antitrypsin 1958 HbA1c 12/07/2024 12/07/2023, 05/23, 08/15/2022, Additional history exists O2 ASSESSMENT COMPLETED IN PAST YEAR FOR COPD 02/22/2025 02/23/2024 Albumin/Creatinine Ratio 06/04/2026 06/04/2023 DTaP,Tdap,and Td Vaccines (2 - Td or Tdap) 05/22/2032 05/22/2022, 09/20/2008, 04/23/1996 Pneumococcal Vaccine: 65+ Years Completed 02/07/2016, 10/03/2003 Zoster Vaccines Completed 01/25/2020, 07/24, 04/27/2012 COVID-19 Vaccine Completed 08/31/2023, , 10/15/2021, Additional history exists Influenza Vaccine (FLU shot) Completed 07/2023, 08/15/2022, [...] this encounter Medical Devices Implanted Type Area Flight Communications Officer Device Identifier Shelf Expiration Date Model / Serial / Lot Sureclip 16mm 235cm - [id number] Implanted:Qty: 1 on 03/07/2021 by Elian Archibald MD at OR [facility] N/A: Esophagus MICRO TECH ENDOSCOPY 01/24/2023 [id number] / / [id number] 1 Description:UPN [id number] [employer] Repositionable Hemostasis Clip Implanted:Qty: 4 on 03/07/2021 by Elian Archibald MD at OR [facility] N/A: Esophagus 01/31/2023 LOCK-D-26 -235-C-N / / [id number] 2 Description:TRIAL CLIPS NOT CHARGEABLE documented as of this encounter Administered Medications Active Administered Medications - up to 3 most recent administrations Medication Order MAR Action Action Date Dose Rate Site vitamin b-12 (Cyanocobalamin) inj 1,000 mcg 1,000 mcg, Intramuscular, [id number], First dose on Thu02/12/24 at 1445, Last dose on Thu12/16/24 at 1445, For 12 doses Given 04/08/2024 1:57 PM EDT 1,000 mcg Deltoid Left Upper Given 03/11/2024 2:07 PM EDT 1,000 mcg De ltoid Left Upper Given 02/12/2024 2:26 PM EDT 1,000 mcg De ltoid Left Upper documented in this encounter Care Teams Repair Tech Relationship Specialty Start Date End Date Bravo Heath MD [address] [place] [address] [place] [phone] PCP - General Family Medicine 11/11/21 documented as of this encounter
--- OUTSIDE RECORDS SUMMARY | 2024-09-15 08:58 | External Medical Summary | Summary of Care ---
Author Name Unknown Organization [facility] Address [address] [place] [address] Phone [phone] Care Team Providers Care Early Childhood Worker Name Role Phone Bravo Heath MD Primary Care Provide r Reason for Visit * Reason Comments eRx-Medication Refill Encounter Details Date Type Department Care Team (Late st Contact Info) Description 03/19/2024 Refill Family Medicine [address] [phone] Bravo Heath MD [address] [place] [address] [place] [address] HTN, goal below 150/90 Allergies No known active allergiesdocumented as of this encounter (statuses as of 03/21/2024) Medications Medication Sig Dispensed Refills Start Date End Date Status Vitamin D, Cholecalciferol, 1000 UNITS TABS Take by mouth. 0 Active aspirin enteric coated 81 MG TBECIndications:HT [...] 0 Active metroNIDAZOLE 0.75 % External Cream (Metrocream)Indica [...] other medication. 12 Tablet 1 08/19/2023 Active DULoxetine HCl 30 MG Oral Capsule Delayed Release Particles (Cymbalta)Indicati ons:Current moderate episode of major depressive disorder without prior episode (HCC),Chronic bilateral low back pain without sciatica TAKE ONE CAPSULE BY MOUTH IN THE MORNING 90 Capsule 1 09/28/2023 Active Atorvastatin Calcium 10 MG Oral Tablet [...] THE MORNING 90 Tablet 3 03/21/2024 Active Losartan Potassium 100 MG Oral Tablet (Cozaar)Indication s:HTN, goal below 150/90 Take 1 Tablet by mouth in the morning. 30 Tablet 2 12/07/2023 Discontinued Hospital, Clinic, or Other Facility Administered Medication Ordered Dose Route Frequency Start Date End Date Status vitamin b-12 (Cyanocobalamin) inj 1,000 mcgIndications:B12 deficiency 1000 mcg IM [id number] 02/12/2024 01/13/2025 Active documented as of this encounter (statuses as of 03/21/2024) Active Problems Problem Noted Date Diagnosed Date [...] as of this encounter (statuses as of 03/21/2024) Resolved Problems Problem Noted Date Diagnosed Date [...] as of this encounter (statuses as of 03/21/2024) Immunizations Name Administration Dates Next Due COVID-19 [...] 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 Alcohol Use Standard Drinks/Week Comments Yes 2.5 [...] encounter Miscellaneous Notes * Telephone Encounter - Suha Alston, [facility] - 03/21/2024 2:12 PM EDTSigned Prescriptions: Disp Refills Losartan Potassium 100 MG Oral Tablet (Coz*90 Tab*3 Sig: TAKE ONE TABLET BY MOUTH IN THE MORNING Authorizing Provider: BRAVO HEATH Ordering User: SUHA ALSTON * Telephone Encounter - Interface, [facility] - 03/21/2024 11:32 AM EDT Pending Prescriptions: Disp Refills Losartan Potassium 100 MG Oral Tablet [Pha*30 Tab*0 Sig: TAKE ONE TABLET BY MOUTH IN THE MORNING documented in this encounter Plan of Treatment Upcoming Encounters Date Type Department Care Team (Late st Contact Info) Description 04/08/2024 2:00 PM EDT Nurse Only Ancillary [address] [place] [address] [place] Nurse [address] [place] [address] 05/02/2024 1:00 PM EDT Office Visit Dermatology [address] [place] [address] Sarai Alanis PA-C [address] [place] [address] [place] [address] 06/06/2024 4:00 PM EDT Imaging Radiology, [address] [place] [address] 09/14/2024 2:40 PM EDT Office Visit [address] [place] [phone] Bravo Heath MD [address] [place] [address] [place] [address] Health Maintenance Due Date Last Done Comments [...] this encounter Medical Devices Implanted Type Area Programmable Logic Controller Assembler Device Identifier Shelf Expiration Date Model / Serial / Lot Sureclip 16mm 235cm - [id number] Implanted:Qty: 1 on 03/07/2021 by Elian Archibald MD at OR [facility] N/A: Esophagus MICRO TECH ENDOSCOPY 01/24/2023 [id number] / / [id number] 1 Description:UPN [id number] [employer]ado Repositionable Hemostasis Clip Implanted:Qty: 4 on 03/07/2021 by Elian Archibald MD at OR [facility] N/A: Esophagus 01/31/2023 LOCK-D-26 -235-C-N / / [id number] 2 Description:TRIAL CLIPS NOT CHARGEABLE documented as of this encounter Visit Diagnoses Diagnosis HTN, goal below 150/90 documented in this encounter Care Teams Early Childhood Worker Relationship Specialty Start Date End Date Bravo Heath MD [address] [place] [address] [place] [address] PCP - General Family Medicine 11/11/21 documented as of this encounter
--- OUTSIDE RECORDS SUMMARY | 2024-09-15 08:58 | External Medical Summary | Summary of Care ---
Author Name Unknown Organization [facility] Address [address] [place] [address] Phone [phone] Care Team Providers Care Heat Treat Worker Name Role Phone Bravo Heath MD Primary Care Provide r Reason for Visit * Reason Comments eRx-Medication Refill Encounter Details Date Type Department Care Team (Late st Contact Info) Description 04/02/2024 Refill Family Medicine [address] [phone] Bravo Heath MD [address] [place] [address] [place] [id number] Current moderate episode of major depressive disorder without prior episode (HCC); Chronic bilateral low back pain without sciatica Allergies No known active allergiesdocumented as of this encounter (statuses as of 04/04/2024) Medications Medication Sig Dispensed Refills Start Date [...] THE MORNING 90 Capsule 2 04/04/2024 Active DULoxetine HCl 30 MG Oral Capsule Delayed Release Particles (Cymbalta)Indicati ons:Current moderate episode of major depressive disorder without prior episode (HCC),Chronic bilateral low back pain without sciatica TAKE ONE CAPSULE BY MOUTH IN THE MORNING 90 Capsule 1 09/28/2023 4 Discontinued Hospital, Clinic, or Other Facility Administered Medication Ordered Dose Route Frequency Start Date End Date Status vitamin b-12 (Cyanocobalamin) inj 1,000 mcgIndications:B12 deficiency 1000 mcg IM [id number] 02/12/2024 01/13/2025 Active documented as of this encounter (statuses as of 04/04/2024) Active Problems Problem Noted Date Diagnosed Date [...] as of this encounter (statuses as of 04/04/2024) Resolved Problems Problem Noted Date Diagnosed Date [...] as of this encounter (statuses as of 04/04/2024) Immunizations Name Administration Dates Next Due COVID-19 [...] 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 Alcohol Use Standard Drinks/Week Comments Yes 2.5 [...] encounter Miscellaneous Notes * Telephone Encounter - Abdi Mead RPh - 04/04/2024 12:32 PM EDT Signed Prescriptions: Disp Refills DULoxetine HCl 30 MG Oral Capsule Delayed *90 Cap*2 Sig: TAKE ONE CAPSULE BY MOUTH IN THE MORNING Authorizing Provider: BRAVO HEATH Ordering User: ABDI MEAD * Telephone Encounter - Interface, [facility] S[facility] Inbound - 04/04/2024 11:29 AM EDT Pending Prescriptions: Disp Refills DULoxetine HCl 30 MG Oral Capsule Delayed *90 Cap*0 Sig: TAKE ONE CAPSULE BY MOUTH IN THE MORNING documented in this encounter Plan of Treatment Upcoming Encounters Date Type Department Care Team (Late st Contact Info) Description 04/08/2024 2:00 PM EDT Nurse Only Ancillary [address] [place] [id number] [place] Nurse [address] [place] [address] 05/02/2024 1:00 PM EDT Office Visit Dermatology [address] [place] [address] Sarai Alanis PA-C [address] [place] [address] [place] [address] 06/06/2024 4:00 PM EDT Imaging Radiology, [address] [place], [place] [address] 09/14/2024 2:40 PM EDT Office Visit [address] [place] [phone] Bravo Heath MD [address] [place] [address] [place] [address] Health Maintenance Due Date Last Done Comments [...] this encounter Medical Devices Implanted Type Area Internal Medicine Physician Assistant Device Identifier Shelf Expiration Date Model / Serial / Lot Sureclip 16mm 235cm - [id number] Implanted:Qty: 1 on 03/07/2021 by Elian Archibald MD at OR [facility] N/A: Esophagus MICRO TECH ENDOSCOPY 01/24/2023 [id number] / / [id number] Description:UPN [id number] [employer] Repositionable Hemostasis Clip Implanted:Qty: 4 on 03/07/2021 by Elian Archibald MD at OR [facility] N/A: Esophagus 01/31/2023 LOCK-D-26 -235-C-[id number] / / [id number] Description:TRIAL CLIPS NOT CHARGEABLE documented as of this encounter Visit Diagnoses Diagnosis Current moderate episode of major depressive disorder without prior episode (HCC) Chronic bilateral low back pain without sciatica documented in this encounter Care Teams Heat Treat Worker Relationship Specialty Start Date End Date Bravo Heath MD [address] [place] [address] [place] [address] PCP - General Family Medicine 11/11/21 documented as of this encounter
[2024-09-15] MEDS: POTASSIUM CHLORIDE CRTAB 20 MEQ TABCR PO STA (18:02)
[2024-09-16 06:34] LABS: Hematocrit (blood only) 39.5 % (42.0-52.0); Hemoglobin 13.2 g/dl (14.0-18.0); Mean Corpuscular Hemoglobin 33.2 pg (25.0-34.0); Mean Corpuscular Hgb Conc 33.4 g/dL (32.0-36.0); Mean Corpuscular Volume 99.2 fL (80.0-100.0); Mean Platelet Volume 9.3 fL (9.4-12.4); Platelet Count 175 K/uL (130-400); RDW Coefficient of Variation 13.1 % (11.5-14.5); RDW Standard Deviation 47.8 fL (36.4-46.3); Red Blood Count 3.98 M/uL (4.70-6.10); White Blood Count 7.03 K/ul (4.8-10.8)
[2024-09-16 07:09] LABS: BUN Creatinine Ratio 17.7 (10-20); Calcium 9.1 mg/dl (8.6-10.3); Creatinine Clr Calc Pharmacy 45.3 ml/min; Magnesium 1.5 mg/dl (1.7-2.4); Phosphorus 3.1 mg/dl (2.5-4.9)
--- NOTE | 2024-09-16 09:05 | Hospitalist Progress Note ---
Date of Service September 16, 2024 Assessment & Plan (1) Hypertensive urgency: Plan: Patient is 84 year old male with PMH HTN, HLD, paroxysmal atrial fibrillation, mitral valve prolapse, GERD, prediabetes, depression, pernicious anemia, alcohol use, interstitial lung disease, pulmonary fibrosis, nocturnal hypoxia on 2 L at bedtime presented to ER with c/o elevated BP of 199/90 noted at PCP visit today. Past 2 days with posterior SCHUSTER that lasted a few minutes and and some blurry vision that lasted 1-2 minutes and resolved. Denies any SCHUSTER or visual disturbance today. Denies CP, SOB In ER afebrile, P: 67, R: 16, BP 206/153, 100% on room air Troponin negative x 2 CTA Head and neck: No acute intracranial hemorrhage, evidence of acute territorial infarction, or other acute intracranial disease process. No occlusion, hemodynamically significant stenosis, or dissection in the major cervical arteries. No occlusion, hemodynamically significant stenosis, aneurysm, dissection, or arteriovenous malformation in the major intracranial arteries. In ER given 500 mL NSS, labetalol 10 mg IV Repeat BP 203/102 Hydralazine IV prn SBP > 160 Continue home losartan Increased metoprolol succinate to 50mg BID on admission (Was 50mg in am and 25mg in PM) Monitor on telemetry Likely will need to further adjust BP meds monitor CBC, BMP EKG in am Received hydralazine t10/24 AM for elev. BP Feeling dizzy on and off, falling. Also fell in his room repeated ECG Echo obtained- Normal left ventricular size with moderate left ventricular hypertrophy Normal left ventricular wall function EF 65% Aortic sclerosis without stenosis Mild tricuspid insufficiency with elevated right heart pressures estimated 50-60 mmHg Cardiology consulted - Metoprolol increased but will need to follow closely heart rate and conduction given first-degree AV block. Continue current dosing of losartan Add third agent with calcium channel jose guadalupe. Patient received amlodipine 5 mg today and will continue daily (2) Ambulatory dysfunction: (3) Recurrent falls: Plan: Reports 10 falls in past year. Sometimes dizzy and sometimes feels legs get weak causing fall Uses Walker at baseline Orthostatic vital signs Fall precautions PT/OT eval -> recommend rehab, pt agreeable ordered TEDs and pt is currently wearing [place] dizzy when working with PT, then reportedly walked again and felt ok Later notified by RN that pt fell in his room, felt dizzy obtained ECG, echo, involved cardiology as well, as above (4) Paroxysmal atrial fibrillation: Plan: Not on anticoagulation secondary to fall risk On metoprolol succinate (5) HLD (hyperlipidemia): Plan: Continue atorvastatin (6) Pernicious anemia: Plan: On B12 injections Q4wks Hgb: 13.4. Baseline Hgb: 13's (7) ILD (interstitial lung disease): (8) Nocturnal hypoxemia: Plan: History ILD, pulmonary fibrosis On 2L via NC HS DVT Prophylaxis Heparin SQ Admit telemetry Full Code as per discussion with pt, however if poor prognosis would want ventilator discontinued Follows with Dr Heath for routine care Admission and Anticipated Discharge Date Admission Date: September 14, 2024 Subjective Pt seen in follow up HTN urgency, falls Was sent to ED from PCP's office Complained of HAs as well, CT head in ED negative Reports feeling dizzy more often Currently sitting in the chair in NAD (daughter present at the bedside yesterday) Feels dizzy on and off when walking , last evening fell when walking from the bathroom Applied TEDs and is currently wearing Denies any chest pain or shortness of breath Plan to DC to rehab once medically stable Seen by cardiology - started on amlodipine in addition to metoprolol and losartan Review of Systems Review of Systems: All systems reviewed & are unremarkable except as noted in Subjective Physical Exam Physical Exam: General: no distress, WDWN Head: normocephalic, atraumatic Eyes: PERRL, EOM's intact, conjunctiva non-injected, anicteric ENT: normal inspection external ears, nose, mucous membranes moist Neck: supple Lungs: clear, no respiratory distress, no wheezing CV: RRR, no pretibial edema Abd: normal BS, soft, non-tender Ext: no LE edema, no calf tenderness, moves extremities Neuro: A&O x 3, speech soft but fluent, answers appropriately, no facial asymmetry, moves extremities Skin: warm, dry Results & Data Results & Data Vital Signs (Past 12 Hours) Vital Signs Temp Pulse Pulse Resp BP Pulse Ox O2 Del Method 09/16/24 07:50 69 09/16/24 07:29 115/69 09/16/24 07:25 36.8 C 75 16 129/62 97 Room Air 09/16/24 06:11 68 178/89 H 09/16/24 03:11 36.7 C 75 18 174/75 H 99 Nasal Cannula 09/15/24 23:57 86 159/92 H 09/15/24 23:05 37.0 C 66 18 186/80 H 100 Nasal Cannula 09/15/24 21:50 72 O2 Flow Rate 09/16/24 07:50 09/16/24 07:29 09/16/24 07:25 09/16/24 06:11 09/16/24 03:11 2 09/15/24 23:57 09/15/24 23:05 2 09/15/24 21:50 Laboratory Results 09/16/24 09/15/24 Range/Units 05:59 15:33 WBC 7.03 (4.8-10.8) K/ul RBC 3.98 L (4.70-6.10) M/uL Hgb 13.2 L (14.0-18.0) g/dl Hct 39.5 L (42.0-52.0) % MCV 99.2 (80.0-100.0) fL MCH 33.2 (25.0-34.0) pg MCHC 33.4 (32.0-36.0) g/dL RDW Std Deviation 47.8 H (36.4-46.3) fL RDW Coeff of Dereck 13.1 (11.5-14.5) % Plt Count 175 (130-400) K/uL MPV 9.3 L (9.4-12.4) fL Sodium 138 (136-145) mmol/L Potassium 4.0 (3.5-5.1) mmol/L Chloride 103 (98-107) mmol/L Carbon Dioxide 27 (21-32) mmol/L Anion Gap 8 (3-11) BUN 14 (6-23) mg/dl Creatinine 0.79 (0.6-1.4) mg/dl Est Cr Clr Drug Dosing 45.3 ml/min eGFR 86.52 BUN/Creatinine Ratio 17.7 (10-20) Glucose 94 (70-99(Fasting)) mg/dl Calcium 9.1 (8.6-10.3) mg/dl Phosphorus 3.1 (2.5-4.9) mg/dl Magnesium 1.5 L (1.7-2.4) mg/dl B-Natriuretic Peptide 581 H (0-100) pg/ml Medications Administered Current Inpatient Medications Acetaminophen (Acetaminophen 325 Mg Tab) 650 mg PO Q4H PRN PRN Reason: Pain or Fever Stop: 10/14/24 22:00 Aspirin (Aspirin 81 Mg Ectab) 81 mg PO DAILY LYNDA Stop: 10/15/24 08:59 Last Admin: 09/16/24 08:38 Dose: 81 mg Atorvastatin Calcium (Atorvastatin 10 Mg Tab) 10 mg PO DAILY LYNDA Stop: 10/15/24 08:59 Last Admin: 09/16/24 08:38 Dose: 10 mg Duloxetine HCl (Duloxetine Hcl 20 Mg Cap) 20 mg PO DAILY LYDNA Stop: 10/15/24 08:59 Last Admin: 09/16/24 08:38 Dose: 20 mg Heparin Sodium (Porcine) (Heparin Sod 5,000 Unit/0.5 Ml Vial) 5,000 units SQ Q12 LYNDA Stop: 10/14/24 22:00 Last Admin: 09/15/24 08:21 Dose: 5,000 units Hydralazine HCl (Hydralazine Hcl 20 Mg/Ml Vial) 10 mg IV Q6H PRN PRN Reason: Hypertension Stop: 10/14/24 19:43 Last Admin: 09/16/24 06:19 Dose: 10 mg Magnesium Sulfate/Dextrose (Magnesium Sulfate / D5w) 1 gm in 100 mls @ 50 mls/hr IV ONE ONE Stop: 09/16/24 10:59 Losartan Potassium (Losartan Potassium 50 Mg Tab) 100 mg PO DAILY LYNDA Stop: 10/15/24 08:59 Last Admin: 09/16/24 08:37 Dose: 100 mg Magnesium Oxide (Magnesium Oxide 400 Mg Tab) 400 mg PO BID LYNDA Stop: 10/16/24 08:59 Metoprolol Succinate (Metoprolol Succ 50mg Ext Rel Tab) 50 mg PO BID LYNDA Stop: 10/14/24 22:00 Last Admin: 09/16/24 08:37 Dose: 50 mg Ondansetron HCl (Ondansetron Inj 2 Mg/Ml 2 Ml Vial) 4 mg IV Q6H PRN PRN Reason: Nausea Stop: 10/14/24 22:00 Pantoprazole Sodium (Pantoprazole 40 Mg Tab) 40 mg PO DAILY LYNDA Stop: 10/15/24 08:59 Last Admin: 09/16/24 08:38 Dose: 40 mg Polyethylene Glycol (Polyethylene (Miralax) 17 Gm Pack) 17 gm PO DAILY PRN PRN Reason: Constipation Stop: 10/14/24 22:00 Vitamin D (Cholecalciferol 25 Mcg (1000 Units) Tab) 25 mcg PO DAILY LYNDA Stop: 10/15/24 08:59 Last Admin: 09/16/24 08:37 Dose: 25 mcg
[2024-09-16] MEDS: MAGNESIUM SULFATE / D5W 1 GM/100 ML BAG IV ONE (09:28)
[2024-09-16] MEDS: MAGNESIUM OXIDE 400 MG TAB PO SCH (10:20)
--- NOTE | 2024-09-16 10:56 | Cardiology Consultation ---
Date of Consultation September 16, 2024 Assessment & Plan (1) Hypertension: (2) Paroxysmal atrial fibrillation: [id number] 3 (age 1, HTN) (3) Ambulatory dysfunction: (4) Recurrent falls: (5) Valvular heart disease: (6) HLD (hyperlipidemia): Plan 84-year-old male with past medical history significant for paroxysmal AFIB, HTN, HLD, recurrent falls, implanted loop recorder, mitral valve prolapse, interstitial lung disease, pulmonary fibrosis, and noctural hypoxia (on 2L supplemental oxygen at night) who presented to the ED for evaluation of elevated blood pressure. Found to have elevated blood pressure at 199/90 at PCP visit and referred to ED for evaluation. Troponin negative x2 in ED. CT Head and Neck negative. Initially given NSS bolus and labetalol 10 mg IV. Repeat BP 203/102. Has received several doses of hydralazine with blood pressure improvement. Hypertension Received IV hydralazine 10 mg this AM with improvement, blood pressure 115/69 after receiving Repeat blood pressure 158/75 at 10:59 AM Start amlodipine 5 mg PO daily Prefer amlodipine over hydralazine, but continue IV hydralazine as necessary for SBP >160 Continue losartan 100 mg PO daily Continue metoprolol succinate Paroxysmal AFIB [id number] 3 (age 1, HTN) Normal sinus rhythm in 60-70s with occasional PACs upon telemetry review Continue metoprolol succinate 50 mg PO twice daily, increased on admission Continue aspirin 81 mg PO daily Not on anticoagulant therapy given high risk for bleeding with recurrent falls and ambulatory dysfunction, HAS-BLED score 3 (age, HTN, medication) Ambulatory Dysfunction Recurrent Falls History of recurrent falls with approximately 10 over the past year Lightheadedness and dizziness with positional changes Orthostatic vitals Continue to monitor blood pressure with medication changes, may need to further adjust blood pressure medications Valvular heart disease Last ECHO 09/04/20 with LVEF 57%, mild LVH, grade II diastolic dysfunction, mild AI, mild mitral valve prolapse, mild MR, and moderate left atrial enlargement Ordered repeat ECHO HLD Last cholesterol (172) and LDL (68) well controlled on recent labs (12/07/23) Continue atorvastatin 10 mg PO daily Interstitial lung disease with elevated pulmonary pressures Supervising Physician Co-Signing Physician Notes Patient was seen and personally examined, chart medications and telemetry reviewed. Full assessment and plan as well outlined above. Care and management discussed in detail with advanced provider and personally endorsed 84-year-old male with complex underlying cardiac issues who presented for routine evaluation at PCP on 09/14/2024 with complaints of ambulatory dysfunction and weakness. Found to be significantly hypertensive and referred for ER and inpatient managemen His blood pressure slowly improving but has required IV hydralazine. Gait unsteadiness and instability remains an issue. Initial cranial imaging unrevealing Echocardiogram as below without acute findings other than chronic elevation in right heart pressures Echocardiogram 09/16/2024 Normal left ventricular size with moderate left ventricular hypertrophy Normal left ventricular wall function EF 65% Aortic sclerosis without stenosis Mild tricuspid insufficiency with elevated right heart pressures estimated 50-60 mmHg Plan will increase antihypertensive regimen. Metoprolol order increased but will need to follow closely heart rate and conduction given first-degree AV block Continue current dosing of losartan Add third agent with calcium channel jose guadalupe. Patient received amlodipine 5 mg to ay and will continue daily History of Present Illness Reason for Consultation: HTN urgency, headache, dizziness, frequent falls Requesting Physician: Chema Saba MD Attending Physician: Chema Saba MD History of Present Illness 84-year-old male with past medical history significant for paroxysmal AFIB, HTN, HLD, recurrent falls, implanted loop recorder, mitral valve prolapse, interstitial lung disease, pulmonary fibrosis, and noctural hypoxia (on 2L supplemental oxygen at night) who presented to the ED for evaluation of elevated blood pressure. Per chart review, patient was seen by PCP on 09/14/24 for recurrent falls and ambulatory dysfunction. He was found to have elevated blood pressure at 199/90 and referred to ED for evaluation. He had associated headache over the past several days and blurry vision. Losartan increased from 50 mg to 100 mg daily in 05/2024. Troponin negative x2 in ED. CT Head and Neck negative. Given NSS bolus and labetalol 10 mg IV. Repeat BP 203/102. He has had approximately 10 falls over the past year. He notes lightheadedness and dizziness with positional changes. He ambulates with a walker at home. He states that he will lose his balance, feel himself falling backwards and legs giving out from under him. Denies loss of consciousness or syncopal episodes. Resting comfortably in bed. Denies recurrent headache or visual changes. He reports intermittent heart fluttering occurring every few weeks. He notes associated dizziness with palpitations. Denies chest pain, shortness of breath, dyspnea on exertion, edema, nausea, or vomiting. He does not monitor blood pressure at home. He bought a wrist cuff, but it was too large for his arm. Social History: He lives with his and son. His son assists with care at home. Never smoker. History of secondhand exposure to cigarette smoke. History of alcohol abuse. He has cut back to drinking 1 beer per day. Denies history of illicit drug use. He cooks his meals or eats frozen foods at home. Denies adding salt to foods. Fluid intake low with 1 glass of water daily. Family History: Mother - [place] ( in 70s) Father - [place] ( at age 69) Son - Healthy with no apparent health problems Past Medical History: GERD Depression BPH Prediabetes Zenker's diverticulum Pernicious anemia Lumbar spinal stenosis Constipation Hemorrhoids Allergies Allergy/AdvReac Type Severity Reaction Status Date / Time No Known Allergies Allergy Verified 04/19/19 08:29 Home Medications Medication Instructions Recorded Confirmed Type atorvastatin 10 mg tablet 10 mg PO DAILY 07/28/18 09/14/24 History cholecalciferol (vitamin D3) 25 1,000 unit PO DAILY 07/28/18 09/14/24 History mcg (1,000 unit) tablet (Vitamin D3) pantoprazole 40 mg tablet,delayed 40 mg PO DAILY 07/28/18 09/14/24 History release duloxetine 20 mg capsule,delayed 20 mg PO DAILY 02/18/19 09/14/24 History release aspirin 81 mg tablet,delayed 81 mg PO DAILY 09/14/24 09/14/24 History release cyanocobalamin (vitamin B-12) 1,000 mcg subcut Q4WK 09/14/24 09/14/24 History 1,000 mcg/mL injection solution losartan 100 mg tablet 100 mg PO DAILY 09/14/24 09/14/24 History metoprolol succinate 50 mg 25 mg PO HS 09/14/24 09/14/24 History tablet,extended release 24 hr metoprolol succinate 50 mg 50 mg PO DAILY 09/14/24 09/14/24 History tablet,extended release 24 hr Patient History Medical History (Updated 09/16/24 @ 13:19 by BIBI Lei) Hypertension Spinal stenosis Family History Other Hypertension Social History Smoking Status: Never smoker Second Hand Exposure: No; Do You Dip or Chew Tobacco: No; Tobacco Cessation Education Requested by Patient: No Hx Alcohol Use: Yes Alcohol type: beer Hx Substance Use: No Preferred Language: Welsh Communication Ability: Effective Highway Patrol Officer Required: No Beliefs That Will Affect Care: None Current Living Situation: Spouse and Family Current Living Situation Comment: one level home Other Information That Helps Us Care for You: Yes ( is more medically unstable.) Feels Safe at Home: Yes Safety Concerns: Feels Safe At This Time Assistive Devices: Oxygen - at Night and Walker Review of Systems Review of Systems: See HPI for pertinent positives. All others negative other than those noted in the HPI. CONSTITUTIONAL: +weakness. No change in weight, No fatigue, No fevers, No sweats or chills. HEENT: No visual changes, No epistaxis, No bleeding gums, No dysphagia, PULMONARY: +cough. No sputum, or hemoptysis, No wheezing, No shortness of breath, and No recent change in breathing. CARDIOVASCULAR: No chest pain, No dyspnea on exertion, No edema, No palpitations, No syncope, No claudication, No calf pain. GASTROINTESTINAL: No change in appetite, No abdominal pain, No change in bowel habits, No significant heartburn, No nausea, No vomiting, No diarrhea, No constipation, No blood in stools or black tarry stools, No dysphagia. HEMATOLOGIC: No abnormal bleeding and No bruising. NEUROLOGICAL: +recurrent falls, dizziness, lightheadedness. No headaches. PSYCH: No sleep disturbances, No mood changes. Physical Exam Physical Exam: Vital signs within normal limits as above. General: Thin and frail appearing. No acute distress. A+Ox3. HEENT: Normocephalic. Atraumatic. EOMI. Conjunctiva and sclera clear. NECK: Trachea midline. No thyromegaly. No carotid bruits. No JVD. Carotid upstrokes are brisk. Heart: RRR. Distant heart sounds. S1 and S2 noted. No murmur. No rubs or gallops. PMI non displaced. Lungs: No acute respiratory distress. Clear to auscultation. No wheezes.No rhonchi. No rales. Abdomen: Normal bowel sounds. Soft. Nontender. No abdominal bruits. Extremities: Normal capillary refill. No edema. No clubbing or cyanosis. Pulses: radial=2/4. Skin: Warm and dry. NEURO: No focal deficits. PSYCH: Appropriate affect and insight. Results & Data Vital Signs (Past 12 Hours) Vital Signs Temp Pulse Pulse Resp BP Pulse Ox O2 Del Method 09/16/24 07:50 69 09/16/24 07:29 115/69 09/16/24 07:25 36.8 C 75 16 129/62 97 Room Air 09/16/24 06:11 68 178/89 H 09/16/24 03:11 36.7 C 75 18 174/75 H 99 Nasal Cannula 09/15/24 23:57 86 159/92 H 09/15/24 23:05 37.0 C 66 18 186/80 H 100 Nasal Cannula O2 Flow Rate 09/16/24 07:50 09/16/24 07:29 09/16/24 07:25 09/16/24 06:11 09/16/24 03:11 2 09/15/24 23:57 09/15/24 23:05 2 Laboratory Results Cardiac Enzymes 09/15/24 Range/Units 15:33 B-Natriuretic Peptide 581 H (0-100) pg/ml Coagulation 09/15/24 Range/Units 15:33 B-Natriuretic Peptide 581 H (0-100) pg/ml CBC 09/16/24 Range/Units 05:59 WBC 7.03 (4.8-10.8) K/ul RBC 3.98 L (4.70-6.10) M/uL Hgb 13.2 L (14.0-18.0) g/dl Hct 39.5 L (42.0-52.0) % Plt Count 175 (130-400) K/uL Comprehensive Metabolic Panel 09/16/24 Range/Units 05:59 Sodium 138 (136-145) mmol/L Potassium 4.0 (3.5-5.1) mmol/L Chloride 103 (98-107) mmol/L Carbon Dioxide 27 (21-32) mmol/L BUN 14 (6-23) mg/dl Creatinine 0.79 (0.6-1.4) mg/dl Glucose 94 (70-99(Fasting)) mg/dl Calcium 9.1 (8.6-10.3) mg/dl Intake and Output 09/15/24 09/16/24 09/16/24 22:59 06:59 14:59 Intake Total 480 / 790 100 / 100 Output Total 100 / 450 300 / 450 Balance 380 / 340 -300 / 340 100 / 100 Intake: IV 100 / 100 Magnesium Sulfate / D5w 1 gm In 100 / 100 100 ml @ 50 mls/hr IV ONE ONE Rx#:[id number] Oral 480 / 790 Output: Urine 100 / 450 300 / 450 Other: Weight 55.2 kg Weight Measurement Method Built in [facility] Diagnostic Findings Telemetry reviewed over the past 24 hours. Sinus rhythm with rates in 80s and occasional PACs. Reviewed EKG 09/15/24 at 17:53:22: NSR with 1st degree AVB Left anterior fascicular block 71 bpm QTc 469 Reviewed EKG 09/15/24 at 06:58:49: NSR with 1st degree AVB with PACs Left anterior fascicular block 77 bpm QTc 479 Reviewed EKG 09/14/24 at 16:15:53: NSR with 1st degree AVB with PACs Left anterior fascicular block 69 bpm QTc 469 Reviewed CXR from 09/14/24: FINDINGS: Cardiac silhouette is enlarged. Atherosclerosis of the aorta. Pulmonary vascular congestion with mild interstitial coarsening. No pneumothorax or large pleural effusion. No lobar airspace consolidation. An electronic device projects over the abdominal left upper quadrant. Surgical clip projects over the midline upper chest. Bones appear grossly intact. IMPRESSION: Cardiomegaly with pulmonary vascular congestion and nonspecific interstitial coarsening, possibly representing mild pulmonary edema. Reviewed ECHO from 09/04/20: Normal LV chamber size with mild concentric LVH. Normal LV systolic function without regional wall motion abnormality. Calculated LV ejection Fraction = 57% (bi-plane method of discs). Grade 2 diastolic dysfunction. Mild aortic insufficiency. There is focal thickening of the anterior mitral valve leaflet(s). There is mild mitral valve prolapse present. Mitral stenosis is absent. Mild mitral regurgitation is present. The mitral regurgitation jet is eccentric. Moderate left atrial enlargement. The aortic root and proximal ascending aorta are normal sized. Reviewed Device Check from 04/06/23: Loop recorder is that the SALES VICE PRESIDENT level with regards to battery life. As noted at the time of telephone encounter in January,, patient elects to not have the device removed or replaced. Will continue to follow up. (1) Hypertension Hypertension type: unspecified Qualified Code(s): I10 - Essential (primary) hypertension (6) HLD (hyperlipidemia) Hyperlipidemia type: unspecified Qualified Code(s): E78.5 - Hyperlipidemia, unspecified
[2024-09-16] MEDS: amLODIPine BESYLATE 5 MG TAB PO ONE (13:11)
--- NOTE | 2024-09-17 00:46 | Electrocardiogram Report ---
Test Reason : Blood Pressure : */* mmHG Vent. Rate : 69 BPM Atrial Rate : 69 BPM P-R Int : 256 ms QRS Dur : 100 ms QT Int : 438 ms P-R-T Axes : 93 -61 40 degrees QTcB Int : 469 ms Sinus rhythm with 1st degree A-V block with Premature atrial complexes Left anterior fascicular block Minimal voltage criteria for LVH, may be normal variant ( Inderjit product ) Nonspecific ST and T wave abnormality Abnormal ECG When compared with ECG of 24-Feb-2019 08:10, Premature atrial complexes are now Present Nonspecific T wave abnormality has replaced inverted T waves in Inferior leads Confirmed by Tyson Stallings ([id number]) on 09/17/2024 12:45:50 AM Referred By: Bravo Heath Confirmed By: Tyson Stallings
--- NOTE | 2024-09-17 00:49 | Electrocardiogram Report ---
Test Reason : Blood Pressure : */* mmHG Vent. Rate : 71 BPM Atrial Rate : 71 BPM P-R Int : 276 ms QRS Dur : 116 ms QT Int : 432 ms P-R-T Axes : 72 -58 -4 degrees QTcB Int : 469 ms Sinus rhythm with 1st degree A-V block Left anterior fascicular block Nonspecific ST and T wave abnormality Abnormal ECG When compared with ECG of 15-Sep-2024 06:58, Premature atrial complexes are no longer Present Confirmed by Tyson Stallings ([id number]) on 09/17/2024 12:49:21 AM Referred By: Bravo Heath Confirmed By: Tyson Stallings
--- NOTE | 2024-09-17 00:49 | Electrocardiogram Report ---
Test Reason : Blood Pressure : */* mmHG Vent. Rate : 77 BPM Atrial Rate : 77 BPM P-R Int : 250 ms QRS Dur : 102 ms QT Int : 424 ms P-R-T Axes : * -53 31 degrees QTcB Int : 479 ms Poor data quality, interpretation may be adversely affected Sinus rhythm with 1st degree A-V block with Premature atrial complexes Left anterior fascicular block Nonspecific ST and T wave abnormality Prolonged QT Abnormal ECG When compared with ECG of 14-Sep-2024 16:15, Nonspecific T wave abnormality, worse in Lateral leads Confirmed by Tyson Stallings ([id number]) on 09/17/2024 12:49:03 AM Referred By: Bravo Heath Confirmed By: Tyson Stallings
[2024-09-17] MEDS: amLODIPine BESYLATE 5 MG TAB PO SCH (08:12)
--- NOTE | 2024-09-17 09:36 | Cardiology Progress Note ---
Date of Service September 17, 2024 Assessment & Plan (1) Hypertension: (2) Paroxysmal atrial fibrillation: Plan: [id number] 3 (age 1, HTN) (3) Ambulatory dysfunction: (4) Recurrent falls: (5) Valvular heart disease: (6) HLD (hyperlipidemia): (7) ILD (interstitial lung disease): Plan 84-year-old male with past medical history significant for paroxysmal AFIB, HTN, HLD, recurrent falls, implanted loop recorder, mitral valve prolapse, interstitial lung disease, pulmonary fibrosis, and noctural hypoxia (on 2L supplemental oxygen at night) who presented to the ED for evaluation of elevated blood pressure. Found to have elevated blood pressure at 199/90 at PCP visit and referred to ED for evaluation. Troponin negative x2 in ED. CT Head and Neck negative. Initially given NSS bolus and labetalol 10 mg IV. Repeat BP 203/102. Has received several doses of hydralazine with blood pressure improvement. Hypertension Received IV hydralazine 10 mg this AM with improvement, blood pressure 115/69 after receiving Repeat blood pressure 158/75 at 10:59 AM Start amlodipine 5 mg PO daily Prefer amlodipine over hydralazine, but continue IV hydralazine as necessary for SBP >160 Continue losartan 100 mg PO daily Continue metoprolol succinate Paroxysmal AFIB [id number] 3 (age 1, HTN) Normal sinus rhythm in 60-70s with occasional PACs upon telemetry review Continue metoprolol succinate 50 mg PO twice daily, increased on admission Continue aspirin 81 mg PO daily Not on anticoagulant therapy given high risk for bleeding with recurrent falls and ambulatory dysfunction, HAS-BLED score 3 (age, HTN, medication) Ambulatory Dysfunction Recurrent Falls History of recurrent falls with approximately 10 over the past year Lightheadedness and dizziness with positional changes Orthostatic vitals Continue to monitor blood pressure with medication changes, may need to further adjust blood pressure medications Valvular heart disease Last ECHO 09/04/20 with LVEF 57%, mild LVH, grade II diastolic dysfunction, mild AI, mild mitral valve prolapse, mild MR, and moderate left atrial enlargement Ordered repeat ECHO HLD Last cholesterol (172) and LDL (68) well controlled on recent labs (12/07/23) Continue atorvastatin 10 mg PO daily Interstitial lung disease with elevated pulmonary pressures Chronic O2 usage 09/17/2024 Patient appears hemodynamically stable with improving blood pressure. Would continue current therapies. If blood pressure remains persistently elevated would add low-dose oral hydralazine 12.5 mg twice per day Patient with chronic interstitial lung disease with oxygen demands. Would continue routine oxygen supplementation Admission and Anticipated Discharge Date Admission Date: September 14, 2024 Subjective Patient seen and examined, chart, telemetry reviewed Denies any focal complaints. Blood pressure gradually trending lower No chest pains or shortness of breath Patient wears oxygen chronically at home due to interstitial lung disease Review of Systems Review of Systems: All systems reviewed & are unremarkable except as noted in Subjective Physical Exam Physical Exam: General: Thin and frail appearing. No acute distress. A+Ox3. HEENT: Normocephalic. Atraumatic. EOMI. Conjunctiva and sclera clear. NECK: Trachea midline. No thyromegaly. No carotid bruits. No JVD. Carotid upstrokes are brisk. Heart: RRR. Distant heart sounds. S1 and S2 noted. No murmur. No rubs or gallops. PMI non displaced. Lungs: No acute respiratory distress. Clear to auscultation. No wheezes.No rhonchi. No rales. Minimal crackles Abdomen: Normal bowel sounds. Soft. Nontender. No abdominal bruits. Extremities: Normal capillary refill. No edema. No clubbing or cyanosis. Pulses: radial=2/4. Skin: Warm and dry. NEURO: No focal deficits. PSYCH: Appropriate affect and insight. Results & Data Vital Signs (Past 12 Hours) Vital Signs Temp Pulse Pulse Resp BP Pulse Ox O2 Del Method 09/17/24 07:43 36.7 C 72 18 148/81 H 96 Room Air 09/17/24 07:36 67 09/17/24 03:03 36.5 C 59 L 18 171/77 H 94 Room Air 09/16/24 23:00 66 09/16/24 22:39 36.6 C 66 18 157/75 H 93 Room Air (1) Hypertension Hypertension type: unspecified Qualified Code(s): I10 - Essential (primary) hypertension (6) HLD (hyperlipidemia) Hyperlipidemia type: unspecified Qualified Code(s): E78.5 - Hyperlipidemia, unspecified
--- NOTE | 2024-09-17 09:44 | Hospitalist Progress Note ---
Date of Service September 17, 2024 Assessment & Plan (1) Hypertensive urgency: Plan: Patient is 84 year old male with PMH HTN, HLD, paroxysmal atrial fibrillation, mitral valve prolapse, GERD, prediabetes, depression, pernicious anemia, alcohol use, interstitial lung disease, pulmonary fibrosis, nocturnal hypoxia on 2 L at bedtime presented to ER with c/o elevated BP of 199/90 noted at PCP visit today. Past 2 days with posterior SCHUSTER that lasted a few minutes and and some blurry vision that lasted 1-2 minutes and resolved. Denies any SCHUSTER or visual disturbance today. Denies CP, SOB In ER afebrile, P: 67, R: 16, BP 206/153, 100% on room air Troponin negative x 2 CTA Head and neck: No acute intracranial hemorrhage, evidence of acute territorial infarction, or other acute intracranial disease process. No occlusion, hemodynamically significant stenosis, or dissection in the major cervical arteries. No occlusion, hemodynamically significant stenosis, aneurysm, dissection, or arteriovenous malformation in the major intracranial arteries. In ER given 500 mL NSS, labetalol 10 mg IV Repeat BP 203/102 Hydralazine IV prn SBP > 160 Continue home losartan Increased metoprolol succinate to 50mg BID on admission (Was 50mg in am and 25mg in PM) Monitor on telemetry Likely will need to further adjust BP meds monitor CBC, BMP EKG in am Received hydralazine t10/24 AM for elev. BP Feeling dizzy on and off, falling. Also fell in his room repeated ECG Echo obtained- Normal left ventricular size with moderate left ventricular hypertrophy Normal left ventricular wall function EF 65% Aortic sclerosis without stenosis Mild tricuspid insufficiency with elevated right heart pressures estimated 50-60 mmHg Cardiology consulted - Metoprolol increased but will need to follow closely heart rate and conduction given first-degree AV block. Continue current dosing of losartan Added third agent with calcium channel jose guadalupe - amlodipine 5 mg continue daily BP better controlled (2) Ambulatory dysfunction: (3) Recurrent falls: Plan: Reports 10 falls in past year. Sometimes dizzy and sometimes feels legs get weak causing fall Uses Walker at baseline Orthostatic vital signs positive Fall precautions PT/OT eval -> recommend rehab, pt agreeable ordered TEDs and pt is currently wearing [place] dizzy when working with PT, then reportedly walked again and felt ok Later notified by RN that pt fell in his room, felt dizzy obtained ECG, echo, involved cardiology as well, as above (4) Paroxysmal atrial fibrillation: Plan: Not on anticoagulation secondary to fall risk On metoprolol succinate (5) HLD (hyperlipidemia): Plan: Continue atorvastatin (6) Pernicious anemia: Plan: On B12 injections Q4wks Hgb: 13.4. Baseline Hgb: 13's (7) ILD (interstitial lung disease): (8) Nocturnal hypoxemia: Plan: History ILD, pulmonary fibrosis On 2L via NC HS DVT Prophylaxis Heparin SQ Admit telemetry Full Code as per discussion with pt, however if poor prognosis would want ventilator discontinued Follows with Dr Heath for routine care Admission and Anticipated Discharge Date Admission Date: September 14, 2024 Subjective Pt seen in follow up HTN urgency, falls Was sent to ED from PCP's office Complained of HAs as well, CT head in ED negative Reports feeling dizzy more often Currently sitting in the chair in NAD [facility] and is currently wearing, still orthostatic Denies any chest pain or shortness of breath Plan to DC to rehab once medically stable Seen by cardiology - started on amlodipine in addition to metoprolol and losartan, BP better controlled now Review of Systems Review of Systems: All systems reviewed & are unremarkable except as noted in Subjective Physical Exam Physical Exam: General: no distress, WDWN Head: normocephalic, atraumatic Eyes: PERRL, EOM's intact, conjunctiva non-injected, anicteric ENT: normal inspection external ears, nose, mucous membranes moist Neck: supple Lungs: clear, no respiratory distress, no wheezing CV: RRR, no pretibial edema Abd: normal BS, soft, non-tender Ext: no LE edema, no calf tenderness, moves extremities Neuro: A&O x 3, speech soft but fluent, answers appropriately, no facial asymmetry, moves extremities Skin: warm, dry Results & Data Results & Data Vital Signs (Past 12 Hours) Vital Signs Temp Pulse Pulse Resp BP Pulse Ox O2 Del Method 09/17/24 07:43 36.7 C 72 18 148/81 H 96 Room Air 09/17/24 07:36 67 09/17/24 03:03 36.5 C 59 L 18 171/77 H 94 Room Air 09/16/24 23:00 66 09/16/24 22:39 36.6 C 66 18 157/75 H 93 Room Air Laboratory Results 09/17/24 Range/Units 10:28 Sodium 135 L (136-145) mmol/L Potassium 4.6 (3.5-5.1) mmol/L Chloride 101 (98-107) mmol/L Carbon Dioxide 29 (21-32) mmol/L Anion Gap 5 (3-11) BUN 15 (6-23) mg/dl Creatinine 0.84 (0.6-1.4) mg/dl Est Cr Clr Drug Dosing 42.6 ml/min eGFR 84.93 BUN/Creatinine Ratio 17.9 (10-20) Glucose 88 (70-99(Fasting)) mg/dl Calcium 9.2 (8.6-10.3) mg/dl Phosphorus 2.7 (2.5-4.9) mg/dl Magnesium 1.8 (1.7-2.4) mg/dl B-Natriuretic Peptide 425 H (0-100) pg/ml Medications Administered Current Inpatient Medications Acetaminophen (Acetaminophen 325 Mg Tab) 650 mg PO Q4H PRN PRN Reason: Pain or Fever Stop: 10/14/24 22:00 Amlodipine Besylate (Amlodipine Besylate 5 Mg Tab) 5 mg PO QAM [facility] Stop: 10/17/24 08:59 Last Admin: 09/17/24 08:12 Dose: 5 mg Aspirin (Aspirin 81 Mg Ectab) 81 mg PO DAILY [facility] Stop: 10/15/24 08:59 Last Admin: 09/17/24 08:11 Dose: 81 mg Atorvastatin Calcium (Atorvastatin 10 Mg Tab) 10 mg PO DAILY [facility] Stop: 10/15/24 08:59 Last Admin: 09/17/24 08:13 Dose: 10 mg Duloxetine HCl (Duloxetine Hcl 20 Mg Cap) 20 mg PO DAILY [facility] Stop: 10/15/24 08:59 Last Admin: 09/17/24 08:12 Dose: 20 mg Heparin Sodium (Porcine) (Heparin Sod 5,000 Unit/0.5 Ml Vial) 5,000 units SQ Q12 [facility] Stop: 10/14/24 22:00 Last Admin: 09/15/24 08:21 Dose: 5,000 units Losartan Potassium (Losartan Potassium 50 Mg Tab) 100 mg PO DAILY [facility] Stop: 10/15/24 08:59 Last Admin: 09/17/24 08:11 Dose: 100 mg Magnesium Oxide (Magnesium Oxide 400 Mg Tab) 400 mg PO BID [facility] Stop: 10/16/24 08:59 Last Admin: 09/17/24 08:12 Dose: 400 mg Metoprolol Succinate (Metoprolol Succ 50mg Ext Rel Tab) 50 mg PO BID [facility] Stop: 10/14/24 22:00 Last Admin: 09/17/24 08:13 Dose: 50 mg Ondansetron HCl (Ondansetron Inj 2 Mg/Ml 2 Ml Vial) 4 mg IV Q6H PRN PRN Reason: Nausea Stop: 10/14/24 22:00 Pantoprazole Sodium (Pantoprazole 40 Mg Tab) 40 mg PO DAILY [facility] Stop: 10/15/24 08:59 Last Admin: 09/17/24 08:11 Dose: 40 mg Polyethylene Glycol (Polyethylene (Miralax) 17 Gm Pack) 17 gm PO DAILY PRN PRN Reason: Constipation Stop: 10/14/24 22:00 Vitamin D (Cholecalciferol 25 Mcg (1000 Units) Tab) 25 mcg PO DAILY [facility] Stop: 10/15/24 08:59 Last Admin: 09/17/24 08:10 Dose: 25 mcg (5) HLD (hyperlipidemia) Hyperlipidemia type: unspecified Qualified Code(s): E78.5 - Hyperlipidemia, unspecified
[2024-09-17 11:05] LABS: BUN Creatinine Ratio 17.9 (10-20); Calcium 9.2 mg/dl (8.6-10.3); Creatinine Clr Calc Pharmacy 42.6 ml/min; Magnesium 1.8 mg/dl (1.7-2.4); Phosphorus 2.7 mg/dl (2.5-4.9); Potassium 4.6 mmol/L (3.5-5.1)
[2024-09-17] MEDS: ACETAMINOPHEN 325 MG TAB PO PRN (20:09)
[2024-09-18 07:18] LABS: BUN Creatinine Ratio 24.4 (10-20); Calcium 8.8 mg/dl (8.6-10.3); Creatinine Clr Calc Pharmacy 45.9 ml/min; Magnesium 1.7 mg/dl (1.7-2.4); Phosphorus 3.9 mg/dl (2.5-4.9); Potassium 4.1 mmol/L (3.5-5.1)
--- NOTE | 2024-09-18 08:55 | Cardiology Progress Note ---
Date of Service September 18, 2024 Assessment & Plan (1) Hypertension: (2) Paroxysmal atrial fibrillation: Plan: [id number] (age 1, HTN) (3) Ambulatory dysfunction: (4) Recurrent falls: (5) Valvular heart disease: (6) HLD (hyperlipidemia): (7) ILD (interstitial lung disease): Plan 84-year-old male with past medical history significant for paroxysmal AFIB, HTN, HLD, recurrent falls, implanted loop recorder, mitral valve prolapse, interstitial lung disease, pulmonary fibrosis, and noctural hypoxia (on 2L supplemental oxygen at night) who presented to the ED for evaluation of elevated blood pressure. Found to have elevated blood pressure at 199/90 at PCP visit and referred to ED for evaluation. Troponin negative x2 in ED. CT Head and Neck negative. Initially given NSS bolus and labetalol 10 mg IV. Repeat BP 203/102. Has received several doses of hydralazine with blood pressure improvement. Hypertension Received IV hydralazine 10 mg this AM with improvement, blood pressure 115/69 after receiving Repeat blood pressure 158/75 at 10:59 AM Start amlodipine 5 mg PO daily Prefer amlodipine over hydralazine, but continue IV hydralazine as necessary for SBP >160 Continue losartan 100 mg PO daily Continue metoprolol succinate Paroxysmal AFIB [id number] (age 1, HTN) Normal sinus rhythm in 60-70s with occasional PACs upon telemetry review Continue metoprolol succinate 50 mg PO twice daily, increased on admission Continue aspirin 81 mg PO daily Not on anticoagulant therapy given high risk for bleeding with recurrent falls and ambulatory dysfunction, HAS-BLED score 3 (age, HTN, medication) Ambulatory Dysfunction Recurrent Falls History of recurrent falls with approximately 10 over the past year Lightheadedness and dizziness with positional changes Orthostatic vitals Continue to monitor blood pressure with medication changes, may need to further adjust blood pressure medications Valvular heart disease Last ECHO 09/04/20 with LVEF 57%, mild LVH, grade II diastolic dysfunction, mild AI, mild mitral valve prolapse, mild MR, and moderate left atrial enlargement Ordered repeat ECHO HLD Last cholesterol (172) and LDL (68) well controlled on recent labs (12/07/23) Continue atorvastatin 10 mg PO daily Interstitial lung disease with elevated pulmonary pressures Chronic O2 usage 09/17/2024 Patient appears hemodynamically stable with improving blood pressure. Would continue current therapies. If blood pressure remains persistently elevated would add low-dose oral hydralazine 12.5 mg twice per day Patient with chronic interstitial lung disease with oxygen demands. Would continue routine oxygen supplementation 09/18/2024 Acute hypertensive urgency clinically improved. No arrhythmias on telemetry. Blood pressures trending towards good control. Still mildly elevated but would not titrate medications higher at this time given orthostasis and dizziness Fall risk remains Agree with rehab plans Contact with additional questions Admission and Anticipated Discharge Date Admission Date: September 14, 2024 Subjective Patient seen and examined, chart, medications, telemetry reviewed. No chest pains or discomfort no shortness of breath Did have dizziness yesterday with orthostasis likely. Blood pressures trending towards better control Review of Systems Review of Systems: All systems reviewed & are unremarkable except as noted in Subjective Physical Exam Physical Exam: General: Thin and frail appearing. No acute distress. A+Ox3. HEENT: Normocephalic. Atraumatic. EOMI. Conjunctiva and sclera clear. NECK: Trachea midline. No thyromegaly. No carotid bruits. No JVD. Carotid upstrokes are brisk. Heart: RRR. Distant heart sounds. S1 and S2 noted. No murmur. No rubs or gallops. PMI non displaced. Lungs: No acute respiratory distress. Clear to auscultation. No wheezes.No rhonchi. No rales. Minimal crackles Abdomen: Normal bowel sounds. Soft. Nontender. No abdominal bruits. Extremities: Normal capillary refill. No edema. No clubbing or cyanosis. Pulses: radial=2/4. Skin: Warm and dry. NEURO: No focal deficits. PSYCH: Appropriate affect and insight. Results & Data Vital Signs (Past 12 Hours) Vital Signs Temp Pulse Pulse Resp BP Pulse Ox O2 Del Method 09/18/24 02:59 36.3 C L 61 18 155/81 H 98 Room Air 09/17/24 22:43 36.5 C 63 18 147/80 H 98 Nasal Cannula 09/17/24 21:46 62 O2 Flow Rate 09/18/24 02:59 09/17/24 22:43 2 09/17/24 21:46 (1) Hypertension Hypertension type: unspecified Qualified Code(s): I10 - Essential (primary) hypertension (6) HLD (hyperlipidemia) Hyperlipidemia type: unspecified Qualified Code(s): E78.5 - Hyperlipidemia, unspecified
--- NOTE | 2024-09-18 11:05 | Hospitalist Progress Note ---
Date of Service September 18, 2024 Assessment & Plan (1) Hypertensive urgency: Plan: Patient is 84 year old male with PMH HTN, HLD, paroxysmal atrial fibrillation, mitral valve prolapse, GERD, prediabetes, depression, pernicious anemia, alcohol use, interstitial lung disease, pulmonary fibrosis, nocturnal hypoxia on 2 L at bedtime presented to ER with c/o elevated BP of 199/90 noted at PCP visit today. Past 2 days with posterior SCHUSTER that lasted a few minutes and and some blurry vision that lasted 1-2 minutes and resolved. Denies any SCHUSTER or visual disturbance today. Denies CP, SOB In ER afebrile, P: 67, R: 16, BP 206/153, 100% on room air Troponin negative x 2 CTA Head and neck: No acute intracranial hemorrhage, evidence of acute territorial infarction, or other acute intracranial disease process. No occlusion, hemodynamically significant stenosis, or dissection in the major cervical arteries. No occlusion, hemodynamically significant stenosis, aneurysm, dissection, or arteriovenous malformation in the major intracranial arteries. In ER given 500 mL NSS, labetalol 10 mg IV Repeat BP 203/102 Hydralazine IV prn SBP > 160 Continue home losartan Increased metoprolol succinate to 50mg BID on admission (Was 50mg in am and 25mg in PM) Monitor on telemetry Likely will need to further adjust BP meds monitor CBC, BMP EKG in am Received hydralazine t10/24 AM for elev. BP Feeling dizzy on and off, falling. Also fell in his room repeated ECG Echo obtained- Normal left ventricular size with moderate left ventricular hypertrophy Normal left ventricular wall function EF 65% Aortic sclerosis without stenosis Mild tricuspid insufficiency with elevated right heart pressures estimated 50-60 mmHg Cardiology consulted - Metoprolol increased but will need to follow closely heart rate and conduction given first-degree AV block. Continue current dosing of losartan Added third agent with calcium channel jose guadalupe - amlodipine 5 mg continue daily BP better controlled, Still mildly elevated but would not titrate medications higher at this time given orthostasis and dizziness (2) Ambulatory dysfunction: (3) Recurrent falls: Plan: Reports 10 falls in past year. Sometimes dizzy and sometimes feels legs get weak causing fall Uses Walker at baseline Orthostatic vital signs positive Fall precautions PT/OT eval -> recommend rehab, pt agreeable ordered TEDs and pt is currently wearing [place] dizzy when working with PT, then reportedly walked again and felt ok Later notified by RN that pt fell in his room, felt dizzy obtained ECG, echo, involved cardiology as well, as above (4) Paroxysmal atrial fibrillation: Plan: Not on anticoagulation secondary to fall risk On metoprolol succinate (5) HLD (hyperlipidemia): Plan: Continue atorvastatin (6) Pernicious anemia: Plan: On B12 injections Q4wks Hgb: 13.4. Baseline Hgb: 13's (7) ILD (interstitial lung disease): (8) Nocturnal hypoxemia: Plan: History ILD, pulmonary fibrosis On 2L via NC HS DVT Prophylaxis Heparin SQ Admit telemetry Full Code as per discussion with pt, however if poor prognosis would want ventilator discontinued Follows with Dr Heath for routine care Admission and Anticipated Discharge Date Admission Date: September 14, 2024 Subjective Pt seen in follow up HTN urgency, falls Was sent to ED from PCP's office Complained of HAs as well, CT head in ED negative Reports feeling dizzy more often Currently sitting in the chair in NAD [facility] and is currently wearing, for being orthostatic Denies any chest pain or shortness of breath Plan to DC to rehab once medically stable Seen by cardiology - started on amlodipine in addition to metoprolol and losartan, BP better controlled now Review of Systems Review of Systems: All systems reviewed & are unremarkable except as noted in Subjective Physical Exam Physical Exam: General: no distress, WDWN Head: normocephalic, atraumatic Eyes: PERRL, EOM's intact, conjunctiva non-injected, anicteric ENT: normal inspection external ears, nose, mucous membranes moist Neck: supple Lungs: clear, no respiratory distress, no wheezing CV: RRR, no pretibial edema Abd: normal BS, soft, non-tender Ext: no LE edema, no calf tenderness, moves extremities Neuro: A&O x 3, speech soft but fluent, answers appropriately, no facial asymmetry, moves extremities Skin: warm, dry Results & Data Results & Data Vital Signs (Past 12 Hours) Vital Signs Temp Pulse Pulse Resp BP Pulse Ox O2 Del Method 09/18/24 10:21 64 09/18/24 08:29 36.4 C L 18 98 Room Air 09/18/24 02:59 36.3 C L 61 18 155/81 H 98 Room Air Laboratory Results 09/18/24 09/17/24 Range/Units 06:34 10:28 Sodium 136 135 L (136-145) mmol/L Potassium 4.1 4.6 (3.5-5.1) mmol/L Chloride 102 101 (98-107) mmol/L Carbon Dioxide 27 29 (21-32) mmol/L Anion Gap 7 5 (3-11) BUN 19 15 (6-23) mg/dl Creatinine 0.78 0.84 (0.6-1.4) mg/dl Est Cr Clr Drug Dosing 45.9 42.6 ml/min eGFR 86.85 84.93 BUN/Creatinine Ratio 24.4 H 17.9 (10-20) Glucose 88 88 (70-99(Fasting)) mg/dl Calcium 8.8 9.2 (8.6-10.3) mg/dl Phosphorus 3.9 D 2.7 (2.5-4.9) mg/dl Magnesium 1.7 1.8 (1.7-2.4) mg/dl B-Natriuretic Peptide 425 H (0-100) pg/ml Medications Administered Current Inpatient Medications Acetaminophen (Acetaminophen 325 Mg Tab) 650 mg PO Q4H PRN PRN Reason: Pain or Fever Stop: 10/14/24 22:00 Last Admin: 09/17/24 20:09 Dose: 650 mg Amlodipine Besylate (Amlodipine Besylate 5 Mg Tab) 5 mg PO QAM [facility] Stop: 10/17/24 08:59 Last Admin: 09/18/24 09:17 Dose: 5 mg Aspirin (Aspirin 81 Mg Ectab) 81 mg PO DAILY [facility] Stop: 10/15/24 08:59 Last Admin: 09/18/24 09:17 Dose: 81 mg Atorvastatin Calcium (Atorvastatin 10 Mg Tab) 10 mg PO DAILY [facility] Stop: 10/15/24 08:59 Last Admin: 09/18/24 09:17 Dose: 10 mg Duloxetine HCl (Duloxetine Hcl 20 Mg Cap) 20 mg PO DAILY [facility] Stop: 10/15/24 08:59 Last Admin: 09/18/24 09:17 Dose: 20 mg Heparin Sodium (Porcine) (Heparin Sod 5,000 Unit/0.5 Ml Vial) 5,000 units SQ Q12 [facility] Stop: 10/14/24 22:00 Last Admin: 09/15/24 08:21 Dose: 5,000 units Losartan Potassium (Losartan Potassium 50 Mg Tab) 100 mg PO DAILY [facility] Stop: 10/15/24 08:59 Last Admin: 09/18/24 09:16 Dose: 100 mg Magnesium Oxide (Magnesium Oxide 400 Mg Tab) 400 mg PO BID [facility] Stop: 10/16/24 08:59 Last Admin: 09/18/24 09:16 Dose: 400 mg Metoprolol Succinate (Metoprolol Succ 50mg Ext Rel Tab) 50 mg PO BID [facility] Stop: 10/14/24 22:00 Last Admin: 09/18/24 09:16 Dose: 50 mg Ondansetron HCl (Ondansetron Inj 2 Mg/Ml 2 Ml Vial) 4 mg IV Q6H PRN PRN Reason: Nausea Stop: 10/14/24 22:00 Pantoprazole Sodium (Pantoprazole 40 Mg Tab) 40 mg PO DAILY [facility] Stop: 10/15/24 08:59 Last Admin: 09/18/24 09:16 Dose: 40 mg Polyethylene Glycol (Polyethylene (Miralax) 17 Gm Pack) 17 gm PO DAILY PRN PRN Reason: Constipation Stop: 10/14/24 22:00 Vitamin D (Cholecalciferol 25 Mcg (1000 Units) Tab) 25 mcg PO DAILY [facility] Stop: 10/15/24 08:59 Last Admin: 09/18/24 09:16 Dose: 25 mcg (5) HLD (hyperlipidemia) Hyperlipidemia type: unspecified Qualified Code(s): E78.5 - Hyperlipidemia, unspecified
[2024-09-18] MEDS: MAGNESIUM SULFATE / D5W 1 GM/100 ML BAG IV ONE (13:40)
--- NOTE | 2024-09-19 13:57 | Hospitalist Progress Note ---
Date of Service September 19, 2024 Assessment & Plan (1) Hypertensive urgency: Plan: Patient is 84 year old male with PMH HTN, HLD, paroxysmal atrial fibrillation, mitral valve prolapse, GERD, prediabetes, depression, pernicious anemia, alcohol use, interstitial lung disease, pulmonary fibrosis, nocturnal hypoxia on 2 L at bedtime presented to ER with c/o elevated BP of 199/90 noted at PCP visit today. Past 2 days with posterior SCHUSTER that lasted a few minutes and and some blurry vision that lasted 1-2 minutes and resolved. Denies any SCHUSTER or visual disturbance today. Denies CP, SOB In ER afebrile, P: 67, R: 16, BP 206/153, 100% on room air Troponin negative x 2 CTA Head and neck: No acute intracranial hemorrhage, evidence of acute territorial infarction, or other acute intracranial disease process. No occlusion, hemodynamically significant stenosis, or dissection in the major cervical arteries. No occlusion, hemodynamically significant stenosis, aneurysm, dissection, or arteriovenous malformation in the major intracranial arteries. In ER given 500 mL NSS, labetalol 10 mg IV Repeat BP 203/102 Hydralazine IV prn SBP > 160 Continue home losartan Increased metoprolol succinate to 50mg BID on admission (Was 50mg in am and 25mg in PM) Monitor on telemetry Likely will need to further adjust BP meds monitor CBC, BMP EKG in am Received hydralazine t10/24 AM for elev. BP Feeling dizzy on and off, falling. Also fell in his room repeated ECG Echo obtained- Normal left ventricular size with moderate left ventricular hypertrophy Normal left ventricular wall function EF 65% Aortic sclerosis without stenosis Mild tricuspid insufficiency with elevated right heart pressures estimated 50-60 mmHg Cardiology consulted - Metoprolol increased but will need to follow closely heart rate and conduction given first-degree AV block. Continue current dosing of losartan Added third agent with calcium channel jose guadalupe - amlodipine 5 mg continue daily BP better controlled, Still mildly elevated but would not titrate medications higher at this time given orthostasis and dizziness (2) Ambulatory dysfunction: (3) Recurrent falls: Plan: Reports 10 falls in past year. Sometimes dizzy and sometimes feels legs get weak causing fall Uses Walker at baseline Orthostatic vital signs positive Fall precautions PT/OT eval -> recommend rehab, pt agreeable ordered TEDs and pt is currently wearing [place] dizzy when working with PT, then reportedly walked again and felt ok Later notified by RN that pt fell in his room, felt dizzy obtained ECG, echo, involved cardiology as well, as above (4) Paroxysmal atrial fibrillation: Plan: Not on anticoagulation secondary to fall risk On metoprolol succinate (5) HLD (hyperlipidemia): Plan: Continue atorvastatin (6) Pernicious anemia: Plan: On B12 injections Q4wks Hgb: 13.4. Baseline Hgb: 13's (7) ILD (interstitial lung disease): (8) Nocturnal hypoxemia: Plan: History ILD, pulmonary fibrosis On 2L via NC HS DVT Prophylaxis Heparin SQ Admit telemetry Full Code as per discussion with pt, however if poor prognosis would want ventilator discontinued Follows with Dr Heath for routine care Admission and Anticipated Discharge Date Admission Date: September 14, 2024 Subjective Pt seen in follow up HTN urgency, falls Was sent to ED from PCP's office Complained of HAs as well, CT head in ED negative Reports feeling dizzy more often Currently sitting in the chair in [facility] and is currently wearing, for being orthostatic Denies any chest pain or shortness of breath Plan to DC to rehab once medically stable Seen by cardiology - started on amlodipine in addition to metoprolol and losartan, BP better controlled now Awaiting placement Update: notified pt had a run of VT, asymptomatic. cardiology aware Review of Systems Review of Systems: All systems reviewed & are unremarkable except as noted in Subjective Physical Exam Physical Exam: General: no distress, WDWN Head: normocephalic, atraumatic Eyes: PERRL, EOM's intact, conjunctiva non-injected, anicteric ENT: normal inspection external ears, nose, mucous membranes moist Neck: supple Lungs: clear, no respiratory distress, no wheezing CV: RRR, no pretibial edema Abd: normal BS, soft, non-tender Ext: no LE edema, no calf tenderness, moves extremities Neuro: A&O x 3, speech soft but fluent, answers appropriately, no facial asymmetry, moves extremities Skin: warm, dry Results & Data Results & Data Vital Signs (Past 12 Hours) Vital Signs Temp Pulse Pulse Resp BP Pulse Ox O2 Del Method 09/19/24 11:25 36.4 C L 61 20 93/54 L 98 Room Air 09/19/24 09:18 63 09/19/24 07:49 36.8 C 66 18 156/75 H 93 Room Air 09/19/24 07:32 36.8 C 66 18 156/75 H 93 Room Air 09/19/24 02:31 36.8 C 62 18 172/82 H 96 Room Air Medications Administered Current Inpatient Medications Acetaminophen (Acetaminophen 325 Mg Tab) 650 mg PO Q4H PRN PRN Reason: Pain or Fever Stop: 10/14/24 22:00 Last Admin: 09/19/24 08:22 Dose: 650 mg Amlodipine Besylate (Amlodipine Besylate 5 Mg Tab) 5 mg PO QAM LYNDA Stop: 10/17/24 08:59 Last Admin: 09/19/24 08:19 Dose: 5 mg Aspirin (Aspirin 81 Mg Ectab) 81 mg PO DAILY LYNDA Stop: 10/15/24 08:59 Last Admin: 09/19/24 08:19 Dose: 81 mg Atorvastatin Calcium (Atorvastatin 10 Mg Tab) 10 mg PO DAILY LYNDA Stop: 10/15/24 08:59 Last Admin: 09/19/24 08:19 Dose: 10 mg Duloxetine HCl (Duloxetine Hcl 20 Mg Cap) 20 mg PO DAILY LYNDA Stop: 10/15/24 08:59 Last Admin: 09/19/24 08:19 Dose: 20 mg Heparin Sodium (Porcine) (Heparin Sod 5,000 Unit/0.5 Ml Vial) 5,000 units SQ Q12 LYNDA Stop: 10/14/24 22:00 Last Admin: 09/19/24 10:37 Dose: Not Given Losartan Potassium (Losartan Potassium 50 Mg Tab) 100 mg PO DAILY LYNDA Stop: 10/15/24 08:59 Last Admin: 09/19/24 08:19 Dose: 100 mg Magnesium Oxide (Magnesium Oxide 400 Mg Tab) 400 mg PO BID LYNDA Stop: 10/16/24 08:59 Last Admin: 09/19/24 08:19 Dose: 400 mg Metoprolol Succinate (Metoprolol Succ 50mg Ext Rel Tab) 50 mg PO BID LYNDA Stop: 10/14/24 22:00 Last Admin: 09/19/24 08:19 Dose: 50 mg Ondansetron HCl (Ondansetron Inj 2 Mg/Ml 2 Ml Vial) 4 mg IV Q6H PRN PRN Reason: Nausea Stop: 10/14/24 22:00 Pantoprazole Sodium (Pantoprazole 40 Mg Tab) 40 mg PO DAILY LYNDA Stop: 10/15/24 08:59 Last Admin: 09/19/24 08:19 Dose: 40 mg Polyethylene Glycol (Polyethylene (Miralax) 17 Gm Pack) 17 gm PO DAILY PRN PRN Reason: Constipation Stop: 10/14/24 22:00 Vitamin D (Cholecalciferol 25 Mcg (1000 Units) Tab) 25 mcg PO DAILY LYNDA Stop: 10/15/24 08:59 Last Admin: 09/19/24 08:19 Dose: 25 mcg (5) HLD (hyperlipidemia) Hyperlipidemia type: unspecified Qualified Code(s): E78.5 - Hyperlipidemia, unspecified
[2024-09-19] MEDS: MAGNESIUM SULFATE / D5W 1 GM/100 ML BAG IV ONE (14:22)
--- NOTE | 2024-09-19 17:34 | Cardiology Progress Note ---
Date of Service September 19, 2024 Assessment & Plan (1) Hypertension: (2) Paroxysmal atrial fibrillation: Plan: [id number] 3 (age 1, HTN) (3) Ambulatory dysfunction: (4) Recurrent falls: (5) Valvular heart disease: (6) HLD (hyperlipidemia): (7) ILD (interstitial lung disease): Plan Acute hypertensive urgency clinically improved. Per review of telemetry on 09/19/2024 patient had a short run of wide-complex rhythm this morning at 6:57 AM that was 6 beats in duration and 80 bpm. There was a second episode today at 1342, 7 beats in duration, wide-complex tachycardia consistent with nonsustained ventricular tachycardia, rate in the 140s. No symptoms were associated with these episodes. Blood pressures trending towards good control. Would not titrate medications higher at this time given orthostasis and dizziness Fall risk remains Agree with rehab plans Admission and Anticipated Discharge Date Admission Date: September 14, 2024 Subjective Patient seen in cardiology follow-up. He was sitting in his chair eating his evening meal. No acute complaint. Blood pressure is trended toward improvement. Physical Exam Physical Exam: General: no acute distress and stated age Eyes: conjunctiva are pink and non-injected, sclera clear Neck: normal jugular venous pulse, no hepatojugular reflux Chest: normal shape and normal respiratory effort Lungs: clear to auscultation and percussion Cardiac Exam: - regular heart sounds, no murmurs, rubs, or gallops, no jugular venous distention Abdomen: abdomen soft, non-tender, no abnormal masses and no hepatosplenomegaly Musculoskeletal: no gait disturbance, no weakness Extremities: no edema and no cyanosis Neuro:awake, conversant, follows commands, no focal motor deficits Results & Data Vital Signs (Past 12 Hours) Vital Signs Temp Pulse Pulse Resp BP Pulse Ox O2 Del Method 09/19/24 15:28 60 09/19/24 14:12 60 16 112/75 95 Room Air 09/19/24 11:25 36.4 C L 61 20 93/54 L 98 Room Air 09/19/24 09:18 63 09/19/24 07:49 36.8 C 66 18 156/75 H 93 Room Air 09/19/24 07:32 36.8 C 66 18 156/75 H 93 Room Air (1) Hypertension Hypertension type: unspecified Qualified Code(s): I10 - Essential (primary) hypertension (6) HLD (hyperlipidemia) Hyperlipidemia type: unspecified Qualified Code(s): E78.5 - Hyperlipidemia, unspecified
--- NOTE | 2024-09-20 11:20 | Cardiology Progress Note ---
Date of Service September 20, 2024 Assessment & Plan (1) Hypertension: (2) Paroxysmal atrial fibrillation: Plan: [id number] (age 1, HTN) (3) Ambulatory dysfunction: (4) Recurrent falls: (5) Valvular heart disease: (6) HLD (hyperlipidemia): (7) ILD (interstitial lung disease): Plan Acute hypertensive urgency clinically improved. Per review of telemetry on 09/19/2024 patient had a short run of wide-complex rhythm this morning at 6:57 AM that was 6 beats in duration and 80 bpm. There was a second episode today at 1342, 7 beats in duration, wide-complex tachycardia consistent with nonsustained ventricular tachycardia, rate in the 140s. No symptoms were associated with these episodes. Blood pressures trending towards good control. Would not titrate medications higher at this time given orthostasis and dizziness Fall risk remains Admission and Anticipated Discharge Date Admission Date: September 14, 2024 Subjective Patient seen in cardiology follow up. No acute complaints. Telemetry reveals SR in the 60s with occasional PACs. No ventricular arrhythmias overnight. Physical Exam Constitutional: + thin and + cachectic Respiratory: normal respiratory effort, lungs clear to auscultation Cardiovascular: RRR, no murmur, no edema Gastrointestinal (Abdomen): normal bowel sounds, soft, nontender, no hepatosplenomegaly Neurologic: PERRL, EOMI, accommodation nl, no face palsy, no dysarthria Results & Data Vital Signs (Past 12 Hours) Vital Signs Temp Pulse Pulse Resp BP Pulse Ox O2 Del Method 09/20/24 11:02 36.7 C 67 16 97/59 L 95 Room Air 09/20/24 07:53 36.3 C L 63 20 164/80 H 90 Room Air 09/20/24 02:46 36.4 C L 70 18 163/75 H 95 Room Air (1) Hypertension Hypertension type: unspecified Qualified Code(s): I10 - Essential (primary) hypertension (6) HLD (hyperlipidemia) Hyperlipidemia type: unspecified Qualified Code(s): E78.5 - Hyperlipidemia, unspecified
--- NOTE | 2024-09-20 13:41 | Hospitalist Progress Note ---
Date of Service September 20, 2024 Assessment & Plan (1) Hypertensive urgency: Plan: Patient is 84 year old male with PMH HTN, HLD, paroxysmal atrial fibrillation, mitral valve prolapse, GERD, prediabetes, depression, pernicious anemia, alcohol use, interstitial lung disease, pulmonary fibrosis, nocturnal hypoxia on 2 L at bedtime presented to ER with c/o elevated BP of 199/90 noted at PCP visit today. Past 2 days with posterior SCHUSTER that lasted a few minutes and and some blurry vision that lasted 1-2 minutes and resolved. Denies any SCHUSTER or visual disturbance today. Denies CP, SOB In ER afebrile, P: 67, R: 16, BP 206/153, 100% on room air Troponin negative x 2 CTA Head and neck: No acute intracranial hemorrhage, evidence of acute territorial infarction, or other acute intracranial disease process. No occlusion, hemodynamically significant stenosis, or dissection in the major cervical arteries. No occlusion, hemodynamically significant stenosis, aneurysm, dissection, or arteriovenous malformation in the major intracranial arteries. In ER given 500 mL NSS, labetalol 10 mg IV Repeat BP 203/102 Hydralazine IV prn SBP > 160 Continue home losartan Increased metoprolol succinate to 50mg BID on admission (Was 50mg in am and 25mg in PM) Monitor on telemetry Likely will need to further adjust BP meds monitor CBC, BMP EKG in am Received hydralazine t10/24 AM for elev. BP Feeling dizzy on and off, falling. Also fell in his room repeated ECG Echo obtained- Normal left ventricular size with moderate left ventricular hypertrophy Normal left ventricular wall function EF 65% Aortic sclerosis without stenosis Mild tricuspid insufficiency with elevated right heart pressures estimated 50-60 mmHg Cardiology consulted - Metoprolol increased but will need to follow closely heart rate and conduction given first-degree AV block. Continue current dosing of losartan Added third agent with calcium channel jose guadalupe - amlodipine 5 mg continue daily BP better controlled, Still mildly elevated but would not titrate medications higher at this time given orthostasis and dizziness (2) Ambulatory dysfunction: (3) Recurrent falls: Plan: Reports 10 falls in past year. Sometimes dizzy and sometimes feels legs get weak causing fall Uses Walker at baseline Orthostatic vital signs positive Fall precautions PT/OT eval -> recommend rehab, pt agreeable ordered TEDs and pt is currently wearing [place] dizzy when working with PT, then reportedly walked again and felt ok Later notified by RN that pt fell in his room, felt dizzy obtained ECG, echo, involved cardiology as well, as above (4) Paroxysmal atrial fibrillation: Plan: Not on anticoagulation secondary to fall risk On metoprolol succinate NSVT - on 09/19 - asymptomatic - K and Mag repleted - cardiology following, no recurrence (5) HLD (hyperlipidemia): Plan: Continue atorvastatin (6) Pernicious anemia: Plan: On B12 injections Q4wks Hgb: 13.4. Baseline Hgb: 13's (7) ILD (interstitial lung disease): (8) Nocturnal hypoxemia: Plan: History ILD, pulmonary fibrosis On 2L via [place] HS DVT Prophylaxis Heparin SQ Dispo telemetry - CM involved in dc plan to rehab Full Code as per discussion with pt, however if poor prognosis would want ventilator discontinued Follows with Dr Heath for routine care Admission and Anticipated Discharge Date Admission Date: September 14, 2024 Subjective Pt seen in follow up HTN urgency, falls Was sent to ED from PCP's office Complained of HAs as well, CT head in ED negative Reports feeling dizzy more often Currently sitting in the chair in [facility] and is currently wearing, for being orthostatic Denies any chest pain or shortness of breath Plan to DC to rehab once medically stable Seen by cardiology - started on amlodipine in addition to metoprolol and losartan, BP better controlled now Awaiting placement Review of Systems Review of Systems: All systems reviewed & are unremarkable except as noted in Subjective Physical Exam Physical Exam: General: no distress, WDWN Head: normocephalic, atraumatic Eyes: PERRL, EOM's intact, conjunctiva non-injected, anicteric ENT: normal inspection external ears, nose, mucous membranes moist Neck: supple Lungs: clear, no respiratory distress, no wheezing CV: RRR, no pretibial edema Abd: normal BS, soft, non-tender Ext: no LE edema, no calf tenderness, moves extremities Neuro: A&O x 3, speech soft but fluent, answers appropriately, no facial asymmetry, moves extremities Skin: warm, dry Results & Data Results & Data Vital Signs (Past 12 Hours) Vital Signs Temp Pulse Pulse Pulse Resp BP Pulse Ox 09/20/24 11:02 36.7 C 67 16 97/59 L 95 09/20/24 08:00 65 09/20/24 08:00 09/20/24 07:53 36.3 C L 63 20 164/80 H 90 09/20/24 02:46 36.4 C L 70 18 163/75 H 95 O2 Del Method 09/20/24 11:02 Room Air 09/20/24 08:00 09/20/24 08:00 Room Air 09/20/24 07:53 Room Air 09/20/24 02:46 Room Air Laboratory Results 09/20/24 Range/Units 07:29 Magnesium 2.1 (1.7-2.4) mg/dl Medications Administered Current Inpatient Medications Acetaminophen (Acetaminophen 325 Mg Tab) 650 mg PO Q4H PRN PRN Reason: Pain or Fever Stop: 10/14/24 22:00 Last Admin: 09/19/24 08:22 Dose: 650 mg Amlodipine Besylate (Amlodipine Besylate 5 Mg Tab) 5 mg PO QAM LYNDA Stop: 10/17/24 08:59 Last Admin: 09/20/24 08:48 Dose: 5 mg Aspirin (Aspirin 81 Mg Ectab) 81 mg PO DAILY LYNDA Stop: 10/15/24 08:59 Last Admin: 09/20/24 08:48 Dose: 81 mg Atorvastatin Calcium (Atorvastatin 10 Mg Tab) 10 mg PO DAILY LYNDA Stop: 10/15/24 08:59 Last Admin: 09/20/24 08:50 Dose: 10 mg Duloxetine HCl (Duloxetine Hcl 20 Mg Cap) 20 mg PO DAILY LYNDA Stop: 10/15/24 08:59 Last Admin: 09/20/24 08:50 Dose: 20 mg Heparin Sodium (Porcine) (Heparin Sod 5,000 Unit/0.5 Ml Vial) 5,000 units SQ Q12 LYNDA Stop: 10/14/24 22:00 Last Admin: 09/20/24 09:04 Dose: 5,000 units Losartan Potassium (Losartan Potassium 50 Mg Tab) 100 mg PO DAILY LYNDA Stop: 10/15/24 08:59 Last Admin: 09/20/24 08:44 Dose: 100 mg Magnesium Oxide (Magnesium Oxide 400 Mg Tab) 400 mg PO BID LYNDA Stop: 10/16/24 08:59 Last Admin: 09/20/24 08:44 Dose: 400 mg Metoprolol Succinate (Metoprolol Succ 50mg Ext Rel Tab) 50 mg PO BID LYNDA Stop: 10/14/24 22:00 Last Admin: 09/20/24 08:47 Dose: 50 mg Ondansetron HCl (Ondansetron Inj 2 Mg/Ml 2 Ml Vial) 4 mg IV Q6H PRN PRN Reason: Nausea Stop: 10/14/24 22:00 Pantoprazole Sodium (Pantoprazole 40 Mg Tab) 40 mg PO DAILY LYNDA Stop: 10/15/24 08:59 Last Admin: 09/20/24 08:49 Dose: 40 mg Polyethylene Glycol (Polyethylene (Miralax) 17 Gm Pack) 17 gm PO DAILY PRN PRN Reason: Constipation Stop: 10/14/24 22:00 Vitamin D (Cholecalciferol 25 Mcg (1000 Units) Tab) 25 mcg PO DAILY [facility] Stop: 10/15/24 08:59 Last Admin: 09/20/24 08:50 Dose: 25 mcg (5) HLD (hyperlipidemia) Hyperlipidemia type: unspecified Qualified Code(s): E78.5 - Hyperlipidemia, unspecified
[2024-09-21] MEDS: MAGNESIUM OXIDE 400 MG TAB PO SCH (08:22)
--- NOTE | 2024-09-21 09:57 | Cardiology Progress Note ---
Date of Service September 21, 2024 Assessment & Plan (1) Hypertension: (2) Paroxysmal atrial fibrillation: Plan: [id number] (age 1, HTN) (3) Ambulatory dysfunction: (4) Recurrent falls: (5) Valvular heart disease: (6) HLD (hyperlipidemia): (7) ILD (interstitial lung disease): Plan Acute hypertensive urgency clinically improved. Per review of telemetry on 09/19/2024 patient had a short run of wide-complex rhythm this morning at 6:57 AM that was 6 beats in duration and 80 bpm. There was a second episode today at 1342, 7 beats in duration, wide-complex tachycardia consistent with nonsustained ventricular tachycardia, rate in the 140s. No symptoms were associated with these episodes. Blood pressures trending towards good control. Would not titrate medications higher at this time given orthostasis and dizziness Fall risk remains Per case management note, a referral to [facility] for rehab has been placed. Cardiology to sign off. Call with questions or concerns. Admission and Anticipated Discharge Date Admission Date: September 14, 2024 Subjective Pt seen in cardiology followup. No complaints. Telemetry reveals SR in the 60s, no arrhythmias overnight. Physical Exam Physical Exam: General: no acute distress and stated age Eyes: conjunctiva are pink and non-injected, sclera clear Neck: normal jugular venous pulse, no hepatojugular reflux Chest: normal shape and normal respiratory effort Lungs: clear to auscultation and percussion Cardiac Exam: - regular heart sounds, no murmurs, rubs, or gallops, no jugular venous distention Abdomen: abdomen soft, non-tender, no abnormal masses and no hepatosplenomegaly Musculoskeletal: no gait disturbance, no weakness Extremities: no edema and no cyanosis Neuro:awake, conversant, follows commands, no focal motor deficits Constitutional: + thin and + cachectic Respiratory: normal respiratory effort, lungs clear to auscultation Cardiovascular: RRR, no murmur, no edema Gastrointestinal (Abdomen): normal bowel sounds, soft, nontender, no hepatosplenomegaly Neurologic: PERRL, EOMI, accommodation nl, no face palsy, no dysarthria Results & Data Vital Signs (Past 12 Hours) Vital Signs Temp Pulse Pulse Resp BP Pulse Ox O2 Del Method 09/21/24 08:00 61 09/21/24 07:32 36.4 C L 62 18 167/79 H 95 Room Air 09/21/24 03:41 36.7 C 63 16 138/83 Room Air 09/20/24 23:00 60 09/20/24 22:39 36.5 C 60 18 137/69 95 Room Air (1) Hypertension Hypertension type: unspecified Qualified Code(s): I10 - Essential (primary) hypertension (6) HLD (hyperlipidemia) Hyperlipidemia type: unspecified Qualified Code(s): E78.5 - Hyperlipidemia, unspecified
--- NOTE | 2024-09-21 15:28 | Hospitalist Progress Note ---
Date of Service September 21, 2024 Assessment & Plan (1) Left anterior fascicular block: (2) Hypertensive urgency: Plan Patient is 84 year old male with PMH HTN, HLD, paroxysmal atrial fibrillation, mitral valve prolapse, GERD, prediabetes, depression, pernicious anemia, alcohol use, interstitial lung disease, pulmonary fibrosis, nocturnal hypoxia on 2 L at bedtime presented to ER with c/o elevated BP of 199/90 noted at PCP visit today. Past 2 days with posterior SCHUSTER that lasted a few minutes and and some blurry vision that lasted 1-2 minutes and resolved. Denies any SCHUSTER or visual disturbance today. Denies CP, SOB Currently awaiting placement. Hypertensive urgency: In ER afebrile, P: 67, R: 16, BP 206/153, 100% on room air Troponin negative x 2 CTA Head and neck: No acute intracranial hemorrhage, evidence of acute territorial infarction, or other acute intracranial disease process. No occlusion, hemodynamically significant stenosis, or dissection in the major cervical arteries. No occlusion, hemodynamically significant stenosis, aneurysm, dissection, or arteriovenous malformation in the major intracranial arteries. In ER given 500 mL NSS, labetalol 10 mg IV Repeat BP 203/102 Hydralazine IV prn SBP > 160 Continue home losartan Increased metoprolol succinate to 50mg BID on admission (Was 50mg in am and 25mg in PM) Monitor on telemetry Likely will need to further adjust BP meds monitor CBC, BMP EKG in am Received hydralazine t10/24 AM for elev. BP Feeling dizzy on and off, falling. Also fell in his room repeated ECG Echo obtained- Normal left ventricular size with moderate left ventricular hypertrophy Normal left ventricular wall function EF 65% Aortic sclerosis without stenosis Mild tricuspid insufficiency with elevated right heart pressures estimated 50-60 mmHg Cardiology consulted - Metoprolol increased but will need to follow closely heart rate and conduction given first-degree AV block. Continue current dosing of losartan Added third agent with calcium channel jose guadalupe - amlodipine 5 mg continue daily BP better controlled, Still mildly elevated but would not titrate medications higher at this time given orthostasis and dizziness Stable Ambulatory dysfunction: Recurrent falls: Reports 10 falls in past year. Sometimes dizzy and sometimes feels legs get weak causing fall Uses Walker at baseline Orthostatic vital signs positive Fall precautions PT/OT eval -> recommend rehab, pt agreeable ordered TEDs and pt is currently wearing [place] dizzy when working with PT, then reportedly walked again and felt ok Later notified by RN that pt fell in his room, felt dizzy obtained ECG, echo, involved cardiology as well, as above Paroxysmal atrial fibrillation: Not on anticoagulation secondary to fall risk On metoprolol succinate NSVT - on 09/19 - asymptomatic - K and Mag repleted - cardiology following, no recurrence HLD (hyperlipidemia): Continue atorvastatin Pernicious anemia: On B12 injections Q4wks Hgb: 13.4. Baseline Hgb: 13's ILD (interstitial lung disease): Nocturnal hypoxemia: History ILD, pulmonary fibrosis On 2L via [place] HS DVT Prophylaxis: Heparin SQ Dispo telemetry - CM involved in dc plan to rehab Full Code as per discussion with pt, however if poor prognosis would want ventilator discontinued Admission and Anticipated Discharge Date Admission Date: September 14, 2024 Subjective Pt was seen sitting in chair watching tv. Noting some slight right sided flank pain, no use of prn pain relievers for it yet. Otherwise denied acute concerns Review of Systems Review of Systems: All systems reviewed & are unremarkable except as noted in Subjective Physical Exam Physical Exam: General: Alert, oriented. No acute distress Psych: Appropriate mood and affect HEENT: NC/AT CV: RRR Resp: Breath sounds clear bilaterally, no increased effort of breathing. Abdomen: Soft, nontender Extremities: No edema in lower extremities bilaterally. Results & Data Results & Data Vital Signs (Past 12 Hours) Vital Signs Temp Pulse Pulse Resp BP Pulse Ox O2 Del Method 09/21/24 13:56 59 L 09/21/24 11:14 36.6 C 52 L 18 111/60 96 Room Air 09/21/24 08:00 Room Air 09/21/24 08:00 61 09/21/24 07:32 36.4 C L 62 18 167/79 H 95 Room Air 09/21/24 03:41 36.7 C 63 16 138/83 Room Air
--- NOTE | 2024-09-22 14:31 | Hospitalist Progress Note ---
Date of Service September 22, 2024 Assessment & Plan (1) Left anterior fascicular block: (2) Hypertensive urgency: Plan Patient is 84 year old male with PMH HTN, HLD, paroxysmal atrial fibrillation, mitral valve prolapse, GERD, prediabetes, depression, pernicious anemia, alcohol use, interstitial lung disease, pulmonary fibrosis, nocturnal hypoxia on 2 L at bedtime presented to ER with c/o elevated BP of 199/90 noted at PCP visit today. Past 2 days with posterior SCHUSTER that lasted a few minutes and and some blurry vision that lasted 1-2 minutes and resolved. Denies any SCHUSTER or visual disturbance today. Denies CP, SOB Currently awaiting placement. Hypertensive urgency In ER afebrile, P: 67, R: 16, BP 206/153, 100% on room air Troponin negative x 2 CTA Head and neck: No acute intracranial hemorrhage, evidence of acute territorial infarction, or other acute intracranial disease process. No occlusion, hemodynamically significant stenosis, or dissection in the major cervical arteries. No occlusion, hemodynamically significant stenosis, ane urysm, dissection, or arteriovenous malformation in the major intracranial arteries. In ER given 500 mL NSS, labetalol 10 mg IV Was treated with Hydralazine IV prn SBP > 160 Later had an acute event with fall after hydralazine on 09/15. EKG and echo repeated at that time. Cardiology was consulted and recommended the following: -Continued home losartan 100mg daily -Increased metoprolol succinate to 50mg BID on admission (Was 50mg in am and 25mg in PM) -add amlodipine 5mg daily -Echo obtained- noted moderate LVH, EF 65%, Aortic sclerosis without stenosis, mild TR with elevated right heart pressures estimated 50-60 mmHg -Per Dr Davis: "Blood pressures trending towards good control. Would not titrate medications higher at this time given orthostasis and dizziness. Fall r isk remains" Bp currently controlled Awaiting placement Paroxysmal atrial fibrillation: Not on anticoagulation secondary to fall risk On metoprolol succinate 50mg BID as noted above Continue with telemetry monitoring Cardiology follow up after discharge NSVT Episode on 09/19, asymptomatic K and Mag repleted cardiology following, noted "Would not titrate medications higher at this time given orthostasis and dizziness. Fall risk remains" Cardiology followup after discharge Ambulatory dysfunction: Recurrent falls: Reports 10 falls in past year. Sometimes dizzy and sometimes feels legs get weak causing fall Uses Walker at baseline Orthostatic vital signs positive Fall precautions PT/OT eval -> recommend rehab, pt agreeable ordered TEDs and pt is currently wearing Pt currently awaiting rehab placement HLD (hyperlipidemia): Continue atorvastatin Pernicious anemia: On B12 injections Q4wks Hgb: 13.4. Baseline Hgb: 13's ILD (interstitial lung disease): Nocturnal hypoxemia: History ILD, pulmonary fibrosis On 2L via NC HS Diet: HH DVT Prophylaxis: Heparin SQ Dispo telemetry - to rehab once placement available Full Code as per discussion with pt, however if poor prognosis would want ventilator discontinued Admission and Anticipated Discharge Date Admission Date: September 14, 2024 Subjective Pt was seen sitting in chair at bedside. States that he has been up and walking and felt short of breath afterwards Notes some fatigue as well Otherwise denies acute concerns Review of Systems Review of Systems: All systems reviewed & are unremarkable except as noted in Subjective Physical Exam Physical Exam: General: Alert, oriented. No acute distress Psych: Appropriate mood and affect HEENT: NC/AT CV: RRR Resp: Breath sounds clear bilaterally, no increased effort of breathing. Abdomen: Soft, nontender Extremities: No edema in lower extremities bilaterally. Results & Data Results & Data Vital Signs (Past 12 Hours) Vital Signs Temp Pulse Pulse Pulse Pulse Resp BP 09/22/24 13:00 09/22/24 12:35 36.5 C 60 18 09/22/24 08:00 09/22/24 08:00 60 09/22/24 07:40 36.6 C 64 18 160/76 H 09/22/24 04:24 36.6 C 59 L 18 BP Pulse Ox O2 Del Method 09/22/24 13:00 104/57 L 09/22/24 12:35 97 Room Air 09/22/24 08:00 Room Air 09/22/24 08:00 09/22/24 07:40 93 Room Air 09/22/24 04:24 131/66 93 Room Air Diagnostic Findings Chest X-Ray 09/14/24 16:17 XR chest 1V portable HISTORY: 84 years-old Male Chest pain, nonspecific COMPARISON: 02/24/2019 TECHNIQUE: AP view the chest FINDINGS: Cardiac silhouette is enlarged. Atherosclerosis of the aorta. Pulmonary vascular congestion with mild interstitial coarsening. No pneumothorax or large pleural effusion. No lobar airspace consolidation. An electronic device projects over the abdominal left upper quadrant. Surgical clip projects over the midline upper chest. Bones appear grossly intact. IMPRESSION: Cardiomegaly with pulmonary vascular congestion and nonspecific interstitial coarsening, possibly representing mild pulmonary edema. ACT 112: Negative or not required by law. The above report was generated using voice recognition software. It may contain grammatical, syntax or spelling errors. Electronically signed by: Yannick Hagen M.D. 09/14/2024 4:[address] 09/14/24 17:47 CT angio neck with con, CT head/brain wo con, CT angio head w con CLINICAL HISTORY: intermittent SCHUSTER, HTN TECHNIQUE: Contiguous axial CT images of the head were acquired from the base of the skull to the vertex without intravenous contrast administration. CT angiography of the head and neck was performed following intravenous administration of iodinated contrast. Coronal and sagittal MIPS were obtained from the axial data set and were submitted for review. Automated dose lowering techniques and/or adjustment according to patient size were utilized for this examination. All measurements were calculated based on NASCET criteria. CT DOSE: 1091.01 mGy.cm Comparison: None available at the time of this dictation. FINDINGS: CT head: Areas of decreased attenuation are present in the periventricular and subcortical white matter bilaterally consistent with small vessel ischemic disease. Generalized cerebral atrophy with commensurate enlargement of the ventricles, sulci, and cisterns is also present. There is no acute intracranial hemorrhage or evidence of acute territorial infarction. No shift of the midline structures, mass effect, or extra-axial abnormalities are shown. Atherosclerotic calcifications are present in the intracranial segments of the internal carotid arteries. Biapical emphysema is seen. CTA Neck: A 3 vessel aortic arch is shown. There is no significant atherosclerotic plaque in the aortic arch or the origins of the innominate, left common carotid, and left subclavian arteries. The common carotid, external carotid, cervical segments of the internal carotid arteries, and the cervical segments of the vertebral arteries are patent without hemodynamically significant stenosis. The left vertebral artery is dominant. CTA Head: The anterior and posterior cerebral circulations are patent. No hemodynamically significant stenosis, aneurysm, dissection, or arteriovenous malformation is shown. IMPRESSION: 1. No acute intracranial hemorrhage, evidence of acute territorial infarction, or other acute intracranial disease process. 2. No occlusion, hemodynamically significant stenosis, or dissection in the major cervical arteries. 3. No occlusion, hemodynamically significant stenosis, aneurysm, dissection, or arteriovenous malformation in the major intracranial arteries. Assessment of stenosis of the internal carotid arteries is based on NASCET criteria. ACT 112: Negative or not required by law. Electronically signed by: Roshan Kaufman M.D. 09/14/2024 6:26 PM Head CTA 09/14/24 17:47 CT angio neck with con, CT head/brain wo con, CT angio head w con CLINICAL HISTORY: intermittent SCHUSTER, HTN TECHNIQUE: Contiguous axial CT images of the head were acquired from the base of the skull to the vertex without intravenous contrast administration. CT angiography of the head and neck was performed following intravenous administration of iodinated contrast. Coronal and sagittal MIPS were obtained from the axial data set and were submitted for review. Automated dose lowering techniques and/or adjustment according to patient size were utilized for this examination. All measurements were calculated based on NASCET criteria. CT DOSE: 1091.01 mGy.cm Comparison: None available at the time of this dictation. FINDINGS: CT head: Areas of decreased attenuation are present in the periventricular and subcortical white matter bilaterally consistent with small vessel ischemic disease. Generalized cerebral atrophy with commensurate enlargement of the ventricles, sulci, and cisterns is also present. There is no acute intracranial hemorrhage or evidence of acute territorial infarction. No shift of the midline structures, mass effect, or extra-axial abnormalities are shown. Atherosclerotic calcifications are present in the intracranial segments of the internal carotid arteries. Biapical emphysema is seen. CTA Neck: A 3 vessel aortic arch is shown. There is no significant atherosclerotic plaque in the aortic arch or the origins of the innominate, left common carotid, and left subclavian arteries. The common carotid, external carotid, cervical segments of the internal carotid arteries, and the cervical segments of the vertebral arteries are patent without hemodynamically significant stenosis. The left vertebral artery is dominant. CTA Head: The anterior and posterior cerebral circulations are patent. No hemodynamically significant stenosis, aneurysm, dissection, or arteriovenous malformation is shown. IMPRESSION: 1. No acute intracranial hemorrhage, evidence of acute territorial infarction, or other acute intracranial disease process. 2. No occlusion, hemodynamically significant stenosis, or dissection in the major cervical arteries. 3. No occlusion, hemodynamically significant stenosis, aneurysm, dissection, or arteriovenous malformation in the major intracranial arteries. Assessment of stenosis of the internal carotid arteries is based on NASCET criteria. ACT 112: Negative or not required by law. Electronically signed by: Roshan Kaufman M.D. 09/14/2024 6:26 PM Neck CTA 09/14/24 17:47 CT angio neck with con, CT head/brain wo con, CT angio head w con CLINICAL HISTORY: intermittent SCHUSTER, HTN TECHNIQUE: Contiguous axial CT images of the head were acquired from the base of the skull to the vertex without intravenous contrast administration. CT angiography of the head and neck was performed following intravenous administration of iodinated contrast. Coronal and sagittal MIPS were obtained from the axial data set and were submitted for review. Automated dose lowering techniques and/or adjustment according to patient size were utilized for this examination. All measurements were calculated based on NASCET criteria. CT DOSE: 1091.01 mGy.cm Comparison: None available at the time of this dictation. FINDINGS: CT head: Areas of decreased attenuation are present in the periventricular and subcortical white matter bilaterally consistent with small vessel ischemic disea se. Generalized cerebral atrophy with commensurate enlargement of the ventricles, sulci, and cisterns is also present. There is no acute intracranial hemorrhage or evidence of acute territorial infarction. No shift of the midline structures, mass effect, or extra-axial abnormalities are shown. Atherosclerotic calcifications are present in the intracranial segments of the internal carotid arteries. Biapical emphysema is seen. CTA Neck: A 3 vessel aortic arch is shown. There is no significant atherosclerotic plaque in the aortic arch or the origins of the innominate, left common carotid, and left subclavian arteries. The common carotid, external carotid, cervical segments of the internal carotid arteries, and the cervical segments of the vertebral arteries are patent without hemodynamically significant stenosis. The left vertebral artery is dominant. CTA Head: The anterior and posterior cerebral circulations are patent. No hemodynamically significant stenosis, aneurysm, dissection, or arteriovenous malformation is shown.
--- NOTE | 2024-09-23 11:37 | Hospitalist Progress Note ---
Date of Service September 23, 2024 Assessment & Plan (1) Left anterior fascicular block: (2) Hypertensive urgency: Plan Patient is 84 year old male with PMH HTN, HLD, paroxysmal atrial fibrillation, mitral valve prolapse, GERD, prediabetes, depression, pernicious anemia, alcohol use, interstitial lung disease, pulmonary fibrosis, nocturnal hypoxia on 2 L at bedtime presented to ER with c/o elevated BP of 199/90 noted at PCP visit today. Past 2 days with posterior SCHUSTER that lasted a few minutes and and some blurry vision that lasted 1-2 minutes and resolved. Denies any SCHUSTER or visual disturbance today. Denies CP, SOB Currently awaiting placement. Hypertensive urgency In ER afebrile, P: 67, R: 16, BP 206/153, 100% on room air Troponin negative x 2 CTA Head and neck: No acute intracranial hemorrhage, evidence of acute territorial infarction, or other acute intracranial disease process. No occlusion, hemodynamically significant stenosis, or dissection in the major cervical arteries. No occlusion, hemodynamically significant stenosis, ane urysm, dissection, or arteriovenous malformation in the major intracranial arteries. In ER given 500 mL NSS, labetalol 10 mg IV Was treated with Hydralazine IV prn SBP > 160 Later had an acute event with fall after hydralazine on 09/15. EKG and echo repeated at that time. Cardiology was consulted and recommended the following: -Continued home losartan 100mg daily -Increased metoprolol succinate to 50mg BID on admission (Was 50mg in am and 25mg in PM) -add amlodipine 5mg daily -Echo obtained- noted moderate LVH, EF 65%, Aortic sclerosis without stenosis, mild TR with elevated right heart pressures estimated 50-60 mmHg -Per Dr Davis: "Blood pressures trending towards good control. Would not titrate medications higher at this time given orthostasis and dizziness. Fall r isk remains" Bp currently controlled Awaiting placement Paroxysmal atrial fibrillation: Not on anticoagulation secondary to fall risk On metoprolol succinate 50mg BID as noted above Continue with telemetry monitoring Cardiology follow up after discharge NSVT Episode on 09/19, asymptomatic K and Mag repleted cardiology following, noted "Would not titrate medications higher at this time given orthostasis and dizziness. Fall risk remains" Cardiology followup after discharge Ambulatory dysfunction: Recurrent falls: Reports 10 falls in past year. Sometimes dizzy and sometimes feels legs get weak causing fall Uses Walker at baseline Orthostatic vital signs positive Fall precautions PT/OT eval -> recommend rehab, pt agreeable ordered TEDs and pt is currently wearing Pt currently awaiting rehab placement HLD (hyperlipidemia): Continue atorvastatin Pernicious anemia: On B12 injections Q4wks Hgb: 13.4. Baseline Hgb: 13's ILD (interstitial lung disease): Nocturnal hypoxemia: History ILD, pulmonary fibrosis On 2L via [place] HS Diet: HH DVT Prophylaxis: Heparin SQ Dispo telemetry - to rehab once placement available Full Code as per discussion with pt, however if poor prognosis would want ventilator discontinued Admission and Anticipated Discharge Date Admission Date: September 14, 2024 Subjective Patient was seen sitting in chair at bedside. Somewhat confused about the days, noting he thought it was Thursday and was anticipating watching the [employer]. Otherwise denies acute concerns Anticipated discharge on September 25, 2024 Review of Systems Review of Systems: All systems reviewed & are unremarkable except as noted in Subjective Physical Exam Physical Exam: General: Alert, oriented. No acute distress Psych: Appropriate mood and affect HEENT: NC/AT CV: RRR Resp: Breath sounds clear bilaterally, no increased effort of breathing. Abdomen: Soft, nontender Extremities: No edema in lower extremities bilaterally. Results & Data Results & Data Vital Signs (Past 12 Hours) Vital Signs Temp Pulse Pulse Pulse Resp BP BP 09/23/24 08:16 36.3 C L 65 16 161/79 H 09/23/24 07:42 72 09/23/24 03:00 36.5 C 61 14 152/70 H 09/23/24 00:23 56 L 09/22/24 23:50 36.6 C 65 14 147/66 H Pulse Ox O2 Del Method 09/23/24 08:16 161 H Room Air 09/23/24 07:42 09/23/24 03:00 92 Room Air 09/23/24 00:23 09/22/24 23:50 93 Room Air
--- NOTE | 2024-09-24 10:04 | Hospitalist Progress Note ---
Date of Service September 24, 2024 Assessment & Plan (1) Left anterior fascicular block: (2) Hypertensive urgency: Plan Patient is 84 year old male with PMH HTN, HLD, paroxysmal atrial fibrillation, mitral valve prolapse, GERD, prediabetes, depression, pernicious anemia, alcohol use, interstitial lung disease, pulmonary fibrosis, nocturnal hypoxia on 2 L at bedtime presented to ER with c/o elevated BP of 199/90 noted at PCP visit today. Past 2 days with posterior SCHUSTER that lasted a few minutes and and some blurry vision that lasted 1-2 minutes and resolved. Denies any SCHUSTER or visual disturbance today. Denies CP, SOB Currently awaiting placement. Hypertensive urgency In ER afebrile, P: 67, R: 16, BP 206/153, 100% on room air Troponin negative x 2 CTA Head and neck: No acute intracranial hemorrhage, evidence of acute territorial infarction, or other acute intracranial disease process. No occlusion, hemodynamically significant stenosis, or dissection in the major cervical arteries. No occlusion, hemodynamically significant stenosis, ane urysm, dissection, or arteriovenous malformation in the major intracranial arteries. In ER given 500 mL NSS, labetalol 10 mg IV Was treated with Hydralazine IV prn SBP > 160 Later had an acute event with fall after hydralazine on 09/15. EKG and echo repeated at that time. Cardiology was consulted and recommended the following: -Continued home losartan 100mg daily -Increased metoprolol succinate to 50mg BID on admission (Was 50mg in am and 25mg in PM) -add amlodipine 5mg daily -Echo obtained- noted moderate LVH, EF 65%, Aortic sclerosis without stenosis, mild TR with elevated right heart pressures estimated 50-60 mmHg -Per Dr Davis: "Blood pressures trending towards good control. Would not titrate medications higher at this time given orthostasis and dizziness. Fall r isk remains" Bp currently controlled Awaiting placement Paroxysmal atrial fibrillation: Not on anticoagulation secondary to fall risk On metoprolol succinate 50mg BID as noted above Continue with telemetry monitoring Cardiology follow up after discharge NSVT Episode on 09/19, asymptomatic K and Mag repleted cardiology following, noted "Would not titrate medications higher at this time given orthostasis and dizziness. Fall risk remains" Cardiology followup after discharge Ambulatory dysfunction: Recurrent falls: Reports 10 falls in past year. Sometimes dizzy and sometimes feels legs get weak causing fall Uses Walker at baseline Orthostatic vital signs positive Fall precautions PT/OT eval -> recommend rehab, pt agreeable ordered TEDs and pt is currently wearing Pt currently awaiting rehab placement HLD (hyperlipidemia): Continue atorvastatin Pernicious anemia: On B12 injections Q4wks Hgb: 13.4. Baseline Hgb: 13's ILD (interstitial lung disease): Nocturnal hypoxemia: History ILD, pulmonary fibrosis On 2L via [place] HS Diet: HH DVT Prophylaxis: Heparin SQ Dispo telemetry - to rehab once placement available Full Code as per discussion with pt, however if poor prognosis would want ventilator discontinued Admission and Anticipated Discharge Date Admission Date: September 14, 2024 Subjective Patient was seen sitting in the chair at bedside. Denied any acute concerns, anxious for discharge tomorrow. States he is looking forward to the game today Review of Systems Review of Systems: All systems reviewed & are unremarkable except as noted in Subjective Physical Exam Physical Exam: General: Alert, oriented. No acute distress Psych: Appropriate mood and affect HEENT: NC/AT CV: RRR Resp: Breath sounds clear bilaterally, no increased effort of breathing. Abdomen: Soft, nontender Extremities: No edema in lower extremities bilaterally. Results & Data Results & Data Vital Signs (Past 12 Hours) Vital Signs Temp Pulse Pulse Pulse Resp BP BP 09/24/24 08:20 36.5 C 63 20 122/76 09/24/24 07:36 60 09/24/24 02:00 36.4 C L 62 16 133/74 09/23/24 23:26 36.5 C 64 18 150/82 H Pulse Ox O2 Del Method 09/24/24 08:20 94 Room Air 09/24/24 07:36 09/24/24 02:00 93 Room Air 09/23/24 23:26 98 Room Air
--- NOTE | 2024-09-25 11:57 | Hospitalist Progress Note ---
Date of Service September 25, 2024 Assessment & Plan (1) Left anterior fascicular block: (2) Hypertensive urgency: Plan Patient is 84 year old male with PMH HTN, HLD, paroxysmal atrial fibrillation, mitral valve prolapse, GERD, prediabetes, depression, pernicious anemia, alcohol use, interstitial lung disease, pulmonary fibrosis, nocturnal hypoxia on 2 L at bedtime presented to ER with c/o elevated BP of 199/90 noted at PCP visit today. Past 2 days with posterior SCHUSTER that lasted a few minutes and and some blurry vision that lasted 1-2 minutes and resolved. Denies any SCHUSTER or visual disturbance today. Denies CP, SOB Currently awaiting placement. Hypertensive urgency In ER afebrile, P: 67, R: 16, BP 206/153, 100% on room air Troponin negative x 2 CTA Head and neck: No acute intracranial hemorrhage, evidence of acute territorial infarction, or other acute intracranial disease process. No occlusion, hemodynamically significant stenosis, or dissection in the major cervical arteries. No occlusion, hemodynamically significant stenosis, ane urysm, dissection, or arteriovenous malformation in the major intracranial arteries. In ER given 500 mL NSS, labetalol 10 mg IV Was treated with Hydralazine IV prn SBP > 160 Later had an acute event with fall after hydralazine on 09/15. EKG and echo repeated at that time. Cardiology was consulted and recommended the following: -Continued home losartan 100mg daily -Increased metoprolol succinate to 50mg BID on admission (Was 50mg in am and 25mg in PM) -add amlodipine 5mg daily -Echo obtained- noted moderate LVH, EF 65%, Aortic sclerosis without stenosis, mild TR with elevated right heart pressures estimated 50-60 mmHg -Per Dr Davis: "Blood pressures trending towards good control. Would not titrate medications higher at this time given orthostasis and dizziness. Fall r isk remains" Bp currently controlled Awaiting placement Paroxysmal atrial fibrillation: Not on anticoagulation secondary to fall risk On metoprolol succinate 50mg BID as noted above Continue with telemetry monitoring Cardiology follow up after discharge NSVT Episode on 09/19, asymptomatic K and Mag repleted cardiology following, noted "Would not titrate medications higher at this time given orthostasis and dizziness. Fall risk remains" Cardiology followup after discharge Ambulatory dysfunction: Recurrent falls: Reports 10 falls in past year. Sometimes dizzy and sometimes feels legs get weak causing fall Uses Walker at baseline Orthostatic vital signs positive Fall precautions PT/OT eval -> recommend rehab, pt agreeable ordered TEDs and pt is currently wearing Pt currently awaiting rehab placement HLD (hyperlipidemia): Continue atorvastatin Pernicious anemia: On B12 injections Q4wks Hgb: 13.4. Baseline Hgb: 13's ILD (interstitial lung disease): Nocturnal hypoxemia: History ILD, pulmonary fibrosis On 2L via [place] HS Diet: HH DVT Prophylaxis: Heparin SQ Dispo telemetry - to rehab once placement available Full Code as per discussion with pt, however if poor prognosis would want ventilator discontinued Admission and Anticipated Discharge Date Admission Date: September 14, 2024 Subjective Patient was seen laying in bed. Anxious with discharge, denying acute concerns. Later notified by case management that office had not yet been approved at [facility]. Patient's daughter called does not updated, agreeable to the plan to stay until also approved and bed available and ready Patient also informed, expresses disappointment but agreeable to the updated plan as well. Review of Systems Review of Systems: All systems reviewed & are unremarkable except as noted in Subjective Physical Exam Physical Exam: General: Alert, oriented. No acute distress Psych: Appropriate mood and affect HEENT: NC/AT CV: RRR Resp: Breath sounds clear bilaterally, no increased effort of breathing. Abdomen: Soft, nontender Extremities: No edema in lower extremities bilaterally. Results & Data Results & Data Vital Signs (Past 12 Hours) Vital Signs Temp Pulse Pulse Pulse Resp BP BP 09/25/24 11:53 36.6 C 58 L 16 125/70 09/25/24 08:00 09/25/24 07:50 36.7 C 61 16 164/74 H 09/25/24 07:48 60 09/25/24 02:31 36.4 C L 58 L 16 149/78 H Pulse Ox O2 Del Method 09/25/24 11:53 95 Room Air 09/25/24 08:00 Room Air 09/25/24 07:50 96 Room Air 09/25/24 07:48 09/25/24 02:31 96 Room Air
--- NOTE | 2024-09-26 11:33 | Hospitalist Progress Note ---
Date of Service September 26, 2024 Assessment & Plan (1) Left anterior fascicular block: (2) Hypertensive urgency: Plan Patient is 84 year old male with PMH HTN, HLD, paroxysmal atrial fibrillation, mitral valve prolapse, GERD, prediabetes, depression, pernicious anemia, alcohol use, interstitial lung disease, pulmonary fibrosis, nocturnal hypoxia on 2 L at bedtime presented to ER with c/o elevated BP of 199/90 noted at PCP visit today. Past 2 days with posterior SCHUSTER that lasted a few minutes and and some blurry vision that lasted 1-2 minutes and resolved. Denies any SCHUSTER or visual disturbance today. Denies CP, SOB Currently awaiting placement. Hypertensive urgency In ER afebrile, P: 67, R: 16, BP 206/153, 100% on room air Troponin negative x 2 CTA Head and neck: No acute intracranial hemorrhage, evidence of acute territorial infarction, or other acute intracranial disease process. No occlusion, hemodynamically significant stenosis, or dissection in the major cervical arteries. No occlusion, hemodynamically significant stenosis, aneurys m, dissection, or arteriovenous malformation in the major intracranial arteries. In ER given 500 mL NSS, labetalol 10 mg IV Was treated with Hydralazine IV prn SBP > 160 Later had an acute event with fall after hydralazine on 09/15. EKG and echo repeated at that time. Cardiology was consulted and recommended the following: -Continued home losartan 100mg daily -Increased metoprolol succinate to 50mg BID on admission (Was 50mg in am and 25mg in PM) -add amlodipine 5mg daily -Echo obtained- noted moderate LVH, EF 65%, Aortic sclerosis without stenosis, mild TR with elevated right heart pressures estimated 50-60 mmHg -Per Dr Davis: "Blood pressures trending towards good control. Would not titrate medications higher at this time given orthostasis and dizziness. Fall risk remains" Bp currently controlled Awaiting placement Paroxysmal atrial fibrillation: Not on anticoagulation secondary to fall risk On metoprolol succinate 50mg BID as noted above Continue with telemetry monitoring Cardiology follow up after discharge NSVT Episode on 09/19, asymptomatic K and Mag repleted cardiology following, noted "Would not titrate medications higher at this time given orthostasis and dizziness. Fall risk remains" Cardiology followup after discharge Ambulatory dysfunction: Recurrent falls: Reports 10 falls in past year. Sometimes dizzy and sometimes feels legs get weak causing fall Uses Walker at baseline Orthostatic vital signs positive Fall precautions PT/OT eval -> recommend rehab, pt agreeable ordered TEDs and pt is currently wearing Pt currently awaiting rehab placement HLD (hyperlipidemia): Continue atorvastatin Pernicious anemia: On B12 injections Q4wks Hgb: 13.4. Baseline Hgb: 13's ILD (interstitial lung disease): Nocturnal hypoxemia: History ILD, pulmonary fibrosis On 2L via [place] HS Diet: HH DVT Prophylaxis: Heparin SQ Dispo telemetry - to rehab once placement available Full Code as per discussion with pt, however if poor prognosis would want ventilator discontinued Admission and Anticipated Discharge Date Admission Date: September 14, 2024 Subjective patient was seen in the a.m., eating breakfast in bed Denied acute concerns anxious for discharge per case management Auth approved but will be leaving tomorrow Review of Systems Review of Systems: All systems reviewed & are unremarkable except as noted in Subjective Physical Exam Physical Exam: General: Alert, oriented. No acute distress Psych: Appropriate mood and affect HEENT: NC/AT CV: RRR Resp: Breath sounds clear bilaterally, no increased effort of breathing. Abdomen: Soft, nontender Extremities: No edema in lower extremities bilaterally. Results & Data Results & Data Vital Signs (Past 12 Hours) Vital Signs Temp Pulse Pulse Pulse Resp BP BP 09/26/24 07:57 36.4 C L 56 L 16 166/69 H 09/26/24 07:42 09/26/24 07:08 57 L 09/26/24 03:04 36.4 C L 58 L 16 132/82 Pulse Ox O2 Del Method 09/26/24 07:57 96 Room Air 09/26/24 07:42 Room Air 09/26/24 07:08 09/26/24 03:04 94 Room Air
[2024-09-26 23:28] VITALS: RESP 18
[2024-09-27 03:53] VITALS: TEMP 97.7
[2024-09-27 07:19] VITALS: O2SAT 96
--- NOTE | 2024-09-27 11:05 | Discharge Summary ---
Discharge Summary Date of Service September 27, 2024 Principal Dx & Hospital Course #1 = Principal Diagnosis (1) Left anterior fascicular block: (2) Hypertensive urgency: Plan Patient is 84 year old male with PMHx significant for HTN, HLD, paroxysmal atrial fibrillation, mitral valve prolapse, GERD, prediabetes, depression, pernicious anemia, alcohol use, interstitial lung disease, pulmonary fibrosis, nocturnal hypoxia on 2 L at bedtime presented to ER with c/o elevated BP of 199/90 noted at PCP visit today. Past 2 days with posterior SCHUSTER that lasted a few minutes and and some blurry vision that lasted 1-2 minutes and resolved. Denies any SCHUSTER or visual disturbance today. Denies CP, SOB. Hospitalization was extended as pt required acute rehab/SNF placement. Hypertensive urgency Stroke-like symptoms (SCHUSTER and blurry vision) Orthostatics In ER afebrile, P: 67, R: 16, BP 206/153, 100% on room air Troponin negative x 2 CTA Head and neck: No acute intracranial hemorrhage, evidence of acute territorial infarction, or other acute intracranial disease process. No occlusion, hemodynamically significant stenosis, or dissection in the major cervical arteries. No occlusion, hemodynamically significant stenosis, aneurysm, dissection, or arteriovenous malformation in the major intracranial arteries. In ER given 500 mL NSS, labetalol 10 mg IV Was treated with Hydralazine IV prn SBP > 160 Later had an acute event with fall after hydralazine on 09/15. EKG and echo repeated at that time, unremarkable. Cardiology was consulted and recommended the following: -Continued home losartan 100mg daily -Increased metoprolol succinate to 50mg BID on admission (Was 50mg in am and 25mg in PM) -add amlodipine 5mg daily -Echo obtained- noted moderate LVH, EF 65%, Aortic sclerosis without stenosis, mild TR with elevated right heart pressures estimated 50-60 mmHg -Per Dr Davis: "Blood pressures trending towards good control. Would not titrate medications higher at this time given orthostasis and dizziness. Fall risk remains" Bp currently controlled PT/OT Patient discharged with increased dose of metoprolol 50 mg twice daily as well as prescription for amlodipine 5 mg daily. Please ensure Cardiology followup after discharge. patient was discharged to SNF on 09/27/2024 In stable condition. Paroxysmal atrial fibrillation: Not on anticoagulation secondary to fall risk On metoprolol succinate 50mg BID as noted above Continue with telemetry monitoring Cardiology follow up after discharge NSVT Episode on 09/19, asymptomatic K and Mag repleted cardiology following, noted "Would not titrate medications higher at this time given orthostasis and dizziness. Fall risk remains" Cardiology followup after discharge Ambulatory dysfunction: Recurrent falls: Reports 10 falls in past year. Sometimes dizzy and sometimes feels legs get weak causing fall Uses Walker at baseline Orthostatic vital signs positive Fall precautions PT/OT eval -> recommend rehab, pt agreeable cardiology following, noted "Would not titrate medications higher at this time given orthostasis and dizziness. Fall risk remains" ordered TEDs and pt is currently wearing Pt currently awaiting rehab placement PCP follow-up after discharge HLD (hyperlipidemia): Continue atorvastatin Pernicious anemia: On B12 injections Q4wks Hgb: 13.4. Baseline Hgb: 13's PCP follow-up ILD (interstitial lung disease): Nocturnal hypoxemia: History ILD, pulmonary fibrosis On 2L via NC HS Continue to monitor PCP follow-up Notes For Next Care Provider Per Cardiology:"Blood pressures trending towards good control. Would not titrate medications higher at this time given orthostasis and dizziness. Fall risk remains"" please ensure close follow-up with cardiology after discharge Medication Changes From Visit Per Cardiology: Metoprolol succinate dose increased to 50 mg twice a day Started on Amlodipine 5 mg daily Per cardiology continue with losartan 100 mg daily Admission HPI Per Admitting Provider Patient is 84 year old male with PMH HTN, HLD, atrial fibrillation, mitral valve prolapse, GERD, prediabetes, depression, pernicious anemia, alcohol use, interstitial lung disease, pulmonary fibrosis, nocturnal hypoxia on 2 L at bedtime presented to ER with c/o elevated BP. Per outpatient chart review seen in PCP clinic today for recurrent falls, ambulatory dysfunction and in clinic with BP 199/90 and was referred to ER. Patient states that yesterday and two days ago had posterior SCHUSTER that lasted a few minutes and and some blurry vision that lasted 1-2 minutes and resolved. Denies any SCHUSTER or visual disturbance today. He reports for past year has had approximately 10 falls. States this month has fallen twice. He ambulates with walker. Patient states sometimes he is dizzy with standing and ambulating and then falls and reports sometimes he feels his legs just become weak and he staggers and falls. Denies lightheaded or syncope. States months ago fell and hit head but recent falls denies hitting head. He states sometimes intermittent palpitations but they are not associated with the dizziness or falling. Denies sensation of heart racing. Per chart review his losartan was increased from 50mg to 100mg daily in May 2024. He does not check his BP at home. He reports chronic cough that is productive clear to yellow that is ongoing for years but may be increased past 3 months. Denies hemoptysis. Reports chronic clear rhinorrhea. Drinks 2 cans of beer daily. States years ago drank more. Denies fever/chills, diaphoresis, N/V/D/C, neck pain, CP, SOB, orthopnea, sore throat, choking, otalgia, abdominal pain, paresthesias, extremity edema, rashes, urinary symptoms. Admission Exam Per Admitting Provider General: no distress, WDWN Head: normocephalic, atraumatic, no temporal tenderness to palpation Eyes: PERRL, EOM's intact, conjunctiva non-injected, anicteric ENT: normal inspection external ears, nose, mucous membranes moist Neck: supple, trachea midline Lungs: clear, no respiratory distress, no wheezing/rhonchi/rales CV: RRR, no pretibial edema Abd: normal BS, soft, non-tender Ext: no cyanosis, no calf tenderness Neuro: A&O x 3, no focal deficits noted, normal affect Skin: warm, dry Discharge Exam General: Alert, oriented. No acute distress Psych: Appropriate mood and affect HEENT: NC/AT CV: RRR Resp: Breath sounds clear bilaterally, no increased effort of breathing. Abdomen: Soft, nontender Extremities: No edema in lower extremities bilaterally. Updated Medication List Medication Instructions Recorded Confirmed Type atorvastatin 10 mg tablet 10 mg PO DAILY 07/28/18 09/14/24 History cholecalciferol (vitamin D3) 25 1,000 unit PO DAILY 07/28/18 09/14/24 History mcg (1,000 unit) tablet (Vitamin D3) pantoprazole 40 mg tablet,delayed 40 mg PO DAILY 07/28/18 09/14/24 History release duloxetine 20 mg capsule,delayed 20 mg PO DAILY 02/18/19 09/14/24 History release aspirin 81 mg tablet,delayed 81 mg PO DAILY 09/14/24 09/14/24 History release cyanocobalamin (vitamin B-12) 1,000 mcg subcut Q4WK 09/14/24 09/14/24 History 1,000 mcg/mL injection solution losartan 100 mg tablet 100 mg PO DAILY 09/14/24 09/14/24 History amlodipine 5 mg tablet (Norvasc) 5 mg PO QAM #30 tabs 09/25/24 Rx metoprolol succinate 50 mg 50 mg PO BID #60 tabs 09/27/24 Rx tablet,extended release 24 hr Hospital Stay Data Consultations 09/14/24 19:05 ED Decision to Admit Stat 09/15/24 18:17 Consult Cardiology Routine Diagnostic Imagining Performed 09/14/24 17:47 CT angio head w con Stat CT angio neck with con Stat CT head/brain wo con Stat Chest X-Ray 09/14/24 16:17 XR chest 1V portable HISTORY: 84 years-old Male Chest pain, nonspecific COMPARISON: 02/24/2019 TECHNIQUE: AP view the chest FINDINGS: Cardiac silhouette is enlarged. Atherosclerosis of the aorta. Pulmonary vascular congestion with mild interstitial coarsening. No pneumothorax or large pleural effusion. No lobar airspace consolidation. An electronic device projects over the abdominal left upper quadrant. Surgical clip projects over the midline upper chest. Bones appear grossly intact. IMPRESSION: Cardiomegaly with pulmonary vascular congestion and nonspecific interstitial coarsening, possibly representing mild pulmonary edema. ACT 112: Negative or not required by law. The above report was generated using voice recognition software. It may contain grammatical, syntax or spelling errors. Electronically signed by: Yannick Hagen M.D. 09/14/2024 4:[address] 09/14/24 17:47 CT angio neck with con, CT head/brain wo con, CT angio head w con CLINICAL HISTORY: intermittent SCHUSTER, HTN TECHNIQUE: Contiguous axial CT images of the head were acquired from the base of the skull to the vertex without intravenous contrast administration. CT angiography of the head and neck was performed following intravenous administration of iodinated contrast. Coronal and sagittal MIPS were obtained from the axial data set and were submitted for review. Automated dose lowering techniques and/or adjustment according to patient size were utilized for this examination. All measurements were calculated based on NASCET criteria. CT DOSE: 1091.01 mGy.cm Comparison: None available at the time of this dictation. FINDINGS: CT head: Areas of decreased attenuation are present in the periventricular and subcortical white matter bilaterally consistent with small vessel ischemic disease. Generalized cerebral atrophy with commensurate enlargement of the ventricles, sulci, and cisterns is also present. There is no acute intracranial hemorrhage or evidence of acute territorial infarction. No shift of the midline structures, mass effect, or extra-axial abnormalities are shown. Atherosclerotic calcifications are present in the intracranial segments of the internal carotid arteries. Biapical emphysema is seen. CTA Neck: A 3 vessel aortic arch is shown. There is no significant atherosclerotic plaque in the aortic arch or the origins of the innominate, left common carotid, and left subclavian arteries. The common carotid, external carotid, cervical segments of the internal carotid arteries, and the cervical segments of the vertebral arteries are patent without hemodynamically significant stenosis. The left vertebral artery is dominant. CTA Head: The anterior and posterior cerebral circulations are patent. No hemodynamically significant stenosis, aneurysm, dissection, or arteriovenous malformation is shown. IMPRESSION: 1. No acute intracranial hemorrhage, evidence of acute territorial infarction, or other acute intracranial disease process. 2. No occlusion, hemodynamically significant stenosis, or dissection in the major cervical arteries. 3. No occlusion, hemodynamically significant stenosis, aneurysm, dissection, or arteriovenous malformation in the major intracranial arteries. Assessment of stenosis of the internal carotid arteries is based on NASCET criteria. ACT 112: Negative or not required by law. Electronically signed by: Roshan Kaufman M.D. 09/14/2024 6:26 PM Head CTA 09/14/24 17:47 CT angio neck with con, CT head/brain wo con, CT angio head w con CLINICAL HISTORY: intermittent SCHUSTER, HTN TECHNIQUE: Contiguous axial CT images of the head were acquired from the base of the skull to the vertex without intravenous contrast administration. CT angiography of the head and neck was performed following intravenous administration of iodinated contrast. Coronal and sagittal MIPS were obtained from the axial data set and were submitted for review. Automated dose lowering techniques and/or adjustment according to patient size were utilized for this examination. All measurements were calculated based on NASCET criteria. CT DOSE: 1091.01 mGy.cm Comparison: None available at the time of this dictation. FINDINGS: CT head: Areas of decreased attenuation are present in the periventricular and subcortical white matter bilaterally consistent with small vessel ischemic disease. Generalized cerebral atrophy with commensurate enlargement of the ventricles, sulci, and cisterns is also present. There is no acute intracranial hemorrhage or evidence of acute territorial infarction. No shift of the midline structures, mass effect, or extra-axial abnormalities are shown. At herosclerotic calcifications are present in the intracranial segments of the internal carotid arteries. Biapical emphysema is seen. CTA Neck: A 3 vessel aortic arch is shown. There is no significant atherosclerotic plaque in the aortic arch or the origins of the innominate, left common carotid, and left subclavian arteries. The common carotid, external carotid, cervical segments of the internal carotid arteries, and the cervical segments of the vertebral arteries are patent without hemodynamically significant stenosis. The left vertebral artery is dominant. CTA Head: The anterior and posterior cerebral circulations are patent. No hemodynamically significant stenosis, aneurysm, dissection, or arteriovenous malformation is shown. IMPRESSION: 1. No acute intracranial hemorrhage, evidence of acute territorial infarction, or other acute intracranial disease process. 2. No occlusion, hemodynamically significant stenosis, or dissection in the major cervical arteries. 3. No occlusion, hemodynamically significant stenosis, aneurysm, dissection, or arteriovenous malformation in the major intracranial arteries. Assessment of stenosis of the internal carotid arteries is based on NASCET criteria. ACT 112: Negative or not required by law. Electronically signed by: Roshan Kaufman M.D. 09/14/2024 6:26 PM Neck CTA 09/14/24 17:47 CT angio neck with con, CT head/brain wo con, CT angio head w con CLINICAL HISTORY: intermittent SCHUSTER, HTN TECHNIQUE: Contiguous axial CT images of the head were acquired from the base of the skull to the vertex without intravenous contrast administration. CT angiography of the head and neck was performed following intravenous administration of iodinated contrast. Coronal and sagittal MIPS were obtained from the axial data set and were submitted for review. Automated dose lowering techniques and/or adjustment according to patient size were utilized for this examination. All measurements were calculated based on NASCET criteria. CT DOSE: 1091.01 mGy.cm Comparison: None available at the time of this dictation. FINDINGS: CT head: Areas of decreased attenuation are present in the periventricular and subcortical white matter bilaterally consistent with small vessel ischemic disease. Generalized cerebral atrophy with commensurate enlargement of the ventricles, sulci, and cisterns is also present. There is no acute intracranial hemorrhage or evidence of acute territorial infarction. No shift of the midline structures, mass effect, or extra-axial abnormalities are shown. Atherosclero tic calcifications are present in the intracranial segments of the internal carotid arteries. Biapical emphysema is seen. CTA Neck: A 3 vessel aortic arch is shown. There is no significant athero sclerotic plaque in the aortic arch or the origins of the innominate, left common carotid, and left subclavian arteries. The common carotid, external carotid, cervical segments of the internal carotid arteries, and the cervical segments of the vertebral arteries are patent without hemodynamically significant stenosis. The left vertebral artery is dominant. CTA Head: The anterior and posterior cerebral circulations are patent. No hemodynamically significant stenosis, aneurysm, dissection, or arteriovenous malformation is shown. IMPRESSION: 1. No acute intracranial hemorrhage, evidence of acute territorial infarction, or other acute intracranial disease process. 2. No occlusion, hemodynamically significant stenosis, or dissection in the major cervical arteries. 3. No occlusion, hemodynamically significant stenosis, aneurysm, dissection, or arteriovenous malformation in the major intracranial arteries. Assessment of stenosis of the internal carotid arteries is based on NASCET criteria. ACT 112: Negative or not required by law. Electronically signed by: Roshan Kaufman M.D. 09/14/2024 6:26 PM Pending Results Patient Have Any Pending Studies at Discharge: No Discharge Instructions Given to Patient (Per Discharging Provider) Mr. Ramos, You are admitted and treated for elevated blood pressures and concern for strokelike symptoms. Medication changes were made and are listed below. Please take your medications as prescribed. Please keep close follow up with your primary care provider after discharge. Please do not hesitate to come back to the emergency room if your symptoms worsen or return. It was a pleasure taking care of you while you were here. Total Time Total Time Spent Total Time Spent (In Minutes): 65
[2024-09-27 12:48] VITALS: BP 122/72; PULSE 63
== END 2024-09-27 13:36 | DRG 305 ==
LOC: ED 16:09 → 2S 19:42 → SUATTDRO 19:42 → 2S 21:11 → 2N 09-21 20:09

== ENCOUNTER 2025-11-04 18:38 | Inpatient (IN) ==
[2025-11-04] MEDS: SODIUM CHLORIDE 0.9% 500 ML IV SCH (19:16)
--- NOTE | 2025-11-04 19:21 | Emergency Department Note ---
Impression & Plan Weakness, Leukocytosis, Ambulatory dysfunction, Recurrent falls, Acute and chronic respiratory failure with hypoxia, Slurred speech ED Provider Note NAME: MARTINEZ MEDEL AGE: 85 SEX: M : 1940 ARRIVES VIA: Walk-In INFORMANT: Patient, ED PROVIDER(S): Aston Ford MD CHIEF COMPLAINT: Weakness, fatigue, frequent falls, slurred speech MEDICAL DECISION MAKING: Patient presents with the above. The patient may have some slurring of speech although this been intermittently ongoing for the last 2 weeks. IV was established and blood work was obtained. CT head obtained along with a chest x- ray. Patient with a white count of 17. Given this sepsis protocols initiated including lactate Pro-Aj blood cultures the patient was ordered additional IV fluids as well as empiric IV cefepime. The patient has not yet provided a urinalysis. Patient CT head and chest x-ray did not show evidence of acute concerning findings at this time. Given the patient's frequent falls weakness and ambulatory dysfunction the patient would bear minimum benefit with PT and OT but given the patient's white count weakness to be the patient's labs need to be trended in addition to his blood cultures. I did speak the on-call hospital service Dr. Barksdale and the patient was admitted to the medicine service. Discussion w/ other healthcare providers: Dr. Barksdale inpatient medicine service Prior /Outside records reviewed: None Differential diagnosis: Infection, dehydration, metabolic abnormality, hypo/hyperglycemia, electrolyte imbalance, anemia, UTI, pneumonia, thyroid dysfunction among others were considered. Diagnostics, as interpreted by me: ECG: A-fib, rate of 68 normal QRS, left axis deviation no ST elevations ST depressions in the lateral leads. Cardiac monitoring: An order was placed for continuous cardiac monitoring. The monitor shows a rate of 69with irregularly regular rhythm. Patient was placed on pulse oximetry Medical decision rules: None Imaging studies: [I informally interpreted the patient's with formal report to follow.] HPI: Patient presents due to concern for weakness fatigue frequent falls poor appetite. Patient reportedly has had some occasional slurred speech ongoing for last 2 weeks he feels as though his tongue is swollen and has difficulty with speaking sometimes. Patient also states that he did have a toothache in his lower mouth but this is resolved. He does wear 2 L of oxygen at nighttime. He denies any chest pains. He does complain of shortness of breath with exertion. No leg swelling or calf pain. Patient has reportedly had multiple falls in the last several weeks. He does live with his son. He is currently companied by his daughter at bedside. No reported prior history of stroke. He does say that he does have chronic back pains. PAST MEDICAL HISTORY: See Below PAST SURGICAL HISTORY: See Below SOCIAL HISTORY: See Below HOME MEDICATIONS: See Below ALLERGIES: See Below VITALS: See Below PHYSICAL EXAMINATION: GENERAL: NAD, non-toxic. Wearing glasses. EYE EXAM: Normal conjunctiva. PERRL, no anisocoria and EOM's grossly intact w/o pain. OROPHARYNX: Moist mucus membranes, grossly normal dentition. NECK: Trachea midline, no stridor. LUNGS: Clear to auscultation. Normal chest wall mechanics. HEART: Irregularly irregular, no MRG. ABDOMEN: Abdomen soft, non-tender, no masses, no rebound or guarding. SKIN: No rashes and no bruising. UPPER EXTREMITIES: Upper extremities are grossly normal. LOWER EXTREMITIES: Grossly normal, no edema. NEURO EXAM: Awake and alert, follows commands, no obvious facial asymmetry, occasional slurred speech, moves all 4 extremities. Past Med/Surg History Problem List (Updated 11/05/25 @ 15:27 by Aston Ford MD) Slurred speech (Acute) Acute and chronic respiratory failure with hypoxia (Acute) Acute hypoxemic respiratory failure Left anterior fascicular block (Acute) Intermittent headache (Acute) Hypertensive urgency (Acute) Nocturnal hypoxemia ILD (interstitial lung disease) Recurrent falls (Acute) Ambulatory dysfunction (Acute) Hypertensive urgency Leukocytosis (Acute) Left knee pain New onset atrial fibrillation Atrial tachycardia Paroxysmal atrial fibrillation DVT prophylaxis Syncope and collapse Hyperglycemia Hypomagnesemia Hypokalemia Alcohol withdrawal Alcohol abuse Fall History of cataract surgery (Chronic) History of inguinal hernia repair (Chronic) History of hemorrhoidectomy (Chronic) 1970 GERD (gastroesophageal reflux disease) (Chronic) HLD (hyperlipidemia) (Chronic) Pernicious anemia (Chronic) BPH (benign prostatic hyperplasia) (Chronic) Altered mental status (Acute) HTN (hypertension) (Acute) First degree atrioventricular block (Chronic) Full code status Valvular heart disease (Chronic) Chronic left hip pain (Chronic) HTN (hypertension) (Chronic) DVT prophylaxis Hyponatremia (Acute) Weakness (Chronic) Medical History (Updated 11/05/25 @ 15:27 by Aston Ford MD) Hypertension Spinal stenosis Family History Other Hypertension Social History Smoking Status: Never smoker Second Hand Exposure: No; Do You Dip or Chew Tobacco: No; Hx Alcohol Use: Yes Alcohol type: beer Hx Substance Use: No Preferred Language: Moroccan Communication Ability: Effective 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 Burial Plots Required: No Beliefs That Will Affect Care: None Current Living Situation: Family Current Living Situation Comment: lives at home with son Other Information That Helps Us Care for You: No Feels Safe at Home: Yes Safety Concerns: Feels Safe At This Time Assistive Devices: Glasses, Hearing Aid - Bilateral and Walker Allergies Allergies Allergy/AdvReac Type Severity Reaction Status Date / Time No Known Allergies Allergy Verified 11/04/25 21:23 Home Meds Home Medications Medication Instructions Recorded Confirmed atorvastatin 10 mg tablet 10 mg PO QAM 07/28/18 11/04/25 pantoprazole 40 mg tablet,delayed 40 mg PO QAM 07/28/18 11/04/25 release aspirin 81 mg tablet,delayed 81 mg PO QAM 09/14/24 11/04/25 release cyanocobalamin (vitamin B-12) 1,000 mcg subcut .EVERY 6 WEEKS 09/14/24 11/04/25 1,000 mcg/mL injection solution losartan 100 mg tablet 100 mg PO QAM 09/14/24 11/04/25 amlodipine 5 mg tablet 10 mg PO QAM 11/04/25 11/04/25 duloxetine 30 mg capsule,delayed 30 mg PO QAM 11/04/25 11/04/25 release metoprolol succinate 50 mg 50 mg PO AMHS 11/04/25 11/04/25 tablet,extended release 24 hr Results & Data (ED) Vital Signs Vital Signs - 24 hr 11/04/25 18:44 11/04/25 19:13 11/04/25 19:17 Temperature 36.6 C Temperature Source Temporal Artery Scan Pulse Rate 98 H Pulse Rate [Apical] 81 Pulse Rhythm Pulse Rhythm [Apical] Regular Pulse Strength [Apical] Normal Respiratory Rate 15 16 Respiratory Effort / Characteristics Non-Labored Spontaneous Non-Labored Respiratory Depth Normal Normal Respiratory Pattern Regular Regular Blood Pressure 114/79 Blood Pressure [Right Arm] 127/92 Blood Pressure Mean 90 Blood Pressure Mean [Right Arm] 103 Blood Pressure Position [Right Arm] Lying Pulse Oximetry 98 93 97 Oxygen Delivery Method Room Air Room Air Room Air Oxygen Flow Rate Sepsis Recent Fever Within 48 Hours No Sepsis New/Unexplained Change in Mental Status N/A Sepsis Action Taken by Nursing No Action Required 11/04/25 19:29 11/04/25 19:29 11/04/25 21:01 Temperature Temperature Source Pulse Rate 78 Pulse Rate [Apical] 89 Pulse Rhythm Regular Pulse Rhythm [Apical] Regular Pulse Strength [Apical] Normal Respiratory Rate 16 16 Respiratory Effort / Characteristics Non-Labored Respiratory Depth Normal Respiratory Pattern Regular Blood Pressure Blood Pressure [Right Arm] 127/92 Blood Pressure Mean Blood Pressure Mean [Right Arm] 103 Blood Pressure Position [Right Arm] Lying Pulse Oximetry 96 96 92 Oxygen Delivery Method Room Air Room Air Nasal Cannula Oxygen Flow Rate 2 Sepsis Recent Fever Within 48 Hours Sepsis New/Unexplained Change in Mental Status Sepsis Action Taken by Jail Medications Current Medication List: was personally reviewed by me Laboratory Data Attestation: I reviewed the patient's lab results. 11/05/25 03:18 11/05/25 03:18 Lab Results 11/04/25 11/04/25 Range/Units 20:33 22:41 Lactate 3.1 H* (0.4-2.0) mmol/L Urine Color Cancelled Urine Appearance Cancelled Urine pH Cancelled Ur Specific Blue Eye Cancelled Urine Protein Cancelled Urine Glucose (UA) Cancelled Urine Ketones Cancelled Urine Blood Cancelled Urine Nitrite Cancelled Urine Bilirubin Cancelled Urine Urobilinogen Cancelled Ur Leukocyte Esterase Cancelled Urine WBC (Auto) Cancelled Urine RBC (Auto) Cancelled U Hyaline Cast (Auto) Cancelled U Epithel Cells (Auto) Cancelled Urine Bacteria (Auto) Cancelled Ur Renal Epithelial Cell Cancelled Lafferty Biurate Crystals Cancelled Calcium Oxalate Crystal Cancelled Leucine Crystals Cancelled Cystine Crystals Cancelled Uric Acid Crystals Cancelled Triple Phos Crystals Cancelled Sulfonamide Crystals Cancelled Cholesterol Crystals Cancelled Talc Crystals Cancelled Tyrosine Crystals Cancelled Hippuric Acid Crystals Cancelled Unidentified Crystals Cancelled Amorphous Sediment Cancelled Epithelial Casts Cancelled Hyaline Casts Cancelled Granular Casts Cancelled Waxy Casts Cancelled RBC Casts Cancelled WBC Casts Cancelled Other Casts Cancelled Urine Mucus Cancelled Urine Other Cancelled Urine Trichomonas Cancelled Urine Yeast Cancelled Urine Sperm Cancelled Ur Oval Fat Bodies Cancelled Urine Comment Cancelled Administered Medications Aspirin (Aspirin 81 Mg Ectab) 81 mg PO [facility] Stop: 12/05/25 08:59 Last Admin: 11/05/25 08:00 Dose: 81 mg [place] [facility] [place]or[place]atin Calcium (Atorvastatin 10 Mg Tab) 10 mg PO [facility] Stop: 12/05/25 08:59 Last Admin: 11/05/25 08:01 Dose: 10 mg [place]ed [place] [facility] [place]oxetine HCl (Duloxetine Hcl 30 Mg Cap) 30 mg PO [facility] Stop: 12/05/25 08:59 Last Admin: 11/05/25 08:00 Dose: 30 mg [place]ed [place] [facility] [place]oxaparin Sodium (Enoxaparin Inj 30 Mg/0.3 Ml Syr) 30 mg SQ [facility] Stop: 12/05/25 08:59 Last Admin: 11/05/25 08:01 Dose: 30 mg [place]ed [place] [facility] [place] Sucrose 300 mg/ Sodium (Chloride) 265 mls @ 176.667 mls/hr IV TODAY ONE Stop: 11/05/25 15:29 Last Infusion: 11/05/25 15:21 Dose: Infused Documented By[place] [facility] [place] Admin: 11/05/25 13:40 Dose: 176.7 mls/hr Documented By: ronnie Metoprolol Succinate (Metoprolol Succ 25mg Ext Rel Tab) 25 mg PO [facility] Stop: 12/05/25 08:59 Last Admin: 11/05/25 08:01 Dose: 25 mg Documented [place] [facility] [place] Oxycodone HCl (Oxycodone Hcl Ir 5 Mg Tab (Immediate Release)) 5 mg PO Q4H PRN PRN Reason: Pain Stop: 11/18/25 23:22 Last Admin: 11/05/25 00:28 Dose: 5 mg Documented By: AMY Pantoprazole Sodium (Pantoprazole 40 Mg Tab) 40 mg PO [facility] Stop: 12/05/25 08:59 Last Admin: 11/05/25 08:01 Dose: 40 mg Documented By: [facility] [place]continued Medications Albuterol (Albut/Ipratrop 3mg/0.5mg Neb 3 Ml Vial) 3 ml NEB NOW STA; Protocol Stop: 11/04/25 23:25 Last Admin: 11/05/25 06:11 Dose: Not Given Documented By: DJP Sodium Chloride (Nss) 500 mls @ 999 mls/hr IV .Q31M LYNDA Stop: 11/04/25 19:45 Last Infusion: 11/04/25 19:57 Dose: Infused Documented By: vgr Admin: 11/04/25 19:16 Dose: 999 mls/hr Documented By: vgr Cefepime HCl (Maxipime 2000mg) 2,000 mg in 20 mls @ 5 mls/min IV NOW STA; Protocol Stop: 11/04/25 19:42 Last Admin: 11/04/25 19:53 Dose: 5 mls/min Documented By: vgr Magnesium Sulfate/Dextrose (Magnesium Sulfate / D5w) 1 gm in 100 mls @ 50 mls/hr IV Q2H LYNDA Stop: 11/05/25 01:29 Last Infusion: 11/05/25 03:08 Dose: Infused Documented By: Admin: 11/05/25 00:42 Dose: 50 mls/hr Documented By: Infusion: 11/05/25 00:42 Dose: Infused Documented By: Admin: 11/04/25 22:35 Dose: 50 mls/hr Documented By: vgr Sodium Chloride (Nss) 500 mls @ 999 mls/hr IV .Q31M ONE Stop: 11/04/25 22:20 Last Infusion: 11/04/25 23:21 Dose: Infused Documented By: vgr Admin: 11/04/25 22:35 Dose: 999 mls/hr Documented By: vgr Promethazine HCl (Phenergan) 6.25 mg in 50.25 mls @ 201 mls/hr IV NOW STA Stop: 11/04/25 23:37 Last Admin: 11/05/25 00:02 Dose: Not Given Documented By: HNT Albumin Human (Albumin 25%) 25 gm in 100 mls @ 50 mls/hr IV ONE ONE Stop: 11/05/25 02:43 Last Infusion: 11/05/25 03:13 Dose: Infused Documented By: Admin: 11/05/25 01:13 Dose: 50 mls/hr Documented By: HNT Ioversol (Optiray 320 125ml) 119 ml IV ONCE ONE Stop: 11/04/25 22:12 Last Admin: 11/04/25 22:11 Dose: 119 ml Documented By: PLW Potassium Chloride (Potassium Chloride Pwd 20 Meq Pack) 40 meq PO NOW STA Stop: 11/05/25 04:07 Last Admin: 11/05/25 04:40 Dose: 40 meq Documented By: HNT Imaging Data Radiologist's Impression: Chest X-Ray 11/04/25 19:13 Single frontal view of the chest Comparison made to prior exam dated 09/14/2024 Impression Mild pulmonary vascular congestion. Electronically signed by Josué Tavera 11-04-2025 10:[address] 11/04/25 19:13 CT head without contrast History: Fatigue Comparison: None Technique: Using multidetector thin collimation helical acquisition technique, axial, coronal and sagittal CT images from the skull base to the vertex were obtained without intravenous contrast. Dose reduction techniques were achieved by using automatic exposure control and/or adjustment of mA and/or kV according to patient size and/or use of iterative reconstruction technique. Findings: No intracranial hemorrhage, mass-effect, or midline shift. The ventricles are proportionate to the cerebral sulci. The honag to white matter differentiation of the cerebral hemispheres is preserved. The basal cisterns are patent. There is moderate cerebral atrophy. Moderate, patchy low-attenuation changes in the white matter, most suggestive of sequelae of chronic small vessel ischemic disease. The visualized paranasal sinuses are clear. Mastoid air cells are clear. Impression: No acute intracranial pathology. Electronically signed by Darshan Brambila 11-04-2025 9:31 PM Chest CTA 11/04/25 21:38 Exam(s): CTA CHEST IV Amt: 119 ml opti 320 EXAM: CT Angiography Chest With Intravenous Contrast CLINICAL HISTORY: sob low o2. TECHNIQUE: Axial computed tomographic angiography images of the chest with intravenous contrast. CTDI is 21.78 mGy and DLP is 686.83 mGy-cm. Automated exposure control was utilized for the study. A dose lowering technique was utilized adhering to the principles of ALARA. 3D and MIP reconstructed images were created and reviewed. COMPARISON: No relevant prior studies available. FINDINGS: Pulmonary arteries: No pulmonary embolism. Aorta: No thoracic aortic aneurysm or dissection. Atherosclerotic vascular calcifications. Lungs: Diffuse emphysematous changes including multiple lung cysts, largest of the lung bases. Diffuse peripheral interstitial changes consistent with scarring and honeycombing. Bilateral dependent atelectasis. Possible small peripheral infiltrates in bilateral lower lobes.. Pleural space: No pleural effusion. No pneumothorax. Heart: No cardiomegaly. No pericardial effusion. No evidence of RV dysfunction. Coronary artery calcifications. Bones/joints: No acute fracture. Chronic appearing moderate approximately 50% loss of height of the T12 vertebral body with 5.5 mm posterior retropulsion into the spinal canal. Soft tissues: Cardiac loop recorder. Lymph nodes: Unremarkable. No enlarged lymph nodes. Abdomen: Limited images of the upper abdomen demonstrates multiple calcified gallstones within the gallbladder. IMPRESSION: No pulmonary embolism. Diffuse emphysematous changes including multiple lung cysts, largest of the lung bases. Diffuse peripheral interstitial changes consistent with scarring and honeycombing. Bilateral dependent atelectasis versus infiltrates greatest in the lower lobes. Cholelithiasis. Chronic appearing T12 vertebral body compression fracture. Electronically signed by: Adam Baker M.D. 11/04/25 23:12 PM Discharge Plan Visit Data Chief Complaint: Weakness Stated Complaint: LEGS WEAK, DIZZY, MUSHY SPEECH, NOT SLURRING ED Provider: Aston Ford Discharge Problem: Weakness, Leukocytosis, Ambulatory dysfunction, Recurrent falls, Acute and chronic respiratory failure with hypoxia, Slurred speech Patient Disposition: Admitted As Inpatient Condition: Good Discharge Instructions Interventions: ED Discharge Assessment Last Done: 11/04/25 23:34 Discharge Problem: Leukocytosis Qualifiers: Leukocytosis type: unspecified Qualified Code(s): D72.829 - Elevated white blood cell count, unspecified
[2025-11-04 19:26] LABS: Hematocrit (blood only) 38.1 % (42.0-52.0); Hemoglobin 13.1 g/dL (14.0-18.0); Immature Granulocytes # (auto) 0.11 K/uL (0.01-0.20); Immature Granulocytes % (auto) 0.6 %; Mean Corpuscular Hemoglobin 34.9 pg (25.0-34.0); Mean Corpuscular Volume 101.6 fL (80.0-100.0); Platelet Count 350 K/uL (130-400); RDW Standard Deviation 59.7 fL (36.4-46.3); Red Blood Count 3.75 M/uL (4.70-6.10); White Blood Count 17.78 K/ul (4.8-10.8)
[2025-11-04 19:43] LABS: Alanine Aminotransferase 14.0 U/L (7-52); Albumin Globulin Ratio 1.2 (0.9-2); Albumin Level 3.5 gm/dl (3.4-5.0); Alkaline Phosphatase 129.0 U/L (34-104); Anion Gap 16.0 (3-11); Bilirubin,Total 1.0 mg/dl (0.2-1.0); Blood Urea Nitrogen 19.0 mg/dl (6-23); Calcium 9.0 mg/dl (8.6-10.3); Carbon Dioxide 16.0 mmol/L (21-32); Chloride 107.0 mmol/L (98-107); Creatinine Clr Calc Pharmacy 33.5 ml/min; Globulin 3.0 gm/dl (2.5-4.0); Glucose 134.0 mg/dl (70-99(Fasting)); Magnesium 1.5 mg/dl (1.7-2.4); Potassium 4.4 mmol/L (3.5-5.1); Sodium 139.0 mmol/L (136-145); Total Protein 6.5 gm/dl (6.0-8.3)
[2025-11-04] MEDS: CEFEPIME 2000MG 2,000 MG/20 ML SYR IV STA (19:53)
[2025-11-04 19:59] LABS: Thyroid Stimulating Hormone 2.172 uIu/ml (0.300-4.500)
--- NOTE | 2025-11-04 21:31 | CT Scan Report ---
CT head without contrast History: Fatigue Comparison: None Technique: Using multidetector thin collimation helical acquisition technique, axial, coronal and sagittal CT images from the skull base to the vertex were obtained without intravenous contrast. Dose reduction techniques were achieved by using automatic exposure control and/or adjustment of mA and/or kV according to patient size and/or use of iterative reconstruction technique. Findings: No intracranial hemorrhage, mass-effect, or midline shift. The ventricles are proportionate to the cerebral sulci. The hoang to white matter differentiation of the cerebral hemispheres is preserved. The basal cisterns are patent. There is moderate cerebral atrophy. Moderate, patchy low-attenuation changes in the white matter, most suggestive of sequelae of chronic small vessel ischemic disease. The visualized paranasal sinuses are clear. Mastoid air cells are clear. Impression: No acute intracranial pathology. Electronically signed by Darshan Brambila 11-04-2025 9:31 PM
[2025-11-04] MEDS: OPTIRAY 320 125ml IV ONE (22:11)
--- NOTE | 2025-11-04 22:24 | XRay Report ---
Single frontal view of the chest Comparison made to prior exam dated 09/14/2024 Impression Mild pulmonary vascular congestion. Electronically signed by Josué Tavera 11-04-2025 10:24 PM
[2025-11-04] MEDS: MAGNESIUM SULFATE / D5W 1 GM/100 ML BAG IV SCH (22:35)
[2025-11-04] MEDS: SODIUM CHLORIDE 0.9% 500 ML IV ONE (22:35)
--- NOTE | 2025-11-04 22:42 | History & Physical Report ---
Date of Service November 04, 2025 Assessment & Plan (1) Acute hypoxemic respiratory failure: Plan: Assessment and plan below following discussion of case with ED provider and reviewing patient history/pertinent normal/abnormal diagnostic test results. Acute on chronic hypoxemic respiratory failure chronic respiratory failure secondary to COPD/ILD/pulmonary fibrosis on home O2/pulmonary hypertension Minimal pulmonary congestion on plain chest x-ray Rule out PE TIA Transient slurred speech disturbance History cerebral arteriosclerosis as per records History A-fib not on anticoagulation secondary to fall risk chronic diastolic heart failure, equivocal volume status, patient intravascularly dry despite some congestion on x-ray hypertension, stable Hyperlipidemia on statin Rx mild MR/TR prediabetes, hemoglobin A1c of 5.7 this year chronic anemia, hemoglobin at baseline Aspiration concerns past alcohol abuse Admit to med/tele Supplemental O2 Baseline VBG Stat nebs for now Lasix if oxygenation not improved CT chest PE study Neurochecks Continue home aspirin for secondary stroke prevention MRI/MRA brain re: TIA Permissive hypertension until stroke ruled out Neurology consult contingent on MRI results Aspiration precautions, 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 [place]ick Walter, contact #[phone]. Text document was generated using [employer] voice recognition software. It may contain grammatical or spelling errors. Kindly contact undersigned for clarification of any documentation item in question. History of Present Illness Chief Complaint: Slurred speech Primary Care Provider: Dr. Kim History obtained from patient, family, and records. Medical history significant for chronic diastolic heart failure (EF 60-65%, TTE 2023), hypertension, mild MR/TR, NSVT, A-fib not on anticoagulation secondary to fall risk, chronic respiratory failure secondary to COPD/ILD/pulmonary fibrosis on home O2, pulmonary hypertension, hyperlipidemia, prediabetes, cerebral arteriosclerosis as per records chronic anemia (baseline hemoglobin 12-13), pernicious anemia as per records, GERD, Zenker's diverticulum, BPH, mood disorder, past alcohol abuse. Last confinement September 2024 for hypertensive urgency and strokelike symptoms presenting as headache with blurred vision. Patient speech noted by family to be somewhat slurred since yesterday. Patient talking funny. Denies headache. No arm or leg weakness. Compliant with home medications. Patient weaker than usual today. More short of breath the last few days. No unusual cough symptoms. Patient admits to cough symptoms with water/food intake from time to time especially in the morning. Patient denies chest pain. Denies abdominal pain or dysuria symptoms. Lowest O2 sats of 80s documented at the ER. IV cefepime administered at the ER. Speech currently better as per daughter. 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 Allergies Allergy/AdvReac Type Severity Reaction Status Date / Time No Known Allergies Allergy Verified 11/04/25 21:23 Home Medications Medication Instructions Recorded Confirmed Type atorvastatin 10 mg tablet 10 mg PO QAM 07/28/18 11/04/25 History pantoprazole 40 mg tablet,delayed 40 mg PO QAM 07/28/18 11/04/25 History release aspirin 81 mg tablet,delayed 81 mg PO QAM 09/14/24 11/04/25 History release cyanocobalamin (vitamin B-12) 1,000 mcg subcut .EVERY 6 WEEKS 09/14/24 11/04/25 History 1,000 mcg/mL injection solution losartan 100 mg tablet 100 mg PO QAM 09/14/24 11/04/25 History amlodipine 5 mg tablet 10 mg PO QAM 11/04/25 11/04/25 History duloxetine 30 mg capsule,delayed 30 mg PO QAM 11/04/25 11/04/25 History release metoprolol succinate 50 mg 50 mg PO AMHS 11/04/25 11/04/25 History tablet,extended release 24 hr Past Med/Surg History Problem List (Updated 11/05/25 @ 02:52 by Matheus Barksdale MD) Acute hypoxemic respiratory failure Left anterior fascicular block (Acute) Intermittent headache (Acute) Hypertensive urgency (Acute) Nocturnal hypoxemia ILD (interstitial lung disease) Recurrent falls Ambulatory dysfunction Hypertensive urgency Leukocytosis Left knee pain New onset atrial fibrillation Atrial tachycardia Paroxysmal atrial fibrillation DVT prophylaxis Syncope and collapse Hyperglycemia Hypomagnesemia Hypokalemia Alcohol withdrawal Alcohol abuse Fall History of cataract surgery (Chronic) History of inguinal hernia repair (Chronic) History of hemorrhoidectomy (Chronic) 1970 GERD (gastroesophageal reflux disease) (Chronic) HLD (hyperlipidemia) (Chronic) Pernicious anemia (Chronic) BPH (benign prostatic hyperplasia) (Chronic) Altered mental status (Acute) HTN (hypertension) (Acute) First degree atrioventricular block (Chronic) Full code status Valvular heart disease (Chronic) Chronic left hip pain (Chronic) HTN (hypertension) (Chronic) DVT prophylaxis Hyponatremia (Acute) Weakness (Chronic) Medical History (Updated 11/05/25 @ 02:52 by Matheus Barksdale MD) Hypertension Spinal stenosis Family History Other Hypertension Social History Smoking Status: Never smoker Second Hand Exposure: No; Do You Dip or Chew Tobacco: No; Hx Alcohol Use: Yes Alcohol type: beer Hx Substance Use: No Preferred Language: Ukrainian Communication Ability: Effective 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: No Beliefs That Will Affect Care: None Current Living Situation: Family Current Living Situation Comment: lives at home with son Other Information That Helps Us Care for You: No Feels Safe at Home: Yes Safety Concerns: Feels Safe At This Time Assistive Devices: Glasses, Hearing Aid - Bilateral and Walker Review of Systems Review of Systems: As per HPI, all other systems reviewed and negative Physical Exam Physical Exam: GENERAL: Comfortable, pleasant, slightly hard of hearing, no respiratory distress SKIN: Pallor, warm HEENT: Pale palpebral conjunctivae, no ptosis, dry buccal mucosa, nasal cannula in place NECK : Supple, no tenderness CHEST : Decreased breath sounds, no tenderness HEART : Irregular, no obvious murmurs ABDOMEN: Some distention, nontender EXTREMITIES : Minimal LE swelling, no LE tenderness, palpable pulses, no other conspicuous deformities noted NEUROLOGIC : Coherent, no facial asymmetry, no dysarthria, gait and stance not assessed Results & Data Results & Data Vital Signs (Past 12 Hours) Vital Signs Temp Pulse Pulse Resp BP BP Pulse Ox 11/04/25 21:01 89 16 127/92 92 11/04/25 19:29 78 16 96 11/04/25 19:29 96 11/04/25 19:17 81 16 127/92 97 11/04/25 19:13 93 11/04/25 18:44 36.6 C 98 H 15 114/79 98 O2 Del Method O2 Flow Rate 11/04/25 21:01 Nasal Cannula 2 11/04/25 19:29 Room Air 11/04/25 19:29 Room Air 11/04/25 19:17 Room Air 11/04/25 19:13 Room Air 11/04/25 18:44 Room Air Laboratory Results Laboratory Results WBC 17.78 K/ul (4.8-10.8) H 11/04/25 Unknown RBC 3.75 M/uL (4.70-6.10) L 11/04/25 Unknown Hgb 13.1 g/dL (14.0-18.0) L 11/04/25 Unknown Hct 38.1 % (42.0-52.0) L 11/04/25 Unknown MCV 101.6 fL (80.0-100.0) H 11/04/25 Unknown MCH 34.9 pg (25.0-34.0) H 11/04/25 Unknown MCHC 34.4 g/dL (32.0-36.0) 11/04/25 Unknown RDW Std Deviation 59.7 fL (36.4-46.3) H 11/04/25 Unknown RDW Coeff of Dereck 15.9 % (11.5-14.5) H 11/04/25 Unknown Plt Count 350 K/uL (130-400) 11/04/25 Unknown MPV 8.9 fL (9.4-12.4) L 11/04/25 Unknown Immature Gran % (Auto) 0.6 % 11/04/25 Unknown Neut % (Auto) 81.2 % 11/04/25 Unknown Lymph % (Auto) 10.8 % 11/04/25 Unknown [place] % (Auto) 6.8 % 11/04/25 Unknown Eos % (Auto) 0.3 % 11/04/25 Unknown Baso % (Auto) 0.3 % 11/04/25 Unknown Neut # (Auto) 14.43 K/uL (1.40-6.50) H 11/04/25 Unknown Lymph # (Auto) 1.92 K/uL (1.20-3.40) 11/04/25 Unknown [place] # (Auto) 1.21 K/uL (0.11-0.59) H 11/04/25 Unknown Eos # (Auto) 0.05 K/uL (0.00-0.50) 11/04/25 Unknown Baso # (Auto) 0.06 K/uL (0.00-0.20) 11/04/25 Unknown Immature Gran # (Auto) 0.11 K/uL (0.01-0.20) 11/04/25 Unknown Sodium 139 mmol/L (136-145) 11/04/25 Unknown Potassium 4.4 mmol/L (3.5-5.1) 11/04/25 Unknown Chloride 107 mmol/L (98-107) 11/04/25 Unknown Carbon Dioxide 16 mmol/L (21-32) L 11/04/25 Unknown Anion Gap 16 (3-11) H 11/04/25 Unknown BUN 19 mg/dl (6-23) 11/04/25 Unknown Creatinine 1.10 mg/dl (0.6-1.4) 11/04/25 Unknown Est Cr Clr Drug Dosing 33.5 ml/min 11/04/25 Unknown eGFR 64.97 11/04/25 Unknown BUN/Creatinine Ratio 17.3 (10-20) 11/04/25 Unknown Glucose 134 mg/dl (70-99(Fasting)) H 11/04/25 Unknown Lactate 3.1 mmol/L (0.4-2.0) H* 11/04/25 20:33 Calcium 9.0 mg/dl (8.6-10.3) 11/04/25 Unknown Magnesium 1.5 mg/dl (1.7-2.4) L 11/04/25 Unknown Total Bilirubin 1.0 mg/dl (0.2-1.0) 11/04/25 Unknown AST 28 U/L (13-39) 11/04/25 Unknown ALT 14 U/L (7-52) 11/04/25 Unknown Alkaline Phosphatase 129 U/L (34-104) H 11/04/25 Unknown Troponin I High Sens 18.7 pg/ml (0-20) 11/04/25 Unknown Total Protein 6.5 gm/dl (6.0-8.3) 11/04/25 Unknown Albumin 3.5 gm/dl (3.4-5.0) 11/04/25 Unknown Globulin 3.0 gm/dl (2.5-4.0) 11/04/25 Unknown Albumin/Globulin Ratio 1.2 (0.9-2) 11/04/25 Unknown TSH 2.172 uIu/ml (0.300-4.500) 11/04/25 Unknown Impressions Chest X-Ray 11/04/25 19:13 Single frontal view of the chest Comparison made to prior exam dated 09/14/2024 Impression Mild pulmonary vascular congestion. Electronically signed by Josué Tavera 11-04-2025 10:[address] 11/04/25 19:13 CT head without contrast History: Fatigue Comparison: None Technique: Using multidetector thin collimation helical acquisition technique, axial, coronal and sagittal CT images from the skull base to the vertex were obtained without intravenous contrast. Dose reduction techniques were achieved by using automatic exposure control and/or adjustment of mA and/or kV according to patient size and/or use of iterative reconstruction technique. Findings: No intracranial hemorrhage, mass-effect, or midline shift. The ventricles are proportionate to the cerebral sulci. The hoang to white matter differentiation of the cerebral hemispheres is preserved. The basal cisterns are patent. There is moderate cerebral atrophy. Moderate, patchy low-attenuation changes in the white matter, most suggestive of sequelae of chronic small vessel ischemic disease. The visualized paranasal sinuses are clear. Mastoid air cells are clear. Impression: No acute intracranial pathology. Electronically signed by Darshan Brambila 11-04-2025 9:31 PM Diagnostic Findings EKG as per my interpretation :Rate 70, A-fib, LAD, LAFB, inferior infarct, T wave inversion lateral leads
--- NOTE | 2025-11-04 23:13 | CT Scan Report ---
Exam(s): CTA CHEST IV Amt: 119 ml opti 320 EXAM: CT Angiography Chest With Intravenous Contrast CLINICAL HISTORY: sob low o2. TECHNIQUE: Axial computed tomographic angiography images of the chest with intravenous contrast. CTDI is 21.78 mGy and DLP is 686.83 mGy-cm. Automated exposure control was utilized for the study. A dose lowering technique was utilized adhering to the principles of ALARA. 3D and MIP reconstructed images were created and reviewed. COMPARISON: No relevant prior studies available. FINDINGS: Pulmonary arteries: No pulmonary embolism. Aorta: No thoracic aortic aneurysm or dissection. Atherosclerotic vascular calcifications. Lungs: Diffuse emphysematous changes including multiple lung cysts, largest of the lung bases. Diffuse peripheral interstitial changes consistent with scarring and honeycombing. Bilateral dependent atelectasis. Possible small peripheral infiltrates in bilateral lower lobes.. Pleural space: No pleural effusion. No pneumothorax. Heart: No cardiomegaly. No pericardial effusion. No evidence of RV dysfunction. Coronary artery calcifications. Bones/joints: No acute fracture. Chronic appearing moderate approximately 50% loss of height of the T12 vertebral body with 5.5 mm posterior retropulsion into the spinal canal. Soft tissues: Cardiac loop recorder. Lymph nodes: Unremarkable. No enlarged lymph nodes. Abdomen: Limited images of the upper abdomen demonstrates multiple calcified gallstones within the gallbladder. IMPRESSION: No pulmonary embolism. Diffuse emphysematous changes including multiple lung cysts, largest of the lung bases. Diffuse peripheral interstitial changes consistent with scarring and honeycombing. Bilateral dependent atelectasis versus infiltrates greatest in the lower lobes. Cholelithiasis. Chronic appearing T12 vertebral body compression fracture. Electronically signed by: Adam Baker M.D. 11/04/25 23:12 PM
[2025-11-04] MEDS ORDERED: PHARMACIST DISCHARGE MED REC CONSULT PRN (23:21)
[2025-11-04] MEDS ORDERED: ACETAMINOPHEN 325 MG TAB PO PRN (23:23)
[2025-11-04 23:27] LABS: Base Excess VBG -8.4 mEq/L; HCO3 VBG 17 mmol/L; Oxygen Saturation VBG 74.0 %; PCO2 VBG 35 mmHg (38-50); PO2 VBG 45 mmHg; pH VBG 7.30 (7.36-7.41)
[2025-11-05] MEDS: PROMETHAZINE 6.25 MG/50.25 ML BAG IV STA (00:02)
[2025-11-05] MEDS: ALBUMIN 25% 25 GM/100 ML VIAL IV ONE (01:13)
[2025-11-05 01:27] LABS: Appearance Urine Clear (Clear); Bacteria Urine Automated None Seen (None Seen); Cast Urine Automated 0-2 /lpf (0-2); Epithelial Cell Urine Auto 0-2 /hpf (0-2); Glucose Urine UA Negative (Negative); RBC Urine Automated 0-2 /hpf (0-2); WBC Urine Automated 0-5 /hpf (0-5)
[2025-11-05 03:30] LABS: Base Excess VBG -7.4 mEq/L; HCO3 VBG 17 mmol/L; Oxygen Saturation VBG 70.1 %; PCO2 VBG 32 mmHg (38-50); PO2 VBG 41 mmHg; pH VBG 7.34 (7.36-7.41)
[2025-11-05 03:37] LABS: Hematocrit (blood only) 32.8 % (42.0-52.0); Hemoglobin 10.9 g/dL (14.0-18.0); Immature Granulocytes # (auto) 0.04 K/uL (0.01-0.20); Immature Granulocytes % (auto) 0.3 %; Mean Corpuscular Hemoglobin 33.6 pg (25.0-34.0); Mean Corpuscular Volume 101.2 fL (80.0-100.0); Platelet Count 269 K/uL (130-400); RDW Standard Deviation 59.8 fL (36.4-46.3); Red Blood Count 3.24 M/uL (4.70-6.10); White Blood Count 11.79 K/ul (4.8-10.8)
[2025-11-05 04:00] LABS: Anion Gap 11.0 (3-11); Blood Urea Nitrogen 17.0 mg/dl (6-23); Calcium 8.1 mg/dl (8.6-10.3); Carbon Dioxide 17.0 mmol/L (21-32); Chloride 112.0 mmol/L (98-107); Cholesterol 89.0 mg/dl (0-200); Creatinine Clr Calc Pharmacy 43.3 ml/min; Glucose 99.0 mg/dl (70-99(Fasting)); HDL Cholesterol 52.0 mg/dl; Magnesium 2.3 mg/dl (1.7-2.4); Potassium 3.3 mmol/L (3.5-5.1); Sodium 140.0 mmol/L (136-145); Triglycerides 96.0 mg/dl (0-150)
[2025-11-05 04:23] LABS: Influenza A virus by PCR Negative (Neg); Influenza B virus by PCR Negative (Neg); SARS CoV2 RNA(COVID-19) Ceph NEGATIVE (Negative)
[2025-11-05] MEDS: POTASSIUM CHLORIDE PWD 20 MEQ PACK PO STA (04:40)
[2025-11-05] MEDS: ALBUT/IPRATROP 3MG/0.5MG NEB 3 ML VIAL NEB STA (06:11)
[2025-11-05] MEDS: ASPIRIN 81 MG ECTAB PO SCH (08:00)
[2025-11-05] MEDS: METOPROLOL SUCC 25MG EXT REL TAB PO SCH (08:01)
[2025-11-05] MEDS: ATORVASTATIN 10 MG TAB PO SCH (08:01)
[2025-11-05] MEDS: ENOXAPARIN INJ 30 MG/0.3 ML SYR SQ SCH (08:01)
[2025-11-05 08:49] LABS: Iron 27.0 mcg/dl (35-175); Total Iron Binding Cap Calc 227.0 mcg/dl (250-450); Transferrin 162.0 mg/dl (200-360); Transferrin (FE) Percent Satur 12.0 % (20-50)
[2025-11-05 09:08] LABS: Ferritin 28.6 ng/ml (8-388)
--- NOTE | 2025-11-05 09:22 | Magnetic Resonance Report ---
HISTORY: Increased weakness. TIA. Slurred speech. TECHNIQUE: MR angiography of the brain without contrast. 3D [id number] technique. Axial source images and 3D MIP reconstructions are provided. COMPARISON: None. FINDINGS: The intradural vertebral arteries are patent. The basilar artery is patent. The posterior cerebral arteries are patent. The distal internal carotid arteries are patent. Both A1 anterior cerebral artery branches are patent. Patent anterior communicating artery. The anterior cerebral artery branches are patent. The right M1 and proximal M2 segment branches appear patent. The left M1 and proximal M2 segment branches appear patent. Moderate diffuse volume loss. Areas of remote lacunar infarct involving the bilateral basal ganglia. IMPRESSION: * No evidence of central vessel occlusion, focal hemodynamically significant stenosis, or aneurysm. Electronically signed by Manny Phillips 11-05-2025 09:22 AM
--- NOTE | 2025-11-05 09:27 | Magnetic Resonance Report ---
HISTORY: TIA. Slurred speech. Falls with increased weakness. TECHNIQUE: MRI of the brain without contrast. COMPARISON: MRA of the brain from the same day. FINDINGS: The cerebellar tonsils do not extend below the foramen magnum. The sella is not expanded. Moderate diffuse volume loss. Degenerative changes of the upper cervical spine. No areas of restricted diffusion to suggest acute infarct. Extensive T2/FLAIR hyperintensity involving the periventricular and subcortical white matter is nearly confluent. Signal intensity of the brain is otherwise unremarkable.T2 hyperintense cystic spaces within the bilateral basal ganglia may represent remote lacunar infarcts or enlarged perivascular spaces. Ventricular caliber is appropriate for the moderate degree of volume loss. Fourth ventricle is midline. The basal cisterns are patent. The major intracranial flow voids are maintained. The globes and orbits are unremarkable. The paranasal sinuses and mastoid air cells are well aerated. The soft tissues of the skull base and scalp are unremarkable. No areas of susceptibility artifact to suggest intracranial hemorrhage or significant abnormal hemosiderin deposition. IMPRESSION: * No acute intracranial findings. No evidence of acute infarct, intracranial hemorrhage, or mass effect. * Extensive T2/FLAIR hyperintensity involving the periventricular and subcortical white matter is nearly confluent and highly nonspecific. This is most commonly attributed to chronic microvascular ischemic changes with other differential considerations including demyelinating disease or other infectious or inflammatory causes of leukoencephalopathy. * Moderate diffuse volume loss. * Additional chronic and/or incidental findings as above. Electronically signed by Manny Phillips 11-05-2025 09:27 AM
[2025-11-05 09:49] LABS: Folate (Folic Acid),Ser orPlas 9.45 ng/ml (>5.38)
[2025-11-05 09:50] LABS: Vitamin B12 735.0 pg/ml (180-914)
[2025-11-05 11:47] LABS: Hemoglobin A1C 6.2 % (4.5-5.6)
[2025-11-05] MEDS: IRON SUCROSE 300 MG in SODIUM CHLORIDE 0.9% 250 ML IV ONE (13:40)
--- NOTE | 2025-11-05 13:44 | Hospitalist Progress Note ---
Date of Service November 05, 2025 Assessment & Plan (1) Acute hypoxemic respiratory failure: Plan Mr. Ramos is an 85 year old male with past medical history of HTN, HLD, Afib(not on AC), mitral valve prolapse, GERD, Depression, BPH, prediabetes, zenker's diverticulum,pernicious anemia (on vit B12 shots), prior ETOH abuse,Lumbar spinal stenosis, interstitial lung disease/ pulm fibrosis, nocturnal hypoxia on 2L, #Acute on chronic hypoxic respiratory failure, on 2L hs #ILD/UIP #Centrilobular emphysema thought to be pulmonary fibrosis v chronic aspiration pneumonitis per pulm notes in 2022 CTA negative PE previously on anoro, will resume this inhaler appears dry v euvolemic, given vascular congestion likely iso of PHTN 2/2 lung disease Will order ECHO to help glean insight into volume status vascularly wean o2 but keep sats in 90-92% will likely need 6min walk test, however, suspect likely rehab placement at this juncture low suspicion for acute exacerbation or pna at this time #Stroke like symptoms #Abnormal MRI progressive weakness, dysphagia, backwards falling, tongue neuropathy, and acutely slurred speech MRI revealed no acute infarct, but extensive signaling c/w a nonspecific leukoencephalopathy ECHO as above Neurology consult as family has extensive questions regarding progression or follow up given findings suspect symptoms partially related to dehydration in combination to chronic changes noted with MRI #leukocytosis decreasing after fluids, likely iso dehydration will continue to monitor, could consider smear or further infectious eval contingent on symptoms #hypokalemia repeat bmp this afternoon plan to replace po as able #SVT #PAF #History of syncope and collapse ZIO monitor recently ordered with episodes of SVT/PAF has loop recorder in which battery is , which revealed PAF as well last followed Cardiology in 2022 high risk for AC continue reduced metoprolol 25mg bid #Progressive weakness #Ambulatory dysfunction reports of more frequent falling, typically backward lives at home in double wide with son has walker at bedside Orthostats negative PT/OT #HTN losartan held, bp low/normal continue reduce dose metoprolol at 25mg bid #Dysphagia reports progressive issues with swallowing plan for VFSS #Acute on chronic macrocytic anemia #Pernicious anemia Hgb baseline 12-13, 10.9 this am; low suspicion for bleeding at this time suspect drop likely dilutional given equivalent fall in wbc and platelets receives b12 injections q6 weeks, b12 wnl, folate wnl Iron low at 27, TIBC 227 and ferritin 28 Will give IV venofer 300mg x1 and assess tolerance, could consider po v more IV replacement #GERD continue ppo #Depression continue duloxetine #Prediabetes A1C 6.2% diet managed #HLD LDL at 18 continue statin, no indication to increase at this time continue asa #Abnormal CT -asymptomatic cholelithiasis noted -Chronic t12 compression fracture, undergoes spinal injections previously, may need assistance with scheduling at [place] DVT lovenox Admission and Anticipated Discharge Date Admission Date: November 04, 2025 Subjective evaluated at bedside denies infectious like symptoms--no urinary concerns, diarrhea, increased cough/sputum reports PAZ, mostly like he cannot get air in, no longer on inhaler at home; hasnt followed pulm since 2022 He states he is concerned as he falls and has the sensation of falling backwards, he reports issues swallowing and memory decline, he wants to stay as mobile as possible and wants to maintain as much independence as possible He states that he feels better with the oxygen at this time he doesnt recall his intake decreasing over the last couple of days, he just feels "off" He does report his 8 months ago and thats been particularly challenging Physical Exam Constitutional: WD/WN, vitals as above Respiratory: diminished breath sounds, no wheezing, no appreciable crackles Cardiovascular: RRR, no murmur, no edema Gastrointestinal (Abdomen): normal bowel sounds, soft, nontender, no hepatosplenomegaly Results & Data Results & Data Vital Signs (Past 12 Hours) Vital Signs Temp Pulse Pulse Resp BP BP Pulse Ox 11/05/25 11:27 87 130/71 97 11/05/25 07:39 36.3 C L 84 18 107/60 97 11/05/25 07:08 66 11/05/25 03:36 36.5 C 80 18 106/58 L 94 O2 Del Method O2 Flow Rate 11/05/25 11:27 Nasal Cannula 2 11/05/25 07:39 Nasal Cannula 2 11/05/25 07:08 11/05/25 03:36 Nasal Cannula 2 Laboratory Results Short CBC 11/04/25 11/05/25 Range/Units Unknown 03:18 WBC 17.78 H 11.79 H (4.8-10.8) K/ul Hgb 13.1 L 10.9 L (14.0-18.0) g/dL Hct 38.1 L 32.8 L (42.0-52.0) % Plt Count 350 269 (130-400) K/uL BMP 11/04/25 11/05/25 Unknown 03:18 Sodium 139 140 Potassium 4.4 3.3 L D Chloride 107 112 H Carbon Dioxide 16 L 17 L BUN 19 17 Creatinine 1.10 0.85 Glucose 134 H 99 Calcium 9.0 8.1 L Liver Function 11/04/25 Range/Units Unknown Total Bilirubin 1.0 (0.2-1.0) mg/dl AST 28 (13-39) U/L ALT 14 (7-52) U/L Alkaline Phosphatase 129 H (34-104) U/L Albumin 3.5 (3.4-5.0) gm/dl Urine 11/04/25 11/05/25 Range/Units 22:41 01:00 Urine Color Cancelled Yellow Urine Appearance Cancelled Clear Urine pH Cancelled 5.0 Ur Specific [place] Cancelled > 1.045 H Urine Protein Cancelled Trace H Urine Glucose (UA) Cancelled Negative Medications Administered Home Medications Medication Instructions Recorded Confirmed Last Taken atorvastatin 10 mg tablet 10 mg PO QAM 07/28/18 11/04/25 11/04/25 pantoprazole 40 mg tablet,delayed 40 mg PO QAM 07/28/18 11/04/25 11/04/25 release aspirin 81 mg tablet,delayed 81 mg PO QAM 09/14/24 11/04/25 11/04/25 release cyanocobalamin (vitamin B-12) 1,000 mcg subcut .EVERY 6 WEEKS 09/14/24 11/04/25 Unknown 1,000 mcg/mL injection solution losartan 100 mg tablet 100 mg PO QAM 09/14/24 11/04/25 11/04/25 amlodipine 5 mg tablet 10 mg PO QAM 11/04/25 11/04/25 11/04/25 duloxetine 30 mg capsule,delayed 30 mg PO QAM 11/04/25 11/04/25 11/04/25 release metoprolol succinate 50 mg 50 mg PO AMHS 11/04/25 11/04/25 11/04/25 tablet,extended release 24 hr am dose Active Medications Generic Name Dose Route Start Last Admin Trade Name Kevinq PRN Reason Stop Dose Admin Aspirin 81 mg 11/05/25 09:00 11/05/25 08:00 Aspirin 81 Mg Ectab PO 12/05/25 08:59 81 mg QAM LYNDA Administration Atorvastatin Calcium 10 mg 11/05/25 09:00 11/05/25 08:01 Atorvastatin 10 Mg Tab PO 12/05/25 08:59 10 mg QAM LYNDA Administration Duloxetine HCl 30 mg 11/05/25 09:00 11/05/25 08:00 Duloxetine Hcl 30 Mg Cap PO 12/05/25 08:59 30 mg QAM LYNDA Administration Enoxaparin Sodium 30 mg 11/05/25 09:00 11/05/25 08:01 Enoxaparin Inj 30 Mg/0.3 Ml Syr SQ 12/05/25 08:59 30 mg QAM YLNDA Administration Iron Sucrose 300 mg/ Sodium 265 mls @ 176.667 mls/hr 11/05/25 14:00 11/05/25 13:40 Chloride IV 11/05/25 15:29 176.7 mls/hr TODAY ONE Administration Metoprolol Succinate 25 mg 11/05/25 09:00 11/05/25 08:01 Metoprolol Succ 25mg Ext Rel Tab PO 12/05/25 08:59 25 mg AMHS LYNDA Administration Oxycodone HCl 5 mg 11/04/25 23:23 11/05/25 00:28 Oxycodone Hcl Ir 5 Mg Tab (Immediate Release) PO 11/18/25 23:22 5 mg Q4H PRN Administration Pain Pantoprazole Sodium 40 mg 11/05/25 09:00 11/05/25 08:01 Pantoprazole 40 Mg Tab PO 12/05/25 08:59 40 mg QAM LYNDA Administration
[2025-11-05] MEDS: UMECLIDINIUM/VILANTEROL 62.5/25MCG 7 PUFFS/INHALER INH SCH (15:35)
[2025-11-05 15:40] LABS: Anion Gap 8.0 (3-11); Blood Urea Nitrogen 14.0 mg/dl (6-23); Calcium 8.6 mg/dl (8.6-10.3); Carbon Dioxide 19.0 mmol/L (21-32); Chloride 111.0 mmol/L (98-107); Creatinine Clr Calc Pharmacy 41.8 ml/min; Glucose 118.0 mg/dl (70-99(Fasting)); Potassium 4.0 mmol/L (3.5-5.1); Sodium 138.0 mmol/L (136-145)
--- NOTE | 2025-11-05 16:42 | Neurology Consultation ---
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 - continue aspirin 81 mg daily - continue atorvastatin 40 mg daily since LDL is 18 - recommend PT and OT consult, patient has had 10 falls in the last few months and he may need inpatient rehab - follow up in Neurology Clinic in 1 month after discharge I discussed my recommendations with Dr. Lita Dennis. Thank you for this consult. Please call with questions. Telehealth Consultation Telehealth Information Telehealth Information: I performed this visit using a real-time telehealth connection between my location and the patients originating location ([facility]). After connecting through interactive tele-video, patient was identified by name and date of and/or wristband check.Patient (or authorized healthcare account executive sales representative) was informed that this was a telemedicine visit and it was being conducted confidentially over secure lines. My office door was closed and no one else was present in the room with me.Patient (or authorized healthcare account executive sales representative) provided consent to proceed with the visit, expressed an understanding of privacy and security of the telemedicine visit, and gave permission to have a hospital account executive sales representative in the room in order to assist with the visit and to conduct portions of the visit, as needed. I informed the patient (or authorized healthcare account executive sales representative) that I reviewed their record a nd presented the opportunity for them to ask any questions regarding the visit today. The patient agreed to participate. History of Present Illness Reason for Consultation: weakness Attending Physician: Lita Dennis MD History of Present Illness Moises Ramos is an 85-year-old male with a past medical history of atrial fibrillation not on anticoagulation due to fall risk, COPD, interstitial lung disease, pulmonary fibrosis, congestive heart failure, hypertension, hyperlipidemia, GERD, Zenker's diverticulum, BPH, and mood disorder who presented to [facility] on 11/04/2025 with dysarthria, weakness, dyspnea, and imbalance. The patient's daughter is present for the encounter and helps to provide the history. Per report, the patient has had a 1 month history of progressive symptoms. He has also had multiple falls, proximally 10 times in the last few months. At baseline, the patient lives with his son. He ambulates with a walker or a cane. He is able to feed, bathe, and toilet himself. He does require help with cooking, driving, and finances. [facility] He [facility] stay in a [facility] facility for a short period of time but was able to return home. He does not currently work with Physical or Occupational therapy. MRI brain was performed in the Emergency Department which shows white matter ischemic disease consistent with a dementia process. However, the patient and his daughter deny memory loss at this time only the ambulatory deficits. Allergies Allergy/AdvReac Type Severity Reaction Status Date / Time No Known Allergies Allergy Verified 11/04/25 21:23 Home Medications Medication Instructions Recorded Confirmed Type atorvastatin 10 mg tablet 10 mg PO QAM 07/28/18 11/04/25 History pantoprazole 40 mg tablet,delayed 40 mg PO QAM 07/28/18 11/04/25 History release aspirin 81 mg tablet,delayed 81 mg PO QAM 09/14/24 11/04/25 History release cyanocobalamin (vitamin B-12) 1,000 mcg subcut .EVERY 6 WEEKS 09/14/24 11/04/25 History 1,000 mcg/mL injection solution losartan 100 mg tablet 100 mg PO QAM 09/14/24 11/04/25 History amlodipine 5 mg tablet 10 mg PO QAM 11/04/25 11/04/25 History duloxetine 30 mg capsule,delayed 30 mg PO QAM 11/04/25 11/04/25 History release metoprolol succinate 50 mg 50 mg PO AMHS 11/04/25 11/04/25 History tablet,extended release 24 hr Patient History Medical History (Updated 11/05/25 @ 16:59 by Bibi Luna MD) Hypertension Spinal stenosis Family History Other Hypertension Social History Smoking Status: Never smoker Second Hand Exposure: No; Do You Dip or Chew Tobacco: No; Hx Alcohol Use: Yes Alcohol type: beer Hx Substance Use: No Preferred Language: Macedonian Communication Ability: Effective Flow Nurse Required: No Beliefs That Will Affect Care: None Current Living Situation: Family Current Living Situation Comment: lives at home with son Other Information That Helps Us Care for You: No Feels Safe at Home: Yes Safety Concerns: Feels Safe At This Time Assistive Devices: Glasses, Hearing Aid - Bilateral and Walker Review of Systems ROS reviewed and negative except as above Physical Exam mental status: The patient is alert and oriented Cranial nerves: Face is symmetric, extraocular movements are intact and spontaneous Strength: Patient has antigravity in all extremities without drift Sensation: Intact to light touch without deficits Results & Data Vital Signs (Past 12 Hours) Vital Signs Temp Pulse Pulse Resp BP BP Pulse Ox 11/05/25 15:38 85 11/05/25 15:20 36.7 C 93 H 113/58 L 92 11/05/25 11:27 87 130/71 97 11/05/25 09:00 11/05/25 07:39 36.3 C L 84 18 107/60 97 11/05/25 07:08 66 O2 Del Method O2 Flow Rate 11/05/25 15:38 11/05/25 15:20 Nasal Cannula 11/05/25 11:27 Nasal Cannula 2 11/05/25 09:00 Nasal Cannula 1 11/05/25 07:39 Nasal Cannula 2 11/05/25 07:08 Laboratory Results 11/04/25 20:33 Aerobic Blood Culture - Pending Blood Anaerobic Blood Culture - Pending 11/04/25 20:33 Aerobic Blood Culture - Pending Blood Anaerobic Blood Culture - Pending 11/05/25 11/05/25 11/05/25 14:41 09:30 03:34 WBC RBC Hgb Hct MCV MCH MCHC RDW Std Deviation RDW Coeff of Dereck Plt Count MPV Immature Gran % (Auto) Neut % (Auto) Lymph % (Auto) Edwards % (Auto) Eos % (Auto) Baso % (Auto) Neut # (Auto) Lymph # (Auto) Edwards # (Auto) Eos # (Auto) Baso # (Auto) Immature Gran # (Auto) VBG pH VBG pCO2 VBG pO2 VBG HCO3 VBG O2 Saturation VBG Base Excess Sodium 138 Potassium 4.0 D Chloride 111 H Carbon Dioxide 19 L Anion Gap 8 BUN 14 Creatinine 0.88 Est Cr Clr Drug Dosing 41.8 eGFR 83.22 BUN/Creatinine Ratio 15.9 Glucose 118 H Estimat Average Glucose Hemoglobin A1c Lactate Calcium 8.6 Phosphorus Magnesium Iron TIBC Transferrin Transferrin % Sat Ferritin Total Bilirubin AST ALT Alkaline Phosphatase Troponin I High Sens B-Natriuretic Peptide Total Protein Albumin Globulin Albumin/Globulin Ratio Triglycerides Cholesterol LDL Cholesterol, Calc VLDL Cholesterol, Calc HDL Cholesterol Cholesterol/HDL Ratio Vitamin B12 Folate Procalcitonin 0.11 TSH Urine Color Urine Appearance Urine pH Ur Specific Wy[place] Urine Protein Urine Glucose (UA) Urine Ketones Urine Blood Urine Nitrite Urine Bilirubin Urine Urobilinogen Ur Leukocyte Esterase Urine WBC (Auto) Urine RBC (Auto) U Hyaline Cast (Auto) U Epithel Cells (Auto) Urine Bacteria (Auto) Ur Renal Epithelial Cell [place] Biurate Crystals Calcium Oxalate Crystal Leucine Crystals Cystine Crystals Uric Acid Crystals Triple Phos Crystals Sulfonamide Crystals Cholesterol Crystals Talc Crystals Tyrosine Crystals Hippuric Acid Crystals Unidentified Crystals Amorphous Sediment Epithelial Casts Hyaline Casts Granular Casts Waxy Casts RBC Casts WBC Casts Other Casts Urine Mucus Urine Other Urine Trichomonas Urine Yeast Urine Sperm Ur Oval Fat Bodies Urine Comment Ethyl Alcohol mg/dL SARS-CoV-2 (PCR) NEGATIVE Influenza Type A (PCR) Negative Influenza Type B (PCR) Negative RSV (RT-PCR) Negative 11/05/25 11/05/25 11/04/25 03:18 01:00 Unknown WBC 11.79 H 17.78 H RBC 3.24 L 3.75 L Hgb 10.9 L 13.1 L Hct 32.8 L 38.1 L MCV 101.2 H 101.6 H MCH 33.6 34.9 H MCHC 33.2 34.4 RDW Std Deviation 59.8 H 59.7 H RDW Coeff of Dereck 15.9 H 15.9 H Plt Count 269 350 MPV 8.8 L 8.9 L Immature Gran % (Auto) 0.3 0.6 Neut % (Auto) 82.4 81.2 Lymph % (Auto) 10.3 10.8 Edwards % (Auto) 6.4 6.8 Eos % (Auto) 0.3 0.3 Baso % (Auto) 0.3 0.3 Neut # (Auto) 9.70 H 14.43 H Lymph # (Auto) 1.22 1.92 Edwards # (Auto) 0.75 H 1.21 H Eos # (Auto) 0.04 0.05 Baso # (Auto) 0.04 0.06 Immature Gran # (Auto) 0.04 0.11 VBG pH 7.34 L VBG pCO2 32 L VBG pO2 41 VBG HCO3 17 VBG O2 Saturation 70.1 VBG Base Excess -7.4 Sodium 140 139 Potassium 3.3 L D 4.4 Chloride 112 H 107 Carbon Dioxide 17 L 16 L Anion Gap 11 16 H BUN 17 19 Creatinine 0.85 1.10 Est Cr Clr Drug Dosing 43.3 33.5 eGFR 84.10 64.97 BUN/Creatinine Ratio 20.0 17.3 Glucose 99 134 H Estimat Average Glucose 131 Hemoglobin A1c 6.2 H Lactate 1.0 Calcium 8.1 L 9.0 Phosphorus 3.6 Magnesium 2.3 1.5 L Iron 27 L TIBC 227 L Transferrin 162 L Transferrin % Sat 12 L Ferritin 28.6 Total Bilirubin 1.0 AST 28 ALT 14 Alkaline Phosphatase 129 H Troponin I High Sens 18.7 B-Natriuretic Peptide Total Protein 6.5 Albumin 3.5 Globulin 3.0 Albumin/Globulin Ratio 1.2 Triglycerides 96 Cholesterol 89 LDL Cholesterol, Calc 18 VLDL Cholesterol, Calc 19 HDL Cholesterol 52 Cholesterol/HDL Ratio 1.7 Vitamin B12 735 Folate 9.45 Procalcitonin TSH 2.172 Urine Color Yellow Urine Appearance Clear Urine pH 5.0 Ur Specific [place] > 1.045 H Urine Protein Trace H Urine Glucose (UA) Negative Urine Ketones Trace H Urine Blood Negative Urine Nitrite Negative Urine Bilirubin Negative Urine Urobilinogen Negative Ur Leukocyte Esterase Negative Urine WBC (Auto) 0-5 Urine RBC (Auto) 0-2 U Hyaline Cast (Auto) 0-2 U Epithel Cells (Auto) 0-2 Urine Bacteria (Auto) None Seen Ur Renal Epithelial Cell [place] Biurate Crystals Calcium Oxalate Crystal Leucine Crystals Cystine Crystals Uric Acid Crystals Triple Phos Crystals Sulfonamide Crystals Cholesterol Crystals Talc Crystals Tyrosine Crystals Hippuric Acid Crystals Unidentified Crystals Amorphous Sediment Epithelial Casts Hyaline Casts Granular Casts Waxy Casts RBC Casts WBC Casts Other Casts Urine Mucus Urine Other Urine Trichomonas Urine Yeast Urine Sperm Ur Oval Fat Bodies Urine Comment Ethyl Alcohol mg/dL SARS-CoV-2 (PCR) Influenza Type A (PCR) Influenza Type B (PCR) RSV (RT-PCR) 11/04/25 11/04/25 11/04/25 23:17 22:41 20:33 WBC RBC Hgb Hct MCV MCH MCHC RDW Std Deviation RDW Coeff of Dereck Plt Count MPV Immature Gran % (Auto) Neut % (Auto) Lymph % (Auto) Edwards % (Auto) Eos % (Auto) Baso % (Auto) Neut # (Auto) Lymph # (Auto) Edwards # (Auto) Eos # (Auto) Baso # (Auto) Immature Gran # (Auto) VBG pH 7.30 L VBG pCO2 35 L VBG pO2 45 VBG HCO3 17 VBG O2 Saturation 74.0 VBG Base Excess -8.4 Sodium Potassium Chloride Carbon Dioxide Anion Gap BUN Creatinine Est Cr Clr Drug Dosing eGFR BUN/Creatinine Ratio Glucose Estimat Average Glucose Hemoglobin A1c Lactate 2.2 H* 3.1 H* Calcium Phosphorus Magnesium Iron TIBC Transferrin Transferrin % Sat Ferritin Total Bilirubin AST ALT Alkaline Phosphatase Troponin I High Sens B-Natriuretic Peptide 652 H Total Protein Albumin Globulin Albumin/Globulin Ratio Triglycerides Cholesterol LDL Cholesterol, Calc VLDL Cholesterol, Calc HDL Cholesterol Cholesterol/HDL Ratio Vitamin B12 Folate Procalcitonin TSH Urine Color Cancelled Urine Appearance Cancelled Urine pH Cancelled Ur Specific [place] Cancelled Urine Protein Cancelled Urine Glucose (UA) Cancelled Urine Ketones Cancelled Urine Blood Cancelled Urine Nitrite Cancelled Urine Bilirubin Cancelled Urine Urobilinogen Cancelled Ur Leukocyte Esterase Cancelled Urine WBC (Auto) Cancelled Urine RBC (Auto) Cancelled U Hyaline Cast (Auto) Cancelled U Epithel Cells (Auto) Cancelled Urine Bacteria (Auto) Cancelled Ur Renal Epithelial Cell Cancelled [place] Biurate Crystals Cancelled Calcium Oxalate Crystal Cancelled Leucine Crystals Cancelled Cystine Crystals Cancelled Uric Acid Crystals Cancelled Triple Phos Crystals Cancelled Sulfonamide Crystals Cancelled Cholesterol Crystals Cancelled Talc Crystals Cancelled Tyrosine Crystals Cancelled Hippuric Acid Crystals Cancelled Unidentified Crystals Cancelled Amorphous Sediment Cancelled Epithelial Casts Cancelled Hyaline Casts Cancelled Granular Casts Cancelled Waxy Casts Cancelled RBC Casts Cancelled WBC Casts Cancelled Other Casts Cancelled Urine Mucus Cancelled Urine Other Cancelled Urine Trichomonas Cancelled Urine Yeast Cancelled Urine Sperm Cancelled Ur Oval Fat Bodies Cancelled Urine Comment Cancelled Ethyl Alcohol mg/dL < 10.0 SARS-CoV-2 (PCR) Influenza Type A (PCR) Influenza Type B (PCR) RSV (RT-PCR) Diagnostic Findings Head CT 11/04/25 19:13 CT head without contrast Impression: No acute intracranial pathology. Electronically signed by Darshan Brambila 11-04-2025 9:31 PM Brain MRI 11/05/25 00:00 HISTORY: TIA. Slurred speech. Falls with increased weakness. IMPRESSION: * No acute intracranial findings. No evidence of acute infarct, intracranial hemorrhage, or mass effect. * Extensive T2/FLAIR hyperintensity involving the periventricular and subcortical white matter is nearly confluent and highly nonspecific. This is most commonly attributed to chronic microvascular ischemic changes with other differential considerations including demyelinating disease or other infectious or inflammatory causes of leukoencephalopathy. * Moderate diffuse volume loss. * Additional chronic and/or incidental findings as above. Electronically signed by Manny Phillips 11-05-2025 09:27 AM Head MRA 11/05/25 00:00 HISTORY: Increased weakness. TIA. Slurred speech. IMPRESSION: * No evidence of central vessel occlusion, focal hemodynamically significant stenosis, or aneurysm. Electronically signed by Manny Phillips 11-05-2025 09:22 AM Medications Administered Home Medications Medication Instructions Recorded Confirmed Last Taken atorvastatin 10 mg tablet 10 mg PO QAM 07/28/18 11/04/25 11/04/25 pantoprazole 40 mg tablet,delayed 40 mg PO QAM 07/28/18 11/04/25 11/04/25 release aspirin 81 mg tablet,delayed 81 mg PO QAM 09/14/24 11/04/25 11/04/25 release cyanocobalamin (vitamin B-12) 1,000 mcg subcut .EVERY 6 WEEKS 09/14/24 11/04/25 Unknown 1,000 mcg/mL injection solution losartan 100 mg tablet 100 mg PO QAM 09/14/24 11/04/25 11/04/25 amlodipine 5 mg tablet 10 mg PO QAM 11/04/25 11/04/25 11/04/25 duloxetine 30 mg capsule,delayed 30 mg PO QAM 11/04/25 11/04/25 11/04/25 release metoprolol succinate 50 mg 50 mg PO AMHS 11/04/25 11/04/25 11/04/25 tablet,extended release 24 hr am dose Active Medications Generic Name Dose Route Start Last Admin Trade Name Freq PRN Reason Stop Dose Admin Aspirin 81 mg 11/05/25 09:00 11/05/25 08:00 Aspirin 81 Mg Ectab PO 12/05/25 08:59 81 mg QAM LYNDA Administration Atorvastatin Calcium 10 mg 11/05/25 09:00 11/05/25 08:01 Atorvastatin 10 Mg Tab PO 12/05/25 08:59 10 mg QAM LYNDA Administration Duloxetine HCl 30 mg 11/05/25 09:00 11/05/25 08:00 Duloxetine Hcl 30 Mg Cap PO 12/05/25 08:59 30 mg QAM LYNDA Administration Enoxaparin Sodium 30 mg 11/05/25 09:00 11/05/25 08:01 Enoxaparin Inj 30 Mg/0.3 Ml Syr SQ 12/05/25 08:59 30 mg QAM LYNDA Administration Metoprolol Succinate 25 mg 11/05/25 09:00 11/05/25 08:01 Metoprolol Succ 25mg Ext Rel Tab PO 12/05/25 08:59 25 mg AMHS LYNDA Administration Oxycodone HCl 5 mg 11/04/25 23:23 11/05/25 00:28 Oxycodone Hcl Ir 5 Mg Tab (Immediate Release) PO 11/18/25 23:22 5 mg Q4H PRN Administration Pain Pantoprazole Sodium 40 mg 11/05/25 09:00 11/05/25 08:01 Pantoprazole 40 Mg Tab PO 12/05/25 08:59 40 mg QAM LYNDA Administration Umeclidinium/Vilanterol 1 puffs 11/05/25 14:00 11/05/25 15:35 Umeclidinium/Vilanterol 62.5/25mcg 7 Puffs/Inhaler INH 12/05/25 13:59 1 puffs DAILY LYNDA Administration
[2025-11-06 07:10] LABS: Hematocrit (blood only) 34.1 % (42.0-52.0); Hemoglobin 11.3 g/dL (14.0-18.0); Immature Granulocytes # (auto) 0.04 K/uL (0.01-0.20); Immature Granulocytes % (auto) 0.4 %; Mean Corpuscular Hemoglobin 33.8 pg (25.0-34.0); Mean Corpuscular Volume 102.1 fL (80.0-100.0); Platelet Count 288 K/uL (130-400); RDW Standard Deviation 61.8 fL (36.4-46.3); Red Blood Count 3.34 M/uL (4.70-6.10); White Blood Count 10.69 K/ul (4.8-10.8)
[2025-11-06 07:41] LABS: Anion Gap 9.0 (3-11); Blood Urea Nitrogen 9.0 mg/dl (6-23); Calcium 8.6 mg/dl (8.6-10.3); Carbon Dioxide 22.0 mmol/L (21-32); Chloride 110.0 mmol/L (98-107); Creatinine Clr Calc Pharmacy 45.4 ml/min; Glucose 95.0 mg/dl (70-99(Fasting)); Magnesium 1.8 mg/dl (1.7-2.4); Potassium 3.9 mmol/L (3.5-5.1); Sodium 141.0 mmol/L (136-145)
--- NOTE | 2025-11-06 08:34 | XCELERA ---
[id number]
--- NOTE | 2025-11-06 13:16 | Pharmacy Report ---
- Date of Service November 06, 2025 - Pharmacy CVA/TIA Medication Review Medications to Prevent Stroke handout has been added to the patients discharge packet. Antiplatelet(s) * aspirin 81mg po daily Cholesterol * High intensity statin: atorvastatin 40 mg daily DVT Prophylaxis * Enoxaparin SQ Therapeutic Anticoagulation * Hx Afib/Aflutter noted, but anticoagulation is being deferred per Dr. Dennis as patient is high risk Type 2 Diabetes * Patient does not have T2DM
--- NOTE | 2025-11-06 14:43 | Fluoroscopy Report ---
MODIFIED BARIUM SWALLOW CLINICAL HISTORY: r/o aspiration; intermittent regurgitation COMPARISON STUDY: None. FLUOROSCOPY TIME: 2.38 minutes. Ka,r: 10.4 mGy TECHNIQUE: A modified barium swallow was performed in conjunction with Speech Pathology. The patient ingested varying consistencies of barium containing material. Video fluoroscopy was performed. FINDINGS: Premature spillage was noted with thin liquids by spoon. Residuals were noted within the pi riform sinuses and vallecula with each consistency. No aspiration was identified on the initial swall ows. Epiglottic inversion was incomplete. Eventually, there were multiple episodes of silent tracheal aspiration related to undercoating of the epiglottis and vallecular retention. Hyolaryngeal elevatio n was diminished. Despite multiple attempts, heavy vallecular residuals were noted, particularly with pudding consistency. There was no aspiration with chin tuck. Vallecular clearance was diminished. IMPRESSION: 1. Premature spillage with significant vallecular retention, undercoating of the epiglottis and event ual silent tracheal aspiration with multiple consistencies. Incomplete epiglottic inversion and hyola ryngeal elevation. 2. Full recommendations by Speech pathology to follow. ACT 112: Negative or not required by law. Electronically signed by: Julio Mehta M.D. 11/06/2025 2:41 PM
--- NOTE | 2025-11-06 16:03 | Hospitalist Progress Note ---
Date of Service November 06, 2025 Assessment & Plan (1) Acute and chronic respiratory failure with hypoxia: (2) Chronic pulmonary aspiration: (3) Pulmonary hypertension: (4) ILD (interstitial lung disease): (5) Ambulatory dysfunction: (6) Cerebral microvascular disease: (7) Centrilobular emphysema: (8) Paroxysmal atrial fibrillation: (9) Pernicious anemia: Plan Patient 85-year-old gentleman with acute on chronic respiratory failure due to progression of his interstitial lung disease and emphysema in the setting of chronic aspiration. Patient most likely will need oxygen at all times moving forward Patient extensively educated by speech therapist about his chronic aspiration issues. Patient will accept these risks understanding that he will have ongoing issues with oxygen and risk for pneumonia. Patient with evidence of centrilobular emphysema on imaging, continue current treatment plan Patient with ongoing physical decline most likely reflective of his progressive cerebral white matter microvascular ischemic disease decreasing his ability for balance and strength. Continue therapies Case management to pursue placement options Conversation with patient, his daughter, and his son at the bedside. They are aware of the chronic aspiration. Airway chronic progressive interstitial lung disease and emphysema, aware of his microvascular cerebral disease. They are informed that all these are progressive diseases at best we can support his symptoms and potentially decrease how rapidly advanced. We discussed advanced directives. He will discuss this more with his family reconsider his CODE STATUS. He does think he has a living will somewhere that they have completed in the past but does not recall what on it. I told him that we can update his CODE STATUS at any time if he chooses. Patient did say he would be willing to go to skilled rehab. He has been at [facility] in the past. 53 minutes spent in review of records, communication with medical team, family meeting, review and interpretation data, orders and documentation Admission and Anticipated Discharge Date Admission Date: November 04, 2025 Subjective Patient overall feeling a little bit better. Denies shortness of breath Physical Exam Physical Exam: Constitutional: Alert, nontoxic, no acute distress HEENT: Mucous membranes moist. Lungs: Decreased breath sounds, some coarse sounds CV: S1-S2, regular Abdomen: Soft, nontender, nondistended Extremities: No significant edema Neuro: No focal deficits, generally weak Psych: Cooperative, normal mood Results & Data Results & Data Vital Signs (Past 12 Hours) Vital Signs Temp Pulse Pulse Resp BP Pulse Ox O2 Del Method 11/06/25 15:19 Nasal Cannula 11/06/25 11:17 36.8 C 98 H 18 106/62 93 Nasal Cannula 11/06/25 08:06 36.3 C L 106 H 20 122/80 93 Nasal Cannula 11/06/25 07:18 109 H 11/06/25 04:00 36.7 C 89 18 116/68 93 Nasal Cannula O2 Flow Rate 11/06/25 15:19 2 11/06/25 11:17 2 11/06/25 08:06 2 11/06/25 07:18 11/06/25 04:00 1 Diagnostic Findings Reviewed imaging, laboratory and diagnostic studies. Pertinent findings as below. Video swallow report reviewed CBC stable Electrolytes stable Creatinine 0.81 Echocardiogram: Normal ejection fraction 55 to 60%. Significant elevated right ventricular pressure 50 to 60 mmHg
[2025-11-06] MEDS: MELATONIN 3 MG TAB PO PRN (20:55)
--- NOTE | 2025-11-07 12:07 | Hospitalist Progress Note ---
Date of Service November 07, 2025 Assessment & Plan (1) Acute and chronic respiratory failure with hypoxia: (2) Chronic pulmonary aspiration: (3) Pulmonary hypertension: (4) ILD (interstitial lung disease): (5) Ambulatory dysfunction: (6) Cerebral microvascular disease: (7) Centrilobular emphysema: (8) Paroxysmal atrial fibrillation: (9) Pernicious anemia: Plan Patient appears to be medically maximized at this point. Continue therapies Communication with case management, pursuing penitentiary Discussed with patient advanced directives. He states that he would want to be resuscitated if required. He would only want to be removed from the ventilator if there was no chance of meaningful recovery. Will remain a full code. Admission and Anticipated Discharge Date Admission Date: November 04, 2025 Subjective No acute issues overnight. Patient states she was able to ambulate with minimal assistance to the bathroom today. Feels a little bit short of breath when he does more prolonged activity. Physical Exam Physical Exam: Constitutional: Alert, nontoxic, sitting in chair HEENT: Mucous membranes moist. Lungs: Decreased breath sounds, prolonged, few crackles throughout CV: S1-S2, regular Abdomen: Soft, nontender, nondistended Extremities: No significant edema Neuro: No focal deficits Psych: Cooperative, normal mood Results & Data Results & Data Vital Signs (Past 12 Hours) Vital Signs Temp Pulse Resp BP Pulse Ox O2 Del Method O2 Flow Rate 11/07/25 09:10 Nasal Cannula 2 11/07/25 07:56 36.5 C 109 H 20 121/83 96 Nasal Cannula 2 11/07/25 03:59 36.8 C 72 20 116/56 L 96 Room Air 11/07/25 00:13 36.8 C 106 H 20 110/70 94 Nasal Cannula 2 Diagnostic Findings Reviewed imaging, laboratory and diagnostic studies. Pertinent findings as below.
--- NOTE | 2025-11-08 05:55 | Electrocardiogram Report ---
Test Reason : Blood Pressure : */* mmHG Vent. Rate : 68 BPM Atrial Rate : * BPM P-R Int : 212 ms QRS Dur : 88 ms QT Int : 430 ms P-R-T Axes : * -58 116 degrees QTcB Int : 457 ms Poor data quality, interpretation may be adversely affected Sinus rhythm with 1st degree A-V block with frequent Premature atrial complexes Left axis deviation Inferior infarct , age undetermined Possible Anterior infarct , age undetermined Abnormal ECG When compared with ECG of 15-Sep-2024 17:53, T wave inversion now evident in Lateral leads Premature atrial complexes are now Present Confirmed by Tyson Stallings ([id number]) on 11/08/2025 5:55:29 AM Referred By: REFERRED SELF Confirmed By: Tyson Stallings
[2025-11-08 07:31] VITALS: PULSE 113; RESP 20; TEMP 97.5; O2SAT 95
--- NOTE | 2025-11-08 13:44 | Discharge Summary ---
Discharge Summary Date of Service November 08, 2025 Principal Dx & Hospital Course #1 = Principal Diagnosis (1) Acute and chronic respiratory failure with hypoxia: (2) Chronic pulmonary aspiration: (3) Pulmonary hypertension: (4) ILD (interstitial lung disease): (5) Ambulatory dysfunction: (6) Cerebral microvascular disease: Acute stroke ruled out (7) Centrilobular emphysema: (8) Paroxysmal atrial fibrillation: (9) Pernicious anemia: And iron deficiency Plan Patient 85-year-old gentleman with known chronic respiratory failure due to COPD and interstitial lung disease and pulmonary fibrosis on chronic oxygen at home presented to the emergency room with questionable slurred speech. Patient also was much weaker, seemed to be more short of breath and was having significant number of falls at home. Initial evaluation in the emergency room Was notable for some hypoxia. Head imaging was unremarkable but was referred for further evaluation. Patient was admitted to the hospital. Patient has known paroxysmal atrial fibrillation. Not on anticoagulation due to risks of falls. MRI of the brain was performed. There was no evidence of acute ischemic event. There was significant evidence of microvascular disease. Neurology consultation was obtained. Recommended continuing management of risk factors. [place] that patient's chronic ischemic white matter disease could explain his transient strokelike symptoms and progressive ambulatory dysfunction. Patient was seen by therapies, recommended that patient have ongoing rehabilitation at custodial facility. Case management as well as in his care to help coordinate this. Patient was also seen by speech. Was noted to aspirate. Underwent full video swallow which confirmed aspiration. This was discussed with the patient and the family. They understand that there is no treatments that cure or resolve the chronic aspiration. This certainly can explain some of his chronic progressive hypoxia. His diet was changed to soft and bite sized. He was given some instruction on aspiration precautions during eating. And excepted the risk of his chronic aspiration. Patient continued to require oxygen throughout his hospitalization. Patient had been to [facility] in the past. It was coordinated for him to continue his care there and ongoing rehabilitation. Notes For Next Care Provider May need continual titration of oxygen. Medication Changes From Visit Amlodipine stopped due to borderline low blood pressure Losartan stopped due to borderline low blood pressure Feosol Admission HPI Per Admitting Provider History obtained from patient, family, and records. Medical history significant for chronic diastolic heart failure (EF 60-65%, TTE 2023), hypertension, mild MR/TR, NSVT, A-fib not on anticoagulation secondary to fall risk, chronic respiratory failure secondary to COPD/ILD/pulmonary fibrosis on home O2, pulmonary hypertension, hyperlipidemia, prediabetes, cerebral arteriosclerosis as per records chronic anemia (baseline hemoglobin 12-13), pernicious anemia as per records, GERD, Zenker's diverticulum, BPH, mood disorder, past alcohol abuse. Last confinement September 2024 for hypertensive urgency and strokelike symptoms presenting as headache with blurred vision. Patient speech noted by family to be somewhat slurred since yesterday. Patient talking funny. Denies headache. No arm or leg weakness. Compliant with home medications. Patient weaker than usual today. More short of breath the last few days. No unusual cough symptoms. Patient admits to cough symptoms with water/food intake from time to time especially in the morning. Patient denies chest pain. Denies abdominal pain or dysuria symptoms. Lowest O2 sats of 80s documented at the ER. IV cefepime administered at the ER. Speech currently better as per daughter. 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 Lungs: Decreased breath sounds, prolonged expiratory phase, no wheezes CV: S1-S2, irregular Abdomen: Soft, nontender, nondistended Extremities: No significant edema Neuro: No focal deficits, generally weak Psych: Cooperative, normal mood Updated Medication List Medication Instructions Recorded Confirmed Type cyanocobalamin (vitamin B-12) 1,000 mcg subcut .EVERY 6 WEEKS 09/14/24 11/04/25 History 1,000 mcg/mL injection solution losartan 100 mg tablet 100 mg PO QAM 09/14/24 11/04/25 History amlodipine 5 mg tablet 10 mg PO QAM 11/04/25 11/04/25 History aspirin 81 mg tablet,delayed 81 mg PO QAM #100 tabs 11/08/25 Rx release atorvastatin 10 mg tablet 10 mg PO QAM #30 tabs 11/08/25 Rx duloxetine 30 mg capsule,delayed 30 mg PO QAM #30 caps 11/08/25 Rx release ferrous sulfate 325 mg (65 mg 325 mg PO DAILY #30 tabs 11/08/25 Rx iron) tablet (Feosol) metoprolol succinate 50 mg 50 mg PO [facility]HS #60 tabs 11/08/25 Rx tablet,extended release 24 hr pantoprazole 40 mg tablet,delayed 40 mg PO QAM #30 tabs 11/08/25 Rx release umeclidinium 62.5 mcg-vilanterol 1 inh inhalation DAILY #60 ea 11/08/25 Rx 25 mcg/actuation powdr for inhalation (Anoro Ellipta) Hospital Stay Data Consultations 11/04/25 21:11 ED Decision to Admit Stat 11/05/25 13:11 Consult Neurology Routine Diagnostic Imagining Performed 11/04/25 19:13 CT head/brain wo con Stat 11/04/25 21:38 CT angio chest PE protocol Stat 11/05/25 00:00 MR angio head wo con Routine MR brain wo con Routine 11/06/25 13:30 FL video swallow Routine Reviewed imaging, laboratory and diagnostic studies. Pertinent findings as below. Echocardiogram: Ejection fraction 55 to 60%, normal left ventricular wall motion, mild mitral regurgitation, moderate tricuspid regurgitation, right ventricular pressure 50 to 60 mmHg Video swallow: Significant vallecular retention, silent aspiration with multiple consistencies MRI of the brain showed no acute infarction, no mass, chronic microvascular ischemic changes, diffuse volume loss WBCs 10.6 Hemoglobin 11.3 Platelets of 288 Electrolytes within normal range Creatinine 0.81 Iron 27 TIBC 227 Trans ferritin 162 Percent sat 12 Triglycerides 96 Total cholesterol 89 LDL 18 HDL 52 B12 735 Procalcitonin 0.1 TSH 2.1 Pending Results Patient Have Any Pending Studies at Discharge: No Discharge Instructions Given to Patient (Per Discharging Provider) Continue with therapies Patient has known chronic aspiration. May need to titrate oxygen intermittently Total Time Total Time Spent Total Time Spent (In Minutes): 35
[2025-11-08 14:22] VITALS: BP 124/70
== END 2025-11-08 15:19 | DRG 91 ==
LOC: ED 18:38 → SUATTDRO 22:43 → 2N 22:43